=== PATIENT | female | born 1940 | race Caucasian/White ===

== ENCOUNTER → 2017-02-20 | Outpatient (CLI) | payer MEDICARE, SELFPAY | PROVIDERS: Visit Provider Urology | DX: N28.1 Cyst of kidney, acquired (principal) | CPT/HCPCS: 74176 ==

== ENCOUNTER 2017-02-24 12:56 | Outpatient (POV) | payer MEDICARE, SELFPAY | END 2017-02-24 15:38 | disposition home or self-care (01) | PROVIDERS: Family Provider Family Medicine; PCP Family Medicine; Visit Provider Urology | DX: D30.02 Benign neoplasm of left kidney (principal) | CPT/HCPCS: 81002; 99212 ==

== ENCOUNTER 2017-03-03 10:00 | Outpatient (RCR) | payer MEDICARE, SELFPAY | END 2017-03-03 23:59 | LOC: PT 10:00 | PROVIDERS: Visit Provider Family Medicine | DX: M54.5 Low back pain (principal) | CPT/HCPCS: G8978; G8979; G8980; 97010; 97012; 97014; 97035; 97161; G0283 ==

== ENCOUNTER 2017-03-11 09:30 | Outpatient (RCR) | payer MEDICARE, SELFPAY | END 2017-03-11 23:59 | LOC: PT 09:30 | PROVIDERS: Family Provider Nurse Practitioner; PCP Family Medicine; Visit Provider Family Medicine | DX: M54.5 Low back pain (principal) | CPT/HCPCS: 97010; 97012; 97014; 97035; G0283 ==

== ENCOUNTER → 2017-03-23 11:33 | Outpatient (CLI) | payer MEDICARE, SELFPAY | PROVIDERS: PCP Family Medicine; Visit Provider Orthopaedic Surgery | DX: Z01.812 Encounter for preprocedural laboratory examination (principal); Z01.810 Encounter for preprocedural cardiovascular examination; M17.12 Unilateral primary osteoarthritis, left knee | CPT/HCPCS: 93005 ==

== ENCOUNTER → 2017-03-28 11:26 | Outpatient (CLI) | payer MEDICARE, SELFPAY ==
[2017-03-28 13:01] LABS: Basophils # 0.1 K/mm3 (0-0.2); Basophils % 0.9 % (0.1-2.0); Eosinophils # 0.4 K/mm3 (0.0-0.4); Eosinophils % 4.6 % (0.1-12.0); Hematocrit 37.8 % (37.0-47.0); Hemoglobin 11.7 g/dL (12.2-16.2); Lymphocytes # 2.1 K/mm3 (0.7-4.5); Lymphocytes % 26.9 K/mm3 (10-50); Mean Corpuscular HGB Conc 31.1 g/dL (31.8-35.4); Mean Corpuscular Hemoglobin 31.2 pg (27.0-31.2); Mean Corpuscular Volume 100.3 fl (81-99); Mean Platelet Volume 10.9 fl (7.4-10.4); Monocytes # 0.4 K/mm3 (0.1-1.0); Monocytes % 4.9 % (1.7-9.3); Neutrophils # 4.9 K/mm3 (1.8-7.8); Neutrophils % 62.6 % (37.0-80.0); Platelet Count 185 K/mm3 (142-424); Red Blood Count 3.77 M/mm3 (4.20-5.40); Red Cell Distribution Width 13.7 % (11.5-17.5); White Blood Count 7.8 K/mm3 (4.8-10.8)
[2017-03-28 16:39] LABS: Anion Gap 13.4 mEq/L (5-15); Blood Urea Nitrogen 38 mg/dL (7-18); Carbon Dioxide 27 mmol/L (21.0-32.0); Chloride 103 mmol/L (98-107); Creatinine,Serum 1.91 mg/dL (0.55-1.02); Estimated Glomerular Filt Rate 26 ml/min (>60); GFR (African American) 31 ML/MIN (>60); Glucose 88 mg/dL (74-106); Potassium 5.4 mmoL/L (3.5-5.1); Sodium 138 mmol/L (136-145)
== END ==
PROVIDERS: PCP Orthopaedic Surgery; Visit Provider Orthopaedic Surgery
DX: Z01.818 Encounter for other preprocedural examination (principal); M17.12 Unilateral primary osteoarthritis, left knee
CPT/HCPCS: 36415; 80048; 85025; 86850

== ENCOUNTER 2017-03-30 06:07 | Inpatient (IN) | payer MEDICARE, SELFPAY ==
[2017-03-27 13:57] VITALS: BMI 26.9
[2017-03-30] VITALS (23 sets, daily range): BP systolic 100–174; BP diastolic 48–85; PULSE 61–84; RESP 16–20; TEMP 36.3–43; O2SAT 94–99; BMI 28.4
--- NOTE | 2017-03-30 10:38 | HMH.ANESCL ---
[facility] Anesthesia Checklist - Patient Identification Patient Identification: Arm Band - Structural Data Admitted From: Home Planned Operative Procedure/s: left tka Consent for Planned Operative Procedure(s) Verified: Yes Verified Documents: Surgical Consent, History and Physical - NPO Status Verified Time NPO: 00:00 - Additional verifications Anesthesia Reactions: No - Airway Assessment C-Spine Mobility Assessed: Yes TMJ Mobility Assessed: Yes Dentition: Dentures-good fit - Neurological Assessment Level of Consciousness: Awake, Alert - Anesthesia Plan Anesthesia Risk discussed: Yes Anesthesia Plan: Verified ASA Class: III Anesthesia Type: General - Preoperative Comments Pre-Operative Comments: fem/sciatic nerve block [facility] Anesthesia HX I have reviewed the patient's past medical history: Yes Medical History: Reports:: Gastroesophageal Reflux Disease(GERD), Hyperlipidemia, Hypertension Denies:: Cancer, Diabetes Mellitus Type 1, Diabetes Mellitus Type 2, Internal Pacemaker, MRSA, Seizures Other Medical History: Reports: Hypothyroidism, Sinus Problems, Thyroid Disease. Denies: Blood Transfusion Reaction Comment: chronic renal insufficiency- cr. 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 No: Pacemaker Amputation: No Fractures: No *Family Hx:: Cancer, Coronary Artery Disease
--- NOTE | 2017-03-30 10:40 | P.PN_ITS ---
[facility] Anesthesia Record Part I Intake, IV Amount: 1,400 Estimated blood loss (mL): 0 Urine output (mL): 350 Blood Pressure: 129/65 SaO2: 95 Pulse Rate: 68 Respiratory Rate: 16 Temperature: 97.4 F Patient is:: Drowsy, Stable Stable to PACU at:: 10:35
--- NOTE | 2017-03-30 10:41 | P.PN_ITS ---
[facility] Anesthesia Record Part II Discharge Time: 11:05 Destination: 2nd floor PACU nurse assessment reviewed?: Yes Patient Condition:: Good Anesthesia Complications:: None
--- NOTE | 2017-03-30 10:56 | XR_ITS ---
XR knee LT 2V Ordering Physician: Diogenes Henry MD Patient Age: 76 years: Female HISTORY: ITS.REASON: postop xrays 2 views AP and lat left knee Left CESAR a postop images TECHNIQUE: AP and crosstable lateral view left knee COMPARISON :Previous left knee 01/08/2017. FINDINGS Patient is undergone left CTA. The femoral and tibial components appear to be in good position . Patellar component is well. No evidence of fracture nor loosening. . The marginal osteophytes about the knee including patellofemoral joint have been trimmed, and or resected with this procedure Extensive postsurgical changes are seen anteriorly at the knee with this air-fluid level is noted just inferior to patella with air and fluid at at suprapatellar bursa as well. Stippled air from recent surgery is seen extending to the anterior aspect of lower 5 but more evident inferior to the patella extending down to the tibial tubercle. IMPRESSION: Left CESAR a now place. Satisfactory position of components. Postsurgical changes.
[2017-03-30 14:36] LABS: Microscopic,Cath URINE MICROSCOPIC (MICROSCOPIC)
[2017-03-30 14:38] LABS: Appearance,Urine/Cath CLEAR (Clear); Bilirubin,Cath Negative (Negative); Blood, Urine/Cath Negative (Negative); Color,Urine/Cath YELLOW (Yellow); Glucose,Urine/Cath (UA) Negative (Negative); Ketones,Urine/Cath Negative (Negative); Leukocyte Esterase,Cath Negative (Negative); Nitrate,Cath Negative (Negative); PH,Urine/Cath 5.5 (5.0-8.5); Protein,Urine/Cath Negative (Negative); Urobilinogen,Cath 0.2 EU/dl (0.2)
[2017-03-30 15:04] LABS: Bacteria,Urine/Cath TRACE /lpf; RBC,Urine/Cath Occasional # /hpf (0-3)
[2017-03-30 19:09] LABS: Microscopic, Urine URINE MICROSCOPIC (MICROSCOPIC)
[2017-03-30 20:24] LABS: Appearance,Urine CLEAR (Clear); Bilirubin,Urine Negative (Negative); Blood, Urine Negative (Negative); Color,Urine YELLOW (Yellow); Glucose,Urine (UA) Negative (Negative); Ketones,Urine Negative (Negative); Leukocyte Esterase,Urine Negative (Negative); Nitrate,Urine Negative (Negative); Protein,Urine TRACE (Negative); Specific Gravity, Urine 1.015 (1.005-1.030); Urobilinogen,Urine 0.2 EU/dl (0.2)
[2017-03-30 21:21] LABS: Bacteria,Urine Trace /lpf; Hyaline Casts,Urine Occasional #/lpf (0); Mucus,Urine Trace /lpf
--- NOTE | 2017-03-30 22:14 | PC.NURSE ---
[place] to chart vitals where they need to be . BP 139/51 PULSE 77 TEMP 98.3 RESP 18 O2 98
--- NOTE | 2017-03-31 05:14 | PC.NURSE ---
LAYING IN BED RESTING AT THIS TIME. HAS NOT COMPLAINED OF ANY PAIN ALL SHIFT.HAS HAD 8MG OF MORPHINE ON INSPECTOR SHEET METAL PARTS. PAIN IS CONTROLLED. NO EDEMA NOTED, PULSES STRONG. ICE APPLIED, ELEVATED. HAS USED INSENTIVE SPIROMETER. LUNGS ARE CLEAR. RESP EVEN AND NONLABORED. IV IS PATENT. HAS NO NEEDS AT THIS TIME. WILL CONTINUE TO MONITOR. BED LOCKED IN LOW POSITION, SIDE RALES UP X 2, CALL LIGHT WITHIN REACH.
--- NOTE | 2017-03-31 06:55 | PC.NURSE ---
8 MG OF MORPHINE ADMINISTERED VIA FAVOR MAKER THIS SHIFT. CURRENT PAIN LEVEL 0
[2017-03-31 07:25] LABS: Basophils % 0.1 % (0.1-2.0); Eosinophils % 0.1 % (0.1-12.0); Hematocrit 28.5 % (37.0-47.0); Hemoglobin 8.9 g/dL (12.2-16.2); Lymphocytes # 2.1 K/mm3 (0.7-4.5); Lymphocytes % 17.5 K/mm3 (10-50); Mean Corpuscular HGB Conc 31.4 g/dL (31.8-35.4); Mean Corpuscular Hemoglobin 31.8 pg (27.0-31.2); Mean Corpuscular Volume 101.4 fl (81-99); Mean Platelet Volume 10.6 fl (7.4-10.4); Monocytes # 0.8 K/mm3 (0.1-1.0); Monocytes % 6.2 % (1.7-9.3); Neutrophils # 9.3 K/mm3 (1.8-7.8); Neutrophils % 76.1 % (37.0-80.0); Platelet Count 150 K/mm3 (142-424); Red Blood Count 2.81 M/mm3 (4.20-5.40); Red Cell Distribution Width 14.1 % (11.5-17.5); White Blood Count 12.3 K/mm3 (4.8-10.8)
[2017-03-31 07:28] LABS: Anion Gap 10.7 mEq/L (5-15); Blood Urea Nitrogen 36 mg/dL (7-18); Carbon Dioxide 26 mmol/L (21.0-32.0); Chloride 111 mmol/L (98-107); Creatinine Clearance Estimated 34 mL/min (0-300); Creatinine,Serum 1.73 mg/dL (0.55-1.02); Estimated Glomerular Filt Rate 29 ml/min (>60); GFR (African American) 35 ML/MIN (>60); Glucose 110 mg/dL (74-106); Potassium 5.7 mmoL/L (3.5-5.1); Sodium 142 mmol/L (136-145)
--- NOTE | 2017-03-31 08:52 | PC.NURSE ---
154/67 75 pulse 98.1 temp 20 resp 99 room air
--- NOTE | 2017-03-31 09:15 | HMH.ORTHPN ---
Subjective Date: 03/31/17 Time: 09:15 PN: Obj Ex Vital signs: Temp Pulse Resp BP Pulse Ox 98.6 F 80 20 126/77 97 03/30/17 18:10 03/30/17 18:10 03/30/17 18:10 03/30/17 18:10 03/30/17 21:12 Narrative: POD #1 s/p L TKA. this note is regenerated on 14 Jul 2017 and may not include all details. Wound dressing clean and dry. NV status grossly intact. VSS. Labs within appropriate limits. Post op x-rays appropriate. - Constitutional no acute distress - Urinary Catheter Management Silver Cath placed during this visit: yes Urethral indwelling: Yes Reason for continuing: Other continuation reason Insertion date: 03/30/17 Insertion time: 07:34 Progress Note: A&P Assessment and Plan for All Diagnoses:: WBAT PT To see
--- NOTE | 2017-03-31 10:05 | SUR.OPER ---
The patient was taken to the operating room and placed in the supine position. A general anesthetic had been administered as well as a femoral sciatic block. The left knee was prepped and draped in the usual sterile fashion. The patient had used Hibiclens for 5 days prior as well as Bactroban intranasally. The entire operative team wore isolation suits and the knee was flexed and extended during the prep to ensure the chlorhexidine penetrated into various skin folds. The operative site was marked and sealed with Ioban. The limb was exsanguinated and a midline incision made. Hemostasis was achieved. Tranexamic acid was administered. A medial parapatellar approach was utilized. The patella was everted and a rongeur used to remove prominent osteophytes. The ACL was removed as well as the anterior aspects of both menisci. The entry point approximately 1 cm above the notch and at the medial aspect was selected and an entry drill used along the axis of the femur. The intramedullary femoral alignment guide was placed followed by placement of the distal cutting block. A 5? valgus cut with no additional femur resection was made. Then sized this at a size 4 and pinned and placed the 4-in-1 cutting block. We then protected soft tissue structures and using a [employer] precision saw, made the anterior, posterior, and both chamfer cuts. We removed the block and check for trueness. We then placed the extra medullary tibial guide aligned it appropriately and again, protecting tissues, resected the tibia proximally. We sized this checked for trueness of fit as well. We then milled for the patella, sizing it 8829 mm patella button, central peg. Excess bone was removed and we used pulsatile lavage and then placed the trial femur and trial tibia with a 9 mm insert. This allowed the need to be brought into full extension easily but yet showed a very stable varus and valgus stress test at full extension, 30?, and 90? of flexion. We decided on this is final implants for sizing. The patella tracked nicely. We irrigated again, injected the bone with 2 g of Ancef including the intramedullary canal, plug the intramedullary canal of the femur with a bone plug prior to cementing, and cemented the Eastman nephWitgetnaire system components. The tibia was cemented using methylmethacrylate without antibiotic. The femur was then cemented. A 9 mm trial component tibial polyethylene was placed and the knee brought into extension while this cement hardened. We cemented the patella as well and clamped it. Excess cement was removed and we checked for stability and patella tracking. I should mention that the femur was a size 4 narrow and slightly lateralized to improve patella tracking and the patella was slightly medialized again, to improve patella tracking. After the components were seated and the cement excess removed. We placed dilute Betadine into the wound and allowed it to sit for 3 minutes. We then irrigated with pulsatile lavage to remove the Betadine and began closure. #1 Vicryl [id number]-vm-pebkw sutures were used for the extensor mechanism with a running segment proximally and distally in the [id number]-rm-mycvp shoes in the central area of high stress. 2-0 Vicryl was utilized for the subcutaneous sutures and 4-0 Monocryl subcuticular sutures used for the skin. DermaBond and Steri-Strips completed the closure and dressings were applied. The patient was awakened and transported to the recovery room in satisfactory condition
--- NOTE | 2017-03-31 10:20 | HMH.PTEV ---
Physical Therapy Evaluation Rehab PT IP Evaluation Start: 03/30/17 11:10 Freq: ONCE Status: Active Protocol: Document 03/31/17 09:25 PHORNE (Rec: 03/31/17 10:20 PHORNE [id number]) Subjective/History History History 76 yof adm to [facility] wit left knee OA, now S/P left TKA. PMH : Right TKA Subjective Subjective Pt c/o pain and numbness in the left knee this am. Rehab PT IP Eval Objective Appearance Patient Behavior Appropriate Patient Orientation Person Place Time Difficulty following instructions none Speech Pattern Clear Appropriate Ambulation Patient Able to Ambulate No Balance Ability to Arise Able, uses arms to help Sitting Balance Steady, safe Standing Balance Steady, wide stance Dynamic Sitting Balance Ability Good Dynamic Standing Balance Ability Fair Transfers Bed Transfer Ability Minimal x 1 (25% assist) Chair Transfer Ability Moderate x 1 (50% assist) Sit to Stand Bed Transfer Ability Moderate x 1 (50% assist) Sit to Stand Chair Transfer Ability Moderate x 1 (50% assist) Pain Left Knee Pain Intensity 5 ROM LLE PT ROM Status ABN Abnormal ROM Comment 5-75 left knee ext/flex MMT LLE PT MMT ABN Abnormal MMT Grade grossly 3/5 knee flex/ext 1/5 Rehab PT IP prob,goals,plan Problems Date of Evaluation: 03/31/17 PT IP Problems Bed Mobility Transfers Gait Rehab Potential Rehab Potential Good Equipment Needs Assistive Devices Rolling / Wheeled Walker Plan PT Intervention Plan Bed Mobility Transfers Gait Therapeutic Exercise PT Plan Frequency BID Duration LOS Discharge Goals Bed Transfer Ability Contact Guard/Hand Hold Sit to Stand Chair Transfer Ability Minimal x 1 (25% assist) Ambulation Assistive Device Rolling Walker Ambulation Distance (feet) 20 Discharge Plan PT Discharge Plan Pt is most appropriate for rehab placement once medically stable. G -code Required Yes Eval Complexity Eval Charge Codes 30796 - Moderate Complexity G Codes PT Current Status Mobility PT Current Status Modifier CK-At least 40% but less than
--- NOTE | 2017-03-31 11:42 | SW/DCPLANNER ---
RECEIVED REFERRAL FOR INFORMATION TO BE SENT TO MOE TROY IS HERE AT THE HOSPITAL AND SHE STATED MS NICOLE HAS A BED THERE WHEN READY FOR A DISPOSITION... IT APPEARS SHE WILL BE READY ON ...
--- NOTE | 2017-03-31 12:04 | PC.NURSE ---
133/70 69 pulse 98.0 18 resp 99 room air 1200 vitals
--- NOTE | 2017-03-31 12:07 | HMH.ORTHPN ---
Subjective Date: 03/31/17 Time: 10:00 Principal diagnosis: Postop day 1 status post left total knee arthroplasty Interval history: POD #1..... Patient is awake, alert, states she is in no pain. She is seated in a chair. Noticing that her femoral/sciatic block is wearing off. She is able to move from an ankle but has decreased sensation which is improving. Dressing is clean and dry with no seepage. Patient has left lower extremity near full extension. Vital signs are stable. Hematocrit 28%. Potassium 5.7. Creatinine 1.73. Postoperative x-rays show components to be in good position with no evident intraoperative complications Patient is stable postoperatively. She is received her postop 3 doses of Ancef. No evident surgical complications are present. Plan--continue physical therapy. Edema control therapy. Elevate foot to assist in straightening the left knee. Dressing soria tomorrow PN: Obj Ex Vital signs: Temp Pulse Resp BP Pulse Ox 98.6 F 80 20 126/77 97 03/30/17 18:10 03/30/17 18:10 03/30/17 18:10 03/30/17 18:10 03/30/17 21:12 - Urinary Catheter Management Silver Cath placed during this visit: yes, but has since been removed by the nurse Insertion date: 03/30/17 Insertion time: 07:34 Removal date: 03/31/17
--- NOTE | 2017-03-31 12:38 | HMH.OPNOTE ---
Date of procedure: 03/30/17 Pre-op Diagnosis:: Knee tricompartmental osteoarthritis, end stage Post-op diagnosis:: same Procedure performed:: Left total knee arthroplasty with Eastman nephew legionnaire components.. Cemented femur and tibial baseplate, cruciate retaining system. Size 4 narrow CR femur, tibial baseplate and 9 mm thick polyethylene insert, 29 mm patella button Surgeon:: Diogenes Henry MD BRAND LEADER:: Other Anesthesia: GETA, regional, other Estimated blood loss (mL): 2 Operative findings:: The patient was taken to the operating room, placed in the supine position. A general anesthetic was administered. A femoral sciatic block had been administered previously. Pre operative Ancef was given and tranexamic acid given as well. The left knee was prepped and draped in the usual sterile fashion. The patient had used Hibiclens and Bactroban for 5 days prior to the surgery. The entire operative team wore isolation suits the knee was flexed and extended during the prep to ensure the chlorhexidine penetrated into skin folds. The operative site was marked and sealed with Ioban. The limb was exsanguinated and a midline incision made (see the nurses note for the tourniquet time. Pressure was 325 mmHg). A medial parapatellar approach was utilized. The patella was everted and a rongeur used to remove prominent osteophytes. The ACL was removed as well as the anterior aspects of both menisci. An entry point approximately 1 cm anterior to the notch and at the anterior aspect of the notch was selected and an entry drill used along the axis of the femur. The intramedullary femoral alignment guide was placed followed by placement of the distal cutting block. A 5? valgus cut with no additional femur resection was made. Following the cut, we noticed the vdkdai-pw-lpszc pattern at the distal end of the femur. We sized this at a size [address] the 4-in-1 cutting block. While protecting the soft tissues and using a [employer] precision saw, we made the anterior, posterior, and chamfer cuts. We removed the block for appropriateness of the cut. We then placed the extra medullary tibial guide aligned it appropriately and checked it again, and once again protecting tissues, resected the proximal tibia. We again checked for flatness of fit and appropriateness. We then milled the patella sizing it at a 29 mm patella button, central peg. Excess bone was removed and we used pulsatile lavage and checked for any remaining bits and pieces of loose tissue. We resected the remainder of the menisci and checked the posterior cruciate ligament to ensure it was in good condition. We then used the trial components to ensure that these fit appropriately and that the knee was stable. He was found to be stable to varus and valgus stress. It could easily be brought to full extension and flexion to around 125?. No rocking or tilting of the baseplate was noted and we confirmed that the posterior cruciate ligament tension was correct. The patella tracked appropriately. We irrigated again and injected the bone with 2 g of Ancef including the intramedullary canal the femur. We then plug the canal of the femur with a bone plug prior to cementing and mixed methylmethacrylate without antibiotic. We cemented the AgentBridgenaire system components as appropriate removed excess cement. A 9 mm trial polyethylene was placed and the knee brought into full extension while the patella button was placed and clamped. Once the cement dried, we checked again for stability. I should mention that the femur was a size 4 narrow and slightly lateralized to improve patella tracking. The patella was slightly medialized again to improve patella tracking and the tibial baseplate slightly externally rotated. We placed dilute Betadine into the wound and allowed it to sit for 3 minutes. We then irrigated with pulsatile lavage to remove the Betadine and began closure. #1 Vicryl figure-of-
--- NOTE | 2017-03-31 12:50 | P.OP_ITS ---
Date of procedure: 03/30/17 Pre-op Diagnosis:: Knee tricompartmental osteoarthritis, end stage Post-op diagnosis:: same Procedure performed:: Left total knee arthroplasty with Eastman nephew legionnaire components.. Cemented femur and tibial baseplate, cruciate retaining system. Size 4 narrow CR femur, tibial baseplate and 9 mm thick polyethylene insert, 29 mm patella button Surgeon:: Diogenes Henry MD RECRUITMENT ADVERTISING MANAGER:: Other Anesthesia: GETA, regional, other Estimated blood loss (mL): 2 Operative findings:: The patient was taken to the operating room, placed in the supine position. A general anesthetic was administered. A femoral sciatic block had been administered previously. Pre operative Ancef was given and tranexamic acid given as well. The left knee was prepped and draped in the usual sterile fashion. The patient had used Hibiclens and Bactroban for 5 days prior to the surgery. The entire operative team wore isolation suits the knee was flexed and extended during the prep to ensure the chlorhexidine penetrated into skin folds. The operative site was marked and sealed with Ioban. The limb was exsanguinated and a midline incision made (see the nurses note for the tourniquet time. Pressure was 325 mmHg). A medial parapatellar approach was utilized. The patella was everted and a rongeur used to remove prominent osteophytes. The ACL was removed as well as the anterior aspects of both menisci. An entry point approximately 1 cm anterior to the notch and at the anterior aspect of the notch was selected and an entry drill used along the axis of the femur. The intramedullary femoral alignment guide was placed followed by placement of the distal cutting block. A 5? valgus cut with no additional femur resection was made. Following the cut, we noticed the figure- of-eight pattern at the distal end of the femur. We sized this at a size [address] the 4-in-1 cutting block. While protecting the soft tissues and using a [employer] precision saw, we made the anterior, posterior, and chamfer cuts. We removed the block for appropriateness of the cut. We then placed the extra medullary tibial guide aligned it appropriately and checked it again, and once again protecting tissues, resected the proximal tibia. We again checked for flatness of fit and appropriateness. We then milled the patella sizing it at a 29 mm patella button, central peg. Excess bone was removed and we used pulsatile lavage and checked for any remaining bits and pieces of loose tissue. We resected the remainder of the menisci and checked the posterior cruciate ligament to ensure it was in good condition. We then used the trial components to ensure that these fit appropriately and that the knee was stable. He was found to be stable to varus and valgus stress. It could easily be brought to full extension and flexion to around 125?. No rocking or tilting of the baseplate was noted and we confirmed that the posterior cruciate ligament tension was correct. The patella tracked appropriately. We irrigated again and injected the bone with 2 g of Ancef including the intramedullary canal the femur. We then plug the canal of the femur with a bone plug prior to cementing and mixed methylmethacrylate without antibiotic. We cemented the Health 123naire system components as appropriate removed excess cement. A 9 mm trial polyethylene was placed and the knee brought into full extension while the patella button was placed and clamped. Once the cement dried, we checked again for stability. I should mention that the femur was a size 4 narrow and slightly lateralized to improve patella tracking. The patella was slightly medialized again to improve patella tracking and the tibial ba
--- NOTE | 2017-03-31 13:36 | PC.NURSE ---
report called into anatoliy in OB
--- NOTE | 2017-03-31 13:45 | PC.NURSE ---
Pt to floor at this time, room 279 A&O X3 with no s/s distress.
--- NOTE | 2017-03-31 14:12 | PC.NURSE ---
Report given to Lucy Garces RN
--- NOTE | 2017-03-31 14:13 | PC.NURSE ---
Addendum entered by Vicky Vargas RN 03/31/17 14:15: This was a late entry. Report received at 1336. Original Note: Report received from Lucy Kraus RN at this time. Pt A&O X3 and will be coming to the floor at this time.
[2017-03-31 14:30] VITALS: BP 157/74; PULSE 65; RESP 16; TEMP 36.8; O2SAT 99
--- NOTE | 2017-03-31 16:12 | PC.NURSE ---
PATIENT IS OVERFLOW FROM SECOND FLOOR. POST OP DAY 1 FROM A LEFT TOTAL KNEE REPLACEMENT. DSG NOTED TO LEFT KNEE C/D/I. ICE PACK APPLIED AT THIS TIME. LUNGS CTA AND ACTIVE BOWEL SOUNDS. PT. REPORTS PASSING FLATUS BUT NO BM YET. PT. HAS RESTED MOSTLY SINCE SHE HAS BEEN HERE. TENT FINISHER PUMP IN USE AND PT. EDUCATED ON USE. ENCOURAGED PT. TO PUSH BUTTON SO PAIN WOULD NOT GET TOO BAD. PT. HAS BEEN UP WITH THERAPY THIS AFTERNOON. NOTED PTS BP TO BE SLIGHTLY ELEVATED- WILL CONTINUE TO MONITOR THIS. FC WAS D/C THIS AFTERNOON WELL. PT. RESTING AT THIS TIME. SAFETY MEASURES IN PLACE. WILL CONTINUE TO MONITOR.
[2017-03-31 18:30] VITALS: BP 159/80; PULSE 71; RESP 16; TEMP 36.3; O2SAT 99
--- NOTE | 2017-03-31 18:52 | PC.NURSE ---
16MG OF MORPHINE CLEARED THIS SHIFT BY THIS NURSE FROM METAL MODEL BUILDER PUMP
--- NOTE | 2017-03-31 19:05 | PC.NURSE ---
report received from Jania Garces RN
--- NOTE | 2017-03-31 19:24 | PC.NURSE ---
REPORT GIVEN TO ARIE MAGALLON RN AT THIS TIME
--- NOTE | 2017-03-31 19:38 | PC.NURSE ---
1.5MG CLEARED FROM PHOTOGRAPHIC SPOTTER AT THIS TIME. NEW MORPHINE VIAL PLACED AT THIS TIME. VERIFIED WITH ANDI CLARK
[2017-03-31 20:30] VITALS: BP 182/85; PULSE 88; RESP 18; TEMP 36.7; O2SAT 98
[2017-03-31 22:30] VITALS: BP 168/71; PULSE 81; RESP 15; O2SAT 96
[2017-04-01] VITALS (11 sets, daily range): BP systolic 149–197; BP diastolic 70–92; PULSE 66–84; RESP 14–18; TEMP 36.7–37; O2SAT 93–98
--- NOTE | 2017-04-01 00:56 | PC.NURSE ---
Dr Lowe notified at this time d/t increased b/p. new orders received to repeat b/p in one hour if remains above SBP 180 give clonidine 0.1mg po x 1 dose. order repeated and verified
--- NOTE | 2017-04-01 02:00 | PC.NURSE ---
Bp repeated at this time bp 166/92 no clonidine given at this time will continue to monitor
--- NOTE | 2017-04-01 04:15 | PC.NURSE ---
Pt resting comfortably at this time. pt alert and oriented x 3 and able to make needs known. no new complaints of pain or discomfort at this time. pt states pain has remained at a 5/10. pt encouraged to use PRODUCT MANAGER [employer] pump when needed pt verbalizes understanding. pts lungs clear to auscultate. no sob noted. heart rate regular. bs x4 quads. nonpitting edema noted to left foot +2 pedal pulses noted. dressing clean dry and intact to right knee. no complaints voiced at this time no distress noted will continue to monitor at this time
--- NOTE | 2017-04-01 06:34 | PC.NURSE ---
11 mg of morphine GEOTECHNICIAL PROPERTIES TECHNICIAN administered this shift.
--- NOTE | 2017-04-01 07:06 | PC.NURSE ---
REPORT RECEIVED FROM Lisa MAGALLON RN
--- NOTE | 2017-04-01 07:06 | PC.NURSE ---
Report given to Jania Rogers RN and Christine Vargas RN
--- NOTE | 2017-04-01 11:00 | PC.NURSE ---
PT GIVEN BED BATH. PT MOVED FROM BED TO CHAIR WITH 2 ASSISTS AND SUPPORT OF WALKER - DID NOT BEAR ANY WEIGHT ON L LEG. DRESSING REMAINS INTACT - NO DRAINAGE NOTED ON DRESSING. SWELLING NOTED TO L FOOT AND ANKLE 1+ NON-PITTING. PT STATES PO PAIN MEDS HELPING SIGNIFICANTLY BUT NEEDED MORPHINE MARKETING SUPPORT COORDINATOR X1 AFTER MOVING AND GETTING OUT OF BED. L LEG ELEVATED ON PILLOWS. AT BEDSIDE. LINENS ON BED ALL CHANGED.
--- NOTE | 2017-04-01 11:59 | PC.NURSE ---
PHYSICAL THERAPY AT BEDSIDE WORKING WITH PT AT THIS TIME.
--- NOTE | 2017-04-01 13:08 | PC.NURSE ---
PT RESTING COMFORTABLY. DENIES ANY COMPLAINTS. STATES PAIN VERY TOLERABLE NOW - STATING SHE WANTS TO TAKE A NAP.
--- NOTE | 2017-04-01 13:10 | HMH.ORTHPN ---
Subjective Date: 04/01/17 Time: 11:00 Principal diagnosis: Postop day 2 status post left total knee arthroplasty Interval history: She reports minimal pain. She has been up very little with physical therapy though. She has been moved to a different room per the nursing staff. I was aware of this this morning when checking nursing notes. Dressing is changed today. The wound is absolutely clean and dry with 0 drainage whatsoever on the dressing. She is intact neurologically to light touch both lower extremities and moves ankles and toes bilaterally without any problems. She is able to achieve near full extension of the left knee. She is tolerating her medications well. She is taking ASA 325 mg once daily as DVT prophylaxis and using SCDs on the contralateral leg IMPRESSION stable postop day #2 PLAN--increase ambulation with physical therapy. Dressing is been changed today already. Continue daily ASA. Blood pressure medication management per Dr. Molina as well as any other medical issues that he feels is appropriate. From an orthopaedic standpoint, the patient could likely be discharged to [facility] tomorrow. PN: Obj Ex Vital signs: Temp Pulse Resp BP Pulse Ox 98.2 F 70 14 162/73 97 04/01/17 12:35 04/01/17 12:35 04/01/17 12:35 04/01/17 12:35 04/01/17 12:35 - Urinary Catheter Management Silver Cath placed during this visit: yes, but has since been removed by the nurse Insertion date: 03/30/17 Insertion time: 07:34 Removal date: 03/31/17
--- NOTE | 2017-04-01 13:16 | P.PN_ITS ---
Subjective Date: 04/01/17 Time: 11:00 Principal diagnosis: Postop day 2 status post left total knee arthroplasty Interval history: She reports minimal pain. She has been up very little with physical therapy though. She has been moved to a different room per the nursing staff. I was aware of this this morning when checking nursing notes. Dressing is changed today. The wound is absolutely clean and dry with 0 drainage whatsoever on the dressing. She is intact neurologically to light touch both lower extremities and moves ankles and toes bilaterally without any problems. She is able to achieve near full extension of the left knee. She is tolerating her medications well. She is taking ASA 325 mg once daily as DVT prophylaxis and using SCDs on the contralateral leg IMPRESSION stable postop day #2 PLAN--increase ambulation with physical therapy. Dressing is been changed today already. Continue daily ASA. Blood pressure medication management per Dr. Molina as well as any other medical issues that he feels is appropriate. From an orthopaedic standpoint, the patient could likely be discharged to [facility] tomorrow. PN: Obj Ex Vital signs: Temp Pulse Resp BP Pulse Ox 98.2 F 70 14 162/73 97 04/01/17 12:35 04/01/17 12:35 04/01/17 12:35 04/01/17 12:35 04/01/17 12:35 - Urinary Catheter Management Silver Cath placed during this visit: yes, but has since been removed by the nurse Insertion date: 03/30/17 Insertion time: 07:34 Removal date: 03/31/17
--- NOTE | 2017-04-01 16:20 | PC.NURSE ---
PT SITTING UP IN BED - ALERT AND ORIENTED, NOT SLEEPY APPEARING. PT NO LONGER FALLING ASLEEP DURING ASSESSMENTS AND CHECKS. PT STATES THE PO PAIN MEDICATION IS HELPING SIGNIFICANTLY AND HAS NOT USED MORPHINE BELT CHANGER DURING THE DAY EXCEPT ONCE AFTER GETTING OUT OF BED. EDEMA IN L FOOT NEARLY GONE. GOOD PULSES ALL EXTREMETIES. COLOR PINK WITH SKIN WARM AND DRY.
--- NOTE | 2017-04-01 19:05 | PC.NURSE ---
Report received from Jania Rogers RN
--- NOTE | 2017-04-01 19:20 | PC.NURSE ---
OFFICE SERVICES COORDINATOR CLEARED - PT USED TOTAL 2 MG MORPHINE SINCE 7AM.
--- NOTE | 2017-04-01 19:21 | PC.NURSE ---
REPORT GIVEN TO Ainsley MAGALLON RN
--- NOTE | 2017-04-01 20:00 | PC.NURSE ---
PT sitting up in chair in room with knee elevated. pt alert and oriented x 3, pt requested to go back to bed. pt ambulated well in room with walker with standby assist only. pt rated pain 6/10 on pain scale after ambulation no distress noted at this time. pt refused scds and ice to left knee at this time. will continue to monitor at this time
[2017-04-02 00:38] VITALS: BP 165/83; PULSE 70; RESP 18; O2SAT 96
[2017-04-02 04:30] VITALS: BP 167/81; PULSE 76; RESP 17; TEMP 36.7; O2SAT 96
--- NOTE | 2017-04-02 04:30 | PC.NURSE ---
PT lying in bed at this time with eyes open. pt alert and oriented x 3. pt c/o pain 5/10 on pain scale sharp in nature to left knee. prn pain medication given. lungs clear to auscultate, heart rate regular, bs x 4 quads pt states she is passing gas. +1 edema noted to LLE drsg to left knee clean dry and intact. pt has not used FRONT MAKER LOCKSTITCH pump throughout shift pain has been managed with just po pain medication. ice water provided no other needs voiced at this time will continue to monitor.
--- NOTE | 2017-04-02 07:02 | PC.NURSE ---
Report given to Jania Rogers RN and Memo Horan RN
--- NOTE | 2017-04-02 07:05 | PC.NURSE ---
REPORT RECEIVED FROM Ainsley MAGALLON RN
--- NOTE | 2017-04-02 07:20 | PC.NURSE ---
PT SLEEPING - WAKENS EASILY - DR VINCENT IN AT BEDSIDE.
[2017-04-02 07:54] VITALS: O2SAT 95
[2017-04-02 07:55] VITALS: BP 170/82; PULSE 72; RESP 16; TEMP 36.7; O2SAT 95
--- NOTE | 2017-04-02 09:01 | HMH.DCTXFX ---
Discharge/Transfer - Discharge Disposition: Xfer SNF Condition: Good - Plan of Care Resident has been informed of condition and prognosis?: Yes Mobility Status: ambulatory with assistance Goal of treatment:: Rehab s/p L TKA Rehab Potential: Good I concur with the most recent H & P: Yes Date of most recent H & P: 03/26/17 (approximately) Certification: I have reviewed and agree with this resident's plan of care. I certify that post-hospital assisted facility services are required to be given on an inpatient basis because of the need for assisted care on a continuing basis for the condition(s) for which he/she is receiving inpatient hospital services prior to admission to swing bed. I also certify that the resident meets existing SNF level of care definition.
--- NOTE | 2017-04-02 09:05 | P.SWB_ITS ---
Discharge/Transfer - Discharge Disposition: Xfer SNF Condition: Good - Plan of Care Resident has been informed of condition and prognosis?: Yes Mobility Status: ambulatory with assistance Goal of treatment:: Rehab s/p L TKA Rehab Potential: Good I concur with the most recent H & P: Yes Date of most recent H & P: 03/26/17 (approximately) Certification: I have reviewed and agree with this resident's plan of care. I certify that post -hospital detention facility services are required to be given on an inpatient basis because of the need for detention care on a continuing basis for the condition(s) for which he/she is receiving inpatient hospital services prior to admission to swing bed. I also certify that the resident meets existing SNF level of care definition.
--- NOTE | 2017-04-02 09:07 | HMH.DCSUM ---
General - General Admission date: 03/30/17 Discharge date: 04/02/17 HPI HPI: This 76-year-old female was admitted on 30 March and underwent an uncomplicated left total knee arthroplasty. Her postop course was uneventful. She progressed to a clean and dry wound by the second postoperative day. At time of discharge, she was partaking of a regular diet and was well-controlled on oral analgesics consisting of Lortab 5/325 every 4-6 hours as needed for pain. She was tolerating ASA 325 mg once daily for DVT prophylaxis. She was ambulating with physical therapy. Her neurovascular status in both lower extremities was intact. Pedal pulses were 2+ and she was fully sensate. At time of discharge her wound was again found to be clean and dry. No evidence of cellulitis infection drainage or other postoperative complications were present. The patient had a negative Homans sign and no clinical evidence of deep vein thrombosis was present. Objective Vital signs: Temp Pulse Resp BP Pulse Ox 98.1 F 76 17 167/81 95 04/02/17 04:30 04/02/17 04:30 04/02/17 04:30 04/02/17 04:30 04/02/17 07:54 Narrative: As noted in the HPI, wound was clean and dry the patient was neurologically intact. Lung arriaga were clear to auscultation. No evidence of postoperative pneumonia or other complications were noted. DS: Diagnosis - Discharge Diagnosis (1) History of total knee arthroplasty Status: Acute Meds Home Medications Medication Instructions Recorded Confirmed Type allopurinol 100 mg tablet 100 mg PO DAILY 03/12/17 03/30/17 History aspirin 81 mg tablet,delayed 81 mg PO DAILY 03/12/17 03/30/17 History release coenzyme Q10 200 mg capsule 200 mg PO DAILY 03/12/17 03/30/17 History esomeprazole magnesium 40 mg 40 mg PO QDAY cap 03/12/17 03/30/17 History capsule,delayed release fluoxetine 10 mg capsule 10 mg PO DAILY 03/12/17 03/30/17 History levocetirizine 5 mg tablet 5 mg PO QHS 03/12/17 03/30/17 History levothyroxine 100 mcg tablet 100 mcg PO DAILY tab 03/12/17 03/30/17 History metoprolol succinate ER 50 mg 50 mg PO BID tab 03/12/17 03/30/17 History tablet,extended release 24 hr omega-3 fatty acids 1,000 mg 1,000 mg PO DAILY 03/12/17 03/30/17 History capsule tramadol ER 300 mg tablet,extended 300 mg PO DAILY 03/12/17 03/30/17 History release 24 hr Lisinopril/Hydrochlorothiazide 12.5 - 20 mg PO BID 03/27/17 03/30/17 History [Lisinopril-Hctz 20-12.5 mg Tab] Hydrocodone/Acetaminophen 7.5 - 325 mg PO Q6HP PRN 03/30/17 03/30/17 History [Hydrocodon-Acetaminoph 7.5-325] Allergies Allergy/AdvReac Type Severity Reaction Status Date / Time adhesive tape Allergy Unknown I-RASH Verified 03/30/17 06:40 codeine Allergy Unknown HYPERACTIVE Verified 03/30/17 06:40 PT. DOES NOT LIKE TO TAKE Pdkgakt-Imi-Voe Reductase AdvReac Body Verified 03/12/17 09:14 Inhibitor Stiffness Discharge Plan - Patient Discharge Instructions ACTIVITY: Continue current activity, Ambulate as tolerated, No heavy lifting, Up with assistance DIET: advance to your usual diet, regular diet Additional Instructions: Emphasize left leg extension by having patient place a pillow underneath the ankle of the left leg several times a day. This will elevate the knee and allow her knee to straighten. Also, please limit flexion of the left knee to 90? for the first 10 days postoperatively. After 10 days postoperatively, she may advance flexion of the left knee as able. The patient has a Polar Care unit and from an orthopedic standpoint, it is appropriate for her to use this or similar unit as needed for comfort as needed. She may take a shower beginning on to April 2017. It is appropriate for the shower water to run over the operative wound site. She should not soak in a bathtub for at least 2 weeks. He is call me at [phone] or have the hospital lens grinding machine operator to page me for any questions. - Follow up P
--- NOTE | 2017-04-02 09:23 | P.DS_ITS ---
General - General Admission date: 03/30/17 Discharge date: 04/02/17 HPI HPI: This 76-year-old female was admitted on 30 March and underwent an uncomplicated left total knee arthroplasty. Her postop course was uneventful. She progressed to a clean and dry wound by the second postoperative day. At time of discharge, she was partaking of a regular diet and was well-controlled on oral analgesics consisting of Lortab 5/325 every 4-6 hours as needed for pain. She was tolerating ASA 325 mg once daily for DVT prophylaxis. She was ambulating with physical therapy. Her neurovascular status in both lower extremities was intact. Pedal pulses were 2+ and she was fully sensate. At time of discharge her wound was again found to be clean and dry. No evidence of cellulitis infection drainage or other postoperative complications were present. The patient had a negative Homans sign and no clinical evidence of deep vein thrombosis was present. Objective Vital signs: Temp Pulse Resp BP Pulse Ox 98.1 F 76 17 167/81 95 04/02/17 04:30 04/02/17 04:30 04/02/17 04:30 04/02/17 04:30 04/02/17 07:54 Narrative: As noted in the HPI, wound was clean and dry the patient was neurologically intact. Lung arriaga were clear to auscultation. No evidence of postoperative pneumonia or other complications were noted. DS: Diagnosis - Discharge Diagnosis (1) History of total knee arthroplasty Status: Acute Meds Home Medications Medication Instructions Recorded Confirmed Type allopurinol 100 mg tablet 100 mg PO DAILY 03/12/17 03/30/17 History aspirin 81 mg tablet,delayed 81 mg PO DAILY 03/12/17 03/30/17 History release coenzyme Q10 200 mg capsule 200 mg PO DAILY 03/12/17 03/30/17 History esomeprazole magnesium 40 mg 40 mg PO QDAY cap 03/12/17 03/30/17 History capsule,delayed release fluoxetine 10 mg capsule 10 mg PO DAILY 03/12/17 03/30/17 History levocetirizine 5 mg tablet 5 mg PO QHS 03/12/17 03/30/17 History levothyroxine 100 mcg tablet 100 mcg PO DAILY tab 03/12/17 03/30/17 History metoprolol succinate ER 50 mg 50 mg PO BID tab 03/12/17 03/30/17 History tablet,extended release 24 hr omega-3 fatty acids 1,000 mg 1,000 mg PO DAILY 03/12/17 03/30/17 History capsule tramadol ER 300 mg tablet,extended 300 mg PO DAILY 03/12/17 03/30/17 History release 24 hr Lisinopril/Hydrochlorothiazide 12.5 - 20 mg PO BID 03/27/17 03/30/17 History [Lisinopril-Hctz 20-12.5 mg Tab] Hydrocodone/Acetaminophen 7.5 - 325 mg PO Q6HP PRN 03/30/17 03/30/17 History [Hydrocodon-Acetaminoph 7.5-325] Allergies Allergy/AdvReac Type Severity Reaction Status Date / Time adhesive tape Allergy Unknown I-RASH Verified 03/30/17 06:40 codeine Allergy Unknown HYPERACTIVE Verified 03/30/17 06:40 PT. DOES NOT LIKE TO TAKE Lxzspeo-Qfs-Gif Reductase AdvReac Body Verified 03/12/17 09:14 Inhibitor Stiffness Discharge Plan - Patient Discharge Instructions ACTIVITY: Continue current activity, Ambulate as tolerated, No heavy lifting, Up with assistance DIET: advance to your usual diet, regular diet Additional Instructions: Emphasize left leg extension by having patient place a pillow underneath the ankle of the left leg several times a day. This will elevate the knee and allow her knee to straighten. Also, please limit flex
--- NOTE | 2017-04-02 10:16 | SW/DCPLANNER ---
PATIENT IS DISCHARGING TO [facility] TODAY, I HAVE SENT THE DISCHARGE SUMMARY AND PATIENT REQUESTED TO RIDE THE BUS... I HAVE INFORMED STAFF TO LET ME KNOW WHEN SHE IS READY...
--- NOTE | 2017-04-02 10:27 | PC.NURSE ---
REPORT CALLED TO EDUARDO GALEANO AT [facility]. IV IN R HAND DISCONTINUED WITH CATHETER TIP INTACT. PT DRESSED AND READY TO BE TRANSPORTED. WAITING FOR DR. CANTU TO COME SEE HER PRIOR TO TRANSPORT.
== END 2017-04-02 11:40 | DRG 470 ==
LOC: 2ND 03-31 09:28 → OB 03-31 13:48
PROVIDERS: Admitting Provider Orthopaedic Surgery; Family Provider Nurse Practitioner; PCP Family Medicine; Visit Provider Orthopaedic Surgery
PROC: (CPT 27447; principal; 2017-03-30 07:30)
DX: M17.12 Unilateral primary osteoarthritis, left knee (principal)
CPT/HCPCS: 27447; 36415; 73560; 80048; 81001; 85025; 86850; 94761; 96374; 97116; 97140; 97162; 97530; C1765; C1776; J0131; J2405; J2710

== ENCOUNTER → 2017-04-17 08:59 | Outpatient (CLI) | payer MEDICARE, SELFPAY ==
--- NOTE | 2017-04-17 09:01 | XR_ITS ---
XR knee LT 2V HISTORY: Follow-up knee replacement ITS.REASON: Post Op LT Total Knee ORDERING PHYSICIAN: Diogenes Henry MD PATIENT AGE: 76 years COMPARISON: 03/30/2017 FINDINGS: Status post total knee arthroplasty with good alignment of the prosthesis and no evidence of orthopedic complication. IMPRESSION: No change status post total knee arthroplasty
--- NOTE | 2017-04-17 10:02 | XR_ITS ---
XR elbow RT min 3V HISTORY: ITS.REASON: RT elbow pain ORDERING PHYSICIAN: Diogenes Henry MD PATIENT AGE: 76 years COMPARISON: None FINDINGS: Hypertrophic changes are present with bony spurring of the coronoid process. Calcification is present laterally at the radial head with faint chondrocalcinosis at the lateral aspect of the elbow joint. There is a 9 mm well circumscribed calcific density in the antecubital fossa consistent with a synovial osteochondroma. No fracture or dislocation. IMPRESSION: 1. Synovial osteochondroma of the antecubital fossa. 2. Osteoarthritic changes of elbow joint
== END ==
PROVIDERS: PCP Family Medicine; Visit Provider Orthopaedic Surgery
DX: Z09 Encounter for follow-up examination after completed treatment for conditions other than malignant neoplasm (principal); M25.521 Pain in right elbow
CPT/HCPCS: 73080; 73560

== ENCOUNTER → 2017-08-24 09:49 | Outpatient (CLI) | payer MEDICARE, SELFPAY ==
--- NOTE | 2017-08-24 09:59 | US_ITS ---
US kidney retroperitoneal comp BILATERAL RENAL ULTRASOUND Ordering Physician: Jamel Perera MD Patient Age: 77 years: Female HISTORY: ITS.REASON: REANAL MASS follow-up renal mass TECHNIQUE: Ultrasound both kidneys,. COMPARISON :Previous ultrasound kidneys January [address] abdomen dated January 2017, July 2016. March 2016; October 2015 FINDINGS . Reviewing prior CT reports and images CTs I see that this patient had a a left renal hemorrhage March 2016 which was felt to involve left renal cyst with associated subcapsular hematoma. . RIGHT KIDNEY diffuse cortical thinning 8.5 Cm in length is 5.1 cm x 6.1 cm cm LEFT KIDNEY. Difficult to image left kidney 8.6 cm x 5.7 x 5.1 cm. Cyst at the left kidney measures up to 4.6 cm x 4.1 has 1.5 cm., It demonstrates some debris & echogenic material at its posterior aspect. This cyst is less well-visualized than it was on January 2017. The internal echogenicity and debris is similar but slightly less apparent today. The overall size of the cyst is remain stable or perhaps has decreased very very slightly in size.. No significant progression by ultrasound. On the final images we again see the slightly bilobed dumbbell shaped appearance which may reflects some additional hematoma posteriorly versus the margin of the kidney. The margin between the cyst and the kidney is somewhat poorly delineated as is been previously noted thus encourage ongoing follow-up ..Ongoing follow-up CT suggested as well,, preferably with with IV contrast if feasible renal function Diffuse cortical thinning also seen at the left kidney but relatively less color Doppler flow to the left kidney but this could in part reflect the poor acoustic window IMPRESSION...... LEFT KIDNEY: 1. stable if not incrementally smaller cystic mass at the left kidney again noted . We continue see internal echoes & debris, ( although the cyst is less well visualized and delineated today. Left kidney more difficult to visualize overall). Slightly ill-defined junction with the kidney again noted Warrants ongoing follow-up ultrasound and CT 2. Diffuse cortical thinning left kidney RIGHT KIDNEY Diffuse cortical thinning
== END ==
PROVIDERS: Family Provider Nurse Practitioner; PCP Family Medicine; Visit Provider Urology
DX: D41.01 Neoplasm of uncertain behavior of right kidney (principal); D41.02 Neoplasm of uncertain behavior of left kidney; N28.89 Other specified disorders of kidney and ureter
CPT/HCPCS: 76770

== ENCOUNTER → 2018-01-26 10:51 | Outpatient (CLI) | payer MEDICARE, SELFPAY ==
[2018-01-26 11:03] LABS: Microscopic, Urine URINE MICROSCOPIC (MICROSCOPIC)
[2018-01-26 11:21] LABS: Appearance,Urine CLEAR (Clear); Bilirubin,Urine Negative (Negative); Blood, Urine Negative (Negative); Color,Urine YELLOW (Yellow); Glucose,Urine (UA) Negative (Negative); Ketones,Urine Negative (Negative); Leukocyte Esterase,Urine Negative (Negative); Nitrate,Urine Negative (Negative); PH,Urine 5.5 (5.0-8.5); Protein,Urine 2+ (Negative); Specific Gravity, Urine 1.025 (1.005-1.030); Urobilinogen,Urine 0.2 EU/dl (0.2)
[2018-01-26 11:23] LABS: Creatinine,Urine Random 189 mg/dL (20-320); Total Protein,Urine Random 146.8 mg/dL (0.0-11.9)
[2018-01-26 11:53] LABS: Basophils # 0.1 K/mm3 (0-0.2); Basophils % 0.6 % (0.1-2.0); Eosinophils # 0.4 K/mm3 (0.0-0.4); Eosinophils % 4.3 % (0.1-12.0); Hematocrit 34.9 % (37.0-47.0); Hemoglobin 10.8 g/dL (12.2-16.2); Lymphocytes % 22.1 % (10-50); Mean Corpuscular HGB Conc 30.9 g/dL (31.8-35.4); Mean Corpuscular Hemoglobin 30.8 pg (27.0-31.2); Mean Corpuscular Volume 99.8 fl (81-99); Mean Platelet Volume 10.1 fl (7.4-10.4); Monocytes # 0.5 K/mm3 (0.1-1.0); Monocytes % 5.2 % (1.7-9.3); Neutrophils # 6.1 K/mm3 (1.8-7.8); Neutrophils % 67.9 % (37.0-80.0); Platelet Count 198 K/mm3 (142-424); Red Cell Distribution Width 14.4 % (11.5-17.5)
[2018-01-26 12:04] LABS: Bacteria,Urine Trace /lpf; Hyaline Casts,Urine Occasional #/lpf (0); Squamous Epithelial Cell,Urine Occasional #/hpf (0-5)
[2018-01-26 13:51] LABS: Albumin Level 3.6 gm/dL (3.4-5.0); Blood Urea Nitrogen 21 mg/dL (7-18); Calcium 8.8 mg/dL (8.5-10.1); Carbon Dioxide 27 mmol/L (21.0-32.0); Chloride 103 mmol/L (98-107); Creatinine,Serum 1.59 mg/dL (0.55-1.02); Estimated Glomerular Filt Rate 32 ml/min (>60); Ferritin 32 ng/mL (8-388); GFR (African American) 38 ML/MIN (>60); Glucose 101 mg/dL (74-106); Phosphorous 3.4 mg/dL (2.4-4.9); Sodium 140 mmol/L (136-145)
[2018-01-27 07:16] LABS: Iron 81 ug/dL (27-139); UIBC 334 ug/dL (118-369)
[2018-01-27 07:41] LABS: Iron Saturation 20 % (15-55)
[2018-01-27 16:05] LABS: Parathyroid Hormone Intact 56 pg/mL (15-65); Vitamin D 25 Hydroxy 37.3 ng/mL (30.0-100.0)
== END ==
PROVIDERS: Visit Provider Internal Medicine Nephrology
DX: N18.9 Chronic kidney disease, unspecified (principal)
CPT/HCPCS: 36415; 80069; 81001; 82570; 82652; 82728; 83540; 83550; 83970; 84155; 85025

== ENCOUNTER → 2018-02-15 13:39 | Outpatient (CLI) | payer MEDICARE, SELFPAY ==
--- NOTE | 2018-02-15 13:43 | XR_ITS ---
XR knee LT 2V Ordering Physician: Diogenes Henry MD Patient Age: 77 years: Female HISTORY: ITS.REASON: S/P LEFT TOTAL KNEE REPLACEMENTpostop TKA TECHNIQUE: AP lateral view compared to 04/17/2017 and 03/30/2017. . FINDINGS Left TKA in place with stable, satisfactory position. No evidence of fracture nor significant loosening. Today's on tangential view of the tibial plateau shows some very subtle lucency beneath the medial and lateral tibial plateau component which most likely reflects its normal seating but no good evidence of loosening. The tibial peg intact. The lateral view shows the femoral condyle and patellar component satisfactory as well.. IMPRESSION: Satisfactory Left TKA. No good evidence of loosening or fracture
== END ==
PROVIDERS: PCP Family Medicine; Visit Provider Orthopaedic Surgery
DX: Z96.652 Presence of left artificial knee joint (principal)
CPT/HCPCS: 73560

== ENCOUNTER → 2018-03-04 08:52 | Outpatient (CLI) | payer MEDICARE, SELFPAY ==
--- NOTE | 2018-03-04 08:55 | CT_ITS ---
CT abdomen pelvis wo con CLINICAL INDICATION: ITS.REASON: RENAL MASS/CYST ORDERING PHYSICIAN: Jamel Perera MD PATIENT AGE: 77 years COMPARISON: 02/18/2017, 08/25/1979 TECHNIQUE: Axial images obtained with sagittal and coronal reformats. All CT scans at the facility use one or more dose reduction, viz: automated exposure control, ma/kV adjustment per patient size (including targeted exams where dose is matched to indication, i.e. head), or iterative reconstruction technique. PROCEDURE: Oral Contrast: None IV Contrast: None . FINDINGS: There has been prior cholecystectomy. The liver, spleen, and adrenal glands have an unremarkable appearance. There is pancreatic atrophy. There is a 4.4 x 5 x 4.2 cm exophytic isodensity projecting off the lower pole of the left kidney posteriorly as previously described consistent with a renal cyst which is unchanged. No hydronephrosis. No renal or ureteral calculi. No intestinal obstruction or free air. No focal inflammatory change. No pelvic mass or abnormal fluid collection. There has been a prior hysterectomy. There is 5 mm anterolisthesis of L2-3 on L4 and 8 mm anterolisthesis of L4 on L5 unchanged. IMPRESSION: 1. Overall no significant change from 02/20/2017 with no acute finding. 2. Stable 5 cm left renal cyst
== END ==
PROVIDERS: PCP Family Medicine; Visit Provider Urology
DX: N28.9 Disorder of kidney and ureter, unspecified (principal)
CPT/HCPCS: 74176

== ENCOUNTER → 2018-10-13 07:41 | Outpatient (CLI) | payer MEDICARE, SELFPAY ==
--- NOTE | 2018-10-13 07:49 | CA_ITS ---
APPROVED REPORT Bilateral Lower Extremity Venous Study for Fur Sewer: KAYLA Indications Lower Extremity Pain: Lower Extremity Edema: BILATERAL LOWER LEG PAIN AND EDEMA Vein Imaging CFV (R): Compressible, Phasic, Augmentation FEM (R): Compressible, Spontaneous, Augmentation POP (R): Compressible, Spontaneous, Augmentation PTV (R): Compressible GSV (R): Compressible Peroneals (R):Compressible CFV (L): Compressible, Spontaneous, Augmentation FEM (L): Compressible, Phasic, Augmentation POP (L): Compressible, Spontaneous, Augmentation PTV (L): Compressible GSV (L): Compressible Peroneals (L):Compressible Findings No evidence of DVT or superficial thrombophlebitis in the veins scanned of the right lower extremity. No evidence of DVT or superficial thrombophlebitis in the veins scanned of the left lower extremity. Conclusion No evidence of DVT or superficial thrombophlebitis in the veins scanned of the right lower extremity. No evidence of DVT or superficial thrombophlebitis in the veins scanned of the left lower extremity. Electronically signed by : Osvaldo Conti MD 10/14/2018 08:02:48
== END ==
PROVIDERS: PCP Family Medicine; Visit Provider Nurse Practitioner
DX: M79.605 Pain in left leg (principal); M79.604 Pain in right leg
CPT/HCPCS: 93970

== ENCOUNTER → 2019-01-03 10:46 | Outpatient (CLI) | payer MEDICARE, SELFPAY ==
--- NOTE | 2019-01-03 10:55 | XR_ITS ---
PROCEDURE: XR COCCYX 2V CLINICAL INDICATION: CHRONIC PAIN COMPARISON: ABDPELWO CT abdomen pelvis wo con from 03/04/2018 FINDINGS: There is minimal the anterior subluxation of the tip of the coccyx by 2 mm which was likely present on a older CT scan of 03/04/2018. No acute fracture or dislocation is evident. Surgical clips are present in the left mid pelvic region IMPRESSION: No acute finding. Minimal anterior subluxation of the tip of the coccyx which may represent an old injury Dictated by: Osvaldo Conti MD 01/03/2019 11:58 Electronically signed by Osvaldo Conti MD in [place] 01/03/2019 11:58
--- NOTE | 2019-01-03 10:55 | XR_ITS ---
PROCEDURE: XR HIP RT 2-3V W/PELVIS CLINICAL INDICATION: CHRONIC PAIN Right neck tear a COMPARISON: [id number] HIP LT 2-3V W/PELVIS IF PERFOR from 02/02/2017 FINDINGS: No fracture or dislocation is evident. No significant degenerative change. No lytic or blastic change. Unremarkable soft tissues. IMPRESSION: No change mild osteoarthritis Dictated by: Osvaldo Conti MD 01/03/2019 11:53 Electronically signed by Osvaldo Conti MD in [place] 01/03/2019 11:53
--- NOTE | 2019-01-03 10:56 | XR_ITS ---
PROCEDURE: XR HIP LT 2-3V W/PELVIS CLINICAL INDICATION: CHRONIC PAIN COMPARISON: [id number] HIP LT 2-3V W/PELVIS IF PERFOR from 02/02/2017 FINDINGS: There are mild osteoarthritic changes of the left hip. Mild heterotopic ossification noted along the greater trochanter. No fracture or dislocation. No lytic or blastic change. IMPRESSION: Minimal osteoarthritic change, no change with no acute finding Dictated by: Osvaldo Conti MD 01/03/2019 11:54 Electronically signed by Osvaldo Conti MD in [place] 01/03/2019 11:54
== END ==
PROVIDERS: PCP Family Medicine; Visit Provider Nurse Practitioner
DX: G89.29 Other chronic pain (principal); M25.552 Pain in left hip; M25.551 Pain in right hip
CPT/HCPCS: 72220; 73502

== ENCOUNTER → 2019-02-28 11:44 | Outpatient (CLI) | payer MEDICARE, SELFPAY ==
[2019-02-28 12:02] LABS: Microscopic, Urine URINE MICROSCOPIC (MICROSCOPIC)
[2019-02-28 12:34] LABS: Appearance,Urine CLEAR (Clear); Bilirubin,Urine Negative (Negative); Blood, Urine Negative (Negative); Color,Urine YELLOW (Yellow); Glucose,Urine (UA) Negative (Negative); Ketones,Urine Negative (Negative); Leukocyte Esterase,Urine Negative (Negative); Nitrate,Urine Negative (Negative); PH,Urine 5.5 (5.0-8.5); Protein,Urine 1+ (Negative); Specific Gravity, Urine 1.025 (1.005-1.030); Urobilinogen,Urine 0.2 EU/dl (0.2)
[2019-02-28 12:40] LABS: Hyaline Casts,Urine Occasional #/lpf (0); RBC,Urine Occasional #/hpf (0-3)
[2019-02-28 12:45] LABS: Basophils # 0.1 K/mm3 (0-0.2); Basophils % 0.7 % (0.1-2.0); Eosinophils # 0.3 K/mm3 (0.0-0.4); Eosinophils % 4.1 % (0.1-12.0); Hematocrit 35.1 % (37.0-47.0); Hemoglobin 10.2 g/dL (12.2-16.2); Lymphocytes # 2.2 K/mm3 (0.7-4.5); Lymphocytes % 29.3 % (10-50); Mean Corpuscular HGB Conc 29.1 g/dL (31.8-35.4); Mean Corpuscular Hemoglobin 29.5 pg (27.0-31.2); Mean Corpuscular Volume 101.3 fl (81-99); Mean Platelet Volume 10.8 fl (7.4-10.4); Monocytes # 0.4 K/mm3 (0.1-1.0); Monocytes % 4.8 % (1.7-9.3); Neutrophils # 4.5 K/mm3 (1.8-7.8); Neutrophils % 61.1 % (37.0-80.0); Platelet Count 205 K/mm3 (142-424); Red Blood Count 3.46 M/mm3 (4.20-5.40); Red Cell Distribution Width 15.8 % (11.5-17.5); White Blood Count 7.4 K/mm3 (4.8-10.8)
[2019-02-28 12:53] LABS: Creatinine,Urine Random 190 mg/dL (20-320); Total Protein,Urine Random 70.2 mg/dL (0.0-11.9)
[2019-02-28 13:29] LABS: Albumin Level 3.5 gm/dL (3.4-5.0); Blood Urea Nitrogen 22 mg/dL (7-18); Calcium 8.7 mg/dL (8.5-10.1); Chloride 108 mmol/L (98-107); Creatinine,Serum 1.46 mg/dL (0.55-1.02); Estimated Glomerular Filt Rate 35 ml/min (>60); GFR (African American) 42 ML/MIN (>60); Glucose 103 mg/dL (74-106); Phosphorous 3.9 mg/dL (2.4-4.9); Sodium 143 mmol/L (136-145)
[2019-02-28 13:40] LABS: Carbon Dioxide 23 mmol/L (21.0-32.0)
[2019-03-01 14:34] LABS: Albumin 3.4 g/dL (2.9-4.4); Alpha-1-Globulin 0.3 g/dL (0.0-0.4); Alpha-2-Globulin 0.9 g/dL (0.4-1.0); Protein, Total 6.8 g/dL (6.0-8.5)
[2019-03-02 01:31] LABS: Vitamin D 25 Hydroxy 23.5 ng/mL (30.0-100.0)
[2019-03-03 13:08] LABS: Albumin, U 65.7 % (.); Alpha-1-Globulin, U 2.5 % (.); Alpha-2-Globulin, U 6.6 % (.); Beta Globulin, U 16.6 % (.); Gamma Globulin, U 8.7 % (.); M-Spike, % Not Observed % (Not Observed); Protein,Total,Urine 62.4 mg/dL (Not Estab.)
== END ==
PROVIDERS: Visit Provider Internal Medicine Nephrology
DX: D64.9 Anemia, unspecified (principal); R80.9 Proteinuria, unspecified; E55.9 Vitamin D deficiency, unspecified
CPT/HCPCS: 36415; 80069; 81001; 82570; 82652; 84155; 84156; 84165; 84166; 85025

== ENCOUNTER → 2019-03-07 13:10 | Outpatient (CLI) | payer MEDICARE, SELFPAY ==
--- NOTE | 2019-03-07 13:18 | US_ITS ---
PROCEDURE: US KIDNEY CLINICAL INDICATION: Follow-up renal cyst COMPARISON: KID US [id number] from 10/11/2015 ABDPELW/O CT ABD PELVIS W/O CONTRAST from 10/23/2015 ABDPELW/O CT ABD PELVIS W/O CONTRAST from 02/20/2017 RETROPCM US kidney retroperitoneal comp from 08/24/[address] abdomen pelvis wo con from 03/04/2018 FINDINGS: Right kidney is 9 by by 6 cm with cortical thinning. No hydronephrosis. Left kidney is 6 x 6 x 6 cm. There is an exophytic complex mass projecting off of the lateral aspect of the left kidney at 4 x 4 cm. This does contain internal echoes and as previously been described as a complex cyst. This does not appear significantly changed. This lesion has been present dating back to 10/23/2015 and may very well represent a complex cyst. One cannot exclude the possibility of malignant transformation within the cyst. Continued follow-up is recommended. MRI evaluation without and with gadolinium enhancement may provide further evaluation if clinically desired. No hydronephrosis is evident. IMPRESSION: Overall no change in the complex left renal lesion which could represent a complex cyst. Neoplastic transformation within the cyst is an additional consideration. Consider MRI without and with gadolinium enhancement for further evaluation. Dictated by: Osvaldo Conti MD 03/07/2019 14:48 Electronically signed by Osvaldo Conti MD in [place] 03/07/2019 14:48
== END ==
PROVIDERS: PCP Family Medicine; Visit Provider Urology
DX: N28.89 Other specified disorders of kidney and ureter (principal)
CPT/HCPCS: 76770

== ENCOUNTER → 2019-11-11 12:19 | Outpatient (CLI) | payer MEDICARE, SELFPAY ==
--- NOTE | 2019-11-11 13:05 | XR_ITS ---
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 Loose intra-articular bodies are present anteriorly with the largest loose body measuring 8 mm. This loose body does appear smaller compared to the previous exam and less well corticated on today's exam. The loose body measures 8 x 8 mm previously measuring 12 x 9 mm. There is periarticular calcification along the radial head laterally and at the lateral epicondylar region. There is an anterior fat pad noted. There may also be loose intra-articular bodies posteriorly at the olecranon fossa region. 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 The largest loose body anteriorly appears slightly smaller. There are so shaded degenerative changes with periarticular calcification lateral to the radial head. Dictated by: Osvaldo Conti MD 11/11/2019 13:34 Osvaldo Conti MD in [place] 11/11/2019 13:34
== END ==
PROVIDERS: PCP Family Medicine; Visit Provider Family Medicine
DX: M25.421 Effusion, right elbow (principal)
CPT/HCPCS: 73080

== ENCOUNTER 2020-02-06 10:00 | Outpatient (RCR) | payer MEDICARE, SELFPAY ==
--- NOTE | 2019-12-26 11:54 | HMH.OTEV ---
PHYSICIAN CERTIFICATION: I certify the specified therapy services for Pauline Chapman Lanthorn are required, authorized, and reviewed every 30 days.
== END 2020-02-06 10:05 | disposition home or self-care (01) ==
LOC: OT 10:00
PROVIDERS: PCP Family Medicine; Visit Provider Nurse Practitioner
DX: M25.521 Pain in right elbow (principal)
CPT/HCPCS: 97014; 97035; 97110; 97140; 97164; 97165; 97530; G0283

== ENCOUNTER → 2020-03-16 12:57 | Outpatient (CLI) | payer MEDICARE, SELFPAY ==
--- NOTE | 2020-03-16 12:57 | US_ITS ---
PROCEDURE: US KIDNEY CLINICAL INDICATION: N28.1 - Cyst of kidney, acquired Follow-up renal cyst COMPARISON: CT ABDPELW/O CT ABD PELVIS W/O CONTRAST from 02/20/[address] abdomen pelvis wo con from 03/04/2018 US US KIDNEY from 03/07/2019 FINDINGS: The right kidney is 9 x 5 x 5 cm. Left kidney is 8 x 4 x 5 cm. There is bilateral renal cortical thinning. A solid-appearing mass is noted along the lower pole of the left kidney measuring 4.6 by 4.3 by 3.8 cm not significantly changed. No hydronephrosis. IMPRESSION: No change 4.6 cm left renal mass. Dictated by: Osvaldo Conti MD 03/16/2020 14:40 Osvaldo Conti MD in [place] 03/16/2020 14:40
== END ==
PROVIDERS: PCP Family Medicine; Visit Provider Urology
DX: N28.1 Cyst of kidney, acquired (principal)
CPT/HCPCS: 76770

== ENCOUNTER → 2020-03-27 13:51 | Outpatient (CLI) | payer MEDICARE, SELFPAY ==
--- NOTE | 2020-03-27 13:51 | CT_ITS ---
PROCEDURE: CT ABDOMEN PELVIS WO CON CLINICAL INDICATION: renal cyst Mass on renal seen recent ultrasound Possible renal cyst seen on U/S. COMPARISON: CT ABDPELW/O CT ABD PELVIS W/O CONTRAST from 03/30/2016 CT ABDPELW/O CT ABD PELVIS W/O CONTRAST from 02/20/[address] abdomen pelvis wo con from 03/04/2018 US US KIDNEY from 03/16/2020 TECHNIQUE: Axial images obtained with sagittal and coronal reformats. All CT scans at the facility use one or more dose reduction, viz: automated exposure control, ma/kV adjustment per patient size (including targeted exams where dose is matched to indication, i.e. head), or iterative reconstruction technique. FINDINGS: LOWER THORAX: No acute finding ABDOMEN & PELVIS: There has been a prior cholecystectomy. The liver, spleen, and adrenal glands have an unremarkable appearance. Is pancreatic atrophy. Unremarkable appearing right kidney. Solid appearing left renal mass is once again noted measuring 5 by 4.6 cm not significantly changed from 03/04/2018. This mass has a suspicious appearance but is not significantly changed in size from 02/20/2017. There is minimal coarse calcification along the posterior medial aspect of the mass. No renal or ureteral calculi. No hydronephrosis. No intestinal obstruction or free air. There has been a prior hysterectomy. No evidence of appendicitis or diverticulitis. There are few colonic diverticula noted. There is 7 mm anterolisthesis of L3 on L4 and 9 mm anterolisthesis of L4 on L5 with degenerative disc disease at these levels.. IMPRESSION: 1. Stable CT appearance of the abdomen and pelvis. 2. No change 5 cm left renal mass. Dictated by: Osvaldo Conti MD 03/28/2020 15:19 Osvaldo Conti MD in [place] 03/28/2020 15:19
== END ==
PROVIDERS: PCP Family Medicine; Visit Provider Urology
DX: N28.1 Cyst of kidney, acquired (principal)
CPT/HCPCS: 74176

== ENCOUNTER → 2020-05-01 09:11 | Outpatient (POV) | payer MEDICARE, SELFPAY | PROVIDERS: Visit Provider Dermatology | DX: Z00.00 Encounter for general adult medical examination without abnormal findings (principal) ==

== ENCOUNTER → 2020-05-08 10:58 | Outpatient (CLI) | payer MEDICARE, SELFPAY ==
[2020-05-08 11:07] LABS: Microscopic, Urine URINE MICROSCOPIC (MICROSCOPIC)
[2020-05-08 11:26] LABS: Basophils # 0.1 K/mm3 (0-0.2); Basophils % 0.9 % (0.1-2.0); Eosinophils # 0.4 K/mm3 (0.0-0.4); Eosinophils % 3.8 % (0.1-12.0); Hematocrit 37.6 % (37.0-47.0); Hemoglobin 11.5 g/dL (12.2-16.2); Lymphocytes # 2.7 K/mm3 (0.7-4.5); Lymphocytes % 28.7 % (10-50); Mean Corpuscular HGB Conc 30.6 g/dL (31.8-35.4); Mean Corpuscular Hemoglobin 31.3 pg (27.0-31.2); Mean Corpuscular Volume 102.4 fl (81-99); Mean Platelet Volume 10.4 fl (7.4-10.4); Monocytes # 0.5 K/mm3 (0.1-1.0); Neutrophils # 5.7 K/mm3 (1.8-7.8); Neutrophils % 61.5 % (37.0-80.0); Platelet Count 218 K/mm3 (142-424); Red Blood Count 3.67 M/mm3 (4.20-5.40); Red Cell Distribution Width 14.2 % (11.5-17.5); White Blood Count 9.3 K/mm3 (4.8-10.8)
[2020-05-08 12:00] LABS: Appearance,Urine SL CLOUDY (Clear); Bilirubin,Urine Negative (Negative); Blood, Urine Negative (Negative); Color,Urine YELLOW (Yellow); Glucose,Urine (UA) Negative (Negative); Ketones,Urine Negative (Negative); Leukocyte Esterase,Urine 2+ (Negative); Nitrate,Urine Negative (Negative); PH,Urine 5.5 (5.0-8.5); Protein,Urine 1+ (Negative); Specific Gravity, Urine >= 1.030 (1.005-1.030); Urobilinogen,Urine 0.2 EU/dl (0.2)
[2020-05-08 12:02] LABS: Albumin Level 4.3 g/dl (3.5-5.0); Anion Gap 13.1 mEq/L (5-15); Blood Urea Nitrogen 31 mg/dl (7-17); Calcium 9.3 mg/dl (8.4-10.2); Carbon Dioxide 25 mmol/L (22.0-30.0); Estimated Glomerular Filt Rate 27 ml/min (>60); GFR (African American) 33 ML/MIN (>60); Glucose 106 mg/dl (74-100); Iron 74 ug/dL (37-170); Phosphorous 3.9 mg/dl (2.5-4.5)
[2020-05-08 12:47] LABS: Chloride 110 mmol/L (98-107); Creatinine,Urine Random 251 mg/dL (Not Estab.); Potassium 5.2 mmoL/L (3.5-5.1); Sodium 143 mmol/L (136-145)
[2020-05-08 12:59] LABS: Total Iron Binding Capacity 380 ug/dL (265-497)
== END ==
PROVIDERS: Visit Provider Student in an Organized Health Care Education/Training Program
DX: N18.30 Chronic kidney disease, stage 3 unspecified (principal); D64.9 Anemia, unspecified; R82.90 Unspecified abnormal findings in urine
CPT/HCPCS: 36415; 80069; 81001; 82570; 82728; 83540; 83550; 84155; 85025; 87086; 87088; 87186

== ENCOUNTER 2020-06-25 10:00 | Outpatient (RCR) | payer MEDICARE, SELFPAY | END 2020-06-25 10:05 | disposition home or self-care (01) | LOC: OT 10:00 | PROVIDERS: PCP Family Medicine; Visit Provider Orthopaedic Surgery Adult Reconstructive Orthopaedic Surgery | DX: M25.521 Pain in right elbow (principal) | CPT/HCPCS: 97014; 97035; 97110; 97140; 97164; 97166; G0283 ==

== ENCOUNTER → 2020-08-07 11:20 | Outpatient (CLI) | payer MEDICARE, SELFPAY ==
[2020-08-07 11:23] LABS: Microscopic, Urine URINE MICROSCOPIC (MICROSCOPIC)
[2020-08-07 11:52] LABS: Basophils # 0.1 K/mm3 (0-0.2); Basophils % 0.5 % (0.1-2.0); Eosinophils # 0.2 K/mm3 (0.0-0.4); Eosinophils % 1.8 % (0.1-12.0); Hematocrit 37.9 % (37.0-47.0); Hemoglobin 12.1 g/dL (12.2-16.2); Lymphocytes % 18.1 % (10-50); Mean Corpuscular Hemoglobin 31.6 pg (27.0-31.2); Mean Corpuscular Volume 98.9 fl (81-99); Mean Platelet Volume 10.8 fl (7.4-10.4); Monocytes # 0.5 K/mm3 (0.1-1.0); Monocytes % 4.7 % (1.7-9.3); Neutrophils # 8.2 K/mm3 (1.8-7.8); Platelet Count 213 K/mm3 (142-424); Red Blood Count 3.83 M/mm3 (4.20-5.40); Red Cell Distribution Width 14.6 % (11.5-17.5)
[2020-08-07 12:19] LABS: Appearance,Urine CLEAR (Clear); Bilirubin,Urine Negative (Negative); Blood, Urine Negative (Negative); Color,Urine YELLOW (Yellow); Glucose,Urine (UA) Negative (Negative); Ketones,Urine Negative (Negative); Leukocyte Esterase,Urine Negative (Negative); Nitrate,Urine Negative (Negative); PH,Urine 5.5 (5.0-8.5); Protein,Urine 2+ (Negative); Specific Gravity, Urine 1.025 (1.005-1.030); Urobilinogen,Urine 0.2 EU/dl (0.2)
[2020-08-07 12:27] LABS: Creatinine,Urine Random 215 mg/dL (Not Estab.)
[2020-08-07 12:28] LABS: Bacteria,Urine 2+ /lpf
[2020-08-07 13:27] LABS: Albumin Level 4.5 g/dl (3.5-5.0); Anion Gap 15.2 mEq/L (5-15); Blood Urea Nitrogen 32 mg/dl (7-17); Carbon Dioxide 23 mmol/L (22.0-30.0); Chloride 108 mmol/L (98-107); Estimated Glomerular Filt Rate 31 ml/min (>60); GFR (African American) 38 ML/MIN (>60); Glucose 106 mg/dl (74-100); Phosphorous 3.6 mg/dl (2.5-4.5); Potassium 5.2 mmoL/L (3.5-5.1); Sodium 141 mmol/L (136-145)
[2020-08-07 13:39] LABS: Intact Parathyroid Hormone 138.5 pg/mL (7.5-53.5)
[2020-08-07 13:44] LABS: 25-OH Vitamin D, Total 23.9 ng/mL (30-100)
[2020-08-07 14:41] LABS: Ferritin 31.7 ng/ml (11.1-264)
== END ==
PROVIDERS: Visit Provider Student in an Organized Health Care Education/Training Program
DX: N18.4 Chronic kidney disease, stage 4 (severe) (principal); R82.90 Unspecified abnormal findings in urine
CPT/HCPCS: 36415; 80069; 81001; 82306; 82570; 82728; 83970; 84155; 85025; 87086

== ENCOUNTER → 2020-11-06 07:59 | Outpatient (CLI) | payer MEDICARE, SELFPAY ==
[2020-11-06 08:03] LABS: Microscopic, Urine URINE MICROSCOPIC (MICROSCOPIC)
[2020-11-06 08:28] LABS: Basophils # 0.2 K/mm3 (0-0.2); Basophils % 2.2 % (0.1-2.0); Eosinophils # 0.4 K/mm3 (0.0-0.4); Hematocrit 39.7 % (37.0-47.0); Hemoglobin 12.1 g/dL (12.2-16.2); Lymphocytes # 3.7 K/mm3 (0.7-4.5); Mean Corpuscular HGB Conc 30.4 g/dL (31.8-35.4); Mean Corpuscular Hemoglobin 31.8 pg (27.0-31.2); Mean Corpuscular Volume 104.6 fl (81-99); Mean Platelet Volume 11.3 fl (7.4-10.4); Monocytes # 0.4 K/mm3 (0.1-1.0); Monocytes % 4.7 % (1.7-9.3); Neutrophils # 4.1 K/mm3 (1.8-7.8); Neutrophils % 47.1 % (37.0-80.0); Platelet Count 186 K/mm3 (142-424); Red Blood Count 3.79 M/mm3 (4.20-5.40); Red Cell Distribution Width 14.3 % (11.5-17.5); White Blood Count 8.8 K/mm3 (4.8-10.8)
[2020-11-06 08:31] LABS: Appearance,Urine CLEAR (Clear); Bilirubin,Urine Negative (Negative); Blood, Urine Negative (Negative); Color,Urine YELLOW (Yellow); Glucose,Urine (UA) Negative (Negative); Ketones,Urine Negative (Negative); Leukocyte Esterase,Urine Negative (Negative); Nitrate,Urine Negative (Negative); Protein,Urine 2+ (Negative); Specific Gravity, Urine 1.025 (1.005-1.030); Urobilinogen,Urine 0.2 EU/dl (0.2)
[2020-11-06 08:40] LABS: Creatinine,Urine Random 143 mg/dL (Not Estab.)
[2020-11-06 09:02] LABS: Albumin Level 3.9 g/dl (3.5-5.0); Anion Gap 13.2 mEq/L (5-15); Blood Urea Nitrogen 26 mg/dl (7-17); Carbon Dioxide 27 mmol/L (22.0-30.0); Chloride 105 mmol/L (98-107); Estimated Glomerular Filt Rate 34 ml/min (>60); GFR (African American) 41 ML/MIN (>60); Glucose 109 mg/dl (74-100); Phosphorous 3.7 mg/dl (2.5-4.5); Potassium 5.2 mmoL/L (3.5-5.1); Sodium 140 mmol/L (136-145)
== END ==
PROVIDERS: Visit Provider Student in an Organized Health Care Education/Training Program
DX: N18.4 Chronic kidney disease, stage 4 (severe) (principal)
CPT/HCPCS: 36415; 80069; 81001; 82570; 84155; 85025

== ENCOUNTER 2021-03-13 10:22 | Emergency (ER) | payer MEDICARE, SELFPAY ==
[2021-03-13 11:18] VITALS: BP 146/78; PULSE 74; RESP 19; TEMP 36.9; O2SAT 99; BMI 26.1
--- NOTE | 2021-03-13 11:48 | HMH.EDUTC ---
[facility] [place] Disposition Clinical Impression: Bronchitis Sinusitis Qualifiers: Sinusitis location: unspecified location Chronicity: unspecified Qualified Code(s): J32.9 - Chronic sinusitis, unspecified Disposition: Home, Self-Care Condition on Discharge: Good Instructions: Sinusitis, DI for Sinusitis, Azithromycin Additional Instructions: *Monitor Temp, Over the counter Motrin or Tylenol as directed/as needed Tylenol every 4 hours and Motrin every 6 hours (as long as your family doctor has told you that you can take it) for fever or pain. and straight to ER if unable to lower temp less than 101.0 after medication given *Warm salt water gargles may help to soothe the throat *Throat Lozenges *Warm fluids like tea with honey may help to soothe the throat *Sleep elevated *Humidifier/Vaporizer *Take medication as prescribed Return if needed Follow up IMMEDIATELY for new or worsening symptoms or no Noticeable improvement over the next 48-72 hours. 911 for difficulty breathing or swallowing You were tested for today for COVID19 your test result should be back in the next 24-48 hours, you may check your results on the [facility] My Health Portal if you have trouble logging on you may call support to help you You was given a handout with instructions for Self Quarantine and Self isolation for while you wait on test results and what to do if they are positive If you are positive the Health Dept will be contacting you also Make sure to take your Vitamins Vit. C Vit D and Zinc if you can take them Prescriptions: predniSONE [Deltasone 10mg tablet] 10 mg PO BID 5 Days #10 tab Transmission Status: Pending to [facility] # Azithromycin [Z-Ayaz 250mg Tab] 250 mg PO DIRECTED #6 tab Transmission Status: Pending to [facility] # Referrals: Vinnie Molina MD [Primary Care Provider] - As needed Time of Disposition: 12:04 Medical Decision Making - Danny Inquiry Pt receiving controlled substance: No Danny was queried for this patient: No Vital Signs: 03/13/21 11:18 Temperature 98.4 F Temperature Source Oral Pulse Rate [Left] 74 Respiratory Rate 19 Blood Pressure [Right Arm] 146/78 H Blood Pressure Mean [Right Arm] 100 02 Sat by Pulse Oximetry 99 Orders (Tests/Meds): ORDERS Category Date Time Status Covid-19 Nasal PCR ([facility]) Routine Lab 03/13/21 11:27 Ordered Medical Decision Narrative: Patient states that she has taken azithromycin and prednisone in the past without complications or reactions [facility] [place] HPI - General Stated complaint: congestion Time Seen by Provider: 03/13/21 11:48 Mode of Arrival: Ambulatory Source of Information: Patient Limitations: No Limitations Description of Symptoms (Recalled from Triage Doc. by RN): pt c/o chest congestion. pt was exposed to her covid positive grandson on 03/08 HEENT Symptoms (Recalled from RN notes): No Resp Symptoms (Recalled from RN notes): Yes (chest congestion) Skin Symptoms (Recalled from RN notes): No MS Symptoms (Recalled from RN notes): No Functional Status (Recalled from RN notes): wnl - History of Present Illness Provider Complaint: Patient states that she was around her grandson last week and he tested positive for COVID after she was around him but she is having sinus congestion and feels like it is moving into her chest States that she isnt coughing anything up but feels like she may be tried to get bronchitis - Related Data Home Medications Medication Instructions Recorded Confirmed allopurinol 100 mg tablet 100 mg PO DAILY 03/12/17 03/22/20 coenzyme Q10 200 mg capsule 200 mg PO DAILY 03/12/17 03/22/20 esomeprazole magnesium 40 mg 40 mg PO QDAY cap 03/12/17 03/22/20 capsule,delayed release fluoxetine 10 mg capsule 10 mg PO DAILY 03/12/17 03/22/20 levocetirizine 5 mg tablet 5 mg PO QHS 03/12/17 03/22/20 levothyroxine 100 mcg tablet 100 mcg PO DAILY tab 03/12/17 03/22/20 metoprolol succinate 50 mg 50 mg PO BID tab 03/12
[2021-03-13 12:19] VITALS: BP 146/78; PULSE 74; RESP 19; TEMP 36.9
== END 2021-03-13 12:20 | disposition home or self-care (01) ==
PROVIDERS: Emergency Provider Nurse Practitioner; PCP Family Medicine
DX: U07.1 COVID-19 (principal); J32.9 Chronic sinusitis, unspecified; E03.9 Hypothyroidism, unspecified; E78.5 Hyperlipidemia, unspecified; K21.9 Gastro-esophageal reflux disease without esophagitis
CPT/HCPCS: G0463; 99202; C9803; U0003; U0005

== ENCOUNTER → 2021-05-14 09:07 | Outpatient (CLI) | payer MEDICARE, SELFPAY ==
[2021-05-14 09:22] LABS: Microscopic, Urine URINE MICROSCOPIC (MICROSCOPIC)
[2021-05-14 10:00] LABS: Basophils # 0.1 K/mm3 (0-0.2); Basophils % 0.8 % (0.1-2.0); Eosinophils # 0.5 K/mm3 (0.0-0.4); Hematocrit 37.2 % (37.0-47.0); Hemoglobin 11.5 g/dL (12.2-16.2); Lymphocytes # 3.5 K/mm3 (0.7-4.5); Lymphocytes % 38.4 % (10-50); Mean Corpuscular HGB Conc 30.8 g/dL (31.8-35.4); Mean Corpuscular Hemoglobin 32.2 pg (27.0-31.2); Mean Corpuscular Volume 104.3 fl (81-99); Mean Platelet Volume 12.4 fl (7.4-10.4); Monocytes # 0.3 K/mm3 (0.1-1.0); Monocytes % 3.6 % (1.7-9.3); Neutrophils # 4.7 K/mm3 (1.8-7.8); Neutrophils % 52.2 % (37.0-80.0); Platelet Count 230 K/mm3 (142-424); Red Blood Count 3.56 M/mm3 (4.20-5.40); Red Cell Distribution Width 14.7 % (11.5-17.5)
[2021-05-14 10:09] LABS: Appearance,Urine CLEAR (Clear); Bilirubin,Urine Negative (Negative); Blood, Urine Negative (Negative); Color,Urine YELLOW (Yellow); Glucose,Urine (UA) Negative (Negative); Ketones,Urine Negative (Negative); Leukocyte Esterase,Urine TRACE (Negative); Nitrate,Urine Negative (Negative); PH,Urine 5.5 (5.0-8.5); Protein,Urine 2+ (Negative); Specific Gravity, Urine >= 1.030 (1.005-1.030); Urobilinogen,Urine 0.2 EU/dl (0.2)
[2021-05-14 10:17] LABS: Creatinine,Urine Random 245 mg/dL (Not Estab.)
[2021-05-14 10:59] LABS: Albumin Level 3.7 g/dl (3.5-5.0); Blood Urea Nitrogen 36 mg/dl (7-17); Calcium 8.1 mg/dl (8.4-10.2); Carbon Dioxide 20 mmol/L (22.0-30.0); Chloride 113 mmol/L (98-107); Estimated Glomerular Filt Rate 27 ml/min (>60); GFR (African American) 33 ML/MIN (>60); Glucose 108 mg/dl (74-100); Sodium 138 mmol/L (136-145)
[2021-05-14 11:51] LABS: Bacteria,Urine 1+ /lpf; RBC,Urine Occasional #/hpf (0-3)
== END ==
PROVIDERS: Visit Provider Student in an Organized Health Care Education/Training Program
DX: N18.4 Chronic kidney disease, stage 4 (severe) (principal)
CPT/HCPCS: 36415; 80069; 81001; 82570; 84155; 85025

== ENCOUNTER → 2021-08-19 09:27 | Outpatient (CLI) | payer MEDICARE, SELFPAY ==
[2021-08-19 09:38] LABS: Microscopic, Urine URINE MICROSCOPIC (MICROSCOPIC)
[2021-08-19 09:53] LABS: Basophils # 0.1 K/mm3 (0-0.2); Basophils % 0.8 % (0.1-2.0); Eosinophils # 0.2 K/mm3 (0.0-0.4); Eosinophils % 2.8 % (0.1-12.0); Hematocrit 35.2 % (37.0-47.0); Hemoglobin 11.1 g/dL (12.2-16.2); Lymphocytes # 2.5 K/mm3 (0.7-4.5); Lymphocytes % 30.3 % (10-50); Mean Corpuscular HGB Conc 31.4 g/dL (31.8-35.4); Mean Corpuscular Hemoglobin 32.9 pg (27.0-31.2); Mean Platelet Volume 11.3 fl (7.4-10.4); Monocytes # 0.4 K/mm3 (0.1-1.0); Monocytes % 4.6 % (1.7-9.3); Neutrophils # 5.1 K/mm3 (1.8-7.8); Neutrophils % 61.5 % (37.0-80.0); Platelet Count 207 K/mm3 (142-424); Red Blood Count 3.36 M/mm3 (4.20-5.40); Red Cell Distribution Width 15.5 % (11.5-17.5); White Blood Count 8.4 K/mm3 (4.8-10.8)
[2021-08-19 09:57] LABS: Appearance,Urine CLEAR (Clear); Bilirubin,Urine Negative (Negative); Blood, Urine Negative (Negative); Color,Urine YELLOW (Yellow); Glucose,Urine (UA) Negative (Negative); Ketones,Urine Negative (Negative); Leukocyte Esterase,Urine Negative (Negative); Nitrate,Urine Negative (Negative); PH,Urine 5.5 (5.0-8.5); Protein,Urine 2+ (Negative); Specific Gravity, Urine 1.025 (1.005-1.030); Urobilinogen,Urine 0.2 EU/dl (0.2)
[2021-08-19 10:02] LABS: Creatinine,Urine Random 110 mg/dL (Not Estab.)
[2021-08-19 10:16] LABS: Albumin Level 3.7 g/dl (3.5-5.0); Chloride 110 mmol/L (98-107)
[2021-08-19 10:17] LABS: Potassium 4.8 mmoL/L (3.5-5.1); Sodium 138 mmol/L (136-145)
[2021-08-19 10:19] LABS: Anion Gap 8.8 mEq/L (5-15); Blood Urea Nitrogen 31 mg/dl (7-17); Carbon Dioxide 24 mmol/L (22.0-30.0); Estimated Glomerular Filt Rate 31 ml/min (>60); GFR (African American) 38 ML/MIN (>60); Phosphorous 4.1 mg/dl (2.5-4.5)
[2021-08-19 10:20] LABS: Glucose 110 mg/dl (74-100)
[2021-08-19 10:21] LABS: Calcium 8.9 mg/dl (8.4-10.2)
[2021-08-19 10:40] LABS: Bacteria,Urine Trace /lpf
== END ==
PROVIDERS: PCP Family Medicine; Visit Provider Student in an Organized Health Care Education/Training Program
DX: N18.4 Chronic kidney disease, stage 4 (severe) (principal)
CPT/HCPCS: 36415; 80069; 81001; 82570; 84155; 85025

== ENCOUNTER 2021-09-11 08:44 | Emergency (ER) | payer MEDICARE, SELFPAY ==
[2021-09-11 08:55] VITALS: BP 141/76; PULSE 76; RESP 19; TEMP 36.7; O2SAT 98; BMI 27.4
--- NOTE | 2021-09-11 09:09 | HMH.EDUTC ---
[facility] [place] Clinical Impression: Rash Disposition: Home, Self-Care Condition on Discharge: Good Instructions: Poison Gema, Poison [place], Poison [place], DI for Poison Gema Allergy Additional Instructions: Use topical medication as prescribed an apply directly to rash Return if needed Follow up with your Family Doctor if rash continues to spread Straight to ER if any life threatening symptoms Prescriptions: Triamcinolone Acetonide [Kenalog 0.1% cream 30gm tube] 1 applic TP BID #30 gm Transmission Status: Pending to [facility] #[id number] Referrals: Vinnie Molina MD [Primary Care Provider] - Time of Disposition: : Medical Decision Making - Danny Inquiry Pt receiving controlled substance: No Danny was queried for this patient: No Vital Signs: 09/11/21 08:55 09/11/21 09:15 Temperature 98.0 F 98.0 F Temperature Source Oral Pulse Rate 76 Pulse Rate [Right Brachial] 76 Respiratory Rate 19 19 Blood Pressure 141/76 H Blood Pressure [Right Arm] 141/76 H Blood Pressure Mean [Right Arm] 97 Blood Pressure Source [Right Arm] Automatic Cuff Blood Pressure Position [Right Arm] Sitting 02 Sat by Pulse Oximetry 98 Oxygen Delivery Method Room Air [facility] [place] HPI - General Stated complaint: poison gema Time Seen by Provider: 09/11/21 09:10 Mode of Arrival: Ambulatory Source of Information: Patient Limitations: No Limitations Description of Symptoms (Recalled from Triage Doc. by RN): PATIENT RASH TO LEGS AND FEET SINCE YESTERDAY HEENT Symptoms (Recalled from RN notes): No Resp Symptoms (Recalled from RN notes): No Skin Symptoms (Recalled from RN notes): Yes MS Symptoms (Recalled from RN notes): No Functional Status (Recalled from RN notes): WNL - History of Present Illness Provider Complaint: Patient states that she was clearing weeds around a tree in her yard that has poison gema on it States that she noticed she was having a small rash on top of her foot and behind her knee after she cleared the weeds like poison gema States that she used topical itch cream but it didnt help much so she came in - Related Data Home Medications Medication Instructions Recorded Confirmed allopurinol 100 mg tablet 100 mg PO DAILY 03/12/17 03/22/20 coenzyme Q10 200 mg capsule 200 mg PO DAILY 03/12/17 03/22/20 esomeprazole magnesium 40 mg 40 mg PO QDAY cap 03/12/17 03/22/20 capsule,delayed release fluoxetine 10 mg capsule 10 mg PO DAILY 03/12/17 03/22/20 levocetirizine 5 mg tablet 5 mg PO QHS 03/12/17 03/22/20 levothyroxine 100 mcg tablet 100 mcg PO DAILY tab 03/12/17 03/22/20 metoprolol succinate 50 mg 50 mg PO BID tab 03/12/17 03/22/20 tablet,extended release 24 hr omega-3 fatty acids 1,000 mg 1,000 mg PO DAILY 03/12/17 03/22/20 capsule Lisinopril/Hydrochlorothiazide 12.5 - 20 mg PO BID 03/27/17 03/22/20 [Lisinopril-Hctz 20-12.5 mg Tab*] Hydrocodone/Acetaminophen 7.5 - 325 mg PO Q6HP PRN 03/30/17 03/22/20 [Hydrocodone-Acetamin 7.5-325] Previous Rx's Medication Instructions Recorded Aspirin [Aspirin 325mg Tab] 325 mg PO DAILY 14 Days tab 04/02/17 Hydrocod/Acet 5/325 mg [[place] 1 - 2 tab PO Q4HP PRN #30 tab 04/02/17 5/325mg tablet] Azithromycin [Z-Ayaz 250mg Tab] 250 mg PO DIRECTED #6 tab 03/13/21 predniSONE [Deltasone 10mg tablet] 10 mg PO BID 5 Days #10 tab 03/13/21 Triamcinolone Acetonide [Kenalog 1 applic TP BID #30 gm 09/11/21 0.1% cream 30gm tube] Allergies Allergy/AdvReac Type Severity Reaction Status Date / Time adhesive tape Allergy Unknown I-RASH Verified 03/22/20 13:52 codeine Allergy Unknown HYPERACTIVE Verified 03/22/20 13:52 PT. DOES NOT LIKE TO TAKE Ecuoosc-LQZ-AlN Reductase AdvReac Body Verified 03/22/20 13:52 Inhibitor Stiffness [Ltdpadg-Hvz-Gmd Reductase Inhibitor] - Worker's Comp Is this a Worker's Comp case?: No [facility] History - Hepatitis A Screen Attestation statement:: This patient has been scree
[2021-09-11 09:15] VITALS: BP 141/76; PULSE 76; RESP 19; TEMP 36.7; O2SAT 98
== END 2021-09-11 09:26 | disposition home or self-care (01) ==
PROVIDERS: Emergency Provider Nurse Practitioner; PCP Family Medicine
DX: R21 Rash and other nonspecific skin eruption (principal)
CPT/HCPCS: 99212; G0463

== ENCOUNTER 2021-09-26 12:12 | Emergency (ER) | payer MEDICARE, SELFPAY ==
[2021-09-26 16:31] VITALS: BP 129/78; PULSE 79; RESP 18; TEMP 36.6; O2SAT 99; BMI 26.1
[2021-09-26 16:49] VITALS: BP 129/78; PULSE 79; RESP 18; TEMP 36.6; O2SAT 99
== END 2021-09-26 16:55 | disposition home or self-care (01) ==
PROVIDERS: Emergency Provider Nurse Practitioner; PCP Family Medicine
DX: Z23 Encounter for immunization (principal); Z53.21 Procedure and treatment not carried out due to patient leaving prior to being seen by health care provider
CPT/HCPCS: 90471; 90714

== ENCOUNTER → 2021-10-08 09:14 | Outpatient (CLI) | payer MEDICARE, SELFPAY ==
[2021-10-08 10:03] LABS: Creatinine,Urine Random 174 mg/dL (Not Estab.)
== END ==
PROVIDERS: PCP Family Medicine; Visit Provider Physician Assistant
DX: R80.9 Proteinuria, unspecified (principal)
CPT/HCPCS: 82570; 84155

== ENCOUNTER → 2021-11-05 08:39 | Outpatient (CLI) | payer MEDICARE, SELFPAY ==
[2021-11-05 08:50] LABS: Microscopic, Urine URINE MICROSCOPIC (MICROSCOPIC)
[2021-11-05 09:17] LABS: Basophils # 0.1 K/mm3 (0-0.2); Basophils % 0.9 % (0.1-2.0); Eosinophils # 0.3 K/mm3 (0.0-0.4); Eosinophils % 3.5 % (0.1-12.0); Hematocrit 35.6 % (37.0-47.0); Hemoglobin 10.8 g/dL (12.2-16.2); Lymphocytes # 2.7 K/mm3 (0.7-4.5); Mean Corpuscular HGB Conc 30.3 g/dL (31.8-35.4); Mean Platelet Volume 10.9 fl (7.4-10.4); Monocytes # 0.4 K/mm3 (0.1-1.0); Monocytes % 4.7 % (1.7-9.3); Neutrophils # 4.9 K/mm3 (1.8-7.8); Neutrophils % 58.9 % (37.0-80.0); Platelet Count 223 K/mm3 (142-424); Red Blood Count 3.27 M/mm3 (4.20-5.40); White Blood Count 8.4 K/mm3 (4.8-10.8)
[2021-11-05 09:20] LABS: Appearance,Urine CLEAR (Clear); Bilirubin,Urine Negative (Negative); Blood, Urine Negative (Negative); Color,Urine YELLOW (Yellow); Glucose,Urine (UA) Negative (Negative); Ketones,Urine Negative (Negative); Leukocyte Esterase,Urine Negative (Negative); Nitrate,Urine Negative (Negative); Protein,Urine 2+ (Negative); Specific Gravity, Urine 1.025 (1.005-1.030); Urobilinogen,Urine 0.2 EU/dl (0.2)
[2021-11-05 09:44] LABS: Bacteria,Urine Trace /lpf
[2021-11-05 09:45] LABS: Creatinine,Urine Random 175 mg/dL (Not Estab.)
[2021-11-05 10:25] LABS: Albumin Level 3.8 g/dl (3.5-5.0); Anion Gap 10.5 mEq/L (5-15); Blood Urea Nitrogen 28 mg/dl (7-17); Calcium 9.1 mg/dl (8.4-10.2); Carbon Dioxide 26 mmol/L (22.0-30.0); Chloride 107 mmol/L (98-107); Estimated Glomerular Filt Rate 31 ml/min (>60); GFR (African American) 38 ML/MIN (>60); Glucose 105 mg/dl (74-100); Potassium 4.5 mmoL/L (3.5-5.1); Sodium 139 mmol/L (136-145)
== END ==
PROVIDERS: PCP Family Medicine; Visit Provider Physician Assistant
DX: N18.32 Chronic kidney disease, stage 3b (principal); R80.9 Proteinuria, unspecified
CPT/HCPCS: 36415; 80069; 81001; 82570; 84155; 85025

== ENCOUNTER → 2021-12-16 08:21 | Outpatient (CLI) | payer MEDICARE, SELFPAY ==
[2021-12-16 08:53] LABS: Microscopic, Urine URINE MICROSCOPIC (MICROSCOPIC)
[2021-12-16 09:28] LABS: Basophils # 0.1 K/mm3 (0-0.2); Basophils % 0.7 % (0.1-2.0); Eosinophils # 0.4 K/mm3 (0.0-0.4); Eosinophils % 4.4 % (0.1-12.0); Hematocrit 35.2 % (37.0-47.0); Hemoglobin 10.7 g/dL (12.2-16.2); Lymphocytes # 2.3 K/mm3 (0.7-4.5); Lymphocytes % 29.5 % (10-50); Mean Corpuscular HGB Conc 30.4 g/dL (31.8-35.4); Mean Corpuscular Hemoglobin 31.9 pg (27.0-31.2); Mean Platelet Volume 11.3 fl (7.4-10.4); Monocytes # 0.4 K/mm3 (0.1-1.0); Neutrophils # 4.7 K/mm3 (1.8-7.8); Neutrophils % 60.3 % (37.0-80.0); Platelet Count 218 K/mm3 (142-424); Red Blood Count 3.36 M/mm3 (4.20-5.40); Red Cell Distribution Width 14.6 % (11.5-17.5); White Blood Count 7.8 K/mm3 (4.8-10.8)
[2021-12-16 09:30] LABS: Appearance,Urine CLEAR (Clear); Bilirubin,Urine Negative (Negative); Blood, Urine Negative (Negative); Color,Urine YELLOW (Yellow); Glucose,Urine (UA) Negative (Negative); Ketones,Urine Negative (Negative); Leukocyte Esterase,Urine Negative (Negative); Nitrate,Urine Negative (Negative); Protein,Urine 2+ (Negative); Specific Gravity, Urine 1.025 (1.005-1.030); Urobilinogen,Urine 0.2 EU/dl (0.2)
[2021-12-16 09:37] LABS: Chloride 107 mmol/L (98-107)
[2021-12-16 09:38] LABS: Albumin Level 3.7 g/dl (3.5-5.0); Potassium 5.3 mmoL/L (3.5-5.1); Sodium 141 mmol/L (136-145)
[2021-12-16 09:40] LABS: Blood Urea Nitrogen 41 mg/dl (7-17); Estimated Glomerular Filt Rate 27 ml/min (>60); GFR (African American) 33 ML/MIN (>60)
[2021-12-16 09:41] LABS: Anion Gap 14.3 mEq/L (5-15); Calcium 8.7 mg/dl (8.4-10.2); Carbon Dioxide 25 mmol/L (22.0-30.0); Glucose 109 mg/dl (74-100); Phosphorous 4.1 mg/dl (2.5-4.5)
[2021-12-16 09:45] LABS: Creatinine,Urine Random 110 mg/dL (Not Estab.)
[2021-12-16 09:46] LABS: Bacteria,Urine Trace /lpf; Squamous Epithelial Cell,Urine Occasional #/hpf (0-5); WBC,Urine Occasional #/hpf (0-3)
[2021-12-17 13:34] LABS: Anti-Centromere B Antibodies <0.2 AI (0.0-0.9); Anti-DNA (DS) Ab Qn <1 IU/mL (0-9); Anti-Jo-1 <0.2 AI (0.0-0.9); Anti-Smith Antibody <0.2 AI (0.0-0.9); Antichromatin Antibodies <0.2 AI (0.0-0.9); Antiscleroderma-70 Antibodies <0.2 AI (0.0-0.9); RNP Antibodies <0.2 AI (0.0-0.9); Sjogren's Anti-SS-B <0.2 AI (0.0-0.9)
[2021-12-17 16:07] LABS: Albumin 3.6 g/dL (2.9-4.4); Alpha-1-Globulin 0.2 g/dL (0.0-0.4); Alpha-2-Globulin 0.8 g/dL (0.4-1.0); Cytoplasmic (C-ANCA) <1:20 titer (Neg:<1:20); Gamma Globulin 0.9 g/dL (0.4-1.8); Perinuclear (P-ANCA) <1:20 titer (Neg:<1:20); Protein, Total 6.6 g/dL (6.0-8.5)
[2021-12-26 14:36] LABS: Antiproteinase 3 (PR-3) Abs QNS; Free Kappa Lt Chains,Ur QNS; Free Lambda Lt Chains,Ur QNS; Myeloperoxidase Antibody QNS
== END ==
PROVIDERS: PCP Family Medicine; Visit Provider Student in an Organized Health Care Education/Training Program
DX: N18.32 Chronic kidney disease, stage 3b (principal); R76.0 Raised antibody titer
CPT/HCPCS: 36415; 80069; 81001; 82570; 83520; 83883; 84155; 84165; 85025; 86225; 86235; 86256

== ENCOUNTER 2022-01-21 09:06 | Emergency (ER) | payer MEDICARE, SELFPAY ==
[2022-01-21 09:40] VITALS: BP 117/64; PULSE 67; RESP 19; TEMP 36.6; O2SAT 98; BMI 25.6
[2022-01-21 09:53] LABS: Apearance,Urine Cloudy (Clear); Bilirubin,Urine 1+ (Negative); Blood, Urine 3+ (Negative); Color,Urine Yellow (Yellow); Glucose,Urine (UA) Negative (Negative); Ketones,Urine TRACE (Negative); PH,Urine 5.5 (5.0-8.5); Protein,Urine 2+ (Negative); UTC Leukocyte Esterase,Urine 1+ (Negative); UTC Nitrate,Urine Negative (Negative); Urobilinogen,Urine 0.2 EU/dl (0.2)
--- NOTE | 2022-01-21 09:56 | EXP.UTC ---
Discharge Plan Disposition Patient Disposition: Home, Self-Care Condition: Good Prescriptions Prescriptions: New cefdinir 300 mg capsule 300 mg PO BID 7 Days Qty: 14 0RF phenazopyridine [Pyridium] 200 mg tablet 200 mg PO Q8H 2 Days Qty: 6 0RF No Action esomeprazole magnesium [Nexium] 40 mg capsule,delayed release(DR/EC) 40 mg PO QDAY levothyroxine [Synthroid] 100 mcg tablet 100 mcg PO DAILY fluoxetine 10 mg capsule 10 mg PO DAILY metoprolol succinate [Toprol XL] 50 mg tablet extended release 24 hr 50 mg PO BID allopurinol 100 mg tablet 100 mg PO DAILY levocetirizine 5 mg tablet 5 mg PO QHS omega-3 fatty acids [Fish Oil Concentrate] 1,000 mg capsule 1,000 mg PO DAILY coenzyme Q10 [Co Q-10] 200 mg capsule 200 mg PO DAILY lisinopril-hydrochlorothiazide 1 EACH tablet 12.5 - 20 mg PO BID hydrocodone-acetaminophen 1 EACH tablet 7.5 - 325 mg PO Q6HP PRN (Reason: PAIN) Label Comments: TAKE 1 TABLET BY MOUTH EVERY 6 HOURS hydrocodone-acetaminophen 1 TAB tablet 1 - 2 tab PO Q4HP PRN (Reason: Moderate To Severe Pain) Qty: 30 0RF aspirin 325 MG tablet 325 mg PO DAILY 14 Days 0RF prednisone 10 MG tablet 10 mg PO BID 5 Days Qty: 10 0RF azithromycin 250 MG tablet 250 mg PO DIRECTED Qty: 6 0RF Rx Instructions: Take two (2) tablets on day #1, then one (1) tablet day #2 thru #5 triamcinolone acetonide 30 GM cream 1 applic TP BID Qty: 30 0RF Rx Instructions: apply to rash as directed Referrals Follow up/Referrals: Vninie Molina MD [Primary Care Provider] - See instructions Activity Restrictions/Add. Instructions Additional Instructions/Restrictions: *Increase fluids. Water not Soda or Tea *Start antibiotic tomorrow and be sure to take as ordered for the FULL length of time although you should start to see improvement over the next 48 hours *Pyridium as needed Remember this medication will turn your urine . This is normal but it will stain what ever it gets on *You should not use Pyridium for more than 48 hours. If so , follow up with your primary physician to review urine culture and ensure that antibiotic is adequate for infection *Be SURE to follow up anytime for new or worsening symptoms with your family doctor. AND in 48 hours for urine culture results with your family doctor, if you do not have a doctor then you may call back to the [facility] for urine culture results and further treatment. We do recommend that you choose and establish care with a Primary Care Physician. ?AND follow up with them ?in 10-14 days to repeat UA to ensure infection is resolved and blood no longer present *Be sure to let your PCP know that we sent urine cultures from the [facility] so they can follow up to ensure that you area the on the correct antibiotic Call your doctor office and make appointment for 48 hours (2 days from today) ?to follow up and get the results of your urine culture and further treatment Make sure to follow up with your Family Doctor immediately for new or worsening symptoms Clinical Impressions Clinical Impression: Urinary tract infection Qualifiers: Urinary tract infection type: site unspecified Hematuria presence: with hematuria Qualified Code(s): N39.0 - Urinary tract infection, site not specified Instructions Patient Instructions: Urinary Tract Infection, DI for Urinary Tract Infection (UTI) Discharge ED Provider: Aurelia Shepard [facility] [place] HPI General Stated complaint: possible bladder infection Time Seen by Provider: 01/21/22 09:56 History of Present Illness Provider Complaint: Patient states that for the last couple of days She has been having the feeling or urgency and frequency with bladder pressure like she has had before with UTI Denies fever, chills or abdominal pain States that she feels like she is having to go more frequently than normal States that she took an azo but was still having symptoms so she
[2022-01-21 10:17] VITALS: BP 117/64; PULSE 67; RESP 19; TEMP 36.6; O2SAT 98
== END 2022-01-21 10:20 | disposition home or self-care (01) ==
PROVIDERS: Emergency Provider Nurse Practitioner; PCP Family Medicine
DX: N39.0 Urinary tract infection, site not specified (principal); K21.9 Gastro-esophageal reflux disease without esophagitis; E78.5 Hyperlipidemia, unspecified; I10 Essential (primary) hypertension; Z79.52 Long term (current) use of systemic steroids; Z79.82 Long term (current) use of aspirin; Z79.899 Other long term (current) drug therapy; Z88.5 Allergy status to narcotic agent; Z88.8 Allergy status to other drugs, medicaments and biological substances; Z91.048 Other nonmedicinal substance allergy status; Z87.440 Personal history of urinary (tract) infections
CPT/HCPCS: 81003; 87086; 87088; 87186; 96372; 99213; G0463; J0696

== ENCOUNTER → 2022-03-05 08:40 | Outpatient (CLI) | payer MEDICARE, SELFPAY ==
[2022-03-05 08:49] LABS: Microscopic, Urine URINE MICROSCOPIC (MICROSCOPIC)
[2022-03-05 09:11] LABS: Basophils # 0.1 K/mm3 (0-0.2); Basophils % 1.2 % (0.1-2.0); Eosinophils # 0.4 K/mm3 (0.0-0.4); Eosinophils % 4.3 % (0.1-12.0); Hematocrit 36.4 % (37.0-47.0); Hemoglobin 11.5 g/dL (12.2-16.2); Lymphocytes # 2.6 K/mm3 (0.7-4.5); Lymphocytes % 30.2 % (10-50); Mean Corpuscular HGB Conc 31.6 g/dL (31.8-35.4); Mean Corpuscular Hemoglobin 31.6 pg (27.0-31.2); Mean Platelet Volume 11.6 fl (7.4-10.4); Monocytes # 0.5 K/mm3 (0.1-1.0); Monocytes % 5.5 % (1.7-9.3); Neutrophils % 58.7 % (37.0-80.0); Platelet Count 226 K/mm3 (142-424); Red Blood Count 3.64 M/mm3 (4.20-5.40); Red Cell Distribution Width 15.3 % (11.5-17.5); White Blood Count 8.5 K/mm3 (4.8-10.8)
[2022-03-05 09:49] LABS: Chloride 110 mmol/L (98-107); Potassium 4.6 mmoL/L (3.5-5.1); Sodium 141 mmol/L (136-145)
[2022-03-05 09:52] LABS: Anion Gap 13.6 mEq/L (5-15); Blood Urea Nitrogen 33 mg/dl (7-17); Carbon Dioxide 22 mmol/L (22.0-30.0); Estimated Glomerular Filt Rate 22 ml/min (>60); GFR (African American) 26 ML/MIN (>60); Phosphorous 4.2 mg/dl (2.5-4.5)
[2022-03-05 09:53] LABS: Calcium 8.7 mg/dl (8.4-10.2); Glucose 110 mg/dl (74-100)
[2022-03-05 10:09] LABS: Appearance,Urine CLEAR (Clear); Bilirubin,Urine Negative (Negative); Blood, Urine Negative (Negative); Color,Urine YELLOW (Yellow); Glucose,Urine (UA) Negative (Negative); Ketones,Urine Negative (Negative); Leukocyte Esterase,Urine Negative (Negative); Nitrate,Urine Negative (Negative); PH,Urine 5.5 (5.0-8.5); Protein,Urine 1+ (Negative); Squamous Epithelial Cell,Urine Occasional #/hpf (0-5); Urobilinogen,Urine 0.2 EU/dl (0.2)
[2022-03-05 10:10] LABS: Bacteria,Urine Trace /lpf
[2022-03-05 10:52] LABS: Creatinine,Urine Random 166 mg/dL (Not Estab.)
== END ==
PROVIDERS: PCP Family Medicine; Visit Provider Student in an Organized Health Care Education/Training Program
DX: N18.4 Chronic kidney disease, stage 4 (severe) (principal)
CPT/HCPCS: 36415; 80069; 81001; 82570; 84155; 85025

== ENCOUNTER → 2022-05-05 12:50 | Outpatient (CLI) | payer MEDICARE, SELFPAY ==
[2022-05-05 13:07] LABS: Microscopic, Urine URINE MICROSCOPIC (MICROSCOPIC)
[2022-05-05 13:37] LABS: Appearance,Urine CLEAR (Clear); Basophils # 0.1 K/mm3 (0-0.2); Basophils % 0.7 % (0.1-2.0); Bilirubin,Urine Negative (Negative); Blood, Urine Negative (Negative); Color,Urine YELLOW (Yellow); Eosinophils # 0.3 K/mm3 (0.0-0.4); Eosinophils % 2.6 % (0.1-12.0); Glucose,Urine (UA) Negative (Negative); Hematocrit 35.9 % (37.0-47.0); Hemoglobin 11.1 g/dL (12.2-16.2); Ketones,Urine Negative (Negative); Leukocyte Esterase,Urine Negative (Negative); Lymphocytes # 2.7 K/mm3 (0.7-4.5); Lymphocytes % 27.2 % (10-50); Mean Corpuscular Hemoglobin 31.5 pg (27.0-31.2); Mean Corpuscular Volume 101.8 fl (81-99); Mean Platelet Volume 11.5 fl (7.4-10.4); Monocytes # 0.5 K/mm3 (0.1-1.0); Monocytes % 4.7 % (1.7-9.3); Neutrophils # 6.5 K/mm3 (1.8-7.8); Neutrophils % 64.8 % (37.0-80.0); Nitrate,Urine Negative (Negative); PH,Urine 5.5 (5.0-8.5); Platelet Count 238 K/mm3 (142-424); Protein,Urine TRACE (Negative); Red Blood Count 3.52 M/mm3 (4.20-5.40); Red Cell Distribution Width 15.4 % (11.5-17.5); Urobilinogen,Urine 0.2 EU/dl (0.2)
[2022-05-05 13:42] LABS: Creatinine,Urine Random 93 mg/dL (Not Estab.)
[2022-05-05 13:46] LABS: Chloride 110 mmol/L (98-107); Sodium 139 mmol/L (136-145)
[2022-05-05 13:47] LABS: Albumin Level 4.1 g/dl (3.5-5.0)
[2022-05-05 13:49] LABS: Blood Urea Nitrogen 44 mg/dl (7-17); Estimated Glomerular Filt Rate 26 ml/min (>60); GFR (African American) 31 ML/MIN (>60)
[2022-05-05 13:50] LABS: Calcium 8.8 mg/dl (8.4-10.2); Carbon Dioxide 20 mmol/L (22.0-30.0); Glucose 104 mg/dl (74-100); Phosphorous 4.3 mg/dl (2.5-4.5)
[2022-05-05 14:05] LABS: Bacteria,Urine Trace /lpf; Squamous Epithelial Cell,Urine Occasional #/hpf (0-5); WBC,Urine Occasional #/hpf (0-3)
== END ==
PROVIDERS: PCP Family Medicine; Visit Provider Student in an Organized Health Care Education/Training Program
DX: N18.4 Chronic kidney disease, stage 4 (severe) (principal)
CPT/HCPCS: 36415; 80069; 81001; 82570; 84155; 85025

== ENCOUNTER → 2022-08-11 13:01 | Outpatient (CLI) | payer MEDICARE, SELFPAY ==
[2022-08-11 13:10] LABS: Microscopic, Urine URINE MICROSCOPIC (MICROSCOPIC)
[2022-08-11 14:30] LABS: Basophils % 0.4 % (0.1-2.0); Eosinophils # 0.2 K/mm3 (0.0-0.4); Eosinophils % 2.2 % (0.1-12.0); Hematocrit 35.7 % (37.0-47.0); Hemoglobin 10.8 g/dL (12.2-16.2); Lymphocytes % 31.3 % (10-50); Mean Corpuscular HGB Conc 30.2 g/dL (31.8-35.4); Mean Corpuscular Hemoglobin 30.3 pg (27.0-31.2); Mean Corpuscular Volume 100.3 fl (81-99); Mean Platelet Volume 11.6 fl (7.4-10.4); Monocytes # 0.5 K/mm3 (0.1-1.0); Monocytes % 5.6 % (1.7-9.3); Neutrophils # 5.8 K/mm3 (1.8-7.8); Neutrophils % 60.5 % (37.0-80.0); Platelet Count 257 K/mm3 (142-424); Red Blood Count 3.56 M/mm3 (4.20-5.40); Red Cell Distribution Width 14.8 % (11.5-17.5); White Blood Count 9.5 K/mm3 (4.8-10.8)
[2022-08-11 15:14] LABS: Appearance,Urine CLEAR (Clear); Bilirubin,Urine Negative (Negative); Blood, Urine Negative (Negative); Color,Urine YELLOW (Yellow); Glucose,Urine (UA) Negative (Negative); Ketones,Urine Negative (Negative); Leukocyte Esterase,Urine Negative (Negative); Nitrate,Urine Negative (Negative); PH,Urine 5.5 (5.0-8.5); Protein,Urine 1+ (Negative); Urobilinogen,Urine 0.2 EU/dl (0.2)
[2022-08-11 15:30] LABS: Bacteria,Urine Trace /lpf
[2022-08-11 15:36] LABS: Albumin Level 4.2 g/dl (3.5-5.0); Anion Gap 18.9 mEq/L (5-15); Blood Urea Nitrogen 33 mg/dl (7-17); Carbon Dioxide 24 mmol/L (22.0-30.0); Chloride 103 mmol/L (98-107); Estimated Glomerular Filt Rate 24 ml/min (>60); GFR (African American) 29 ML/MIN (>60); Glucose 103 mg/dl (74-100); Phosphorous 4.3 mg/dl (2.5-4.5); Potassium 4.9 mmoL/L (3.5-5.1); Sodium 141 mmol/L (136-145)
[2022-08-12 10:11] LABS: Creatinine,Urine Random 111 mg/dL (Not Estab.)
== END ==
PROVIDERS: PCP Family Medicine; Visit Provider Student in an Organized Health Care Education/Training Program
DX: N18.4 Chronic kidney disease, stage 4 (severe) (principal)
CPT/HCPCS: 36415; 80069; 81001; 82570; 84155; 85025

== ENCOUNTER → 2022-11-10 13:10 | Outpatient (CLI) | payer MEDICARE, SELFPAY ==
[2022-11-10 13:22] LABS: Microscopic, Urine URINE MICROSCOPIC (MICROSCOPIC)
[2022-11-10 13:46] LABS: Basophils % 0.4 % (0.1-2.0); Eosinophils # 0.2 K/mm3 (0.0-0.4); Eosinophils % 2.1 % (0.1-12.0); Hematocrit 35.1 % (37.0-47.0); Hemoglobin 10.5 g/dL (12.2-16.2); Lymphocytes # 2.7 K/mm3 (0.7-4.5); Lymphocytes % 29.8 % (10-50); Mean Corpuscular Hemoglobin 29.4 pg (27.0-31.2); Mean Platelet Volume 10.8 fl (7.4-10.4); Monocytes # 0.5 K/mm3 (0.1-1.0); Monocytes % 5.1 % (1.7-9.3); Neutrophils # 5.6 K/mm3 (1.8-7.8); Neutrophils % 62.6 % (37.0-80.0); Platelet Count 252 K/mm3 (142-424); Red Blood Count 3.58 M/mm3 (4.20-5.40); Red Cell Distribution Width 15.9 % (11.5-17.5)
[2022-11-10 14:03] LABS: Appearance,Urine CLEAR (Clear); Bilirubin,Urine Negative (Negative); Blood, Urine Negative (Negative); Color,Urine YELLOW (Yellow); Glucose,Urine (UA) Negative (Negative); Ketones,Urine Negative (Negative); Leukocyte Esterase,Urine Negative (Negative); Nitrate,Urine Negative (Negative); PH,Urine 5.5 (5.0-8.5); Protein,Urine TRACE (Negative); Urobilinogen,Urine 0.2 EU/dl (0.2)
[2022-11-10 14:05] LABS: Creatinine,Urine Random 87 mg/dL (Not Estab.)
[2022-11-10 14:12] LABS: Bacteria,Urine Trace /lpf; Squamous Epithelial Cell,Urine Occasional #/hpf (0-5)
[2022-11-10 15:51] LABS: Anion Gap 14.5 mEq/L (5-15); Blood Urea Nitrogen 41 mg/dl (7-17); Calcium 8.9 mg/dl (8.4-10.2); Carbon Dioxide 23 mmol/L (22.0-30.0); Chloride 108 mmol/L (98-107); Estimated Glomerular Filt Rate 23 ml/min (>60); GFR (African American) 27 ML/MIN (>60); Glucose 103 mg/dl (74-100); Phosphorous 3.7 mg/dl (2.5-4.5); Potassium 5.5 mmoL/L (3.5-5.1); Sodium 140 mmol/L (136-145)
== END ==
PROVIDERS: PCP Family Medicine; Visit Provider Student in an Organized Health Care Education/Training Program
DX: N18.32 Chronic kidney disease, stage 3b (principal)
CPT/HCPCS: 36415; 80069; 81001; 82570; 84155; 85025

== ENCOUNTER → 2023-02-10 12:41 | Outpatient (CLI) | payer MEDICARE, SELFPAY ==
[2023-02-10 12:50] LABS: Microscopic, Urine URINE MICROSCOPIC (MICROSCOPIC)
[2023-02-10 13:39] LABS: Basophils % 0.3 % (0.1-2.0); Eosinophils # 0.2 K/mm3 (0.0-0.4); Eosinophils % 1.8 % (0.1-12.0); Hemoglobin 10.5 g/dL (12.2-16.2); Lymphocytes # 2.5 K/mm3 (0.7-4.5); Lymphocytes % 26.2 % (10-50); Mean Corpuscular HGB Conc 31.8 g/dL (31.8-35.4); Mean Corpuscular Hemoglobin 31.2 pg (27.0-31.2); Mean Platelet Volume 10.5 fl (7.4-10.4); Monocytes # 0.5 K/mm3 (0.1-1.0); Monocytes % 4.6 % (1.7-9.3); Neutrophils # 6.5 K/mm3 (1.8-7.8); Neutrophils % 67.1 % (37.0-80.0); Platelet Count 256 K/mm3 (142-424); Red Blood Count 3.36 M/mm3 (4.20-5.40); Red Cell Distribution Width 15.4 % (11.5-17.5); White Blood Count 9.7 K/mm3 (4.8-10.8)
[2023-02-10 14:30] LABS: Chloride 109 mmol/L (98-107)
[2023-02-10 14:31] LABS: Albumin Level 4.5 g/dl (3.5-5.0); Potassium 5.4 mmoL/L (3.5-5.1); Sodium 138 mmol/L (136-145)
[2023-02-10 14:33] LABS: Blood Urea Nitrogen 42 mg/dl (7-17); Estimated Glomerular Filt Rate 19 ml/min (>60); GFR (African American) 22 ML/MIN (>60)
[2023-02-10 14:34] LABS: Anion Gap 13.4 mEq/L (5-15); Carbon Dioxide 21 mmol/L (22.0-30.0); Glucose 106 mg/dl (74-100); Phosphorous 4.2 mg/dl (2.5-4.5)
[2023-02-10 14:39] LABS: Appearance,Urine CLEAR (Clear); Bilirubin,Urine Negative (Negative); Blood, Urine Negative (Negative); Color,Urine YELLOW (Yellow); Glucose,Urine (UA) Negative (Negative); Ketones,Urine Negative (Negative); Leukocyte Esterase,Urine Negative (Negative); Nitrate,Urine Negative (Negative); PH,Urine 5.5 (5.0-8.5); Protein,Urine TRACE (Negative); Specific Gravity, Urine 1.015 (1.005-1.030); Urobilinogen,Urine 0.2 EU/dl (0.2)
[2023-02-10 15:04] LABS: Creatinine,Urine Random 96 mg/dL (Not Estab.)
== END ==
PROVIDERS: PCP Student in an Organized Health Care Education/Training Program; Visit Provider Family Medicine
DX: N18.32 Chronic kidney disease, stage 3b (principal)
CPT/HCPCS: 36415; 80069; 81001; 82570; 84155; 85025

== ENCOUNTER 2023-05-26 14:09 | Emergency (ER) | payer MEDICARE, SELFPAY ==
[2023-05-26] VITALS (7 sets, daily range): BP systolic 140–159; BP diastolic 69–73; PULSE 66–87; RESP 16; TEMP 36.6; O2SAT 98–100; BMI 24.2
--- NOTE | 2023-05-26 14:16 | ECG_ITS ---
APPROVED REPORT Exam: Resting ECG HR:73 bpm ECG Measurements Heart Rate 73 AXES GA 160 P 59 QRSd 94 QRS 50 QT 369 T -12 QTc 395 Conclusion SINUS RHYTHM WITH SINUS ARRHYTHMIA Electronically signed by : VEDA FERNANDEZ, 05/26/2023 21:44:05
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
[2023-05-26] MEDS: DEXAMETHASONE 4MG/ML 1ML VIAL 10 MG IM (14:33)
[2023-05-26] MEDS: ACETAMINOPHEN 1,000MG/100ML VIAL 1000 MG IV (14:33)
[2023-05-26] MEDS: KETOROLAC 30MG/ML VIAL 15 MG IV (14:34)
[2023-05-26] MEDS: LACTATED RINGERS 1000ML 1,000 ML 999 ML IV (14:35)
[2023-05-26 14:37] LABS: Basophils # 0.1 K/mm3 (0-0.2); Basophils % 0.9 % (0.1-2.0); Eosinophils # 0.2 K/mm3 (0.0-0.4); Eosinophils % 2.2 % (0.1-12.0); Hematocrit 31.8 % (37.0-47.0); Hemoglobin 9.7 g/dL (12.2-16.2); Lymphocytes % 25.2 % (10-50); Mean Corpuscular HGB Conc 30.4 g/dL (31.8-35.4); Mean Corpuscular Hemoglobin 30.4 pg (27.0-31.2); Mean Platelet Volume 10.7 fl (7.4-10.4); Monocytes # 0.5 K/mm3 (0.1-1.0); Monocytes % 6.2 % (1.7-9.3); Neutrophils # 5.1 K/mm3 (1.8-7.8); Neutrophils % 65.6 % (37.0-80.0); Platelet Count 246 K/mm3 (142-424); Prothrombin Time 10.8 seconds (10.1-12.5); Red Blood Count 3.18 M/mm3 (4.20-5.40); Red Cell Distribution Width 16.9 % (11.5-17.5); White Blood Count 7.7 K/mm3 (4.8-10.8)
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
[2023-05-26 14:51] LABS: Chloride 115 mmol/L (98-107)
[2023-05-26 14:52] LABS: Potassium 4.4 mmoL/L (3.5-5.1); Sodium 140 mmol/L (136-145)
[2023-05-26 14:54] LABS: Alanine Aminotransferase 15 U/L (12-78); Alkaline Phosphatase 88 U/L (38-126); Anion Gap 9.4 mEq/L (5-15); Aspartate Amino Transferase 27 U/L (14-36); Bilirubin,Total 0.4 mg/dl (0.2-1.3); Blood Urea Nitrogen 57 mg/dl (7-17); Carbon Dioxide 20 mmol/L (22.0-30.0); Creatinine Clearance Estimated 19 mL/min (50-200); Estimated Glomerular Filt Rate 19 ml/min (>60); GFR (African American) 24 ML/MIN (>60)
[2023-05-26 14:55] LABS: Albumin Level 3.9 g/dl (3.5-5.0); Albumin/Globulin Ratio 1.3 (1.1-1.8); Calcium 9.3 mg/dl (8.4-10.2); Globulin 2.9 g/dL (1.3-3.2); Glucose 119 mg/dl (74-100); Magnesium 1.5 mg/dl (1.6-2.3); Total Protein,Serum 6.8 g/dl (6.3-8.2)
--- NOTE | 2023-05-26 15:01 | CT_ITS ---
FINAL REPORT TECHNIQUE: Axial images were obtained through the chest without contrast. Sagittal and coronal reformatted images were obtained and reviewed. This study was performed with techniques to keep radiation doses as low as reasonably achievable (ALARA). Individualized dose reduction techniques using automated exposure control or adjustment of mA and/or kV according to the patient's size were employed. CLINICAL HISTORY: Blunt force trauma, chest wall pain FINDINGS: There is a nodule in the left thoracic inlet measuring 2.5 x 1.6 cm, may represent an enlarged lymph node. The lungs are clear. The heart size is normal. There is no pericardial or pleural effusion. Limited images of the upper abdomen reveal a 4.8 cm mass in the left kidney with a mean attenuation value of 21 Hounsfield units. There may be a few small calcifications within the mass. No suspicious mass or nodule is identified. The vertebral bodies demonstrate normal height. The ribs are intact. 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 Infused abdomen and pelvic CT is recommended. Nodule at the left thoracic inlet favored to represent an abnormally enlarged lymph node. Reviewed, Interpreted and Dictated by Matthew Rolon MD Transcribed by Kimberly Bonilla Authenticated and [facility]
--- NOTE | 2023-05-26 15:03 | PC.NURSE ---
lactic acid sent
[2023-05-26 15:04] LABS: NT Pro Brain Natriuretic Pep. 1950 pg/mL (0-450)
--- NOTE | 2023-05-26 15:05 | PC.NURSE ---
DOPPLER AT BEDSIDE
[2023-05-26 15:11] LABS: Coronavirus 19, PCR Not Detected (NotDetected); Influenza A, PCR Not Detected (NotDetected); Influenza B, PCR Not Detected (NotDetected)
[2023-05-26] MEDS: APAP/HYDROCODONE 325MG/7.5MG TAB 1 TAB PO (15:11)
[2023-05-26 15:15] LABS: Troponin I < 0.01 ng/ml (0.00-0.034)
[2023-05-26 15:32] LABS: Microscopic, Urine URINE MICROSCOPIC (MICROSCOPIC)
[2023-05-26 15:56] LABS: Appearance,Urine CLEAR (Clear); Bilirubin,Urine Negative (Negative); Blood, Urine Negative (Negative); Color,Urine YELLOW (Yellow); Glucose,Urine (UA) Negative (Negative); Ketones,Urine Negative (Negative); Leukocyte Esterase,Urine Negative (Negative); Nitrate,Urine Negative (Negative); Protein,Urine Negative (Negative); Urobilinogen,Urine 0.2 EU/dl (0.2)
[2023-05-26 16:16] LABS: Squamous Epithelial Cell,Urine Occasional #/hpf (0-5); WBC,Urine Occasional #/hpf (0-3)
[2023-05-26] MEDS: MAGNESIUM SULFATE IN WATER 2 GM/50 ML PIGGYBACK IV (16:24)
--- NOTE | 2023-05-26 16:38 | PC.NURSE ---
RADIOLOGY NOTIFIED TO SEND ANY POSSIBLE UPDATES ON CT SCANS, WILL SEND PRELIMINARY READS
[2023-05-26 18:00] LABS: Lactic Acid 0.6 mmol/L (0.7-2.1)
== END 2023-05-26 17:15 | disposition home or self-care (01) ==
PROVIDERS: Physician Assistant; Emergency Provider Emergency Medicine; PCP Family Medicine
DX: S20.212A Contusion of left front wall of thorax, initial encounter (principal); R07.89 Other chest pain; S40.022A Contusion of left upper arm, initial encounter; S80.12XA Contusion of left lower leg, initial encounter; R60.0 Localized edema; N17.9 Acute kidney failure, unspecified; D64.9 Anemia, unspecified; K21.9 Gastro-esophageal reflux disease without esophagitis; I10 Essential (primary) hypertension; E78.5 Hyperlipidemia, unspecified; Y04.2XXA Assault by strike against or bumped into by another person, initial encounter
CPT/HCPCS: 70450; 71045; 71250; 72125; 80053; 81001; 83605; 83735; 83880; 84484; 85025; 85610; 87636; 93005; 93970; 96361; 96365; 96372; 96375; 99285; J0131; J3475

== ENCOUNTER 2023-07-07 11:50 | Outpatient (CLI) | payer MEDICARE, SELFPAY ==
[2023-07-07 12:02] LABS: Microscopic, Urine URINE MICROSCOPIC (MICROSCOPIC)
[2023-07-07 12:35] LABS: Basophils # 0.1 K/mm3 (0-0.2); Basophils % 1.1 % (0.1-2.0); Eosinophils # 0.2 K/mm3 (0.0-0.4); Eosinophils % 2.9 % (0.1-12.0); Hematocrit 30.6 % (37.0-47.0); Hemoglobin 9.4 g/dL (12.2-16.2); Lymphocytes # 1.9 K/mm3 (0.7-4.5); Lymphocytes % 23.9 % (10-50); Mean Corpuscular HGB Conc 30.6 g/dL (31.8-35.4); Mean Corpuscular Hemoglobin 29.9 pg (27.0-31.2); Mean Corpuscular Volume 97.5 fl (81-99); Mean Platelet Volume 10.6 fl (7.4-10.4); Monocytes # 0.4 K/mm3 (0.1-1.0); Monocytes % 5.4 % (1.7-9.3); Neutrophils # 5.3 K/mm3 (1.8-7.8); Neutrophils % 66.8 % (37.0-80.0); Platelet Count 227 K/mm3 (142-424); Red Blood Count 3.14 M/mm3 (4.20-5.40); Red Cell Distribution Width 16.5 % (11.5-17.5)
[2023-07-07 12:52] LABS: Appearance,Urine CLEAR (Clear); Bilirubin,Urine Negative (Negative); Blood, Urine Negative (Negative); Color,Urine YELLOW (Yellow); Glucose,Urine (UA) Negative (Negative); Ketones,Urine Negative (Negative); Leukocyte Esterase,Urine Negative (Negative); Nitrate,Urine Negative (Negative); PH,Urine 5.5 (5.0-8.5); Protein,Urine 1+ (Negative); Specific Gravity, Urine 1.025 (1.005-1.030); Urobilinogen,Urine 0.2 EU/dl (0.2)
[2023-07-07 13:02] LABS: Creatinine,Urine Random 230 mg/dL (Not Estab.)
[2023-07-07 13:05] LABS: Bacteria,Urine Trace /lpf; Squamous Epithelial Cell,Urine Occasional #/hpf (0-5)
[2023-07-07 13:31] LABS: Chloride 109 mmol/L (98-107); Potassium 5.4 mmoL/L (3.5-5.1); Sodium 138 mmol/L (136-145)
[2023-07-07 13:32] LABS: Albumin Level 3.9 g/dl (3.5-5.0)
[2023-07-07 13:34] LABS: Anion Gap 14.4 mEq/L (5-15); Blood Urea Nitrogen 38 mg/dl (7-17); Carbon Dioxide 20 mmol/L (22.0-30.0); Estimated Glomerular Filt Rate 21 ml/min (>60); GFR (African American) 26 ML/MIN (>60); Phosphorous 4.7 mg/dl (2.5-4.5)
[2023-07-07 13:35] LABS: Glucose 100 mg/dl (74-100)
== END 2023-07-07 23:59 | disposition home or self-care (01) ==
LOC: LAB 11:52
PROVIDERS: PCP Family Medicine; Visit Provider Student in an Organized Health Care Education/Training Program
DX: N18.32 Chronic kidney disease, stage 3b (principal)
CPT/HCPCS: 36415; 80069; 81001; 82570; 84156; 85025

== ENCOUNTER 2023-08-13 09:47 | Outpatient (CLI) | payer MEDICARE, SELFPAY ==
--- NOTE | 2023-08-13 09:52 | CT_ITS ---
FINAL REPORT TECHNIQUE: Axial images were obtained from the lung apex to the mid abdomen by computed tomography. Coronal reformatted images were obtained. This study was performed with techniques to keep radiation doses as low as reasonably achievable, (ALARA). Individualized dose reduction techniques using automated exposure control or adjustment of mA and/or kV according to the patient''s size were employed. CLINICAL HISTORY: SOFT TISSUE MASS CHEST, ENLARGED LYMPH NODE COMPARISON: 05/26/2023 CT chest and 03/04/2018 CT abdomen and pelvis FINDINGS: There is a persistent soft tissue mass of the left thoracic inlet measuring up to 2.4 cm. This may represent adenoma versus mass and is stable compared to the prior study. There are other small mediastinal nodes. No axillary mass or adenopathy is seen.There is no pericardial or pleural effusion. No pulmonary mass or suspicious nodule is identified. Limited images of the upper abdomen demonstrate the patient is postcholecystectomy. There is a 4.8 cm left renal mass. This does not appear to be a simple cyst and likely represents a complex cyst versus neoplasm. It is similar in appearance to the prior exam from 2019. IMPRESSION: Stable soft tissue mass left thoracic inlet may represent adenoma versus mass. Stable left renal mass, likely complex cyst versus neoplasm. This could be further evaluated with renal mass CT or MRI. Reviewed, Interpreted and Dictated by Seng Horton III, MD Transcribed by Dorina Flores Authenticated and [facility]
== END 2023-08-13 23:59 | disposition home or self-care (01) ==
LOC: RAD 09:48
PROVIDERS: PCP Family Medicine; Visit Provider Family Medicine
DX: R59.9 Enlarged lymph nodes, unspecified (principal)
CPT/HCPCS: 71250

== ENCOUNTER 2023-10-30 12:12 | Outpatient (CLI) | payer MEDICARE, SELFPAY ==
[2023-10-30 12:30] LABS: Basophils # 0.1 K/mm3 (0-0.2); Eosinophils # 0.3 K/mm3 (0.0-0.4); Eosinophils % 3.7 % (0.1-12.0); Hematocrit 28.9 % (37.0-47.0); Hemoglobin 8.5 g/dL (12.2-16.2); Lymphocytes # 2.4 K/mm3 (0.7-4.5); Lymphocytes % 26.8 % (10-50); Mean Corpuscular HGB Conc 29.3 g/dL (31.8-35.4); Mean Corpuscular Hemoglobin 27.6 pg (27.0-31.2); Mean Corpuscular Volume 94.3 fl (81-99); Mean Platelet Volume 10.6 fl (7.4-10.4); Monocytes # 0.5 K/mm3 (0.1-1.0); Monocytes % 5.1 % (1.7-9.3); Neutrophils # 5.6 K/mm3 (1.8-7.8); Neutrophils % 63.5 % (37.0-80.0); Platelet Count 290 K/mm3 (142-424); Red Blood Count 3.07 M/mm3 (4.20-5.40); Red Cell Distribution Width 16.9 % (11.5-17.5); White Blood Count 8.9 K/mm3 (4.8-10.8)
[2023-11-07 11:17] LABS: D001-IgE D pteronyssinus <0.10 kU/L (Class 0); D002-IgE D farinae <0.10 kU/L (Class 0); E005-IgE Dog Dander <0.10 kU/L (Class 0); E072-IgE Mouse Urine <0.10 kU/L (Class 0); G002-IgE Bermuda Grass 4.08 kU/L (Class IV); G006-IgE Timothy Grass 3.65 kU/L (Class III); I006-IgE Cockroach, German <0.10 kU/L (Class 0); Immunoglobulin E, Total 144 IU/mL (6-495); M001-IgE Penicillium chrysogen <0.10 kU/L (Class 0); M002-IgE Cladosporium herbarum <0.10 kU/L (Class 0); M003-IgE Aspergillus fumigatus <0.10 kU/L (Class 0); M006-IgE Alternaria alternata <0.10 kU/L (Class 0); T001-IgE Maple/Box Elder 3.21 kU/L (Class III); T003-IgE Common Silver Birch 1.95 kU/L (Class III); T006-IgE Cedar, Mountain 0.55 kU/L (Class I); T007-IgE Oak, White 2.85 kU/L (Class III); T008-IgE Elm, American 1.75 kU/L (Class III); T010-IgE Walnut 3.77 kU/L (Class III); T011-IgE Maple Leaf Sycamore 1.57 kU/L (Class III); T014-IgE Cottonwood 1.47 kU/L (Class III); T015-IgE Ash, White 4.02 kU/L (Class IV); T022-IgE Pecan, Hickory 1.65 kU/L (Class III); T070-IgE White Mulberry <0.10 kU/L (Class 0); W001-IgE Ragweed, Short 5.07 kU/L (Class IV); W011-IgE Thistle, Russian 0.72 kU/L (Class II); W014-IgE Pigweed, Common 2.88 kU/L (Class III); W018-IgE Sheep Sorrel 2.43 kU/L (Class III)
== END 2023-10-30 23:59 | disposition home or self-care (01) ==
LOC: LAB 12:14
PROVIDERS: PCP Family Medicine; Visit Provider Internal Medicine Pulmonary Disease
DX: J30.9 Allergic rhinitis, unspecified (principal); J45.909 Unspecified asthma, uncomplicated; R06.09 Other forms of dyspnea
CPT/HCPCS: 36415; 82785; 85025; 86003

== ENCOUNTER 2023-11-22 13:33 | Emergency (ER) | payer MEDICARE, SELFPAY ==
[2023-11-22 13:33] VITALS: BP 188/83; PULSE 75; RESP 20; TEMP 36.4; O2SAT 98; BMI 26.6
--- NOTE | 2023-11-22 13:36 | XR_ITS ---
PROCEDURE INFORMATION: Exam: XR Right Humerus Exam date and time: 11/22/2023 1:47 PM Age: 83 years old Clinical indication: Injury or trauma; Fall; Blunt trauma (contusions or hematomas); Arm, upper; Right TECHNIQUE: Imaging protocol: Radiologic exam of the right humerus. Views: 2 or more views. COMPARISON: CR XR HUMERUS RT 11/22/2023 1:47 PM FINDINGS: Bones/joints: No humeral shaft fracture.. Displaced fracture of the distal aspect of the clavicle. Degenerative changes in the glenohumeral joint and elbow Soft tissues: Soft tissue swelling of the shoulder IMPRESSION: 1. No humeral shaft fracture.. 2. Displaced fracture of the distal aspect of the clavicle.
--- NOTE | 2023-11-22 13:36 | XR_ITS ---
PROCEDURE INFORMATION: Exam: XR Right Shoulder Exam date and time: 11/22/2023 1:47 PM Age: 83 years old Clinical indication: Injury or trauma; Fall; Blunt trauma (contusions or hematomas); Shoulder; Right TECHNIQUE: Imaging protocol: Radiologic exam of the right shoulder. Views: 2 or more views. COMPARISON: CR XR SHOULDER RT MIN 2V 11/22/2023 1:47 PM FINDINGS: Bones/joints: Displaced fracture of the distal clavicle is stable in appearance.. Narrowing of the subacromial space may indicate impingement syndrome. Degenerative changes in the glenohumeral joint. Soft tissues: Soft tissue swelling of the shoulder IMPRESSION: 1. Displaced fracture of the distal clavicle is stable in appearance.. 2. Narrowing of the subacromial space may indicate impingement syndrome. 3. Degenerative changes in the glenohumeral joint.
--- NOTE | 2023-11-22 13:36 | CT_ITS ---
PROCEDURE INFORMATION: Exam: CT Pelvis Without Contrast, Skeleton Exam date and time: 11/22/2023 3:23 PM Age: 83 years old Clinical indication: Injury or trauma; Fall; Additional info: Fall, on aspirinfall, on aspirin TECHNIQUE: Imaging protocol: Computed tomography of the pelvis without contrast. Exam focused on the skeleton. Radiation optimization: All CT scans at this facility use at least one of these dose optimization techniques: automated exposure control; mA and/or kV adjustment per patient size (includes targeted exams where dose is matched to clinical indication); or iterative reconstruction. COMPARISON: CT ABDOMEN PELVIS WO CON 11/22/2023 3:20 PM FINDINGS: Bones/joints: There is no evidence of acute fracture.There is no evidence of malalignment or dislocation. Anterolisthesis of L3 with respect to L4 and L4 with respect to L5 Broad-based disc bulge, facet hypertrophy, and ligament hypertrophy at L3/L4 and L4/L5 consistent with spinal stenosis. Soft tissues: Unremarkable. IMPRESSION: There is no evidence of acute fracture.There is no evidence of malalignment or dislocation. Broad-based disc bulge, facet hypertrophy, and ligament hypertrophy at L3/L4 and L4/L5 consistent with spinal stenosis.
--- NOTE | 2023-11-22 13:36 | XR_ITS ---
PROCEDURE INFORMATION: Exam: XR Right Scapula Exam date and time: 11/22/2023 1:47 PM Age: 83 years old Clinical indication: Injury or trauma; Fall; Blunt trauma (contusions or hematomas); Shoulder; Right; Additional info: Fall, on aspirin TECHNIQUE: Imaging protocol: Radiologic exam of the right scapula. Complete exam. COMPARISON: CR XR SCAPULA RT 11/22/2023 1:47 PM FINDINGS: Bones/joints: Again noted is the displaced fracture of the distal aspect of the clavicle.. Again noted is superior placement of the humeral head with narrowing of the subacromial space. This may represent impingement syndrome. Soft tissues: Normal. IMPRESSION: 1. Again noted is the displaced fracture of the distal aspect of the clavicle.. 2. Again noted is superior placement of the humeral head with narrowing of the subacromial space. This may represent impingement syndrome.
--- NOTE | 2023-11-22 13:36 | CT_ITS ---
PROCEDURE INFORMATION: Exam: CT Head Without Contrast Exam date and time: 11/22/2023 3:07 PM Age: 83 years old Clinical indication: Injury or trauma; Fall TECHNIQUE: Imaging protocol: Computed tomography of the head without contrast. Radiation optimization: All CT scans at this facility use at least one of these dose optimization techniques: automated exposure control; mA and/or kV adjustment per patient size (includes targeted exams where dose is matched to clinical indication); or iterative reconstruction. COMPARISON: CT HEAD/BRAIN WO CON 05/26/2023 3:27 PM FINDINGS: Brain: No intracranial hemorrhage. Right parietal encephalomalacia. Moderate brain volume loss. Cerebral ventricles: No ventriculomegaly. Paranasal sinuses: Resection of the bilateral maxillary sinus medial ortiz. Mild right ethmoid sinus mucosal thickening. Mastoid air cells: Visualized mastoid air cells are well aerated. Orbital cavities: Bilateral lens replacements. Bones: Osteopenia. Soft tissues: Unremarkable. Vasculature: Atherosclerosis. IMPRESSION: 1. No intracranial hemorrhage or acute fracture. 2. Additional chronic/nonemergent findings as detailed above.
--- NOTE | 2023-11-22 13:36 | XR_ITS ---
PROCEDURE INFORMATION: Exam: XR Right Elbow Exam date and time: 11/22/2023 1:47 PM Age: 83 years old Clinical indication: Injury or trauma; Fall; Blunt trauma (contusions or hematomas); Elbow; Right; Additional info: Fall, on aspirin TECHNIQUE: Imaging protocol: Radiologic exam of the right elbow. Views: 3 or more views. COMPARISON: CR XR ELBOW RT MIN 3V 11/22/2023 1:47 PM FINDINGS: Bones/joints: Well corticated fracture of the radial head may represent remote avulsion fracture.. Severe degenerative changes in the humeral ulnar joint. No definite acute fracture is identified. Soft tissues: Normal. IMPRESSION: 1. Well corticated fracture of the radial head may represent remote avulsion fracture.. 2. Severe degenerative changes in the humeral ulnar joint. 3. No definite acute fracture is identified.
--- NOTE | 2023-11-22 13:36 | XR_ITS ---
PROCEDURE INFORMATION: Exam: XR Right Forearm Exam date and time: 11/22/2023 1:47 PM Age: 83 years old Clinical indication: Injury or trauma; Fall; Blunt trauma (contusions or hematomas); Arm, lower; Right; Additional info: Fall, on aspirin TECHNIQUE: Imaging protocol: Radiologic exam of the right forearm. Views: 2 views. COMPARISON: CR XR FOREARM RT 2V 11/22/2023 1:47 PM FINDINGS: Bones/joints: Degenerative changes in the wrist and elbow. No fracture of the radial shaft or ulnar shaft. Soft tissues: Normal. IMPRESSION: No fracture of the radial shaft or ulnar shaft.
--- NOTE | 2023-11-22 13:36 | CT_ITS ---
PROCEDURE INFORMATION: Exam: CT Cervical Spine Without Contrast Exam date and time: 11/22/2023 3:12 PM Age: 83 years old Clinical indication: Injury or trauma; Fall TECHNIQUE: Imaging protocol: Computed tomography of the cervical spine without contrast. Radiation optimization: All CT scans at this facility use at least one of these dose optimization techniques: automated exposure control; mA and/or kV adjustment per patient size (includes targeted exams where dose is matched to clinical indication); or iterative reconstruction. COMPARISON: No relevant prior studies available. FINDINGS: Bones: No acute cervical spine fracture. Grade 1 anterolisthesis of C4 on C5. Grade 1 anterolisthesis of C5 on C6. Multilevel degenerative change of the spine. Osteopenia. Paranasal sinuses: Resection of both maxillary sinus medial ortiz. Mild ethmoid sinus mucosal thickening. Lungs: Lung apices are normal. Vasculature: Atherosclerosis. Soft tissues: Unremarkable. IMPRESSION: 1. No acute cervical spine fracture. 2. Grade 1 anterolisthesis of C4 on C5 and grade 1 anterolisthesis C5 on C6 may be degenerative. 3. Multilevel degenerative change of the spine.
--- NOTE | 2023-11-22 13:36 | CT_ITS ---
PROCEDURE INFORMATION: Exam: CT Maxillofacial Without Contrast Exam date and time: 11/22/2023 3:09 PM Age: 83 years old Clinical indication: Injury or trauma; Fall; Additional info: Fall, on aspirin TECHNIQUE: Imaging protocol: Computed tomography of the face without contrast. Radiation optimization: All CT scans at this facility use at least one of these dose optimization techniques: automated exposure control; mA and/or kV adjustment per patient size (includes targeted exams where dose is matched to clinical indication); or iterative reconstruction. COMPARISON: No relevant prior studies available. FINDINGS: Orbital cavities: Bilateral lens replacements. Paranasal sinuses: Resection of the bilateral maxillary sinus medial ortiz. Right ethmoid sinus mild mucosal thickening. Vasculature: Atherosclerosis. Bones: No acute fracture or dislocation. Degenerative change of the cervical spine. Soft tissues: Unremarkable. IMPRESSION: No acute fracture or dislocation.
--- NOTE | 2023-11-22 13:36 | XR_ITS ---
PROCEDURE INFORMATION: Exam: XR Right Clavicle, Complete Exam date and time: 11/22/2023 1:47 PM Age: 83 years old Clinical indication: Injury or trauma; Fall; Blunt trauma (contusions or hematomas); Shoulder; Right TECHNIQUE: Imaging protocol: Radiologic exam of the right clavicle. Complete exam. Views: Any number of views. COMPARISON: CR XR SCAPULA RT 11/22/2023 1:47 PM FINDINGS: Bones/joints: Displaced fracture of the distal clavicle.. Narrowing of the subacromial space consistent with impingement syndrome. Superior subluxation of the humeral head with respect to the glenoid Soft tissues: Soft tissue swelling of the shoulder IMPRESSION: 1. Displaced fracture of the distal clavicle.. 2. Narrowing of the subacromial space consistent with impingement syndrome.
--- NOTE | 2023-11-22 13:40 | ED_ITS ---
<Statement entered by Vee Betts DO - 11/22/23 20:36> I was consulted by the RAUL, and we discussed the complexity of the problems being addressed. I approved the treatment and management plan for this patient's care in the emergency department, thus performing a substantive portion of the medical decision making. Vee Betts DO <Statement entered by Binu Brambila MD - 11/22/23 15:33> I was consulted by the RAUL, and we discussed the complexity of the problems being addressed. I approved the treatment and management plan for this patient's care in the emergency department, thus performing a substantive portion of the medical decision making. Initial evaluation be conducted with noncontrasted CT trauma scans given significant CKD and mechanism is not concerning for active extra of in the thorax. Workup and repeat evaluation as well as possible subsequent imaging pending at time of transfer of care to the oncoming physician, Dr. Betts. Binu Brambila MD Discharge Plan Disposition Patient Disposition: Home, Self-Care Condition: Good Prescriptions Prescriptions: New hydrocodone-acetaminophen 5-325 mg tablet 1 tab PO Q8H PRN (Reason: pain) Qty: 12 0RF No Action fluoxetine 10 mg capsule 10 mg PO DAILY metoprolol succinate [Toprol XL] 50 mg tablet extended release 24 hr 50 mg PO BID allopurinol 100 mg tablet 100 mg PO DAILY levothyroxine [Synthroid] 100 mcg tablet 88 mcg PO DAILY budesonide-formoterol [Symbicort] 160-4.5 mcg/actuation HFA aerosol inhaler 1 puff inhalation QID PRN (Reason: shortness of breath or wheezing) 90 Days Qty: 10.2 3RF fluticasone propion-salmeterol [Advair HFA] 115-21 mcg/actuation HFA aerosol inhaler 2 puff inhalation BID 90 Days Qty: 12 3RF lisinopril-hydrochlorothiazide 1 EACH tablet 12.5 - 20 mg PO BID hydrocodone-acetaminophen 1 EACH tablet 7.5 - 325 mg PO Q6HP PRN (Reason: PAIN) Patient Comments: TAKE 1 TABLET BY MOUTH EVERY 6 HOURS aspirin 325 MG tablet 325 mg PO DAILY 14 Days 0RF Referrals Follow up/Referrals: Jose Pederson DO [Staff Physician] - See instructions (Right distal clavicle fracture) Vinnie Molina MD [Primary Care Provider] - See instructions Activity Restrictions/Add. Instructions Additional Instructions/Restrictions: As we discussed please wear your sling and swath as tolerated. Please call in the morning to make your appointment with Dr. Pederson. Return to ER for any worsening signs or symptoms as needed. Clinical Impressions Clinical Impression: Fx clavicle, acrom end-closed Qualifiers: Encounter type: initial encounter Fracture alignment: displaced Laterality: r ight Qualified Code(s): S42.031A - Displaced fracture of lateral end of right clavicle, initial encounter for closed fracture Instructions Patient Instructions: DI for Clavicle Fracture-Adult Print Language Print Language: Uzbek Discharge ED Provider: Vee Betts General Adult HPI <MACEY Mahmood - Last Filed: 11/22/23 20:04> General Chief complaint: Fall Stated complaint: Fall Time Seen by Provider: 11/22/23 13:34 History of Present Illness HPI narrative: Patient presents for evaluation of a fall. Patient was outside and tripped over one of her cats landing on her patio. She struck face first initially and then her right side of her body. She hit hard enough to break her glasses but however did not lose consciousness. She complains primarily of right shoulder pain. She did not strike her head she has no headache nausea vomiting diarrhea hemoptysis hematochezia melena. The accident happened approximately 930 this morning and it took her several hours to crawl into her house and get to a phone at which point she called EMS. Related Data Home Medications ?Medication ?Instructions ?Recorded ?Confirmed allopurinol 100 mg tablet 100 mg PO DAILY GOUT 03/12/17 03/22/20 fluoxetine 10 mg capsule 10 mg PO DAILY Depression 03/12/17 03/22/20 metoprolol succinate 50 mg 50 mg PO BID blood pressure 03/12/17 03/22/20 tablet,extended release 24 hr (Toprol XL) lisinopril 20 12.5 - 20 mg PO BID blood pressure 03/27/17 03/22/20 mg-hydrochlorothiazide 12.5 mg tablet hydrocodone 7.5 mg-acetaminophen 7.5 - 325 mg PO Q6HP PRN PAIN 03/30/17 03/22/20 325 mg tablet levothyroxine 100 mcg tablet 88 mcg PO DAILY thyroid 10/30/23 10/30/23 (Synthroid) Previous Rx's ?Medication ?Instructions ?Recorded aspirin 325 mg tablet 325 mg PO DAILY Blood thinner 14 04/02/17 days budesonide-formoterol HFA 160 1 puff inhalation QID PRN 10/30/23 mcg-4.5 mcg/actuation aerosol shortness of breath or wheezing 90 inhaler (Symbicort) days #10.2 grams fluticasone propionate 115 2 puff inhalation BID 90 days #12 11/06/23 mcg-salmeterol 21 mcg/actuation grams HFA inhaler (Advair HFA) hydrocodone 5 mg-acetaminophen 325 1 tab PO Q8H PRN pain #12 tabs 11/22/23 mg tablet Allergies Allergy/AdvReac Type Severity Reaction Status Date / Time adhesive tape Allergy Unknown I-RASH Verified 10/30/23 11:31 codeine Allergy Unknown HYPERACTIVE Verified 10/30/23 11:31 PT. DOES NOT LIKE TO TAKE Jnctxjh-LNN-IbG Reductase AdvReac Body Verified 10/30/23 11:31 Inhibitor Stiffness [Ayniqoa-Dup-Dzd Reductase Inhibitor] PFSH <MACEY Mahmood - Last Filed: 11/22/23 20:04> [facility] Disclaimer: The information contained in this section may have been updated after the patient was seen, as this information can be updated by other users. Medical History (Updated 11/22/23 @ 16:25 by MACYE Mahmood) Dyspnea on exertion Asthma Allergies Urinary tract infection History of gastroesophageal reflux (GERD) Hyperlipidemia Hypertension Surgical History History of hysterectomy History of cholecystectomy Social History Smoking Status: Never smoker second hand exposure: No alcohol intake: never substance use type: denies use current occupational status: other Travel in the last 8 weeks: None household members: spouse housing: house current occupational exposures/hazards: No caffeine: Yes <MACEY Mahmood - Last Filed: 11/22/23 20:04> ROS Obtained: Yes Systems reviewed as appropriate & no additional complaints except as documented Physical Exam <MACEY Mahmood - Last Filed: 11/22/23 20:04> General General appearance: alert Neck Neck exam: Present lymphadenopathy Chest Chest inspection: Present normal inspection and symmetric chest wall rise Respiratory Respiratory exam: Present normal lung sounds bilaterally Cardiovascular Cardiovascular exam: Present regular rate Neurological Exam Neurological exam: Present alert, oriented X3 and CN II-XII intact Medical Decision Making <MACEY Mahmood - Last Filed: 11/22/23 20:04> Medical Records Medical records reviewed: Yes I reviewed the patient's medical records. Screening: Per USPSTF and CDC recommendations, given the prevalence of disease in our region, it is our hospital?s policy to screen for HIV and viral Hepatitis for all patients aged 18 and over and those with ongoing risk factors. Vital Signs: 11/22/23 13:33 11/22/23 14:30 11/22/23 15:30 Temperature 97.6 F Temperature Source Oral Pulse Rate 80 81 Pulse Rate [Right Radial] 75 Respiratory Rate 20 Blood Pressure 185/86 H 167/89 H Blood Pressure [Right Arm] 188/83 H Blood Pressure Mean 115 115 Blood Pressure Mean [Right Arm] 118 02 Sat by Pulse Oximetry 98 99 100 Oxygen Delivery Method Room Air Room Air Room Air 11/22/23 16:01 11/22/23 16:30 11/22/23 17:36 Temperature 98.2 F Temperature Source Pulse Rate 80 77 75 Pulse Rate [Right Radial] Respiratory Rate 20 Blood Pressure 159/76 H 156/74 H 165/84 H Blood Pressure [Right Arm] Blood Pressure Mean 103 101 Blood Pressure Mean [Right Arm] 02 Sat by Pulse Oximetry 99 98 Oxygen Delivery Method Room Air Room Air Room Air Lab Data Lab results reviewed: Yes I reviewed the patient's lab results. Lab Results 11/22/23 13:55: WBC 10.8, RBC 3.02 L, Hgb 8.3 L, Hct 28.4 L, MCV 94.0, MCH 27.4, MCHC 29.1 L, RDW 16.8, Plt Count 234, MPV 11.0 H, Neut % (Auto) 81.7 H, Lymph % (Auto) 12.5, [place] % (Auto) 4.3, Eos % (Auto) 1.1, Baso % (Auto) 0.3, Neut # (Auto) 8.8 H, Lymph # (Auto) 1.4, [place] # (Auto) 0.5, Eos # (Auto) 0.1, Baso # (Auto) 0.0, PT 10.7, INR 0.95, Sodium 140, Potassium 4.4, Chloride 112 H, Carbon Dioxide 21 L, Anion Gap 11.4, BUN 31 H, Creatinine 1.90 H, Estimated Creat Clear 26, Estimated GFR 25 L, Est GFR ( Amer) 31 L, Glucose 117 H, Calcium 9.7, Total Bilirubin 0.5, AST 27, ALT 14, Alkaline Phosphatase 99, Total Creatine Kinase 126, Total Protein 7.6, Albumin 4.4, Globulin 3.2, Albumin/Globulin Ratio 1.4 11/22/23 13:55 11/22/23 13:55 Orders (Tests/Meds): ED MEDICATIONS Discontinued Medications Generic Name Dose Route Start Last Admin Trade Name Freq PRN Reason Stop Dose Admin Acetaminophen 1,000 mg 11/22/23 13:36 11/22/23 13:54 Acetaminophen 1,000mg/100ml Vial IV 11/22/23 13:37 1,000 mg ONCE ONE Administration Bacitracin 1 gm 11/22/23 17:33 11/22/23 17:41 Bacitracin Zinc Oint 30gm Tube TP 11/22/23 17:34 1 gm ONCE ONE Administration Lactated Ringer's 1,000 mls @ 999 mls/hr 11/22/23 13:36 11/22/23 13:54 Lactated Ringer's 1000 Ml Bag IV 11/22/23 14:36 999 mls/hr .Q1H1M ONE Administration Oxycodone HCl 5 mg 11/22/23 17:21 11/22/23 17:34 Oxycodone 5mg Immediate Release Tablet PO 11/22/23 17:22 5 mg ONCE ONE Administration ORDERS Category Date Time Status CT abdomen pelvis wo con Stat Cat Scan 11/22/23 14:[address] bony pelvis Stat Cat Scan 11/22/23 13:[address] cervical spine wo con Stat Cat Scan 11/22/23 13:[address] chest wo con Stat Cat Scan 11/22/23 14:[address] facial bones wo con Stat Cat Scan 11/22/23 13:[address] head/brain wo con Stat Cat Scan 11/22/23 13:[address] thoracic spine wo con Stat Cat Scan 11/22/23 14:54 Completed Clavicle XR right [XR clavicle RT] Stat Exams 11/22/23 13:36 Completed Forearm XR right 2 views [XR forearm RT 2V] Stat Exams 11/22/23 13:36 Completed Humerus XR right [XR humerus RT] Stat Exams 11/22/23 13:36 Completed Scapula XR right [XR scapula RT] Stat Exams 11/22/23 13:36 Completed Shoulder XR right miminum 2 views [XR shoulder RT min Exams 11/22/23 13:36 Completed 2V] Stat XR elbow RT min 3V Stat Exams 11/22/23 13:36 Completed CBC w/Auto Diff [Complete Blood Count Auto Diff] Stat Lab 11/22/23 13:55 Completed CK [Creatine Kinase] Stat Lab 11/22/23 13:55 Completed CMP [Comprehensive Metabolic Panel] Stat Lab 11/22/23 13:55 Completed INR [Prothrombin Time INR] Stat Lab 11/22/23 13:55 Completed Medical Decision Narrative: In summary patient is a 89-year-old female who presents to the emergency department for evaluation of fall. Patient is initially hypertensive with a blood pressure of 188/83 but with heart rate of 75 respiratory rate is 20 O2 sats 98% on room air upon arrival, and afebrile. Physical exam is remarkable for contusion of the right side of her head in the temporal area no evidence of bony deformity noted. Extraocular movements are intact bilaterally. Without pain. She has no C-spine tenderness no active bleeding. She is also tender to palpation at the right shoulder and scapula but no midline spinal tenderness to palpation. Patient has full range of motion of the C-spine without pain patient has a skin tear of the right upper extremity just proximal to the elbow joint without evidence of bony deformity. She is neurovascularly intact distally in the right lower extremity however range of motion testing is limited by the pain in her shoulder. Patient does take an aspirin a day but no blood thinner. Differential diagnosis includes closed head injury versus bony injury versus bony fracture versus soft tissue contusion versus bleeding etc. Initial workup will be conducted with hematologic labs CT scan and twelve-lead EKG. Initial interventions include crystalloid bolus acetaminophen. Initial workup reviewed by me shows her hematologic labs are nonactionable and she does have chronic kidney disease but it is stable upon review of her records, my informal interpretation of her CT imaging shows no acute intracranial injury but does show a distal clavicle fracture on the right and her plain film imaging reflects the same. Upon repeat evaluation patient did report reduced pain after initial intervention as long she does not move her arm.. Given this patient is appropriate for discharge with a sling and swath and referred to orthopedics. <Binu Brambila MD - Last Filed: 11/22/23 15:33> Danny Cardenas Pt receiving controlled substance: No Vital Signs: 11/22/23 13:33 11/22/23 14:30 11/22/23 15:30 Temperature 97.6 F Temperature Source Oral Pulse Rate 80 81 Pulse Rate [Right Radial] 75 Respiratory Rate 20 Blood Pressure 185/86 H 167/89 H Blood Pressure [Right Arm] 188/83 H Blood Pressure Mean 115 115 Blood Pressure Mean [Right Arm] 118 02 Sat by Pulse Oximetry 98 99 100 Oxygen Delivery Method Room Air Room Air Room Air 11/22/23 16:01 11/22/23 16:30 11/22/23 17:36 Temperature 98.2 F Temperature Source Pulse Rate 80 77 75 Pulse Rate [Right Radial] Respiratory Rate 20 Blood Pressure 159/76 H 156/74 H 165/84 H Blood Pressure [Right Arm] Blood Pressure Mean 103 101 Blood Pressure Mean [Right Arm] 02 Sat by Pulse Oximetry 99 98 Oxygen Delivery Method Room Air Room Air Room Air Lab Data Lab Results 11/22/23 13:55: WBC 10.8, RBC 3.02 L, Hgb 8.3 L, Hct 28.4 L, MCV 94.0, MCH 27.4, MCHC 29.1 L, RDW 16.8, Plt Count 234, MPV 11.0 H, Neut % (Auto) 81.7 H, Lymph % (Auto) 12.5, [place] % (Auto) 4.3, Eos % (Auto) 1.1, Baso % (Auto) 0.3, Neut # (Auto) 8.8 H, Lymph # (Auto) 1.4, [place] # (Auto) 0.5, Eos # (Auto) 0.1, Baso # (Auto) 0.0, PT 10.7, INR 0.95, Sodium 140, Potassium 4.4, Chloride 112 H, Carbon Dioxide 21 L, Anion Gap 11.4, BUN 31 H, Creatinine 1.90 H, Estimated Creat Clear 26, Estimated GFR 25 L, Est GFR ( Amer) 31 L, Glucose 117 H, Calcium 9.7, Total Bilirubin 0.5, AST 27, ALT 14, Alkaline Phosphatase 99, Total Creatine Kinase 126, Total Protein 7.6, Albumin 4.4, Globulin 3.2, Albumin/Globulin Ratio 1.4 Orders (Tests/Meds): ED MEDICATIONS Discontinued Medications Generic Name Dose Route Start Last Admin Trade Name Freq PRN Reason Stop Dose Admin Acetaminophen 1,000 mg 11/22/23 13:36 11/22/23 13:54 Acetaminophen 1,000mg/100ml Vial IV 11/22/23 13:37 1,000 mg ONCE ONE Administration Bacitracin 1 gm 11/22/23 17:33 11/22/23 17:41 Bacitracin Zinc Oint 30gm Tube TP 11/22/23 17:34 1 gm ONCE ONE Administration Lactated Ringer's 1,000 mls @ 999 mls/hr 11/22/23 13:36 11/22/23 13:54 Lactated Ringer's 1000 Ml Bag IV 11/22/23 14:36 999 mls/hr .Q1H1M ONE Administration Oxycodone HCl 5 mg 11/22/23 17:21 11/22/23 17:34 Oxycodone 5mg Immediate Release Tablet PO 11/22/23 17:22 5 mg ONCE ONE Administration ORDERS Category Date Time Status CT abdomen pelvis wo con Stat Cat Scan 11/22/23 14:[address] bony pelvis Stat Cat Scan 11/22/23 13:[address] cervical spine wo con Stat Cat Scan 11/22/23 13:[address] chest wo con Stat Cat Scan 11/22/23 14:[address] facial bones wo con Stat Cat Scan 11/22/23 13:[address] head/brain wo con Stat Cat Scan 11/22/23 13:[address] thoracic spine wo con Stat Cat Scan 11/22/23 14:54 Completed Clavicle XR right [XR clavicle RT] Stat Exams 11/22/23 13:36 Completed Forearm XR right 2 views [XR forearm RT 2V] Stat Exams 11/22/23 13:36 Completed Humerus XR right [XR humerus RT] Stat Exams 11/22/23 13:36 Completed Scapula XR right [XR scapula RT] Stat Exams 11/22/23 13:36 Completed Shoulder XR right miminum 2 views [XR shoulder RT min Exams 11/22/23 13:36 Completed 2V] Stat XR elbow RT min 3V Stat Exams 11/22/23 13:36 Completed CBC w/Auto Diff [Complete Blood Count Auto Diff] Stat Lab 11/22/23 13:55 Completed CK [Creatine Kinase] Stat Lab 11/22/23 13:55 Completed CMP [Comprehensive Metabolic Panel] Stat Lab 11/22/23 13:55 Completed INR [Prothrombin Time INR] Stat Lab 11/22/23 13:55 Completed <Vee N Alpesh, DO - Last Filed: 11/22/23 20:36> Vital Signs: 11/22/23 13:33 11/22/23 14:30 11/22/23 15:30 Temperature 97.6 F Temperature Source Oral Pulse Rate 80 81 Pulse Rate [Right Radial] 75 Respiratory Rate 20 Blood Pressure 185/86 H 167/89 H Blood Pressure [Right Arm] 188/83 H Blood Pressure Mean 115 115 Blood Pressure Mean [Right Arm] 118 02 Sat by Pulse Oximetry 98 99 100 Oxygen Delivery Method Room Air Room Air Room Air 11/22/23 16:01 11/22/23 16:30 11/22/23 17:36 Temperature 98.2 F Temperature Source Pulse Rate 80 77 75 Pulse Rate [Right Radial] Respiratory Rate 20 Blood Pressure 159/76 H 156/74 H 165/84 H Blood Pressure [Right Arm] Blood Pressure Mean 103 101 Blood Pressure Mean [Right Arm] 02 Sat by Pulse Oximetry 99 98 Oxygen Delivery Method Room Air Room Air Room Air Lab Data Lab Results 11/22/23 13:55: WBC 10.8, RBC 3.02 L, Hgb 8.3 L, Hct 28.4 L, MCV 94.0, MCH 27.4, MCHC 29.1 L, RDW 16.8, Plt Count 234, MPV 11.0 H, Neut % (Auto) 81.7 H, Lymph % (Auto) 12.5, [place] % (Auto) 4.3, Eos % (Auto) 1.1, Baso % (Auto) 0.3, Neut # (Auto) 8.8 H, Lymph # (Auto) 1.4, [place] # (Auto) 0.5, Eos # (Auto) 0.1, Baso # (Auto) 0.0, PT 10.7, INR 0.95, Sodium 140, Potassium 4.4, Chloride 112 H, Carbon Dioxide 21 L, Anion Gap 11.4, BUN 31 H, Creatinine 1.90 H, Estimated Creat Clear 26, Estimated GFR 25 L, Est GFR ( Amer) 31 L, Glucose 117 H, Calcium 9.7, Total Bilirubin 0.5, AST 27, ALT 14, Alkaline Phosphatase 99, Total Creatine Kinase 126, Total Protein 7.6, Albumin 4.4, Globulin 3.2, Albumin/Globulin Ratio 1.4 Orders (Tests/Meds): ED MEDICATIONS Discontinued Medications Generic Name Dose Route Start Last Admin Trade Name Freq PRN Reason Stop Dose Admin Acetaminophen 1,000 mg 11/22/23 13:36 11/22/23 13:54 Acetaminophen 1,000mg/100ml Vial IV 11/22/23 13:37 1,000 mg ONCE ONE Administration Bacitracin 1 gm 11/22/23 17:33 11/22/23 17:41 Bacitracin Zinc Oint 30gm Tube TP 11/22/23 17:34 1 gm ONCE ONE Administration Lactated Ringer's 1,000 mls @ 999 mls/hr 11/22/23 13:36 11/22/23 13:54 Lactated Ringer's 1000 Ml Bag IV 11/22/23 14:36 999 mls/hr .Q1H1M ONE Administration Oxycodone HCl 5 mg 11/22/23 17:21 11/22/23 17:34 Oxycodone 5mg Immediate Release Tablet PO 11/22/23 17:22 5 mg ONCE ONE Administration ORDERS Category Date Time Status CT abdomen pelvis wo con Stat Cat Scan 11/22/23 14:[address] bony pelvis Stat Cat Scan 11/22/23 13:[address] cervical spine wo con Stat Cat Scan 11/22/23 13:[address] chest wo con Stat Cat Scan 11/22/23 14:[address] facial bones wo con Stat Cat Scan 11/22/23 13:[address] head/brain wo con Stat Cat Scan 11/22/23 13:[address] thoracic spine wo con Stat Cat Scan 11/22/23 14:54 Completed Clavicle XR right [XR clavicle RT] Stat Exams 11/22/23 13:36 Completed Forearm XR right 2 views [XR forearm RT 2V] Stat Exams 11/22/23 13:36 Completed Humerus XR right [XR humerus RT] Stat Exams 09/22/24 13:36 Completed Scapula XR right [XR scapula RT] Stat Exams 11/22/23 13:36 Completed Shoulder XR right miminum 2 views [XR shoulder RT min Exams 11/22/23 13:36 Completed 2V] Stat XR elbow RT min 3V Stat Exams 11/22/23 13:36 Completed CBC w/Auto Diff [Complete Blood Count Auto Diff] Stat Lab 11/22/23 13:55 Completed CK [Creatine Kinase] Stat Lab 11/22/23 13:55 Completed CMP [Comprehensive Metabolic Panel] Stat Lab 11/22/23 13:55 Completed INR [Prothrombin Time INR] Stat Lab 11/22/23 13:55 Completed Medical Decision Narrative: In summary patient is an 83-year-old female who presents to the emergency department for evaluation of fall. Patient is initially hypertensive with a blood pressure of 188/83 but with heart rate of 75 respiratory rate is 20 O2 sats 98% on room air upon arrival, and afebrile. Physical exam is remarkable for contusion of the right side of her head in the temporal area no evidence of bony deformity noted. Extraocular movements are intact bilaterally. Without pain. She has no C-spine tenderness no active bleeding. She is also tender to palpation at the right shoulder and scapula but no midline spinal tenderness to palpation. Patient has full range of motion of the C-spine without pain patient has a skin tear of the right upper extremity just proximal to the elbow joint without evidence of bony deformity. She is neurovascularly intact distally in the right lower extremity however range of motion testing is limited by the pain in her shoulder. Patient does take an aspirin a day but no blood thinner. Differential diagnosis includes closed head injury versus bony injury versus bony fracture versus soft tissue contusion versus bleeding etc. Initial workup will be conducted with hematologic labs CT scan and twelve-lead EKG. Initial interventions include crystalloid bolus acetaminophen. Initial workup reviewed by me shows her hematologic labs are nonactionable and she does have chronic kidney disease but it is stable upon review of her records, my informal interpretation of her CT imaging shows no acute intracranial injury but does show a distal clavicle fracture on the right and her plain film imaging reflects the same. Upon repeat evaluation patient did report reduced pain after initial intervention as long she does not move her arm.. Given this patient is appropriate for discharge with a sling and swath and referred to orthopedics. Critical Care <Binu Brambila MD - Last Filed: 11/22/23 15:33> Critical Care Time Critical Care Time: No
[2023-11-22] MEDS: LACTATED RINGERS 1000ML 1,000 ML 999 ML IV (13:54)
[2023-11-22] MEDS: ACETAMINOPHEN 1,000MG/100ML VIAL 1000 MG IV (13:54)
[2023-11-22 14:14] LABS: Basophils % 0.3 % (0.1-2.0); Eosinophils # 0.1 K/mm3 (0.0-0.4); Eosinophils % 1.1 % (0.1-12.0); Hematocrit 28.4 % (37.0-47.0); Hemoglobin 8.3 g/dL (12.2-16.2); Lymphocytes # 1.4 K/mm3 (0.7-4.5); Lymphocytes % 12.5 % (10-50); Mean Corpuscular HGB Conc 29.1 g/dL (31.8-35.4); Mean Corpuscular Hemoglobin 27.4 pg (27.0-31.2); Monocytes # 0.5 K/mm3 (0.1-1.0); Monocytes % 4.3 % (1.7-9.3); Neutrophils # 8.8 K/mm3 (1.8-7.8); Neutrophils % 81.7 % (37.0-80.0); Platelet Count 234 K/mm3 (142-424); Red Blood Count 3.02 M/mm3 (4.20-5.40); Red Cell Distribution Width 16.8 % (11.5-17.5); White Blood Count 10.8 K/mm3 (4.8-10.8)
[2023-11-22 14:19] LABS: Albumin Level 4.4 g/dl (3.5-5.0); Chloride 112 mmol/L (98-107); Potassium 4.4 mmoL/L (3.5-5.1); Sodium 140 mmol/L (136-145)
[2023-11-22 14:21] LABS: Blood Urea Nitrogen 31 mg/dl (7-17); Creatinine Clearance Estimated 26 mL/min (50-200); Estimated Glomerular Filt Rate 25 ml/min (>60); GFR (African American) 31 ML/MIN (>60)
[2023-11-22 14:22] LABS: Alanine Aminotransferase 14 U/L (12-78); Albumin/Globulin Ratio 1.4 (1.1-1.8); Alkaline Phosphatase 99 U/L (38-126); Anion Gap 11.4 mEq/L (5-15); Aspartate Amino Transferase 27 U/L (14-36); Bilirubin,Total 0.5 mg/dl (0.2-1.3); Calcium 9.7 mg/dl (8.4-10.2); Carbon Dioxide 21 mmol/L (22.0-30.0); Globulin 3.2 g/dL (1.3-3.2); Glucose 117 mg/dl (74-100); Total Protein,Serum 7.6 g/dl (6.3-8.2)
[2023-11-22 14:30] VITALS: BP 185/86; PULSE 80; O2SAT 99
[2023-11-22 14:37] LABS: INR 0.95 (0.9-1.1); Prothrombin Time 10.7 seconds (10.1-12.5)
--- NOTE | 2023-11-22 14:54 | CT_ITS ---
PROCEDURE INFORMATION: Exam: CT Abdomen And Pelvis Without Contrast Exam date and time: 11/22/2023 3:20 PM Age: 83 years old Clinical indication: Injury or trauma; Fall; Additional info: Fall, on aspirin TECHNIQUE: Imaging protocol: Computed tomography of the abdomen and pelvis without contrast. Radiation optimization: All CT scans at this facility use at least one of these dose optimization techniques: automated exposure control; mA and/or kV adjustment per patient size (includes targeted exams where dose is matched to clinical indication); or iterative reconstruction. COMPARISON: CT ABDOMEN PELVIS WO CON 11/22/2023 3:20 PM FINDINGS: Liver: Normal. No mass. Gallbladder and biliary ducts: Cholecystectomy Pancreas: Pancreatic atrophy Spleen: Normal. No splenomegaly. Adrenal glands: Normal. No mass. Kidneys and ureters: 5 cm simple cyst posterior left kidney. . No follow-up imaging recommended .Left renal atrophy Stomach and bowel: No mucosal thickening.. No obstruction Appendix: No evidence of appendicitis. Intraperitoneal space: Unremarkable. No free air. No significant fluid collection. Vasculature: Unremarkable. No abdominal aortic aneurysm. Lymph nodes: Unremarkable. No enlarged lymph nodes. Urinary bladder: Unremarkable as visualized. Reproductive: Surgical resection of the uterus Bones/joints: Unremarkable. No acute fracture. Soft tissues: Bilateral inguinal hernias contain fat. No bowel IMPRESSION: No acute process COMMENTS: Consistent with the [employer]'s Incidental Findings Committee white paper (J Am Víctor Radiol 2018): Any incidental renal lesion less than 1 cm or classified as too small to characterize, or any incidental cystic renal lesion characterized as simple-appearing, is likely benign. No follow-up imaging is recommended for these lesions per consensus recommendations based on imaging criteria.
--- NOTE | 2023-11-22 14:54 | CT_ITS ---
PROCEDURE INFORMATION: Exam: CT Thoracic Spine Without Contrast Exam date and time: 11/22/2023 3:15 PM Age: 83 years old Clinical indication: Injury or trauma; Fall; Additional info: Fall, on aspirin TECHNIQUE: Imaging protocol: Computed tomography of the thoracic spine without contrast. Radiation optimization: All CT scans at this facility use at least one of these dose optimization techniques: automated exposure control; mA and/or kV adjustment per patient size (includes targeted exams where dose is matched to clinical indication); or iterative reconstruction. COMPARISON: CT THORACIC SPINE WO CON 11/22/2023 3:15 PM FINDINGS: Bones/joints: Mild compression fractures in the midthoracic spine appear chronic. No definite acute fracture identified. Mild anterior osteophyte formation along the thoracic spine Soft tissues: Unremarkable. Heart: There is calcification of the aortic valve annulus. There is calcification of the mitral valve annulus. Coronary arteries: Coronary artery calcifications may indicate coronary artery disease. IMPRESSION: Mild compression fractures in the midthoracic spine appear chronic. No definite acute fracture identified.
--- NOTE | 2023-11-22 14:54 | CT_ITS ---
PROCEDURE INFORMATION: Exam: CT Chest Without Contrast; Diagnostic Exam date and time: 11/22/2023 3:17 PM Age: 83 years old Clinical indication: Injury or trauma; Fall; Additional info: Fall, on aspirin TECHNIQUE: Imaging protocol: Diagnostic computed tomography of the chest without contrast. Radiation optimization: All CT scans at this facility use at least one of these dose optimization techniques: automated exposure control; mA and/or kV adjustment per patient size (includes targeted exams where dose is matched to clinical indication); or iterative reconstruction. COMPARISON: CT CHEST WO CON 11/22/2023 3:17 PM FINDINGS: Lungs: Mild panlobular emphysematous changes Pleural spaces: Unremarkable. No pneumothorax. No pleural effusion. Heart: There is calcification of the aortic valve annulus. There is calcification of the mitral valve annulus. Coronary arteries: Coronary artery calcifications may indicate coronary artery disease. Lymph nodes: Unremarkable. No enlarged lymph nodes. Vasculature: Unremarkable. No aortic aneurysm. Bones/joints: Displaced fracture of the distal aspect of the right clavicle. Series 3, image 9.. Degenerative changes in the lower thoracic spine. A few mild compression fractures of unknown age in the lower thoracic spine Soft tissues: Unremarkable. IMPRESSION: Displaced fracture of the distal aspect of the right clavicle. Series 3, image 9..
[2023-11-22 15:30] VITALS: BP 167/89; PULSE 81; O2SAT 100
[2023-11-22 16:01] VITALS: BP 159/76; PULSE 80; O2SAT 99
[2023-11-22 16:30] VITALS: BP 156/74; PULSE 77; O2SAT 98
[2023-11-22] MEDS: OXYCODONE 5MG IMMEDIATE RELEASE TABLET 5 MG PO (17:34)
[2023-11-22 17:36] VITALS: BP 165/84; PULSE 75; RESP 20; TEMP 36.8; O2SAT 100
[2023-11-22 17:39] LABS: Creatine Kinase 126 U/L (30-135)
[2023-11-22] MEDS: BACITRACIN ZINC OINT 30GM TUBE TP (17:41)
== END 2023-11-22 17:42 | disposition home or self-care (01) ==
PROVIDERS: Physician Assistant; Emergency Provider Emergency Medicine; PCP Family Medicine
DX: S42.031A Displaced fracture of lateral end of right clavicle, initial encounter for closed fracture (principal); I12.9 Hypertensive chronic kidney disease with stage 1 through stage 4 chronic kidney disease, or unspecified chronic kidney disease; E78.5 Hyperlipidemia, unspecified; J45.909 Unspecified asthma, uncomplicated; W01.0XXA Fall on same level from slipping, tripping and stumbling without subsequent striking against object, initial encounter; Y92.007 Garden or yard of unspecified non-institutional (private) residence as the place of occurrence of the external cause; S00.93XA Contusion of unspecified part of head, initial encounter; N18.9 Chronic kidney disease, unspecified
CPT/HCPCS: 70450; 70486; 71250; 72125; 72128; 72192; 73000; 73010; 73030; 73060; 73080; 73090; 74176; 80053; 82550; 85025; 85610; 96361; 96374; 99285; J0131; J7120

== ENCOUNTER 2023-12-02 10:25 | Outpatient (CLI) | payer MEDICARE, SELFPAY ==
[2023-12-02 10:36] LABS: Microscopic, Urine URINE MICROSCOPIC (MICROSCOPIC)
[2023-12-02 10:58] LABS: Appearance,Urine CLEAR (Clear); Blood, Urine Negative (Negative); Color,Urine YELLOW (Yellow); Glucose,Urine (UA) Negative (Negative); Ketones,Urine Negative (Negative); Leukocyte Esterase,Urine Negative (Negative); Nitrate,Urine Negative (Negative); Protein,Urine 2+ (Negative); Specific Gravity, Urine >= 1.030 (1.005-1.030); Urobilinogen,Urine 0.2 EU/dl (0.2)
[2023-12-02 11:07] LABS: Bilirubin,Urine 1+ (Negative); WBC,Urine Occasional #/hpf (0-3)
[2023-12-02 11:08] LABS: Bacteria,Urine Trace /lpf; Creatinine,Urine Random 254 mg/dL (Not Estab.); Hyaline Casts,Urine OCC #/lpf (0); Squamous Epithelial Cell,Urine Occasional #/hpf (0-5)
[2023-12-02 11:20] LABS: Albumin Level 4.2 g/dl (3.5-5.0); Anion Gap 12.1 mEq/L (5-15); Blood Urea Nitrogen 28 mg/dl (7-17); Calcium 9.3 mg/dl (8.4-10.2); Carbon Dioxide 21 mmol/L (22.0-30.0); Chloride 109 mmol/L (98-107); Estimated Glomerular Filt Rate 23 ml/min (>60); GFR (African American) 27 ML/MIN (>60); Glucose 103 mg/dl (74-100); Phosphorous 4.5 mg/dl (2.5-4.5); Potassium 4.1 mmoL/L (3.5-5.1); Sodium 138 mmol/L (136-145)
[2023-12-02 11:45] LABS: Basophils # 0.1 K/mm3 (0-0.2); Basophils % 0.7 % (0.1-2.0); Eosinophils # 0.4 K/mm3 (0.0-0.4); Eosinophils % 5.6 % (0.1-12.0); Hemoglobin 8.9 g/dL (12.2-16.2); Lymphocytes # 1.7 K/mm3 (0.7-4.5); Lymphocytes % 22.8 % (10-50); Mean Corpuscular HGB Conc 29.6 g/dL (31.8-35.4); Mean Corpuscular Hemoglobin 28.9 pg (27.0-31.2); Mean Corpuscular Volume 97.5 fl (81-99); Mean Platelet Volume 10.3 fl (7.4-10.4); Monocytes # 0.4 K/mm3 (0.1-1.0); Monocytes % 5.2 % (1.7-9.3); Neutrophils % 65.7 % (37.0-80.0); Platelet Count 243 K/mm3 (142-424); Red Blood Count 3.07 M/mm3 (4.20-5.40); Red Cell Distribution Width 19.5 % (11.5-17.5); White Blood Count 7.6 K/mm3 (4.8-10.8)
== END 2023-12-02 23:59 | disposition home or self-care (01) ==
PROVIDERS: PCP Family Medicine; Visit Provider Student in an Organized Health Care Education/Training Program
DX: N18.4 Chronic kidney disease, stage 4 (severe) (principal)
CPT/HCPCS: 36415; 80069; 81001; 82570; 84156; 85025

== ENCOUNTER 2023-12-09 09:19 | Outpatient (CLI) | payer MEDICARE, SELFPAY ==
--- NOTE | 2023-12-09 09:23 | XR_ITS ---
FINAL REPORT CLINICAL HISTORY: right clavicle fx COMPARISON: 11/22/2023 FINDINGS: 2 views of the right clavicle were obtained. Again noted is a fracture of the distal one third of the clavicle. Bony alignment is stable. There is no significant callus formation. Mild degenerative change is noted. There is no soft tissue abnormality. IMPRESSION: Stable clavicle fracture as above without significant callus formation. Reviewed, Interpreted and Dictated by Seng Horton III, MD Transcribed by Dorina Flores Authenticated and . [facility]
== END 2023-12-09 23:59 | disposition home or self-care (01) ==
LOC: RAD 09:20
PROVIDERS: PCP Family Medicine; Visit Provider Physician Assistant
DX: M25.511 Pain in right shoulder (principal); S42.031A Displaced fracture of lateral end of right clavicle, initial encounter for closed fracture
CPT/HCPCS: 73000

== ENCOUNTER 2023-12-30 08:22 | Outpatient (CLI) | payer MEDICARE, SELFPAY ==
--- NOTE | 2023-12-30 08:26 | XR_ITS ---
PROCEDURE INFORMATION: Exam: XR Right Clavicle, Complete Exam date and time: 12/30/2023 8:28 AM Age: 83 years old Clinical indication: Condition or disease; Other: Fracture 5 weeks ago TECHNIQUE: Imaging protocol: Radiologic exam of the right clavicle. Complete exam. Views: Any number of views. COMPARISON: CR XR CLAVICLE RT 12/09/2023 9:24 AM FINDINGS: Bones/joints: Modest healing of distal clavicular fracture with increased callus formation. Stable alignment. Soft tissues: Normal. IMPRESSION: Healing distal clavicular fracture.
== END 2023-12-30 23:59 | disposition home or self-care (01) ==
LOC: RAD 08:23
PROVIDERS: PCP Family Medicine; Visit Provider Physician Assistant
DX: S42.031A Displaced fracture of lateral end of right clavicle, initial encounter for closed fracture (principal)
CPT/HCPCS: 73000

== ENCOUNTER 2024-01-20 08:06 | Outpatient (CLI) | payer MEDICARE, SELFPAY ==
--- OUTSIDE RECORDS SUMMARY | 2024-01-20 08:09 | XMS_ITS | Encounter Summary ---
Author Organization Healthcare Address [address] [id number] Care Team Providers Care Statistical Programmer Analyst Name Role Phone Vinnie Molina MD Primary Care Provider [phone] Encounter Details Date Type Department Care Team ([facility] Contact Info) Description 11/19/2023 Orders Only Pav CC Head, Neck & Respiratory [address] [facility], [address]nd [place] [address] Skylar Mancia, MACEY [address] [facility] [address] [place] [address] Social History Tobacco Use Types Packs/Day Years Used Date Smoking Tobacco: Never Passive Smoke Exposure: Past Smokeless Tobacco: Never Alcohol Use Standard Drinks/Week Comments No 0 (1 standard drink = 0.6 oz pur e alcohol) Comments Unknown Sex and Gender Information Value Date Recorded Sex Assigned at Not on file Legal Sex Female 6:33 PM EDT Gender Identity Not on file Sexual Orientation Not on file documented as of this encounter Plan of Treatment Upcoming Encounters Date Type Department Care Team (Late Contact Info) Description 02/15/2024 10:00 AM EST Consult Medical Office Building Surgical Specialties [address] [facility], [address] [place] [address] [place] [address] [place] [phone] documented as of this encounter Visit Diagnoses Not on filedocumented in this encounter Additional Health Concerns Assessment Noted Time A fall risk assessment has been complete d for the patient 11/12/2023 12:42 PM EDT A Body Mass Index follow-up plan has been documented for the patient 11/18/2023 7:05 AM EDT documented as of this encounter Care Teams Statistical Programmer Analyst Relationship Specialty Start Date End Date Vinnie Molina MD [address] [place] [address] PCP - General 07/13/20 documented as of this encounter
--- OUTSIDE RECORDS SUMMARY | 2024-01-20 08:09 | XMS_ITS | Encounter Summary ---
Author Organization Healthcare Address [address] [id number] Care Team Providers Care Pbx Operator Name Role Phone Vinnie Molina MD Primary Care Provider [phone] Encounter Details Date Type Department Care Team ([facility] Contact Info) Description 12/10/2023 Orders Only Pav CC Head, Neck & Respiratory [address] [facility], 2nd [place] [address] Skylar Mancia, MACEY [address] [facility] [address] [place] [address] Social History Tobacco Use Types Packs/Day Years [...] Medical Office Building Surgical Specialties [address] [facility], [address] [place] [address] [place] [address] [place] [phone] documented as of this encounter Visit Diagnoses Not on filedocumented in this encounter Additional Health Concerns Assessment Noted Time A fall risk assessment has been complete d for the patient 11/12/2023 12:42 PM EDT A Body Mass Index follow-up plan has been documented for the patient 11/18/2023 7:05 AM EDT documented as of this encounter Care Teams Pbx Operator Relationship Specialty Start Date End Date Vinnie Molina MD [address] [place] [address] PCP - General 07/13/20 documented as of this encounter
--- OUTSIDE RECORDS SUMMARY | 2024-01-20 08:09 | XMS_ITS | Encounter Summary ---
Author Organization Healthcare Address [address] [id number] Care Team Providers Care Sales Representative Printing Paper Name Role Phone Vinnie Molina MD Primary Care Provider [phone] Encounter Details Date Type Department Care Team ([facility] Contact Info) Description 12/17/2023 Telephone Pav CC Head, Neck & Respiratory [address] [facility], 2nd [place] [address] Roula Olivera RN [facility] Social History Tobacco Use Types Packs/Day Years [...] on file documented as of this encounter Miscellaneous Notes * Telephone Encounter - Roula Olivera RN - 12/17/2023 12:17 PM EDT EDUARDO LVM informing TH today is no longer needed since spoke to pt on 12/13. Appt has been cancelled in [facility]. RN informed endocrine surgery referral has been placed. RN encouraged a call back to office with any questions or concerns. documented in this encounter Plan of Treatment Upcoming Encounters Date Type Department Care Team ([facility] Contact Info) Description 02/15/2024 10:00 AM EST Consult Medical Office Building Surgical Specialties [address] [facility], [address] [place] [address] Nacho Jackson MD [address] [phone] documented as of this encounter Visit Diagnoses Not on filedocumented in this encounter Additional Health Concerns Assessment Noted Time A fall risk assessment has been complete d for the patient 11/12/2023 12:42 PM EDT A Body Mass Index follow-up plan has been documented for the patient 11/18/2023 7:05 AM EDT documented as of this encounter Care Teams Sales Representative Printing Paper Relationship Specialty Start Date End Date Vinnie Molina MD [address] [place] [address] PCP - General 07/13/20 documented as of this encounter
--- OUTSIDE RECORDS SUMMARY | 2024-01-20 08:09 | XMS_ITS | Encounter Summary ---
Author Organization Healthcare Address [address] [place] [address] Care Team Providers Care Lokie Driver Name Role Phone Vinnie Molina MD Primary Care Provider [phone] Encounter Details Date Type Department Care Team (Latest Contact Info) Description 12/14/2023 Travel Social History Tobacco Use Types Packs/Day Years [...] Encounters Date Type Department Care Team (Late st Contact Info) Description 02/15/2024 10:00 AM EST Consult Medical Office Building Surgical Specialties [address] [facility], [address] [place] [address] Nacho Jackson MD [address] [place] [phone] documented as of this encounter Visit Diagnoses Not on filedocumented in this encounter Additional Health Concerns Assessment Noted Time A fall risk assessment has been complete d for the patient 11/12/2023 12:42 PM EDT A Body Mass Index follow-up plan has been documented for the patient 11/18/2023 7:05 AM EDT documented as of this encounter Care Teams Lokie Driver Relationship Specialty Start Date End Date Vinine Molina MD [address] [place] [address] PCP - General 07/13/20 documented as of this encounter
--- OUTSIDE RECORDS SUMMARY | 2024-01-20 08:09 | XMS_ITS | Encounter Summary ---
Author Organization [facility] Address [address] [id number] Care Team Providers Care Lead Principal Technical Architect Name Role Phone Vinnie Molina MD Primary Care Provider Encounter Details Date Type Department Care Team ([facility] st Contact Info) Description 11/23/2023 Telephone Pav CC Head, Neck & Respiratory [address] [facility], 2nd [place] [address] Mando Avitia, DO [address] [facility] 1[address] [place] [address] Social History Tobacco Use Types Packs/Day Years [...] encounter Miscellaneous Notes * Telephone Encounter - Mana Weaver - 11/23/2023 2:02 PM EDT Called patient to get her MRI r/s and see how long she would be out. Patient called Jenny at radiology and had to miss her scan because she broke her collar bone and shoulder yesterday. I will see how long she will be out and get guidance from Dr. Avitia on how he would like to proceed 11/22. Tyson Tineo is out so I'm leaving this as a paper trail so I don't forget. documented in this encounter Plan of Treatment Upcoming Encounters Date Type Department Care Team (Late st Contact Info) Description 02/15/2024 10:00 AM EST Consult Medical Office Building Surgical Specialties [address] [facility], [address] [place] [address] Nacho Jackson MD [address] [phone] documented as of this encounter Visit Diagnoses Not on filedocumented in this encounter Additional Health Concerns Assessment Noted Time A fall risk assessment has been complete d for the patient 11/12/2023 12:42 PM EDT A Body Mass Index follow-up plan has been documented for the patient 11/18/2023 7:05 AM EDT documented as of this encounter Care Teams Lead Principal Technical Architect Relationship Specialty Start Date End Date Vinnie Molina MD [address] [place] [address] PCP - General 07/13/20 documented as of this encounter
--- OUTSIDE RECORDS SUMMARY | 2024-01-20 08:09 | XMS_ITS | Encounter Summary ---
Author Organization [facility] Address [address] [place] [address] Care Team Providers Care Bookkeeper Receptionist Name Role Phone Vinnie Molina MD Primary Care Provider [phone] Encounter Details Date Type Department Care Team ([facility] Contact Info) Description 12/01/2023 Orders Only Pav CC Head, Neck & Respiratory [address] [facility], [address]nd [place] [address] Roula Olivera RN AM[facility] Mass of thoracic structure (Primary Dx) Social History Tobacco Use Types Packs/Day Years [...] Upcoming Encounters Date Type Department Care Team ([facility] Contact Info) Description 02/15/2024 10:00 AM EST Consult Medical Office Building Surgical Specialties [address] [facility], [address] [place] [address] Nacho Jackson MD [address] [phone] documented as of this encounter Visit Diagnoses Diagnosis Mass of thoracic structure- Primary documented in this encounter Additional Health Concerns Assessment Noted Time A fall risk assessment has been complete d for the patient 11/12/2023 12:42 PM EDT A Body Mass Index follow-up plan has been documented for the patient 11/18/2023 7:05 AM EDT documented as of this encounter Care Teams Bookkeeper Receptionist Relationship Specialty Start Date End Date Vinnie Molina MD [address] [place] [address] PCP - General 07/13/20 documented as of this encounter
--- OUTSIDE RECORDS SUMMARY | 2024-01-20 08:09 | XMS_ITS | Encounter Summary ---
Author Organization Healthcare Address [address] [id number] Care Team Providers Care Junior Accounting Clerk Name Role Phone Vinnie Molina MD Primary Care Provider [phone] Encounter Details Date Type Department Care Team (Late Contact Info) Description 12/10/2023 Telephone Pav CC Head, Neck & Respiratory [address] [facility], [address]nd [place] [address] Mando Avitia, DO [address] [facility] [address] [place] [phone] Social History Tobacco Use Types Packs/Day Years [...] Telephone Encounter - Roula Olivera RN - 12/11/2023 8:31 AM EDT PA sent in new script for valium for pt scan. Pt aware. documented in this encounter Plan of Treatment Upcoming Encounters Date Type Department Care Team ([facility] Contact Info) Description 02/15/2024 10:00 AM EST Consult Medical Office Building Surgical Specialties [address] [facility], [address] [place] [address] Nacho Jackson MD [address] [place] [phone] documented as of this encounter Visit Diagnoses Not on filedocumented in this encounter Additional Health Concerns Assessment Noted Time A fall risk assessment has been complete d for the patient 11/12/2023 12:42 PM EDT A Body Mass Index follow-up plan has been documented for the patient 11/18/2023 7:05 AM EDT documented as of this encounter Care Teams Junior Accounting Clerk Relationship Specialty Start Date End Date Vinnie Molina MD [address] [place] [address] PCP - General 07/13/20 documented as of this encounter
--- OUTSIDE RECORDS SUMMARY | 2024-01-20 08:09 | XMS_ITS | Encounter Summary ---
Author Organization Healthcare Address [address] [place] [address] Care Team Providers Care Health Informatics Advisor Name Role Phone Vinnie Molina MD Primary Care Provider [phone] Encounter Details Date Type Department Care Team (Latest Contact Info) Description 11/18/2023 Travel Social History Tobacco Use Types Packs/Day [...] Medical Office Building Surgical Specialties [address] [facility], [address] [place] [address] Nacho Jackson MD [address] [place] [phone] documented as of this encounter Visit Diagnoses Not on filedocumented in this encounter Additional Health Concerns Assessment Noted Time A fall risk assessment has been complete d for the patient 11/12/2023 12:42 PM EDT A Body Mass Index follow-up plan has been documented for the patient 11/18/2023 7:05 AM EDT documented as of this encounter Care Teams Health Informatics Advisor Relationship Specialty Start Date End Date Vinnie Molina MD [address] [place] [address] PCP - General 07/13/20 documented as of this encounter
--- OUTSIDE RECORDS SUMMARY | 2024-01-20 08:09 | XMS_ITS | Clinical Summary ---
Author Organization [facility] Address [address] [place] [address] Care Team Providers Care Telephone Lineman Name Role Phone Vinnie Molina MD Primary Care Provider [phone] Allergies No known active allergies Medications amLODIPine (Norvasc) 10 MG tablet Take 1 tablet (10 mg) by mouth 1 (one) time each day. 05/15/2023 Active sertraline (Zoloft) 25 MG tablet Take 1 tablet (25 mg) by mouth 1 (one) time each day. 08/04/2023 Active pantoprazole (Protonix) 40 MG EC tablet Take 1 tablet (40 mg) by mouth 1 (one) time each day. 08/04/2023 Active aspirin 81 MG EC tablet Take 1 tablet (81 mg) by mouth 1 (one) time each day. Active HYDROcodone-acet aminophen ([place]) 7.5-325 MG tablet Take 1 tablet (7.5 mg of hydrocodone ) by mouth every 6 (six) hours if needed. 10/22/2023 Active allopurinol (Zyloprim) 100 MG tablet Take 1 tablet (100 mg) by mouth 1 (one) time each day. 08/30/2015 Active lisinopril-hydro CHLOROthiazide 20-12.5 MG tablet Take 1 tablet by mouth 1 (one) time each day. 08/04/2023 Active metoprolol succinate XL (Toprol-XL) 50 MG 24 hr tablet Take 1 tablet (50 mg) by mouth twice a day. 08/08/2014 Active levothyroxine (Synthroid, Levoxyl) 88 MCG tablet Take 1 tablet (88 mcg) by mouth 1 (one) time each day before breakfast. Active Active Problems No known active problems Encounters Date Type Department Care Team Description 12/17/2023 Telephone [facility] [address] [place] [address] Roula Olivera RN 12/14/2023 9:26 AM EDT - 12/14/2023 11:59 PM EDT Hospital Encounter [facility] [address] [place] [address] Mass of thoracic structure Discharge Disposition: Home or Self Care 12/14/2023 Travel 12/10/2023 Orders Only [facility] [address] [place] [phone] Skylar Mancia, PA 12/10/2023 Telephone [facility] [address] [place] [address] Mando Avitia, DO 12/01/2023 Orders Only [facility] [address] [place] [address] Roula Olivera RN Mass of thoracic structure (Primary Dx) 11/23/2023 Telephone [facility] [address] , [address] [place] [address] Mando Avitia, DO 11/23/2023 Telephone [facility] [address] [place] [address] Lynette Moore RN 11/20/2023 8:50 AM EDT - 11/20/2023 11:59 PM EDT Hospital Encounter [facility] [address] [place] [address] Mass of thoracic structure Discharge Disposition: Home or Self Care 11/20/2023 Travel 11/19/2023 Orders Only [facility] [address] [place] [address] Skylar Mancia PA 11/18/2023 Travel 11/18/2023 Telephone [facility] [address] [place] [address] Keyanna Hooker RN 11/17/2023 Telephone [facility] [address] [facility], [address] [place] [address] Mando Avitia, 11/13/2023 Telephone [facility] [address] [address] Roula Olivera RN 11/12/2023 1:00 PM EDT Office Visit [facility] [address] [address] Mando Avitia, DO Mass of thoracic structure (Primary Dx); Lung mass 11/12/2023 Social Work [facility] [address] [address] Roxanna Rosales 11/12/2023 Travel from Last 3 Months Family History Medical History Relation Name Comments Heart attack Father Heart attack Mother Relation Name Status Comments Father Mother Social History Tobacco Use Types Packs/Day Years Used Date Smoking Tobacco: Never Passive Smoke Exposure: Past Smokeless Tobacco: Never Tobacco Cessation:Counseling Given: No Alcohol Use Standard Drinks/Week Comments No 0 (1 standard drink = 0.6 oz pur e alcohol) Comments Unknown Sex and Gender Information Value Date Recorded Sex Assigned at Not on file Legal Sex Female 6:33 PM EDT Gender Identity Not on file Sexual Orientation Not on file Last Filed Vital Signs Vital Sign Reading Time Taken Comments Blood Pressure 180/72 11/20/2023 12:37 PM EDT Pulse 74 11/20/2023 12:42 PM EDT Temperature 35.8 ??C (96.4 ??F) 11/20/2023 10:42 AM E DT Respiratory Rate 17 11/20/2023 11:07 AM EDT Oxygen Saturation 98% 11/20/2023 12:42 PM EDT Inhaled Oxygen Concentration - - Weight 63.5 kg (140 lb) 11/20/2023 9:05 AM EDT Height 162.6 cm (5' 4 ) 11/20/2023 9:05 AM EDT Body Mass Index 24.03 11/20/2023 9:05 AM EDT Plan of Treatment Upcoming Encounters Date Type Department Care Team (Late st Contact Info) Description 02/15/2024 10:00 AM EST Consult Medical Office Building Surgical Specialties [address] [facility], [address] [place] [address] Nacho Jackson MD [address] [place] [address] Health Maintenance Due Date Last Done Comments [facility]-Bone Density Scan 1942 [facility]-Depression Screening 1942 [facility]-Infant/Child/Adol SDOH Screenings 1942 [facility]- SDOH Screenings 1960 [facility]-Adult SDOH Screenings 1960 [facility]-Zoster Vaccines (1 of 2) 1992 [facility]-Pneumococcal Vaccine: 65+ Years (2 of 2 - PCV) 12/04/2016 12/05/2015 [facility]-RSV Vaccine: 60+ Years or (1 - 1-dose 75+ series) 2017 [facility]-DTaP,Tdap,and Td Vaccines (1 - Tdap) 09/27/2021 09/26/2021 [id number] Vaccine ( season) 2023 12/30/2022, 12/16/2021, 12/06/2020, Additional history exists [facility]-Influenza Vaccine (#1) 11/01/202312/30, 12/16/2021, 11/28/2019, Additional history exists [facility]-Medicare Annual Wellness (AWV) 08/03/2024 08/04/2023 [facility]-HIB Vaccines Aged Out No longer e ligible based on patient's age to complete this topic [facility]-HPV Vaccines Aged Out No longer e ligible based on patient's age to complete this topic [facility]-Hepatitis A Vaccines Aged Out No longer eligible based on patient's age to complete this topic [facility]-IPV Vaccines Aged Out No longer e ligible based on patient's age to complete this topic [facility]-Rotavirus Vaccines Aged Out No lo nger eligible based on patient's age to complete this topic Procedures Procedure Name Priority Date/Time Associated Diagnosis Comments MR VENOGRAM CHEST WO IV CONTRAST STAT 12/14/2023 11:36 AM EDT Mass of thoracic structure MR ANGIO NECK W IV CONTRAST Routine 11/20/2023 11:40 AM EDT Mass of thoracic structure BASIC METABOLIC PANEL, PLASMA Routine 11/12/2023 1:49 PM EDT Lung mass from Last 3 Months Results * MR Venogram Chest wo IV Contrast (12/14/2023 11:36 AM EDT) Anatomical Region Laterality Modality Vascular Magnetic Resonan ce Impressions 12/14/2023 1:20 PM EDT Patent central veins in the chest. 24 x 17 mm lesion which appears to arise from the left thyroid lobe. Recommend further evaluation with dedicated thyroid ultrasound. CRITICAL RESULT: ?? No. COMMUNICATION: Per this written report. Drafted by Joaquin Guevara MD on 12/14/2023 1:01 PM Final report signed by Joaquin Guevara MD on 12/14/2023 1:20 PM Narrative 12/14/2023 1:20 PM EDT CLINICAL INDICATION: mass of thoracic structure TECHNIQUE: An EKG gated MRA of thoracic aorta was performed on 1.5T Siemens Aera MRI scanner. HASTE images, limited cardiac cine images and complex flow analysis were performed. Advanced 3D workstation manipulation and review of the data set was performed by the interpreting physician to further define anatomy and possible pathology. Images of areas of interest were created utilizing various techniques. These images were saved and transferred to PACS if significant. COMPARISON: None. VASCULAR FINDINGS: Arteries: Qualitative Description Of The Aorta: Left-sided aortic arch. No dissection or intramural hematoma. Aorta is normal in size. Great Vessels: Three-vessel aortic arch. Veins: Veins in the chest. SVC is patent. Bilateral brachiocephalic arteries are patent. Left subclavian vein and axillary vein is patent. Evaluation of the right subclavian vein is limited. NONVASCULAR FINDINGS: ??Left neck left neck soft tissue lesion which appears to arise from the thyroid ??measuring 24 x 17 mm (series 3, image 16; series 11, image 45). Procedure Note Joaquin Guevara MD - 12/14/2023 CLINICAL INDICATION: mass of thoracic structure TECHNIQUE: An EKG gated MRA of thoracic aorta was performed on 1.5T Siemens Aera MRIscanner. HASTE images, limited cardiac cine images and complex flowanalysis were performed. Advanced 3D workstation manipulation and review of the data set wasperformed by the interpreting physician to further define anatomy andpossible pathology. Images of areas of interest were created utilizingvarious techniques. These images were saved and transferred to PACS ifsignificant. COMPARISON: None. VASCULAR FINDINGS: Arteries: Qualitative Description Of The Aorta: Left-sided aortic arch. Nodissection or intramural hematoma. Aorta is normal in size. Great Vessels: Three-vessel aortic arch. Veins: Veins in the chest. SVC is patent. Bilateral brachiocephalic arteries arepatent. Left subclavian vein and axillary vein is patent. Evaluation ofthe right subclavian vein is limited. NONVASCULAR FINDINGS: Left neck left neck soft tissue lesion whichappears to arise from the thyroid measuring 24 x 17 mm (series 3, image16; series 11, image 45). IMPRESSION: Patent central veins in the chest. 24 x 17 mm lesion which appears to arise from the left thyroid lobe.Recommend further evaluation with dedicated thyroid ultrasound. CRITICAL RESULT: No. COMMUNICATION: Per this written report. Drafted by Joaquin Guevara MD on 12/14/2023 1:01 PM Final report signed by Joaquin Guevara MD on 12/14/2023 1:20 PM Mando Avitia DO IMG MRI PROCEDURES Final Resu lt * MR Angio Neck w IV Contrast (11/20/2023 11:40 AM EDT) Anatomical Region Laterality Modality Neck Magnetic Resonan ce Impressions 11/24/2023 2:57 PM EDT Suboptimal evaluation due to motion degradation. Apparent moderate to marked narrowing at left common carotid artery origin. No definite visualization of the right vertebral artery origin. This could be related to artifact and/or component of stenosis. Otherwise no definite appreciable high- grade stenosis or occlusion of the cervical carotid and vertebral arteries. If further arterial evaluation is necessary CTA study may be considered. 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 Study is mostly nondiagnostic for soft tissue evaluation. Previously noted enlargement of left thyroid lobe in prior CT chest is not definitively appreciable in this study. If further soft tissue assessment is indicated, dedicated neck ultrasound study or CT/MRI may be considered as necessary. CRITICAL RESULT: ?? No. COMMUNICATION: Per this written report. By electronically signing this report, I, the attending physician, attest that I have personally reviewed the images/data for the above examination(s) and agree with the final edited report. Drafted by Maira Bailey MD on 11/24/2023 9:16 AM Final report signed by Jose J Soto MD on 11/24/2023 2:57 PM Narrative 11/24/2023 2:57 PM EDT CLINICAL INDICATION: soft tissue mass TECHNIQUE: 3-D noyk-ho-jeyeqr noncontrast MR angiography and contrast-enhanced MR angiogram obtained through the neck and MIP images were created. 116.35 mL of ferumoxytol was administered intravenously. COMPARISON: CT chest 08/13/2023 from outside facility FINDINGS: Diagnostic Quality: Study is limited by motion and venous contamination. Aorta and Great Vessel Origins: There is conventional aortic arch branching. There is apparent moderate to marked narrowing of the left common carotid artery origin which could be artifactual related to motion degradation although comparative stenosis is also possible. Otherwise no definite high-grade stenosis at the origin of the brachiocephalic and left subclavian arteries.. Right Cervical Carotid System: Grossly patent without significant stenosis. There is tortuosity of the distal cervical right common carotid artery. There is a 0 % stenosis of the carotid bulb by the NASCET criteria. Left Cervical Carotid System: Apparent moderate to marked narrowing of the left common carotid artery origin which could be artifactual related to motion degradation although comparative stenosis is also possible. Remaining portions of the common carotid artery and the internal carotid artery appear grossly patent without significant stenosis. There is tortuosity of the distal cervical left common carotid artery. There is a 0 % stenosis of the carotid bulb by the NASCET criteria. Vertebral Arteries: The right vertebral body origin is not definitely visualized which may be related to artifact and/or component of stenosis. Possible mild narrowing at the left vertebral artery origin. Tortuosity of the left V1 segment. There is limited evaluation of the bilateral vertebral arteries in the V3 portions due to surrounding venous enhancement resulting in limited visualization of the vessels. Otherwise no definite appreciable high-grade stenosis of the cervical vertebral arteries. Other Findings: No definite appreciable high-grade stenosis stenosis of the intradural vertebral arteries and internal carotid arteries and of the basilar artery. There is asymmetric fusiform enlargement of the inferior aspect of right internal jugular vein at the lower neck suggestive of phlebectasia. The study is mostly nondiagnostic for soft tissue evaluation. Previously noted enlargement of left thyroid lobe in prior CT chest is not definitively appreciable in this study. Procedure Note Jose J Soto MD - 11/24/2023 CLINICAL INDICATION: soft tissue mass TECHNIQUE: 3-D fexw-eg-trmeqk noncontrast MR angiography and contrast-enhanced MRangiogram obtained through the neck and MIP images were created. 116.35 mLof ferumoxytol was administered intravenously. COMPARISON: CT chest 08/13/2023 from outside facility FINDINGS: Diagnostic Quality: Study is limited by motion and venous contamination. Aorta and Great Vessel Origins: There is conventional aortic archbranching. There is apparent moderate to marked narrowing of the leftcommon carotid artery origin which could be artifactual related to motiondegradation although comparative stenosis is also possible. Otherwise nodefinite high-grade stenosis at the origin of the brachiocephalic and leftsubclavian arteries.. Right Cervical Carotid System: Grossly patent without significantstenosis. There is tortuosity of the distal cervical right common carotidartery. There is a 0 % stenosis of the carotid bulb by the NASCETcriteria. Left Cervical Carotid System: Apparent moderate to marked narrowing of theleft common carotid artery origin which could be artifactual related tomotion degradation although comparative stenosis is also possible.Remaining portions of the common carotid artery and the internal carotidartery appear grossly patent without significant stenosis. There istortuosity of the distal cervical left common carotid artery. There is a 0% stenosis of the carotid bulb by the NASCET criteria. Vertebral Arteries: The right vertebral body origin is not definitelyvisualized which may be related to artifact and/or component of stenosis.Possible mild narrowing at the left vertebral artery origin. Tortuosity ofthe left V1 segment. There is limited evaluation of the bilateralvertebral arteries in the V3 portions due to surrounding venousenhancement resulting in limited visualization of the vessels. Otherwiseno definite appreciable high-grade stenosis of the cervical vertebralarteries. Other Findings: No definite appreciable high-grade stenosis stenosis ofthe intradural vertebral arteries and internal carotid arteries and of thebasilar artery. There is asymmetric fusiform enlargement of the inferior aspect of rightinternal jugular vein at the lower neck suggestive of phlebectasia. The study is mostly nondiagnostic for soft tissue evaluation. Previouslynoted enlargement of left thyroid lobe in prior CT chest is notdefinitively appreciable in this study. IMPRESSION: Suboptimal evaluation due to motion degradation. Apparent moderate to marked narrowing at left common carotid arteryorigin. No definite visualization of the right vertebral artery origin.This could be related to artifact and/or component of stenosis. Otherwiseno definite appreciable high- grade stenosis or occlusion of the cervicalcarotid and vertebral arteries. If further arterial evaluation isnecessary CTA study may be considered. Asymmetric fusiform enlargement of right internal jugular vein at lowerneck suggestive of phlebectasia. Study is mostly nondiagnostic for soft tissue evaluation. Previously notedenlargement of left thyroid lobe in prior CT chest is not definitivelyappreciable in this study. If further soft tissue assessment is indicated,dedicated neck ultrasound study or CT/MRI may be considered asnecessary. CRITICAL RESULT: No. COMMUNICATION: Per this written report. By electronically signing this report, I, the attending physician, attesteban I have personally reviewed the images/data for the aboveexamination(s) and agree with the final edited report. Drafted by Maira Bailey MD on 11/24/2023 9:16 AM Final report signed by Jose J Soto MD on 11/24/2023 2:57 PM Mando Avitia DO IMG MRI PROCEDURES Final Resu lt * (ABNORMAL) Basic Metabolic Panel, Plasma (11/12/2023 1:49 PM EDT) Glucose, Plasma 100(H) 74 - 99 mg/dL 11/12/2023 2:49 PM EDT [facility] BUN, Plasma 53(H) 8 - 23 mg/dL 11/12/2023 2:49 PM EDT [facility] Creatinine, Plasma 2.60(H) 0.60 - 1.10 mg/dL 11/12/2023 2:49 PM EDT [facility] BUN/Creatinine Ratio 20 11/12/2023 2:49 PM EDT [facility] Sodium, Plasma 139 136 - 145 mmol/L 11/12/2023 2:49 PM EDT [facility] Potassium, Plasma 5.7(H) 3.6 - 4.9 mmol/L 11/12/2023 2:49 PM EDT [facility] Chloride, Plasma 106 97 - 107 mmol/L 11/12/2023 2:49 PM EDT [facility] CO2, Plasma 19(L) 22 - 29 mmol/L 11/12/2023 2:49 PM EDT [facility] Anion Gap 14 6 - 16 mmol/L 11/12/2023 2:49 PM EDT [facility] Total Calcium, Plasma 9.4 8.9 - 10.2 mg/dL 11/12/2023 2:49 PM EDT [facility] eGFRcr 18.0 mL/min/1.7 3m*2 11/12/2023 2:49 PM EDT [facility] Comment:Reported eGFRcr in m L/min/1.73m2 is based the CKD-EPI 2020 equation that does not use a race coefficient. Blood Venous blood specimen / Unknown Venipuncture / Unknown 11/12/2023 1:49 PM EDT 11/12/2023 2:05 PM EDT Mando Avitia DO LAB BLOOD ORDERABLES Final Re sult [facility] [address] [place] [address] from Last 3 Months Insurance [facility] MED[facility] Care Teams Telephone Lineman Relationship Specialty Start Date End Date Vinnie Molina MD [address] [place] [address] PCP - General 07/13/20
--- OUTSIDE RECORDS SUMMARY | 2024-01-20 08:09 | XMS_ITS | Encounter Summary ---
Author Organization Healthcare Address [address] [place] [address] Care Team Providers Care Director Nursing Service Name Role Phone Vinnie Molina MD Primary Care Provider [phone] Reason for Visit * Imaging (Urgent) - Closed Specialty Diagnoses / Procedures Referred By Girish t Referred To Contact Radiology Diagnoses Mass of thoracic structure Procedures MR Venogram Chest wo IV Contrast MR Venogram Chest w IV Contrast Mando Avitia, DO [address] [address] Phone: tel: fax: Referral ID Status Reason Start Date Expiration Date Visits Re quested Visits Authorized [id number] Closed 12/03/2023 06/03/2025 1 1 Encounter Details Date Type Department Care Team (Latest Contact Info) Description 12/14/2023 9:26 AM EDT - 12/14/2023 11:59 PM EDT Hospital Encounter [facility] [address] [place] [address] Mass of thoracic structure Discharge Disposition: Home or Self Care Social History Tobacco Use Types Packs/Day Years [...] on file documented as of this encounter Medications at Time of Discharge allopurinol (Zyloprim) 100 MG tablet Take 1 tablet (100 mg) by mouth 1 (one) time each day. 08/30/2015 amLODIPine (Norvasc) 10 MG tablet Take 1 tablet (10 mg) by mouth 1 (one) time each day. 05/15/2023 aspirin 81 MG EC tablet Take 1 tablet (81 mg) by mouth 1 (one) time each day. HYDROcodone-aceta minophen ([place]) 7.5-325 MG tablet Take 1 tablet (7.5 mg of hydrocodone) by mouth every 6 (six) hours if needed. 10/22/2023 levothyroxine (Synthroid, Levoxyl) 88 MCG tablet Take 1 tablet (88 mcg) by mouth 1 (one) time each day before breakfast. lisinopril-hydroC HLOROthiazide 20-12.5 MG tablet Take 1 tablet by mouth 1 (one) time each day. 08/04/2023 metoprolol succinate XL (Toprol-XL) 50 MG 24 hr tablet Take 1 tablet (50 mg) by mouth twice a day. 08/08/2014 pantoprazole (Protonix) 40 MG EC tablet Take 1 tablet (40 mg) by mouth 1 (one) time each day. 08/04/2023 sertraline (Zoloft) 25 MG tablet Take 1 tablet (25 mg) by mouth 1 (one) time each day. 08/04/2023 documented as of this encounter Plan of Treatment Upcoming Encounters Date Type Department Care Team (Late st Contact Info) Description 02/15/2024 10:00 AM EST Consult Medical Office Building Surgical Specialties [address] [facility], [address] [place] [address] Nacho Jackson MD [address] [address] documented as of this encounter Procedures Procedure Name Priority Date/Time Associated Diagnosis Comments MR VENOGRAM CHEST WO IV CONTRAST STAT 12/14/2023 11:36 AM EDT Mass of thoracic structure documented in this encounter Results * MR Venogram Chest wo IV [...] DO IMG MRI PROCEDURES Final Resu lt documented in this encounter Visit Diagnoses Diagnosis Mass of thoracic structure documented in this encounter Additional Health Concerns Assessment Noted Time A fall risk assessment has been complete d for the patient 11/12/2023 12:42 PM EDT A Body Mass Index follow-up plan has been documented for the patient 11/18/2023 7:05 AM EDT documented as of this encounter Care Teams Director Nursing Service Relationship Specialty Start Date End Date Vinnie Molina MD [address] [place] [address] PCP - General 07/13/20 documented as of this encounter
--- OUTSIDE RECORDS SUMMARY | 2024-01-20 08:09 | XMS_ITS | Encounter Summary ---
Author Organization Healthcare Address [address] [place] [address] Care Team Providers Care Emanations Analysis Technician Name Role Phone Vinnie Molina MD Primary Care Provider [phone] Encounter Details Date Type Department Care Team ([facility] Contact Info) Description 11/23/2023 Telephone [facility] [address] [place] [address] Lynette Moore RN [facility] Social History Tobacco Use Types Packs/Day Years [...] Upcoming Encounters Date Type Department Care Team ([facility] Contact Info) Description 02/15/2024 10:00 AM EST Consult Medical Office Building Surgical Specialties [address] [facility], [address] [place] [address] Nacho Jackson MD [address] [address] documented as of this encounter Visit Diagnoses Not on filedocumented in this encounter Additional Health Concerns Assessment Noted Time A fall risk assessment has been complete d for the patient 11/12/2023 12:42 PM EDT A Body Mass Index follow-up plan has been documented for the patient 11/18/2023 7:05 AM EDT documented as of this encounter Care Teams Emanations Analysis Technician Relationship Specialty Start Date End Date Vinnie Molina MD [address] [place] [address] PCP - General 07/13/20 documented as of this encounter
--- OUTSIDE RECORDS SUMMARY | 2024-01-20 08:09 | XMS_ITS | Encounter Summary ---
Author Organization [facility] Address [facility] [place] [address] Care Team Providers Care Door Fitter Name Role Phone Vinnie Molina MD Primary Care Provider Reason for Referral * Clinic-Administered Medication (Routine) - Pending Review Specialty Diagnoses / Procedures Referred By Contac t Referred To Contact Yudith Naidu MD [address] [place] [address] Phone: tel: fax: Referral ID Status Reason Start Date Expiration Date V isits Requested Visits Authorized [id number] Pending Review 11/20/2023 05/21/2025 1 1 * Imaging (Routine) - Closed Specialty Diagnoses / Procedures Referred By Contac t Referred To Contact Radiology Diagnoses Mass of thoracic structure Procedures MR Angio Neck w IV Contrast Mando Avitia DO [address] [address] Phone: tel: fax: Referral ID Status Reason Start Date Expiration Date Visits Re quested Visits Authorized [id number] Closed 11/12/2023 05/13/2025 1 1 * Imaging (Routine) - Closed Specialty Diagnoses / Procedures Referred By Contac t Referred To Contact Radiology Diagnoses Mass of thoracic structure Procedures MR Angio Chest w IV Contrast Mando Avitia DO [address] [address] Phone: tel: fax: Referral ID Status Reason Start Date Expiration Date Visits Re quested Visits Authorized [id number] Closed 11/12/2023 05/13/2025 1 1 Reason for Visit * Imaging (Routine) - Closed Specialty Diagnoses / Procedures Referred By Contac t Referred To Contact Radiology Diagnoses Mass of thoracic structure Procedures MR Angio Chest w IV Contrast Mando Avitia DO [address] [address] Phone: tel: fax: Referral ID Status Reason Start Date Expiration Date Visits Re quested Visits Authorized [id number] Closed 11/12/2023 05/13/2025 1 1 Encounter Details Date Type Department Care Team (Latest Contact Info) Description 11/20/2023 8:50 AM EDT - 11/20/2023 11:59 PM EDT Hospital Encounter [facility] Radiology [address] [place] [address] Mass of thoracic structure Discharge Disposition: Home [...] on file documented as of this encounter Last Filed Vital Signs Vital Sign Reading [...] Mass Index 24.03 11/20/2023 9:05 AM EDT documented in this encounter Medications at Time of Discharge allopurinol (Zyloprim) 100 MG tablet Take 1 tablet (100 mg) by mouth 1 (one) time each day. 08/30/2015 amLODIPine (Norvasc) 10 MG tablet Take 1 tablet (10 mg) by mouth 1 (one) time each day. 05/15/2023 aspirin 81 MG EC tablet Take 1 tablet (81 mg) by mouth 1 (one) time each day. HYDROcodone-aceta minophen ([place]) 7.5-325 MG tablet Take 1 tablet (7.5 [...] day. 08/04/2023 documented as of this encounter Miscellaneous Notes * Merari Lin RN - 11/20/2023 9:14 AM EDT Images from the original note were not included. [id number] Caring for Yourself after an MRI with Ferumoxytol ?? You can go back to your normal diet and activities as tolerated ?? Drink plenty of fluids, unless told otherwise ?? Leave a bandage on the site for 30 minutes (where the IV was inserted) What you need to know about your MRI with Ferumoxytol Ferumoxytol (ukz-anv-N-tall) is an iron-based medicine. It is often used to treat anemia, but it has properties that make it an excellent for use in MRI. When Ferumoxytol is given before an MRI, it highlights blood vessels, organs, and other parts of your body on the scan. Ferumoxytol can show on an MRI for up to 3 months. So if you have another MRI within 3 months, be certain your provider and the operating room surgical technologist is aware of when you had your last MRI with Ferumoxytol. They may need to reschedule or change how the MRI is done. Go to the nearest Emergency Department right away if you have any of these symptoms after you leavethe clinic or hospital ?? Itching in your mouth, throat, eyes, ears, or skin ?? Rash or hives ?? Throwing up or stomach sickness ?? High heart rate or ?racing? of your heart ?? Feeling dizzy or woozy ?? Feeling short of breath or like you can?t take a deep breath ?? Chest pain It is very important that these reactions are treated. Tell the doctor or nurse that you may be having a reaction to Ferumoxytol. Call 911 if you are alone and your reaction is more than mild sneezing or itching. If you have a mild reaction, call to speak with a Radiology doctor. Explain that youhad an MRI with Ferumoxytol and the symptoms you are having. * Eda Enamorado - Merari Rudolph RN - 11/20/2023 9:13 AM EDT Images from the original note were not included. [id number] Caring for Yourself after an MRI with Ferumoxytol ?? You can go back to your normal diet and activities as tolerated ?? Drink plenty of fluids, unless told otherwise ?? Leave a bandage on the site for 30 minutes (where the IV was inserted) What you need to know about your MRI with Ferumoxytol Ferumoxytol (rdm-pnz-O-tall) is an iron-based medicine. It is often used to treat anemia, but it has properties that make it an excellent for use in MRI. When Ferumoxytol is given before an MRI, it highlights blood vessels, organs, and other parts of your body on the scan. Ferumoxytol can show on an MRI for up to 3 months. So if you have another MRI within 3 months, be certain your provider and the operating room surgical technologist is aware of when you had your last MRI with Ferumoxytol. They may need to reschedule or change how the MRI is done. Go to the nearest Emergency Department right away if you have any of these symptoms after you leavethe clinic or hospital ?? Itching in your mouth, throat, eyes, ears, or skin ?? Rash or hives ?? Throwing up or stomach sickness ?? High heart rate or ?racing? of your heart ?? Feeling dizzy or woozy ?? Feeling short of breath or like you can?t take a deep breath ?? Chest pain It is very important that these reactions are treated. Tell the doctor or nurse that you may be having a reaction to Ferumoxytol. Call 911 if you are alone and your reaction is more than mild sneezing or itching. If you have a mild reaction, call to speak with a Radiology doctor. Explain that youhad an MRI with Ferumoxytol and the symptoms you are having. * Eda Enamorado - Merari Rudolph RN - 11/20/2023 9:13 AM EDT Images from the original note were not included. [id number] Caring for Yourself after an MRI with Ferumoxytol ?? You can go back to your normal diet and activities as tolerated ?? Drink plenty of fluids, unless told otherwise ?? Leave a bandage on the site for 30 minutes (where the IV was inserted) What you need to know about your MRI with Ferumoxytol Ferumoxytol (rua-pzn-P-tall) is an iron-based medicine. It is often used to treat anemia, but it has properties that make it an excellent for use in MRI. When Ferumoxytol is given before an MRI, it highlights blood vessels, organs, and other parts of your body on the scan. Ferumoxytol can show on an MRI for up to 3 months. So if you have another MRI within 3 months, be certain your provider and the operating room surgical technologist is aware of when you had your last MRI with Ferumoxytol. They may need to reschedule or change how the MRI is done. Go to the nearest Emergency Department right away if you have any of these symptoms after you leavethe clinic or hospital ?? Itching in your mouth, throat, eyes, ears, or skin ?? Rash or hives ?? Throwing up or stomach sickness ?? High heart rate or ?racing? of your heart ?? Feeling dizzy or woozy ?? Feeling short of breath or like you can?t take a deep breath ?? Chest pain It is very important that these reactions are treated. Tell the doctor or nurse that you may be having a reaction to Ferumoxytol. Call 911 if you are alone and your reaction is more than mild sneezing or itching. If you have a mild reaction, call to speak with a Radiology doctor. Explain that youhad an MRI with Ferumoxytol and the symptoms you are having. documented in this encounter Plan of Treatment Upcoming Encounters Date Type Department Care Team ([facility] Contact Info) Description 02/15/2024 10:00 AM EST Consult Medical Office Building Surgical Specialties [address] [facility], [address] [place] [address] Nacho Jackson MD [address] [phone] Scheduled Orders Name Type Priority Associated Diagnoses Orde r Schedule MR Angio Chest w IV Contrast Imaging Routine Mass of thoracic structure Once for 1 Occurrences starting 11/20/2023 until 11/20/2023 documented as of this encounter Procedures Procedure Name Priority Date/Time Associated Diagnosis Comments MR ANGIO NECK W IV CONTRAST Routine 11/20/2023 11:40 AM EDT Mass of thoracic structure documented in this encounter Results * MR Angio Neck w IV Contrast [...] CLINICAL INDICATION: soft tissue mass TECHNIQUE: 3-D [id number] noncontrast MR angiography and contrast-enhanced MR angiogram [...] CLINICAL INDICATION: soft tissue mass TECHNIQUE: 3-D [id number] noncontrast MR angiography and contrast-enhanced MRangiogram obtained [...] signing this report, I, the attending physician, attbakariat I have personally reviewed the images/data for the aboveexamination(s) and agree with the final edited report. Drafted by Maira Bailey MD on 11/24/2023 9:16 AM Final report signed by Jose J Soto MD on 11/24/2023 2:57 PM Mando Avitia DO IMG MRI PROCEDURES Final Resu lt documented in this encounter Visit Diagnoses Diagnosis Mass of thoracic structure documented in this encounter Administered Medications Inactive Administered Medications - up to 3 most recent administrations Medication Order MAR Action Action Date Dose Rate Site ferumoxytol (Feraheme) 190.5 mg in sodium chloride 0.9 % 100 mL IVPB 190.5 mg (3 mg/kg ? 63.5 kg), Intravenous, Once, 1 dose, On Thu11/20/23 at 0945, Administer over 15 Minutes, Routine New Bag 11/20/2023 9:57 AM EDT 190.5 mg 465.4 mL/hr labetalol (Normodyne,Trandate) injection 10 mg 10 mg, Intravenous, Once, 1 dose, On Thu11/20/23 at 1215, STAT Given 11/20/2023 11:53 AM EDT 10 mg documented in this encounter Additional Health Concerns Assessment Noted Time A fall risk assessment has been complete d for the patient 11/12/2023 12:42 PM EDT A Body Mass Index follow-up plan has been documented for the patient 11/18/2023 7:05 AM EDT documented as of this encounter Care Teams Door Fitter Relationship Specialty Start Date End Date Vinnie Molina MD [address] [place] [address] PCP - General 07/13/20 documented as of this encounter
--- OUTSIDE RECORDS SUMMARY | 2024-01-20 08:09 | XMS_ITS | Encounter Summary ---
Author Organization Healthcare Address [address] [place] [address] Care Team Providers Care Truck Leasing Manager Name Role Phone Vninie Molina MD Primary Care Provider [phone] Encounter Details Date Type Department Care Team (Latest Contact Info) Description 11/20/2023 Travel Social History Tobacco Use Types Packs/Day [...] [facility], [address] [place] [phone] Nacho Jackson MD [address] [place] [phone] documented as of this encounter Visit Diagnoses Not on filedocumented in this encounter Additional Health Concerns Assessment Noted Time A fall risk assessment has been complete d for the patient 11/12/2023 12:42 PM EDT A Body Mass Index follow-up plan has been documented for the patient 11/18/2023 7:05 AM EDT documented as of this encounter Care Teams Truck Leasing Manager Relationship Specialty Start Date End Date Vinnie Molina MD [address] [place] [address] PCP - General 07/13/20 documented as of this encounter
--- OUTSIDE RECORDS SUMMARY | 2024-01-20 08:10 | XMS_ITS | Encounter Summary ---
Author Organization Healthcare Address [facility] [place] [address] Care Team Providers Care Sheetrock Applicator Name Role Phone Vinnie Molina MD Primary Care Provider [phone] Encounter Details Date Type Department Care Team (Late Contact Info) Description 03/27/2020 Orders Only External Location [address] [place] [address] Provider, External Social History Tobacco Use Types Packs/Day Years Used Date Smoking Tobacco: Never Alcohol Use Standard Drinks/Week Comments [...] Office Building Surgical Specialties [address] [facility], [address] [place] [phone] [place] [address] [place] [phone] documented as of this encounter Procedures Procedure Name Priority Date/Time Associated Diagnosis Comments CT OUTSIDE IMAGES 03/27/2020 2:51 PM EST documented in this encounter Results * CT OUTSIDE IMAGES (03/27/2020 2:51 PM EST) Anatomical Region Laterality Modality Computed Tomogra phy 03/27/2020 2:51 PM EST us External Provider IMG CT PROCEDURES Final Result documented in this encounter Visit Diagnoses Not on filedocumented in this encounter Care Teams Sheetrock Applicator Relationship Specialty Start Date End Date Vinnie Molina MD [address] [place] [address] PCP - General 07/13/20 documented as of this encounter
--- OUTSIDE RECORDS SUMMARY | 2024-01-20 08:10 | XMS_ITS | Encounter Summary ---
Author Organization Healthcare Address [address] [place] [address] Care Team Providers Care Fiberglass Ski Maker Name Role Phone Vinnie Molina MD Primary Care Provider [phone] Encounter Details Date Type Department Care Team (Late Contact Info) Description 03/16/2020 Orders Only External Location [address] [place] [address] Provider, External Social History Tobacco Use Types [...] Medical Office Building Surgical Specialties [address] [facility], [address] [place] [phone] [place] [address] [place] [phone] documented as of this encounter Procedures Procedure Name Priority Date/Time Associated Diagnosis Comments US OUTSIDE IMAGES 03/16/2020 1:23 PM EST documented in this encounter Results * US OUTSIDE IMAGES (03/16/2020 1:23 PM EST) Anatomical Region Laterality Modality Ultrasound 03/16/2020 1:23 PM EST us External Provider IMG US PROCEDURES Final Result documented in this encounter Visit Diagnoses Not on filedocumented in this encounter Care Teams Fiberglass Ski Maker Relationship Specialty Start Date End Date Vinnie Molina MD [address] [place] [address] PCP - General 07/13/20 documented as of this encounter
--- OUTSIDE RECORDS SUMMARY | 2024-01-20 08:10 | XMS_ITS | Encounter Summary ---
Author Organization Healthcare Address [address] [place] [address] Care Team Providers Care Supply Chain Tech Name Role Phone Vinnie Molina MD Primary Care Provider [phone] Encounter Details Date Type Department Care Team (Latest Contact Info) Description 11/12/2023 Travel Social History Tobacco Use Types Packs/Day [...] [facility], [address] [place] [phone] Nacho Jackson MD [address] [place] [phone] documented as of this encounter Visit Diagnoses Not on filedocumented in this encounter Additional Health Concerns Assessment Noted Time A fall risk assessment has been complete d for the patient 11/12/2023 12:42 PM EDT A Body Mass Index follow-up plan has been documented for the patient 11/18/2023 7:05 AM EDT documented as of this encounter Care Teams Supply Chain Tech Relationship Specialty Start Date End Date Vinnie Molina MD [address] [place] [address] PCP - General 07/13/20 documented as of this encounter
--- OUTSIDE RECORDS SUMMARY | 2024-01-20 08:10 | XMS_ITS | Encounter Summary ---
Author Organization Healthcare Address [address] [place] [address] Care Team Providers Care Metal Wire Technician Name Role Phone Vinnie Molina MD Primary Care Provider [phone] Encounter Details Date Type Department Care Team ([facility] Contact Info) Description 11/13/2023 Telephone Pav CC Head, Neck & Respiratory [address] [facility], 2nd [place] [phone] Roula Olivera RN AMB-HEAD NECK AND RESPIRATORY [...] Telephone Encounter - Roula Olivera RN - 11/13/2023 2:15 PM EDT RN attempting to get a hold of pt to go over MRA questions. Need to verify metal in body (hx statesknee replacement) and if pt is claustrophobic. VM not set up with either number. documented in this encounter Plan of Treatment Upcoming Encounters Date Type Department Care Team ([facility] Contact Info) Description 02/15/2024 10:00 AM EST Consult Medical Office Building Surgical Specialties [address] [facility], [address] [place] [address] Nacho Jackson MD [address] [phone] documented as of this encounter Visit Diagnoses Not on filedocumented in this encounter Additional Health Concerns Assessment Noted Time A fall risk assessment has been complete d for the patient 11/12/2023 12:42 PM EDT A Body Mass Index follow-up plan has been documented for the patient 11/18/2023 7:05 AM EDT documented as of this encounter Care Teams Metal Wire Technician Relationship Specialty Start Date End Date Vinnie Molina MD [address] [place] [address] PCP - General 07/13/20 documented as of this encounter
--- OUTSIDE RECORDS SUMMARY | 2024-01-20 08:10 | XMS_ITS | Encounter Summary ---
Author Organization Healthcare Address [address] [place] [address] Care Team Providers Care Professor Of Literature Name Role Phone Vinnie Molina MD Primary Care Provider [phone] Encounter Details Date Type Department Care Team (Late st Contact Info) Description 03/30/2016 Orders Only External Location [address] [place] [address] Provider, External Social History Tobacco Use Types Packs/Day Years Used Date Smoking Tobacco: Never Assessed Comments Unknown Sex and Gender Information Value Date Recorded Sex Assigned at Not on file Legal Sex Female 6:33 PM EDT Gender Identity Not on file Sexual Orientation Not on file documented as of this encounter Plan of Treatment Upcoming Encounters Date Type Department Care Team (Late st Contact Info) Description 02/15/2024 10:00 AM EST Consult Medical Office Building Surgical Specialties [address] [facility], [address] [place] [address] Nacho Jackson MD [address] [place] [phone] documented as of this encounter Procedures Procedure Name Priority Date/Time Associated Diagnosis Comments CT OUTSIDE IMAGES 03/30/2016 9:23 AM EST documented in this encounter Results * CT OUTSIDE IMAGES (03/30/2016 9:23 AM EST) Anatomical Region Laterality Modality Computed Tomogra phy 03/30/2016 9:23 AM EST us External Provider IMG CT PROCEDURES Final Result documented in this encounter Visit Diagnoses Not on filedocumented in this encounter Care Teams Professor Of Literature Relationship Specialty Start Date End Date Vinnie Molina MD [address] [place] [address] PCP - General 07/13/20 documented as of this encounter
--- OUTSIDE RECORDS SUMMARY | 2024-01-20 08:10 | XMS_ITS | Encounter Summary ---
Author Organization Healthcare Address [address] [place] [address] Care Team Providers Care Rn Documentation Specialist Name Role Phone Vinnie Molina MD Primary Care Provider [phone] Encounter Details Date Type Department Care Team (Late Contact Info) Description 08/13/2023 Orders Only External Location [address] [place] [address] Provider, External Social History Tobacco Use Types [...] Medical Office Building Surgical Specialties [address] [facility], [address] [place] [phone] [place] [address] [place] [phone] documented as of this encounter Procedures Procedure Name Priority Date/Time Associated Diagnosis Comments CT OUTSIDE IMAGES 08/13/2023 10:15 AM EDT documented in this encounter Results * CT OUTSIDE IMAGES (08/13/2023 10:15 AM EDT) Anatomical Region Laterality Modality Computed Tomogra phy 08/13/2023 10:1 5 AM EDT us External Provider IMG CT PROCEDURES Final Result documented in this encounter Visit Diagnoses Not on filedocumented in this encounter Care Teams Rn Documentation Specialist Relationship Specialty Start Date End Date Vinnie Molina MD [address] [place] [address] PCP - General 07/13/20 documented as of this encounter
--- OUTSIDE RECORDS SUMMARY | 2024-01-20 08:10 | XMS_ITS | Encounter Summary ---
Author Organization Healthcare Address [facility] [place] [address] Care Team Providers Care Safety Trainer Name Role Phone Unavailable Primary Care Provider Unavailabl e Encounter Details Date Type Department Care Team (Late Contact Info) Description 08/10/2014 [facility] Vitals Encounter [facility] [address] [place] [address] ProviderSolitario MD [address] [place] [address] Social History Tobacco Use Types Packs/Day Years Used Date Smoking Tobacco: Never Assessed Comments Unknown Sex and Gender Information Value Date Recorded Sex Assigned at Not on file Legal Sex Female 6:33 PM EDT Gender Identity Not on file Sexual Orientation Not on file documented as of this encounter Last Filed Vital Signs Vital Sign Reading Time Taken Comments Blood Pressure - - Pulse - - Temperature - - Respiratory Rate - - Oxygen Saturation - - Inhaled Oxygen Concentration - - Weight 77.1 kg (170 lb) 08/10/2014 11:46 AM EDT Height - - Body Mass Index 28.29 01/30/2014 3:28 PM EST documented in this encounter Plan of Treatment Upcoming Encounters Date Type Department Care Team (Late Contact Info) Description 02/15/2024 10:00 AM EST Consult Medical Office Building Surgical Specialties [address] [facility], [address] [place] [address] Nacho Jackson MD [address] [place] [phone] documented as of this encounter Visit Diagnoses Not on filedocumented in this encounter
--- OUTSIDE RECORDS SUMMARY | 2024-01-20 08:10 | XMS_ITS | Referral Summary ---
Author Organization [facility] Address [address] [place] [address] Care Team Providers Care Soaker Helper Name Role Phone Unavailable Primary Care Provider Unavailabl e Social History Tobacco Use Types Packs/Day Years Used Date Smoking Tobacco: Never Assessed Interpersonal Safety Answer Date Record ed Family or friends hurt you Not on file 03/20 Family or friends insult you Not on file Family or friends threaten you Not on file 0 03/20/2023 Family or friends scream or curse at you Not on file 03/20/2023 Housing Stability Answer Date Recorded Living situation today Not on file Living situation problems Not on file 2023 Food Insecurity Answer Date Recorded Food run out past 12 months Not on file 03/02 Food did not last past 12 months Not on file 03/20/2023 Employment Answer Date Recorded Help finding and keeping a job Not on file 0 03/20/2023 Family and Community Support Answer Connor e Recorded Help with Day to Day Activities Not on file 03/20/2023 Feeling Lonely or Isolated Not on file 03/20 Educational Attainment Answer Date Norman rded Speak language other than Macanese at home Not on file 03/20/2023 Want help with school or training Not on file 03/20/2023 Depression Answer Date Recorded PHQ-2 Risk Not on file 03/20/2023 Disabilities Answer Date Recorded Difficulty concentrating Not on file 024 Difficulty doing errands alone Not on file 0 03/20/2023 Substance Use Answer Date Recorded Used prescription meds for non-medical reasons N ot on file 03/20/2023 Used illegal drugs past 12 months Not on file 03/20/2023 Comments Unknown Sex and Gender Information Value Date Recorded Sex Assigned at Not on file Legal Sex Female 1:42 PM CDT Gender Identity Not on file Sexual Orientation Not on file Plan of Treatment Not on file Insurance MEDICARE PART A B
--- OUTSIDE RECORDS SUMMARY | 2024-01-20 08:10 | XMS_ITS | Encounter Summary ---
Author Organization [facility] Address [address] [place] [address] Care Team Providers Care Medical Chief Technician Name Role Phone Vinnie Molina MD Primary Care Provider + Reason for Visit * Reason Onset Date Comments Med Refill 10/21/2023 Encounter Details Date Type Department Care Team (Late st Contact Info) Description 10/21/2023 Refill [facility] [address] [place] [address] Vinnie Molina MD [address] [place] [address] Rheumatoid arthritis involving multiple sites with positive rheumatoid factor Social History Tobacco Use Types Packs/Day Years Used Date Smoking Tobacco: Never Passive Smoke Exposure: Past Smokeless Tobacco: Never Alcohol Use Standard Drinks/Week Comments Not Currently 0 (1 standard drink = 0.6 oz pur e alcohol) PHQ-2 Answer Date Recorded Retired PHQ-9: Brief Depression Severity Measure Score 1 01/26/2023 Abuse Screen Answer Date Recorded Unsafe at Home or Work/School Not on file Feels Threatened by Someone? Not on file 10/2022 Does Anyone Keep You from Co ntacting Others or Doint Things Outside the Home? Not on file 12/08/2022 Physical Sign of Abuse Present Not on file 1 Housing Stability Answer Date Recorded Current Living Arrangements Not on file 10/2022 Potentially Unsafe Housing Conditions Not on maria r e 12/08/2022 Family and Community Support Answer Connor e Recorded Help with Day-to-Day Activities Not on file 12/08/2022 Lonely or Isolated Not on file 12/08/2022 Employment Answer Date Recorded Do you want help finding or keeping work or a misty b? Not on file 12/08/2022 Disabilities Answer Date Recorded Concentrating, Remembering, or Making Decisions Difficulty Not on file 12/08/2022 Doing Errands Independently Difficulty Not on fi le 12/08/2022 Education Answer Date Recorded Help with school or training? Not on file Preferred Language Not on file 12/08/2022 PHQ-2 Answer Date Recorded Retired PHQ-9: Brief Depression Severity Measure Score 4 08/04/2023 Comments Unknown Sex and Gender Information Value Date Recorded Sex Assigned at Not on file Legal Sex Female 12:16 PM EDT Gender Identity Not on file Sexual Orientation Not on file documented as of this encounter Miscellaneous Notes * Telephone Encounter - Elvie Richardson RegSched Rep - 10/21/2023 2:47 PM EDT Caller: Pauline Kay Relationship: Self Best call back number: [phone] Requested Prescriptions: Requested Prescriptions Pending Prescriptions Disp Refills HYDROcodone-acetaminophen (NORCO) 7.5-325 MG per tablet 120 tablet 0 Sig: Take 1 tablet by mouth Every 6 (Six) Hours As Needed for Moderate Pain. Pharmacy where request should be sent: [id number] - [facility] [address] [place] [address] [phone] [facility] [phone] FX Last office visit with prescribing clinician: 08/04/2023 Last telemedicine visit with prescribing clinician: Visit date not found Next office visit with prescribing clinician: Visit date not found Additional details provided by patient: PATIENT HAS A FEW DAYS LEFT Does the patient have less than a 3 day supply: [x] Yes [] No Would you like a call back once the refill request has been completed: [x] Yes [] No If the office needs to give you a call back, can they leave a voicemail: [x] Yes [] No German Frazier 10/21/23 14:48 EDT documented in this encounter Plan of Treatment Not on file documented as of this encounter Visit Diagnoses Diagnosis Rheumatoid arthritis involving multiple sites with positive rheumatoid factor documented in this encounter Additional Health Concerns Assessment Noted Time PHQ-2 Depression Total Score: 4 08/04/19 24 10:13 AM EDT documented as of this encounter Care Teams Medical Chief Technician Relationship Specialty Start Date End Date Vinnie Molina MD [address] [place] [address] PCP - General Family Medicine 07/08/21 documented as of this encounter
--- OUTSIDE RECORDS SUMMARY | 2024-01-20 08:10 | XMS_ITS | Encounter Summary ---
Author Organization [employer] Address [address] [place] [address] Care Team Providers Care Wildlife Enforcement Major Name Role Phone Unavailable Primary Care Provider Unavailabl e Encounter Details Date Type Department Care Team (Late st Contact Info) Description 11/05/2021 Historic Encounter [facility] Radiology [address] [place] [address] Sarah Olivas MD [address] [place] [address] Social History Tobacco Use Types Packs/Day Years Used Date Smoking Tobacco: Never Assessed Comments Unknown Sex and Gender Information Value Date Recorded Sex Assigned at Not on file Legal Sex Female 1:42 PM CDT Gender Identity Not on file Sexual Orientation Not on file documented as of this encounter Plan of Treatment Not on file documented as of this encounter Procedures Procedure Name Priority Date/Time Associated Diagnosis Comments MM DIGITAL MAMMO SCREEN WITH RIYA BILATERAL Routine 11/05/2021 12:11 PM EDT documented in this encounter Results * MM digital mammo screen with riya bilateral (11/05/2021 12:11 PM EDT) Anatomical Region Laterality Modality Breast Bilateral Mammography 11/05/2021 12:1 1 PM EDT Narrative 11/05/2021 5:55 PM EDT PROCEDURE: Digital screening mammogram with tomosynthesis. REASON FOR EXAM: Routine screening. FAMILY HISTORY: ??Weak family history of breast cancer COMPARISON STUDY: [facility] [id number] ; no significant change. FINDINGS: Craniocaudal and mediolateral oblique images of both breasts were obtained in 2D, C-view and 3D modes. The breast tissue has scattered fibroglandular densities. Architectural distortion with few dystrophic calcifications is stable in the right 12:00 region at site of prior benign excisional biopsy. Vague parenchymal asymmetry in the posterior right 10:00 region is stable. Few scattered coarse and punctate calcifications bilaterally are unchanged. There are no new masses or suspicious calcifications. This examination was reviewed with the benefit of computer aided detection (CAD). FINAL IMPRESSION: ACR BI-RADS 2: Benign findings. RECOMMENDATIONS: Annual screening mammography. At our facility, a [place] marker is positioned over a visible skin lesion and a linear marker is used to indicate a scar. A triangular marker is placed on a self reported palpable finding. A letter including results and recommendations was sent to the patient. Density notification was included for patients with Pattern 3 or 4 breast tissue. Patient information was entered into a reminder system with a target due date for the next mammogram. Procedure Note Sarah Olivas MD - 06/17/2022 PROCEDURE: Digital screening mammogram with tomosynthesis. REASON FOR EXAM: Routine screening. FAMILY HISTORY: Weak family history of breast cancer COMPARISON STUDY: [facility] [phone] ; no significant change. FINDINGS: Craniocaudal and mediolateral oblique images of both breasts were obtained in 2D, C-view and 3D modes. The breast tissue has scattered fibroglandular densities. Architectural distortion with few dystrophic calcifications is stable in the right 12:00 region at site of prior benign excisional biopsy. Vague parenchymal asymmetry in the posterior right 10:00 region is stable. Few scattered coarse and punctate calcifications bilaterally are unchanged. There are no new masses or suspicious calcifications. This examination was reviewed with the benefit of computer aided detection (CAD). FINAL IMPRESSION: ACR BI-RADS 2: Benign findings. RECOMMENDATIONS: Annual screening mammography. At our facility, a [place] marker is positioned over a visible skin lesion and a linear marker is used to indicate a scar. A triangular marker is placed on a self reported palpable finding. A letter including results and recommendations was sent to the patient. Density notification was included for patients with Pattern 3 or 4 breast tissue. Patient information was entered into a reminder system with a target due date for the next mammogram. us Sarah Olivas MD IMG MAMMOGRAPHY ORDERABLES F inal Result documented in this encounter Visit Diagnoses Not on filedocumented in this encounter
--- OUTSIDE RECORDS SUMMARY | 2024-01-20 08:10 | XMS_ITS | Encounter Summary ---
Author Organization [facility] [facility] [employer] Address [address] [place] [address] Care Team Providers Care Staff Engineer Name Role Phone Unavailable Primary Care Provider Unavailabl e Encounter Details Date Type Department Care Team (Late st Contact Info) Description 11/01/2019 Historic Encounter [facility] Radiology [address] [place] [address] ProviderForest Historical Social History Tobacco Use Types Packs/Day Years [...] DIGITAL MAMMO SCREEN WITH RIYA BILATERAL Routine 11/01/2019 11:47 AM EDT documented in this encounter Results * MM digital mammo screen with riya bilateral (11/01/2019 11:47 AM EDT) Anatomical Region Laterality Modality Breast Bilateral Mammography 11/01/2019 11:4 7 AM EDT Narrative 11/01/2019 5:06 PM EDT PROCEDURE: Digital screening mammogram with tomosynthesis. REASON FOR EXAM: Routine screening. FAMILY HISTORY: ??No family history of breast cancer. COMPARISON STUDY: [facility] [id number]. FINDINGS: Craniocaudal and mediolateral oblique images of both breasts were obtained in 2D, C-view, and 3D modes. There are scattered areas of fibroglandular density. Stable changes from prior benign excisional biopsy in the right breast at 11:00. Punctate and coarse calcifications in both breasts are again noted and not significantly changed. There is no evidence of dominant mass, architectural distortion, or suspicious calcifications in either breast. The mammogram was interpreted with the benefit of computer aided detection (CAD). FINAL IMPRESSION: ACR BI-RADS 2: Benign findings. RECOMMENDATIONS: ??Annual screening mammography. A letter including results and recommendations was sent to the patient. Density notification was included for patients with pattern 3 or 4 breast tissue. Patient information was entered into a reminder system with a target due date for the next mammogram. At our facility, a [place] marker is positioned over a visible skin lesion and a linear marker is used to indicate a scar. A triangular marker is placed on a self reported palpable finding. ?? Procedure Note Provider, MD Solitario - 06/17/2022 PROCEDURE: Digital screening mammogram with tomosynthesis. REASON FOR EXAM: Routine screening. FAMILY HISTORY: No family history of breast cancer. COMPARISON STUDY: [facility] [phone]. FINDINGS: Craniocaudal and mediolateral oblique images of both breasts were obtained in 2D, C-view, and 3D modes. There are scattered areas of fibroglandular density. Stable changes from prior benign excisional biopsy in the right breast at 11:00. Punctate and coarse calcifications in both breasts are again noted and not significantly changed. There is no evidence of dominant mass, architectural distortion, or suspicious calcifications in either breast. The mammogram was interpreted with the benefit of computer aided detection (CAD). FINAL IMPRESSION: ACR BI-RADS 2: Benign findings. RECOMMENDATIONS: Annual screening mammography. A letter including results and recommendations was sent to the patient. Density notification was included for patients with pattern 3 or 4 breast tissue. Patient information was entered into a reminder system with a target due date for the next mammogram. At our facility, a [place] marker is positioned over a visible skin lesion and a linear marker is used to indicate a scar. A triangular marker is placed on a self reported palpable finding. [facility] Historical Provider IMG MAMMOGRAPHY ORDERAB LES Final Result documented in this encounter Visit Diagnoses Not on filedocumented in this encounter
--- OUTSIDE RECORDS SUMMARY | 2024-01-20 08:10 | XMS_ITS | Encounter Summary ---
Author Organization [facility] Address [address] [place] [address] Care Team Providers Care Ladle Mechanic Name Role Phone Vinnie Molina MD Primary Care Provider + Reason for Visit * Reason Onset Date Comments Med Refill 12/11/2023 Encounter Details Date Type Department Care Team (Late st Contact Info) Description 12/11/[address] [facility]INE [address] [place] [address] Vinnie Molina MD [address] [place] [address] Rheumatoid arthritis involving multiple sites [...] Encounter - Elvie Richardson RegSched Rep - 12/11/2023 3:18 PM EDT Caller: Pauline Kay Relationship: Self Best call back number: [phone] Requested Prescriptions: Requested Prescriptions Pending Prescriptions Disp Refills HYDROcodone-acetaminophen (NORCO) 7.5-325 MG per tablet 120 tablet 0 Sig: Take 1 tablet by mouth Every 6 (Six) Hours As Needed for Moderate Pain. Pharmacy where request should be sent: [id number] - [facility] [address] [place] [address] [phone] [facility] [phone] FX Last office visit with prescribing clinician: 08/04/2023 Last telemedicine visit with prescribing clinician: Visit date not found Next office visit with prescribing clinician: Visit date not found Additional details provided by patient: HAS ENOUGH TO LAST UNTIL 12/14 Does the patient have less than a 3 day supply: [] Yes [x] No Would you like a call back once the refill request has been completed: [x] Yes [] No If the office needs to give you a call back, can they leave a voicemail: [x] Yes [] No German Frazier Rep 12/11/23 15:19 EDT documented in this encounter Plan of Treatment Not on file documented as of this encounter Visit Diagnoses Diagnosis Rheumatoid arthritis involving multiple sites with positive rheumatoid factor documented in this encounter Additional Health Concerns Assessment Noted Time PHQ-2 Depression Total Score: 4 08/04/19 24 10:13 AM EDT documented as of this encounter Care Teams Ladle Mechanic Relationship Specialty Start Date End Date Vinnie Molina MD [address] [place] [address] PCP - General Family Medicine 07/08/21 documented as of this encounter
--- OUTSIDE RECORDS SUMMARY | 2024-01-20 08:10 | XMS_ITS | Encounter Summary ---
Author Organization [employer] Address [address] [place] [address] Care Team Providers Care Manufacturing Director Name Role Phone Unavailable Primary Care Provider Unavailabl e Encounter Details Date Type Department Care Team (Late st Contact Info) Description 11/01/2020 Historic Encounter [facility] Radiology [address] [place] [address] Margo Horton MD [address] [place] [address] Social History Tobacco Use Types Packs/Day Years [...] DIGITAL MAMMO SCREEN WITH RIYA BILATERAL Routine 11/01/2020 11:55 AM EDT documented in this encounter Results * MM digital mammo screen with riya bilateral (11/01/2020 11:55 AM EDT) Anatomical Region Laterality Modality Breast Bilateral Mammography 11/01/2020 11:5 5 AM EDT Narrative 11/01/2020 5:44 PM EDT PROCEDURE: Digital screening mammogram with tomosynthesis. REASON FOR EXAM: Routine screening. FAMILY HISTORY: ??There is no family history of breast cancer. COMPARISON STUDY: [facility] [phone]. FINDINGS: Craniocaudal and mediolateral oblique images of both breasts were obtained in 2D, C-view, and 3D modes. The breast tissue has pattern b (scattered fibroglandular densities). There has been no change. Minimal postsurgical architectural distortion is present in the right upper outer quadrant at the site of benign excisional biopsy. Bilateral punctate and coarse calcifications are present. There is no evidence of a mass or suspicious calcifications in either breast. The [...] the next mammogram. At our facility, a [place] marker is positioned over a visible skin lesion and a linear marker is used to indicate a scar. A triangular marker is placed on a self reported palpable finding. Procedure Note Margo Horton MD - 06/17/2022 PROCEDURE: Digital screening mammogram with tomosynthesis. REASON FOR EXAM: Routine screening. FAMILY HISTORY: There is no family history of breast cancer. COMPARISON STUDY: [facility] [phone]. FINDINGS: Craniocaudal and mediolateral oblique images of both breasts were obtained in 2D, C-view, and 3D modes. The breast tissue has pattern b (scattered fibroglandular densities). There has been no change. Minimal postsurgical architectural distortion is present in the right upper outer quadrant at the site of benign excisional biopsy. Bilateral punctate and coarse calcifications are present. There is no evidence of a mass or suspicious calcifications in either breast. The [...] the next mammogram. At our facility, a [place] marker is positioned over a visible skin lesion and a linear marker is used to indicate a scar. A triangular marker is placed on a self reported palpable finding. us Margo Horton MD IMG MAMMOGRAPHY ORDERABLES Fin al Result documented in this encounter Visit Diagnoses Not on filedocumented in this encounter
--- OUTSIDE RECORDS SUMMARY | 2024-01-20 08:10 | XMS_ITS | Encounter Summary ---
Author Organization [facility] Address [address] [place] [address] Care Team Providers Care Hand Molder Name Role Phone Vninie Molina MD Primary Care Provider + Reason for Visit * Reason Comments Medicare Wellness-subsequent Encounter Details Date Type Department Care Team (Late st Contact Info) Description 08/04/2023 10:15 AM EDT Office Visit [facility] [address] [place] [address] Vinnie Molina MD [address] [place] [address] Medicare annual wellness visit, subsequent (Primary Dx); Stage 3b chronic kidney disease (CKD); Rheumatoid arthritis involving multiple sites with positive rheumatoid factor; Acquired hypothyroidism; Primary hypertension; Primary hypertension; Gastroesophageal reflux disease without esophagitis; Anxiety; Patient has healthcare proxy and living will Social History Tobacco Use Types Packs/Day Years Used Date Smoking Tobacco: Never Passive Smoke Exposure: Past Smokeless Tobacco: Never Tobacco Cessation:Counseling Given: Not Answered Alcohol Use Standard Drinks/Week Comments Not Currently [...] Sign Reading Time Taken Comments Blood Pressure 138/84 08/04/2023 10:09 AM EDT Pulse 58 08/04/2023 10:09 AM EDT Temperature 36.6 ??C (97.8 ??F) 08/04/2023 1 0:09 AM EDT Respiratory Rate - - Oxygen Saturation 99% 08/04/2023 10: 09 AM EDT Inhaled Oxygen Concentration - - Weight 63.4 kg (139 lb 12.8 oz) 024 10:09 AM EDT Height 162 cm (5' 3.78 ) 08/04/2023 10: 09 AM EDT Body Mass Index 24.16 08/04/2023 10:09 AM EDT documented in this encounter Progress Notes * Vinnie Molina MD - 08/04/2023 10:15 AM EDT Images from the original note were not included. The ABCs of the Annual Wellness Visit Subsequent Medicare Wellness Visit Jose Kay is a 83 y.o. female who presents for a Subsequent Medicare Wellness Visit. The following portions of the patient's history were reviewed and updated as appropriate: allergies, current medications, past family history, past medical history, past social history, past surgical history, and problem list. Compared to one year ago, the patient feels her physical health is the same. Compared to one year ago, the patient feels her mental health is worse. Currently grieving the recent loss of her Recent Hospitalizations: She was not admitted to the hospital during the last year. Current Medical Providers: Patient Care Team: Vinnie Molina MD as PCP - General (Family Medicine) Nimesh Sidhu MD as Consulting Physician (Nephrology) Outpatient Medications Prior to Visit Medication Sig Dispense Refill aspirin 81 MG EC tablet Take 1 tablet by mouth Daily. allopurinol (ZYLOPRIM) 100 MG tablet Take 1 tablet by mouth Daily. 90 tablet 1 amLODIPine (NORVASC) 10 MG tablet Take 1 tablet by mouth Daily. HYDROcodone-acetaminophen (NORCO) 7.5-325 MG per tablet Take 1 tablet by mouth Every 6 (Six) Hours As Needed for Moderate Pain. 120 tablet 0 levothyroxine (SYNTHROID, LEVOTHROID) 75 MCG tablet Take 1 tablet by mouth Daily. 90 tablet 1 lisinopril-hydrochlorothiazide (PRINZIDE,ZESTORETIC) 20-12.5 MG per tablet Take 1 tablet by mouth Daily. 90 tablet 1 metoprolol succinate XL (TOPROL-XL) 50 MG 24 hr tablet Take 1 tablet by mouth 2 (Two) Times a Day. 180 tablet 3 pantoprazole (PROTONIX) 40 MG EC tablet Take 1 tablet by mouth Daily. 90 tablet 1 sertraline (ZOLOFT) 25 MG tablet TAKE 1 TABLET BY MOUTH DAILY 90 tablet 1 Facility-Administered Medications Prior to Visit Medication Dose Route Frequency Provider Last Rate Last Admin cyanocobalamin injection 1,000 mcg 1,000 mcg Intramuscular Q28 Days Vinnie Molina MD 1,000mcg at 08/19/21 1231 Opioid medication/s are on active medication list. and I have evaluated her active treatment plan and pain score trends (see table). Vitals: 08/04/23 1009 PainSc: 0-No pain I have reviewed the chart for potential of high risk medication and harmful drug interactions in the elderly. Aspirin is on active medication list. Aspirin use is not indicated based on review of current medical condition/s. Risk of harm outweighs potential benefits. Patient instructed to discontinue this medication. . Patient Active Problem List Diagnosis Rheumatoid arthritis involving multiple sites with positive rheumatoid factor Acquired hypothyroidism GERD without esophagitis Primary hypertension CKD stage 4 secondary to hypertension Enlarged lymph node Advance Care Planning Advance Care Planning Advance Directive is not on file. ACP discussion was held with the patient during this visit. Patient has an advance directive (not in EMR), copy requested. Objective Vitals: 08/04/23 1009 BP: 138/84 Pulse: 58 Temp: 97.8 ??F (36.6 ??C) TempSrc: Infrared SpO2: 99% Weight: 63.4 kg (139 lb 12.8 oz) Height: 162 cm (63.78 ) PainSc: 0-No pain Estimated body mass index is 24.16 kg/m?? as calculated from the following: Height as of this encounter: 162 cm (63.78 ). Weight as of this encounter: 63.4 kg (139 lb 12.8 oz). BMI is within normal parameters. No other follow-up for BMI required. Does the patient have evidence of cognitive impairment? No. Normal 3 word recall today. During the decline in her 's health patient did not demonstrate some difficulties with comprehension and decision- making although this may have been due to stress. HEALTH RISK ASSESSMENT Smoking Status: Social History Tobacco Use Smoking Status Never Passive exposure: Past Smokeless Tobacco Never Alcohol Consumption: Social History Substance and Sexual Activity Alcohol Use Not Currently Fall Risk Screen: YASMANYADI Fall Risk Assessment was completed, and patient is at LOW risk for falls.Assessment completed on:08/04/2023 Depression Screenin08/04/2023 10:13 AM PHQ-2/PHQ-9 Depression Screening Little Interest or Pleasure in Doing Things 2-->more than half the days Feeling Down, Depressed or Hopeless 2-->more than half the days Trouble Falling or Staying Asleep, or Sleeping Too Much 0-->not at all Feeling Tired or Having Little Energy 0-->not at all Poor Appetite or Overeating 0-->not at all Feeling Bad about Yourself - or that You are a Failure or Have Let Yourself or Your Family Down 0-->not at all Trouble Concentrating on Things, Such as Reading the Newspaper or Watching Television 0-->not atall Moving or Speaking So Slowly that Other People Could Have Noticed? Or the Opposite - Being So Fidgety 0-->not at all Thoughts that You Would be Better Off or of Hurting Yourself in Some Way 0-->not at all PHQ-9: Brief Depression Severity Measure Score 4 If You Checked Off Any Problems, How Difficult Have These Problems Made It For You to Do Your Work,Take Care of Things at Home, or Get Along with Other People? somewhat difficult Health Habits and Functional and Cognitive Screenin08/04/2023 10:11 AM Functional & Cognitive Status Do you have difficulty preparing food and eating? No Do you have difficulty bathing yourself, getting dressed or grooming yourself? No Do you have difficulty using the toilet? No Do you have difficulty moving around from place to place? No Do you have trouble with steps or getting out of a bed or a chair? No Current Diet Well Balanced Diet Dental Exam Up to date Eye Exam Not up to date Eye Exam Comment last exam 2 years ago Exercise (times per week) Other Current Exercises Include No Regular Exercise Do you need help using the phone? No Are you deaf or do you have serious difficulty hearing? Yes Do you need help to go to places out of walking distance? Yes Do you need help shopping? No Do you need help preparing meals? No Do you need help with housework? No Do you need help with laundry? No Do you need help taking your medications? No Do you need help managing money? No Do you ever drive or ride in a car without wearing a seat belt? No Have you felt unusual stress, anger or loneliness in the last month? Yes Who do you live with? Alone If you need help, do you have trouble finding someone available to you? No Have you been bothered in the last four weeks by sexual problems? No Do you have difficulty concentrating, remembering or making decisions? No Age-appropriate Screening Schedule: Refer to the list below for future screening recommendations based on patient's age, sex and/or medical conditions. Orders for these recommended tests are listed in the plan section. The patient has been provided with a written plan. Health Maintenance Topic Date Due DXA SCAN Never done ZOSTER VACCINE (1 of 2) Never done RSV Vaccine - Adults (1 - 1-dose 60+ series) Never done Pneumococcal Vaccine 65+ (2 of 2 - PCV) 12/04/2016 TDAP/TD VACCINES (1 - Tdap) 09/27/2021 COVID-19 Vaccine (2022-24 season) 2023 INFLUENZA VACCINE 10/01/2023 ANNUAL WELLNESS VISIT 08/03/2024 [facility] Preventative Services Quick Reference Risk Factors Identified During Encounter: Chronic Pain: copntinue current medication Immunizations Discussed/Encouraged: COVID19 and RSV (Respiratory Syncytial Virus) Dental Screening Recommended Vision Screening Recommended The above risks/problems have been discussed with the patient. Pertinent information has been shared with the patient in the After Visit Summary. Diagnoses and all orders for this visit: 1. Medicare annual wellness visit, subsequent (Primary) 2. Stage 3b chronic kidney disease (CKD) Comments: CKD prevents use of NSAIDs Orders: - allopurinol (ZYLOPRIM) 100 MG tablet; Take 1 tablet by mouth Daily. Dispense: 90 tablet; Refill: 3 3. Rheumatoid arthritis involving multiple sites with positive rheumatoid factor Comments: Stable. Murdock 7.5 mg every 6 hours as needed for pain was refilled. CKD prohibits NSAIDs Orders: - HYDROcodone-acetaminophen (NORCO) 7.5-325 MG per tablet; Take 1 tablet by mouth Every 6 (Six) Hours As Needed for Moderate Pain. Dispense: 120 tablet; Refill: 0 4. Acquired hypothyroidism Comments: Require surveillance. TSH ordered Orders: - levothyroxine (SYNTHROID, LEVOTHROID) 75 MCG tablet; Take 1 tablet by mouth Daily. Dispense: 90 tablet; Refill: 3 5. Primary hypertension Comments: Hold amlodipine. CHeck BP daily and f/u with Nephrology Orders: - lisinopril-hydrochlorothiazide (PRINZIDE,ZESTORETIC) 20-12.5 MG per tablet; Take 1 tablet by mouth Daily. Dispense: 90 tablet; Refill: 3 - metoprolol succinate XL (TOPROL-XL) 50 MG 24 hr tablet; Take 1 tablet by mouth 2 (Two) Times a Day. Dispense: 180 tablet; Refill: 3 6. Primary hypertension - lisinopril-hydrochlorothiazide (PRINZIDE,ZESTORETIC) 20-12.5 MG per tablet; Take 1 tablet by mouth Daily. Dispense: 90 tablet; Refill: 3 - metoprolol succinate XL (TOPROL-XL) 50 MG 24 hr tablet; Take 1 tablet by mouth 2 (Two) Times a Day. Dispense: 180 tablet; Refill: 3 7. Gastroesophageal reflux disease without esophagitis Comments: Stable. Refilled PPI Orders: - pantoprazole (PROTONIX) 40 MG EC tablet; Take 1 tablet by mouth Daily. Dispense: 90 tablet; Refill: 3 8. Anxiety Comments: Start sertraline 25 mg at bedtime. Orders: - sertraline (ZOLOFT) 25 MG tablet; Take 1 tablet by mouth Daily. Dispense: 90 tablet; Refill: 3 9. Patient has healthcare proxy and living will Comments: Rogelio and cathy are healthcare surrogates Follow Up: Next Medicare Wellness visit to be scheduled in 1 year. An After Visit Summary and PPPS were made available to the patient. documented in this encounter Plan of Treatment Not on file documented as of this encounter Visit Diagnoses Diagnosis Medicare annual wellness visit, subsequent- Primary Stage 3b chronic kidney disease (CKD) Rheumatoid arthritis involving multiple sites with positive rheumatoid factor Acquired hypothyroidism Unspecified hypothyroidism Primary hypertension Unspecified essential hypertension Gastroesophageal reflux disease without esophagitis Esophageal reflux Anxiety Anxiety state, unspecified Patient has healthcare proxy and living will documented in this encounter Additional Health Concerns Assessment Noted Time PHQ-2 Depression Total Score: 4 08/04/19 24 10:13 AM EDT documented as of this encounter Care Teams Hand Molder Relationship Specialty Start Date End Date Vinnie Molina MD [address] [place] [address] PCP - General Family Medicine 07/08/21 documented as of this encounter
--- OUTSIDE RECORDS SUMMARY | 2024-01-20 08:10 | XMS_ITS | Encounter Summary ---
Author Organization Healthcare Address [facility] [place] [address] Care Team Providers Care Culinary Art Teacher Name Role Phone Unavailable Primary Care Provider Unavailabl e Encounter Details Date Type Department Care Team (Late Contact Info) Description 01/11/2015 [facility] Vitals Encounter [facility] [address] [place] [address] ProviderSolitario MD [address] [place] [id number] Social History Tobacco Use Types Packs/Day [...] - Inhaled Oxygen Concentration - - Weight 68.5 kg (150 lb 15.9 oz) 01/11/2015 2:20 PM EST Height - - Body Mass Index 25.13 01/30/2014 3:28 PM EST documented in this encounter Plan of Treatment Upcoming Encounters Date Type Department Care Team (Late Contact Info) Description 02/15/2024 10:00 AM EST Consult Medical Office [facility] [address], [address] [place] [address] Nacho Jackson MD [address] [address] documented as of this encounter Visit Diagnoses Not on filedocumented in this encounter
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
--- OUTSIDE RECORDS SUMMARY | 2024-01-20 08:10 | XMS_ITS | Encounter Summary ---
Author Organization Healthcare Address [address] [place] [address] Care Team Providers Care Food Demonstrator Name Role Phone Vinnie Molina MD Primary Care Provider [phone] Encounter Details Date Type Department Care Team (Late st Contact Info) Description 10/23/2015 Orders Only External Location [address] [place] [address] Provider, External Social History Tobacco Use Types [...] [facility], [address] [place] [address] Nacho Jackson MD [address] [place] [phone] documented as of this encounter Procedures Procedure Name Priority Date/Time Associated Diagnosis Comments CT OUTSIDE IMAGES 10/23/2015 12:58 PM EDT documented in this encounter Results * CT OUTSIDE IMAGES (10/23/2015 12:58 PM EDT) Anatomical Region Laterality Modality Computed Tomogra phy 10/23/2015 12:5 8 PM EDT us External Provider IMG CT PROCEDURES Final Result documented in this encounter Visit Diagnoses Not on filedocumented in this encounter Care Teams Food Demonstrator Relationship Specialty Start Date End Date Vinnie Molina MD [address] [place] [address] PCP - General 07/13/20 documented as of this encounter
--- OUTSIDE RECORDS SUMMARY | 2024-01-20 08:10 | XMS_ITS | Encounter Summary ---
Author Organization Healthcare Address [address] [place] [address] Care Team Providers Care Rubber Tire Curer Name Role Phone Vinnie Molina MD Primary Care Provider [phone] Encounter Details Date Type Department Care Team (Late Contact Info) Description 05/26/2023 Orders Only External Location [address] [place] [address] Provider, External Social History Tobacco Use Types [...] [facility], [address] [place] [phone] [place] [address] [place] [phone] documented as of this encounter Procedures Procedure Name Priority Date/Time Associated Diagnosis Comments XR OUTSIDE IMAGES 05/26/2023 3:08 PM EDT documented in this encounter Results * XR OUTSIDE IMAGES (05/26/2023 3:08 PM EDT) Anatomical Region Laterality Modality Radiographic Mary ging 05/26/2023 3:08 PM EDT us External Provider IMG XR PROCEDURES Final Result documented in this encounter Visit Diagnoses Not on filedocumented in this encounter Care Teams Rubber Tire Curer Relationship Specialty Start Date End Date Vinnie Molina MD [address] [place] [address] PCP - General 07/13/20 documented as of this encounter
--- OUTSIDE RECORDS SUMMARY | 2024-01-20 08:10 | XMS_ITS | Encounter Summary ---
Author Organization Healthcare Address [address] [place] [address] Care Team Providers Care Floatman Name Role Phone Vinnie Molina MD Primary Care Provider [phone] Encounter Details Date Type Department Care Team (Late st Contact Info) Description 03/30/2016 Orders Only External Location [address] [place] [address] Provider, External Social History Tobacco Use Types [...] Office Building Surgical Specialties [address] [facility], [address] [place] [address] Nacho Jackson MD [address] [place] [phone] documented as of this encounter Procedures Procedure Name Priority Date/Time Associated Diagnosis Comments CT OUTSIDE IMAGES 03/30/2016 9:30 AM EST documented in this encounter Results * CT OUTSIDE IMAGES (03/30/2016 9:30 AM EST) Anatomical Region Laterality Modality Computed Tomogra phy 03/30/2016 9:30 AM EST us External Provider IMG CT PROCEDURES Final Result documented in this encounter Visit Diagnoses Not on filedocumented in this encounter Care Teams Floatman Relationship Specialty Start Date End Date Vinnie Molina MD [address] [place] [address] PCP - General 07/13/20 documented as of this encounter
--- OUTSIDE RECORDS SUMMARY | 2024-01-20 08:10 | XMS_ITS | Encounter Summary ---
Author Organization Healthcare Address [address] [place] [address] Care Team Providers Care Benzol Operator Name Role Phone Vinnie Molina MD Primary Care Provider [phone] Encounter Details Date Type Department Care Team (Late st Contact Info) Description 03/30/2016 Orders Only External Location [address] [place] [address] Provider, External Social History Tobacco Use Types [...] Medical Office Building Surgical Specialties [address] [facility], [address] [place] [address] Nacho Jackson MD [address] [place] [phone] documented as of this encounter Procedures Procedure Name Priority Date/Time Associated Diagnosis Comments CT OUTSIDE IMAGES 03/30/2016 9:41 AM EST documented in this encounter Results * CT OUTSIDE IMAGES (03/30/2016 9:41 AM EST) Anatomical Region Laterality Modality Computed Tomogra phy 03/30/2016 9:41 AM EST us External Provider IMG CT PROCEDURES Final Result documented in this encounter Visit Diagnoses Not on filedocumented in this encounter Care Teams Benzol Operator Relationship Specialty Start Date End Date Vinnie Molina MD [address] [place] [address] PCP - General 07/13/20 documented as of this encounter
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
--- OUTSIDE RECORDS SUMMARY | 2024-01-20 08:10 | XMS_ITS | Encounter Summary ---
Author Organization Healthcare Address [address] [place] [address] Care Team Providers Care Radio Talk Show Host Name Role Phone Vinnie Molina MD Primary Care Provider [phone] Encounter Details Date Type Department Care Team ([facility] Contact Info) Description 11/18/2023 Telephone PAV A Radiology [address] [place] [address] Keyanna Hooker RN [facility]-DIAGNOSTIC RADIOLOGY Social History Tobacco Use [...] Upcoming Encounters Date Type Department Care Team ([facility] Contact Info) Description 02/15/2024 10:00 AM EST Consult Medical Office Building Surgical Specialties [address] [facility], [address] [place] [address] Nacho Jackson MD [address] [address] documented as of this encounter Visit Diagnoses Not on filedocumented in this encounter Additional Health Concerns Assessment Noted Time A fall risk assessment has been complete d for the patient 11/12/2023 12:42 PM EDT A Body Mass Index follow-up plan has been documented for the patient 11/18/2023 7:05 AM EDT documented as of this encounter Care Teams Radio Talk Show Host Relationship Specialty Start Date End Date Vinnie Molina MD [address] [place] [address] PCP - General 07/13/20 documented as of this encounter
--- OUTSIDE RECORDS SUMMARY | 2024-01-20 08:10 | XMS_ITS | Encounter Summary ---
Author Organization Healthcare Address [facility] [place] [id number] Care Team Providers Care Assembler Tester Name Role Phone Unavailable Primary Care Provider Unavailabl e Encounter Details Date Type Department Care Team (Late Contact Info) Description 04/11/2016 Legacy AEHR Vitals Encounter [facility] OUTPATIENT CONVERSIONS [address] [place] [address] ProviderSolitario MD [address] [place] [address] Social History Tobacco Use Types Packs/Day [...] - Inhaled Oxygen Concentration - - Weight 74.8 kg (164 lb 14.5 oz) 04/11/2016 9:09 AM EST Height 165.1 cm (5' 5 ) 04/11/2016 9:09 AM EST Body Mass Index 27.44 04/11/2016 9:09 AM EST documented in this encounter Plan of Treatment Upcoming Encounters Date Type Department Care Team (Late Contact Info) Description 02/15/2024 10:00 AM EST Consult Medical Office Building Surgical Specialties [address] [facility], [address] [place] [address] Nacho Jackson MD [address] [address] documented as of this encounter Visit Diagnoses Not on filedocumented in this encounter
--- OUTSIDE RECORDS SUMMARY | 2024-01-20 08:10 | XMS_ITS | Encounter Summary ---
Author Organization Healthcare Address [address] [place] [address] Care Team Providers Care Financial Investment Manager Name Role Phone Vinnie Molina MD Primary Care Provider [phone] Encounter Details Date Type Department Care Team (Late Contact Info) Description 05/26/2023 Orders Only External Location [address] [place] [address] Provider, External Social History Tobacco Use Types [...] Medical Office Building Surgical Specialties [address] [facility], [address] [place] [address] [place] [address] [place] [phone] documented as of this encounter Procedures Procedure Name Priority Date/Time Associated Diagnosis Comments US OUTSIDE IMAGES 05/26/2023 2:50 PM EDT documented in this encounter Results * US OUTSIDE IMAGES (05/26/2023 2:50 PM EDT) Anatomical Region Laterality Modality Ultrasound 05/26/2023 2:50 PM EDT us External Provider IMG US PROCEDURES Final Result documented in this encounter Visit Diagnoses Not on filedocumented in this encounter Care Teams Financial Investment Manager Relationship Specialty Start Date End Date Vinnie Molina MD [address] [place] [address] PCP - General 07/13/20 documented as of this encounter
--- OUTSIDE RECORDS SUMMARY | 2024-01-20 08:10 | XMS_ITS | Encounter Summary ---
Author Organization [facility] Address [address] [place] [address] Care Team Providers Care Dat Instructor Name Role Phone Vinnie Molina MD Primary Care Provider + Reason for Visit * Reason Comments Med Refill Encounter Details Date Type Department Care Team (Late st Contact Info) Description 07/22/2023 Refill [facility] FAMILY MEDICINE [address] [place] [address] Vinnie Molina MD [address] [place] [address] Anxiety Social History Tobacco Use Types Packs/Day Years [...] as of this encounter Visit Diagnoses Diagnosis Anxiety Anxiety state, unspecified documented in this encounter Additional Health Concerns Assessment Noted Time PHQ-2 Depression Total Score: 1 01/27/20 23 9:59 AM EST documented as of this encounter Care Teams Dat Instructor Relationship Specialty Start Date End Date Vinnie Molina MD [address] [place] [address] PCP - General Family Medicine 07/08/21 documented as of this encounter
--- OUTSIDE RECORDS SUMMARY | 2024-01-20 08:10 | XMS_ITS | Encounter Summary ---
Author Organization Healthcare Address [address] [place] [address] Care Team Providers Care Print Production Coordinator Name Role Phone Vinnie Molina MD Primary Care Provider [phone] Encounter Details Date Type Department Care Team (Late st Contact Info) Description 03/30/2016 Orders Only External Location [address] [place] [address] Provider, External Social History Tobacco Use Types [...] Medical Office Building Surgical Specialties [address] [facility], [address] [place] [address] Nacho Jackson MD [address] [place] [phone] documented as of this encounter Procedures Procedure Name Priority Date/Time Associated Diagnosis Comments CT OUTSIDE IMAGES 03/30/2016 9:46 AM EST documented in this encounter Results * CT OUTSIDE IMAGES (03/30/2016 9:46 AM EST) Anatomical Region Laterality Modality Computed Tomogra phy 03/30/2016 9:46 AM EST us External Provider IMG CT PROCEDURES Final Result documented in this encounter Visit Diagnoses Not on filedocumented in this encounter Care Teams Print Production Coordinator Relationship Specialty Start Date End Date Vinnie Molina MD [address] [place] [address] PCP - General 07/13/20 documented as of this encounter
--- OUTSIDE RECORDS SUMMARY | 2024-01-20 08:10 | XMS_ITS | Encounter Summary ---
Author Organization Healthcare Address [address] [place] [address] Care Team Providers Care Senior Litigation Paralegal Name Role Phone Vinnie Molina MD Primary Care Provider Encounter Details Date Type Department Care Team (Late st Contact Info) Description 03/30/2016 Orders Only External Location [address] [place] [address] Provider, External Social History Tobacco Use Types [...] Building Surgical Specialties [address] [facility], [address] [place] [address] Nacho Jackson MD [address] [place] [phone] documented as of this encounter Procedures Procedure Name Priority Date/Time Associated Diagnosis Comments XR OUTSIDE IMAGES 03/30/2016 10:10 AM EST documented in this encounter Results * XR OUTSIDE IMAGES (03/30/2016 10:10 AM EST) Anatomical Region Laterality Modality Radiographic Mary ging 03/30/2016 10:1 0 AM EST us External Provider IMG XR PROCEDURES Final Result documented in this encounter Visit Diagnoses Not on filedocumented in this encounter Care Teams Senior Litigation Paralegal Relationship Specialty Start Date End Date Vinnie Molina MD [address] [place] [address] PCP - General 07/13/20 documented as of this encounter
--- OUTSIDE RECORDS SUMMARY | 2024-01-20 08:10 | XMS_ITS | Encounter Summary ---
Author Organization Healthcare Address [address] [place] [address] Care Team Providers Care Pc Maintenance Technician Name Role Phone Vinnie Molina MD Primary Care Provider [phone] Encounter Details Date Type Department Care Team (Late Contact Info) Description 05/26/2023 Orders Only External Location [address] [place] [address] Vee Betts, DO [address] [place] [address] Social History Tobacco Use Types Packs/Day Years [...] Upcoming Encounters Date Type Department Care Team ([facility] Contact Info) Description 02/15/2024 10:00 AM EST Consult Medical Office Building Surgical Specialties [address] [facility], [address] [place] [phone] Nacho Jackson MD [address] [phone] documented as of this encounter Procedures Procedure Name Priority Date/Time Associated Diagnosis Comments CT OUTSIDE IMAGES 05/26/2023 3:29 PM EDT documented in this encounter Results * CT OUTSIDE IMAGES (05/26/2023 3:29 PM EDT) Anatomical Region Laterality Modality Computed Tomogra phy 05/26/2023 3:29 PM EDT Vee Betts DO IMG CT PROCEDURES Final Result documented in this encounter Visit Diagnoses Not on filedocumented in this encounter Care Teams Pc Maintenance Technician Relationship Specialty Start Date End Date Vinnie Molina MD [address] [place] [address] PCP - General 07/13/20 documented as of this encounter
--- OUTSIDE RECORDS SUMMARY | 2024-01-20 08:10 | XMS_ITS | Clinical Summary ---
Author Organization [facility] Address [address] [place] [address] Care Team Providers Care Edgerman Name Role Phone Unavailable Primary Care Provider [...] Date Norman rded Speak language other than Indonesian at home Not on file 03/20/2023 Want [...] Orientation Not on file Plan of Treatment Health Maintenance Due Date Last Done Comments DXA SCAN 1942 Depression Screening (12+) 1954 Tobacco Cessation Counseling and Screening (12+) 1954 Shingles Vaccine (Zoster) (1 of 2) 1992 Medicare Initial AWV [id number] 06/01/2008 Pneumococcal 65+ years (2 of 2 - PCV) 12/04/2016 12/05/2015 Respiratory Syncytial Virus (RSV) Adult or (1 - 1-dose 75+ series) 2017 Falls Risk Screening 03/02/2023 COVID-19 VACCINE (5 - 2023-2 5 season) 2023 12/16/2021, 12/06/2020, 04/26/2020, Additional history exists Influenza Vaccine (#1) 2023 , 11/28/2019, 12/23/2018, Additional history exists DTAP/TDAP/TD VACCINES (2 - T d or Tdap) 09/27/2031 09/26/2021 Insurance MEDICARE PART A B
--- OUTSIDE RECORDS SUMMARY | 2024-01-20 08:10 | XMS_ITS | Encounter Summary ---
Author Organization Healthcare Address [facility] [place] [id number] Care Team Providers Care Almond Huller Name Role Phone Unavailable Primary Care Provider Unavailabl e Encounter Details Date Type Department Care Team (Late Contact Info) Description 01/30/2014 Legacy AEHR Vitals Encounter [facility] OUTPATIENT CONVERSIONS [address] [place] [address] ProviderSolitario MD [address] [place] [address] Social History Tobacco Use Types Packs/Day [...] - Inhaled Oxygen Concentration - - Weight 75.3 kg (166 lb 0.1 oz) 01/30/2014 3:28 P M EST Height 165.1 cm (5' 5 ) 01/30/2014 3:28 PM EST Body Mass Index 27.62 01/30/2014 3:28 PM EST documented in this encounter Plan of Treatment Upcoming Encounters Date Type Department Care Team (Late Contact Info) Description 02/15/2024 10:00 AM EST Consult Medical Office Building Surgical Specialties [address] [facility], [address] [place] [phone] Nacho Jackson MD [address] [phone] documented as of this encounter Visit Diagnoses Not on filedocumented in this encounter
--- OUTSIDE RECORDS SUMMARY | 2024-01-20 08:10 | XMS_ITS | Clinical Summary ---
Author Organization [facility] Address [address] [place] [address] Care Team Providers Care Rotogravure Press Operator Name Role Phone Vinnie Molina MD Primary Care Provider + Allergies Active Allergy Reactions Criticality Noted Date Comments Adhesive Tape Rash Low 03/22/2020 Codeine Anxiety Low 03/22/2020 Trazodone Delirium Medium 07/08/2021 Medications aspirin 81 MG EC tablet Take 1 tablet by mouth Daily. Active allopurinol (ZYLOPRIM) 100 MG tabletIndications:S tage 3b chronic kidney disease (CKD) Take 1 tablet by mouth Daily. 90 tablet 3 4 Active lisinopril-hydrochl orothiazide (PRINZIDE,ZESTORETI C) 20-12.5 MG per tabletIndications:P rimary hypertension Take 1 tablet by mouth Daily. 90 tablet 3 4 Active metoprolol succinate XL (TOPROL-XL) 50 MG 24 hr tabletIndications:P rimary hypertension Take 1 tablet by mouth 2 (Two) Times a Day. 180 tablet 3 4 Active pantoprazole (PROTONIX) 40 MG EC tabletIndications:G astroesophageal reflux disease without esophagitis Take 1 tablet by mouth Daily. 90 tablet 3 4 Active sertraline (ZOLOFT) 25 MG tabletIndications:A nxiety Take 1 tablet by mouth Daily. 90 tablet 3 4 Active levothyroxine (SYNTHROID, LEVOTHROID) 75 MCG tabletIndications:A cquired hypothyroidism Take 1 tablet by mouth Daily. 90 tablet 3 4 Active HYDROcodone-acetami nophen (NORCO) 7.5-325 MG per tabletIndications:R heumatoid arthritis involving multiple sites with positive rheumatoid factor Take 1 tablet by mouth Every 6 (Six) Hours As Needed for Moderate Pain. 120 tablet Active Hospital, Clinic, or Other Facility Administered Medication Ordered Dose Route Frequency Start Date End Date Status cyanocobalamin injection 1,000 mcgIndications:Vitamin B12 deficiency 1000 mcg IM Every 28 Days 08/19/2021 Active Active Problems Problem Noted Date Diagnosed Date CKD stage 4 secondary to hypertension 05/28/2023 Enlarged lymph node 05/28/2023 Primary hypertension 06/17/2022 Assessment & Plan (06/17/2022 3:34 PM EDT): Hypertension is controlled in office. Patient reports higher numbers at home. I suggested setting nifedipine to the side to see if this resolves her dizziness while monitoring her blood pressure. Dizziness improved she should then restart her nifedipine and monitor for return of side effects symptoms. Rheumatoid arthritis involvi ng multiple sites with positive rheumatoid factor 07/08/2021 Acquired hypothyroidism 07/08/2021 Assessment & Plan (06/17/2022 3:33 PM EDT): Surveillance TSH ordered. Continue levothyroxine at current dosing GERD without esophagitis 07/08/2021 Encounters Date Type Department Care Team Description 12/11/2023 Refill [facility] FAMILY MEDICINE [address] [place] [address] Vinnie Molina MD Rheumatoid arthritis involving multiple sites with positive rheumatoid factor 11/20/2023 Telephone [facility] FAMILY MEDICINE [address] [place] [address] Vinnie Molina MD 10/21/2023 Refill [facility] MEDICINE [address] [place] [address] Vinnie Molina MD Rheumatoid arthritis involving multiple sites with positive rheumatoid factor from Last 3 Months Immunizations Name Administration Dates Next Due Fluad Quad 65+ 12/30/2022 Fluzone High-Dose 65+YRS 12/23/2018,12/05/2015 Fluzone High-Dose 65+yrs 12/16/2021,11/28/2019 Pneumococcal Polysaccharide (PPSV23) 12/05/2015 Td, Not Adsorbed 09/26/2021 Social History Tobacco Use Types Packs/Day Years [...] 08/04/2023 1 0:09 AM EDT Respiratory Rate 20 05/28/2023 11:4 5 AM EDT Oxygen Saturation 99% 08/04/2023 10: 09 AM EDT Inhaled Oxygen Concentration - - Weight 63.4 kg (139 lb 12.8 oz) 024 10:09 AM EDT Height 162 cm (5' 3.78 ) 08/04/2023 10: 09 AM EDT Body Mass Index 24.16 08/04/2023 10:09 AM EDT Plan of Treatment Health Maintenance Due Date Last Done Comments DXA SCAN 1942 ZOSTER VACCINE (1 of 2) 1992 Pneumococcal Vaccine 65+ (2 of 2 - PCV) 12/04/2016 12/05/2015 RSV Vaccine - Adults (1 - 1- dose 75+ series) 2017 TDAP/TD VACCINES (1 - Tdap) 09/27/2021 09/26/2021 INFLUENZA VACCINE 10/01/2023 12/30/2022, , 12/16/2021, Additional history exists COVID-19 Vaccine (2023-2 5 season) 2023 12/30/2022, 12/16/2021, 12/06/2020, Additional history exists ANNUAL WELLNESS VISIT 08/03/2024 08/04/2023 Procedures Procedure Name Priority Date/Time Associated Diagnosis Comments SCANNED - IMAGING 12/30/2023 SCANNED - IMAGING 12/09/2023 SCANNED - LABS 11/22/2023 SCANNED - IMAGING 11/22/2023 SCANNED - IMAGING 11/22/2023 SCANNED - IMAGING 11/22/2023 SCANNED - IMAGING 11/22/2023 SCANNED - IMAGING 11/22/2023 SCANNED - IMAGING 11/22/2023 SCANNED - IMAGING 11/22/2023 SCANNED - IMAGING 11/22/2023 SCANNED - IMAGING 11/22/2023 SCANNED - IMAGING 11/22/2023 SCANNED - IMAGING 11/22/2023 SCANNED - IMAGING 11/22/2023 SCANNED - IMAGING 11/22/2023 SCANNED - IMAGING 11/22/2023 SCANNED - LABS 11/07/2023 SCANNED - LABS 10/30/2023 from Last 3 Months Results * IMAGING SCANNED (12/30/2023) Only the most recent of16 resultswithin the time period is included. Anatomical Region Laterality Modality Radiographic Mary ging Vinnie Molina MD IMG DIAGNOSTIC IMAGING O RDERABLES Final Result * LABS SCANNED (11/22/2023) Only the most recent of3 resultswithin the time period is included. Vinnie Molina MD LAB BLOOD ORDERABLES Fin al Result from Last 3 Months Insurance MEDICARE A & B Member Subscriber Plan / Payer (Ef fective 2007-Present) Name:Pauline a[place] Member ID:[id number] Relation to Subscriber:Self Name:Dmitriychalo Pauline Subscriber ID:[id number] Payer ID:[id number] Group ID:Not on file Type:Not on file Address: [id number] [employer] Care Teams Rotogravure Press Operator Relationship Specialty Start Date End Date Vinnie Molina MD [address] [place] [address] PCP - General Family Medicine 07/08/21
--- OUTSIDE RECORDS SUMMARY | 2024-01-20 08:10 | XMS_ITS | Encounter Summary ---
Author Organization [facility] Address [address] [place] [address] Care Team Providers Care Risk Control Officer Name Role Phone Vinnie Vincent MD Primary Care Provider + Reason for Visit * Reason Comments FU on rheumatoid arthritis pain Encounter Details Date Type Department Care Team (Late st Contact Info) Description 05/14/2023 3:30 PM EDT Office Visit [facility] FAMILY MEDICINE [address] [place] [address] Vinnie Vincent MD [address] [place] [address] Rheumatoid arthritis involving multiple sites [...] Sign Reading Time Taken Comments Blood Pressure 130/68 05/14/2023 3:28 PM EDT Pulse 58 05/14/2023 3:28 PM EDT Temperature 36.7 ??C (98 ??F) 05/14/2023 3:28 PM EDT Respiratory Rate 20 05/14/2023 3:28 PM EDT Oxygen Saturation 99% 05/14/2023 3:28 PM EDT Inhaled Oxygen Concentration - - Weight 64.3 kg (141 lb 12.8 oz) 05/14/2023 3:28 PM EDT Height 162.6 cm (5' 4.02 ) 05/14/2023 3:28 PM ED T Body Mass Index 24.33 05/14/2023 3:28 PM EDT documented in this encounter Progress Notes * Vinnie Vincent MD - 05/14/2023 3:30 PM EDTAddended by: VINNIE VINCENT on: 05/15/2023 08:11 AM Modules accepted: Level of Service * Vinnie Vincent MD - 05/14/2023 3:30 PM EDT Chief Complaint Patient presents with FU on rheumatoid arthritis pain Subjective Pauline Kay is a 82 y.o. who presents for chronic joint pain from RA for which she takes prn Model. She denies changes in condition. She has more non-RA pain Objective Vital Signs: BP 130/68 Pulse 58 Temp 98 ??F (36.7 ??C) Resp 20 Ht 162.6 cm (64.02 ) Wt 64.3 kg (141 lb12.8 oz) SpO2 99% BMI 24.33 kg/m?? Physical Exam Vitals reviewed. Cardiovascular: Rate and Rhythm: Normal rate and regular rhythm. Pulses: Normal pulses. Heart sounds: Normal heart sounds. Pulmonary: Effort: Pulmonary effort is normal. Breath sounds: Normal breath sounds. Neurological: Mental Status: She is alert. Result Review Assessment and Plan Diagnoses and all orders for this visit: 1. Rheumatoid arthritis involving multiple sites with positive rheumatoid factor Comments: Stable. Model 7.5 mg every 6 hours as needed for pain was refilled Orders: - HYDROcodone-acetaminophen (NORCO) 7.5-325 MG per tablet; Take 1 tablet by mouth Every 6 (Six) Hours As Needed for Moderate Pain. Dispense: 120 tablet; Refill: 0 Follow Up No follow-ups on file. Patient [...] documented as of this encounter Care Teams Risk Control Officer Relationship Specialty Start Date End Date Vinnie Vincent MD [address] [place] [address] PCP - General Family Medicine 07/08/21 documented as of this encounter
--- OUTSIDE RECORDS SUMMARY | 2024-01-20 08:10 | XMS_ITS | Encounter Summary ---
Author Organization [facility] Address [address] [place] [id number] Care Team Providers Care Compotype Operator Name Role Phone Vinnie Molina MD Primary Care Provider [phone] Encounter Details Date Type Department Care Team ([facility] st Contact Info) Description 11/17/2023 Telephone [facility] [address] [facility], 2nd [place] [address] Mando Avitia, DO [address] [facility] [address] [place] [address] Social History Tobacco Use Types Packs/Day Years [...] Telephone Encounter - Roula Olivera RN - 11/19/2023 4:42 PM EDT RN spoke to pt, pt stated pharmacy called and prescription is ready. Nothing further needed. * Telephone Encounter - Roula Olivera RN - 11/19/2023 1:16 PM EDT RN attempted to call pt to see if pt has been prescribed anything for an MRI before. Pt did not answer. DO will send in one time dose of valium to local pharmacy. * Telephone Encounter - Gemma Chu - 11/19/2023 9:04 AM EDT Patient needs her medication for anxiety today, her pharmacy closes at 6 and she has to leave at 7 am to get here in time. Please send to [facility] in [place]. She needs it today please! * Telephone Encounter - Prema Henderson RN - 11/17/2023 2:59 PM EDT Primary RN and Dr. Avitia notified of patient request via email. * Telephone Encounter - Prema Henderson RN - 11/17/2023 2:42 PM EDT Returned call and spoke with the patient. RN informed her the MRI scheduled for this Thursday is a closed MRI. She states she absolutely will need something for anxiety. RN explained her request for anxiety medication will be sent to Dr. Avitia's nurse and Dr. Avitia. She voiced understanding and wasappreciative for the call. * Telephone Encounter - Calvin Bah - 11/17/2023 2:27 PM EDT Patient Phone Message Reason for Call: Patient called requesting a call back from Dr. Avitia's nurse. She is wanting to know if her MRI onFriday is open or closed. If it is closed she will need something to be called in for her. Please call back to discuss. Best contact number and optimal time of day to reach caller: Pauline: [phone] Note: Please do not reply to this message. Follow-up communication and further actions as a result of this message need to be communicated with the patient directly, if the patient is not active onMyChart. If the patient is active on MyChart, they will receive notification of the communication/outcome via MyChart. documented in this encounter Plan of Treatment Upcoming Encounters Date Type Department Care Team (Late st Contact Info) Description 02/15/2024 10:00 AM EST Consult Medical Office Building Surgical Specialties [address] [facility], [address] [place] [address] Nacho Jackson MD [address] [phone] documented as of this encounter Visit Diagnoses Not on filedocumented in this encounter Additional Health Concerns Assessment Noted Time A fall risk assessment has been complete d for the patient 11/12/2023 12:42 PM EDT A Body Mass Index follow-up plan has been documented for the patient 11/18/2023 7:05 AM EDT documented as of this encounter Care Teams Compotype Operator Relationship Specialty Start Date End Date Vinnie Molina MD [address] [place] [address] PCP - General 07/13/20 documented as of this encounter
--- OUTSIDE RECORDS SUMMARY | 2024-01-20 08:10 | XMS_ITS | Encounter Summary ---
Author Organization Healthcare Address [address] [place] [address] Care Team Providers Care Media Professional Name Role Phone Vinnie Molina MD Primary Care Provider [phone] Encounter Details Date Type Department Care Team (Late Contact Info) Description 05/26/2023 Orders Only External Location [address] [place] [address] Vee Betts, DO [address] [place] [address] Social History Tobacco Use Types [...] Upcoming Encounters Date Type Department Care Team ([facility] Contact Info) Description 02/15/2024 10:00 AM EST Consult Medical Office Building Surgical Specialties [address] [facility], [address] [place] [address] Nacho Jackson MD [address] [phone] documented as of this encounter Procedures Procedure Name Priority Date/Time Associated Diagnosis Comments CT OUTSIDE IMAGES 05/26/2023 3:27 PM EDT documented in this encounter Results * CT OUTSIDE IMAGES (05/26/2023 3:27 PM EDT) Anatomical Region Laterality Modality Computed Tomogra phy 05/26/2023 3:27 PM EDT Vee Betts DO IMG CT PROCEDURES Final Result documented in this encounter Visit Diagnoses Not on filedocumented in this encounter Care Teams Media Professional Relationship Specialty Start Date End Date Vinnie Molina MD [address] [place] [address] PCP - General 07/13/20 documented as of this encounter
--- OUTSIDE RECORDS SUMMARY | 2024-01-20 08:10 | XMS_ITS | Encounter Summary ---
Author Organization [employer] Address [address] [place] [address] Care Team Providers Care Field Tax Auditor Name Role Phone Unavailable Primary Care Provider Unavailabl e Encounter Details Date Type Department Care Team (Late st Contact Info) Description 10/29/2018 Historic Encounter [facility] Radiology [address] [place] [address] Margo Horton MD [address] [place] [address] Social History Tobacco Use Types Packs/Day Years [...] DIGITAL MAMMO SCREEN WITH RIYA BILATERAL Routine 10/29/2018 12:04 PM EDT documented in this encounter Results * MM digital mammo screen with riya bilateral (10/29/2018 12:04 PM EDT) Anatomical Region Laterality Modality Breast Bilateral Mammography 10/29/2018 12:0 4 PM EDT Narrative 10/31/2018 12:51 AM EDT PROCEDURE: Digital screening mammogram with tomosynthesis. REASON FOR EXAM: Routine screening. FAMILY HISTORY: ??Weak family history of breast cancer. COMPARISON STUDY: [facility] [phone]. FINDINGS: Craniocaudal and mediolateral oblique images of both breasts were obtained in 2D, C-view, and 3D modes. The breast tissue has pattern b (scattered fibroglandular densities). There has been no significant change. An architectural distortion from previous excisional biopsy is present at 11:00 position in the right breast. Bilateral punctate and coarse calcifications are noted. There is no evidence of a mass [...] the next mammogram. At our facility, a [place]uzink[place] marker is positioned over a visible skin lesion and a linear marker is used to indicate a scar. A triangular marker is placed on a self reported palpable finding. ?? Procedure Note Margo Horton MD - 06/17/2022 PROCEDURE: Digital screening mammogram with tomosynthesis. REASON FOR EXAM: Routine screening. FAMILY HISTORY: Weak family history of breast cancer. COMPARISON STUDY: [facility] [phone]. FINDINGS: Craniocaudal and mediolateral oblique images of both breasts were obtained in 2D, C-view, and 3D modes. The breast tissue has pattern b (scattered fibroglandular densities). There has been no significant change. An architectural distortion from previous excisional biopsy is present at 11:00 position in the right breast. Bilateral punctate and coarse calcifications are noted. There is no evidence of a mass [...] the next mammogram. At our facility, a [place] marker is positioned over a visible skin lesion and a linear marker is used to indicate a scar. A triangular marker is placed on a self reported palpable finding. us Margo Horton MD IMG MAMMOGRAPHY ORDERABLES Fin al Result documented in this encounter Visit Diagnoses Not on filedocumented in this encounter
--- OUTSIDE RECORDS SUMMARY | 2024-01-20 08:10 | XMS_ITS | Encounter Summary ---
Author Organization [facility] Address [facility] [place] [address] Care Team Providers Care Refrigeration Technician Name Role Phone Vinnie Molina MD Primary Care Provider [phone] Reason for Visit * Reason Comments Distress Screen Follow-up Encounter Details Date Type Department Care Team ([facility] st Contact Info) Description 11/12/2023 Social Work Pav [facility] Head, Neck & Respiratory [address] [facility], [address]nd [place] [address] Roxanna Rosales [facility] [address] [place] [address] Social History Tobacco Use Types Packs/Day Years [...] as of this encounter Miscellaneous Notes * Clinician Note - Roxanna Rosales, EMPLOYMENT LAW SPECIALIST - 11/12/2023 11:59 PM EDT Encounter Type: Distress Follow Up - In Person Disease Status: Initial Psych Onc Contact Clinic Location: [facility] [place] Disease Type: Lung & Bronchus Services Provided: Financial Toxicity, Resource Navigation [facility] Referrals: Financial Navigator Intervention Level: 3 Units (1 unit = 15 minutes): 1 Narrative: SW met with pt and her daughter in the exam room in regards to today's distress screen score. Pt reported concern over cost of care and inquired about any assistance available. SW providedher with information regarding the Financial Assistance Program and offered to refer her to be sc reened. Pt agreeable to this plan. SW provided her with contact information and encouraged her to reach out should any further needs arise. Referral sent to [facility] Financial Navigator for FAP screening. TOAN Mcarthur, EMPLOYMENT LAW SPECIALIST [facility] Psych-Oncology Services documented in this encounter Plan of Treatment Upcoming Encounters Date Type Department Care Team (Late st Contact Info) Description 02/15/2024 10:00 AM EST Consult Medical Office Building Surgical Specialties [address] [facility], [address] [place] [phone] Nacho Jackson MD [address] [address] documented as of this encounter Visit Diagnoses Not on filedocumented in this encounter Additional Health Concerns Assessment Noted Time A fall risk assessment has been complete d for the patient 11/12/2023 12:42 PM EDT A Body Mass Index follow-up plan has been documented for the patient 11/18/2023 7:05 AM EDT documented as of this encounter Care Teams Refrigeration Technician Relationship Specialty Start Date End Date Vinnie Molina MD [address] [place] [address] PCP - General 07/13/20 documented as of this encounter
--- OUTSIDE RECORDS SUMMARY | 2024-01-20 08:10 | XMS_ITS | Encounter Summary ---
Author Organization [facility] Address [address] [place] [address] Care Team Providers Care Typer Name Role Phone Vinnie Molina MD Primary Care Provider + Reason for Visit * Reason Onset Date Comments Med Refill 07/29/2023 Encounter Details Date Type Department Care Team (Late st Contact Info) Description 07/29/2023 Refill [facility] FAMILY MEDICINE [address] [place] [address] Vinnie Molina MD [address] [place] [address] Rheumatoid arthritis involving multiple sites [...] encounter Miscellaneous Notes * Telephone Encounter - Mitzy Meza RegSched Rep - 07/29/2023 8:42 AM EDT Caller: Pauline Kay Relationship: Self Best call back number: [phone] Requested Prescriptions: Requested Prescriptions Pending Prescriptions Disp Refills HYDROcodone-acetaminophen (NORCO) 7.5-325 MG per tablet 120 tablet 0 Sig: Take 1 tablet by mouth Every 6 (Six) Hours As Needed for Moderate Pain. Pharmacy where request should be sent: [id number] - [address] - [phone] - [phone] FX Last office visit with prescribing clinician: 05/28/2023 Last telemedicine visit with prescribing clinician: Visit date not found Next office visit with prescribing clinician: 08/04/2023 Additional details provided by patient: PLEASE CALL IN Does the patient have less than a 3 day supply: [] Yes [x] No Would you like a call back once the refill request has been completed: [] Yes [x] No If the office needs to give you a call back, can they leave a voicemail: [] Yes [x] No German Hinds 07/29/23 08:42 EDT documented in this encounter Plan of Treatment Not on file documented as of this encounter Visit Diagnoses Diagnosis Rheumatoid arthritis involving multiple sites with positive rheumatoid factor documented in this encounter Additional Health Concerns Assessment Noted Time PHQ-2 Depression Total Score: 1 01/27/20 23 9:59 AM EST documented as of this encounter Care Teams Typer Relationship Specialty Start Date End Date Vinnie Molina MD [address] [facility] [place] [address] PCP - General Family Medicine 07/08/21 documented as of this encounter
--- OUTSIDE RECORDS SUMMARY | 2024-01-20 08:10 | XMS_ITS | Encounter Summary ---
Author Organization [facility] Address [address] [place] [address] Care Team Providers Care Geothermal Electrical Engineer Name Role Phone Vinnie Molina MD Primary Care Provider + Reason for Visit * Reason Onset Date Comments CT SCAN 07/29/2023 Encounter Details Date Type Department Care Team (Late st Contact Info) Description 07/29/2023 Telephone [facility] FAMILY MEDICINE [address] [place] [address] Vinnie Molina MD [address] [place] [address] CT SCAN Social History Tobacco Use Types Packs/Day Years [...] encounter Miscellaneous Notes * Telephone Encounter - Laisha Myers RegSched Rep - 07/29/2023 10:16 AM EDT PATIENT IS SCHEDULED AUGUST 12 @ 10:15AM * Telephone Encounter - Mitzy Meza RegSched Rep - 07/29/2023 8:40 AM EDT Caller: Pauline Kay Relationship: Self Best call back number: [phone] What was the call regarding: NEEDS TO GET THE CT SCAN SCHEDULED FOR [facility]. WAS ORDERED IN APRIL BUT NEVER GOT IT DONE. PLEASE SCHEDULE AND CALL PATIENT TO DISCUSS. documented in this encounter Plan of Treatment Not on file documented as of this encounter Visit Diagnoses Not on filedocumented in this encounter Additional Health Concerns Assessment Noted Time PHQ-2 Depression Total Score: 1 01/27/20 23 9:59 AM EST documented as of this encounter Care Teams Geothermal Electrical Engineer Relationship Specialty Start Date End Date Vinnie Molina MD [facility] [place] [place] [address] PCP - General Family Medicine 07/08/21 documented as of this encounter
--- OUTSIDE RECORDS SUMMARY | 2024-01-20 08:10 | XMS_ITS | Encounter Summary ---
Author Organization [facility] Address [address] [place] [address] Care Team Providers Care Ultrasonic Solderer Name Role Phone Vinnie Molina MD Primary Care Provider + Encounter Details Date Type Department Care Team (Late st Contact Info) Description 11/20/2023 Telephone [facility] FAMILY MEDICINE [address] [place] [address] Vinnie Molina MD [address] [place] [address] Social History Tobacco Use Types Packs/Day Years [...] encounter Miscellaneous Notes * Telephone Encounter - Maria L Hi RegSched Rep - 11/20/2023 11:36 AM EDT RAFAEL FROM RADIOLOGY WANTS TO SPEAK WITH PCP REGARDING PATIENT VITALS, STATES THAT EVER TIME THEY TAKE HER BP IT SEEMS TO BE HIGH AND JUST WANTED TO DISCUS IF THIS IS SOMETHING NORMAL FOR THIS PATIENT OR IF MAYBE THE PROVIDER WANTS TO SEE HER TO DISCUSS THIS FURTHER WITH HER PLEASE ADVISE documented in this encounter Plan of Treatment Not on file documented as of this encounter Visit Diagnoses Not on filedocumented in this encounter Additional Health Concerns Assessment Noted Time PHQ-2 Depression Total Score: 4 08/04/19 24 10:13 AM EDT documented as of this encounter Care Teams Ultrasonic Solderer Relationship Specialty Start Date End Date Vinnie Molina MD [facility] [place] [address] PCP - General Family Medicine 07/08/21 documented as of this encounter
--- OUTSIDE RECORDS SUMMARY | 2024-01-20 08:10 | XMS_ITS | Encounter Summary ---
Author Organization Healthcare Address [address] [place] [address] Care Team Providers Care Education Liaison Name Role Phone Unavailable Primary Care Provider Unavailabl e Encounter Details Date Type Department Care Team (Late Contact Info) Description 08/11/2012 [facility] Vitals Encounter [facility] OUTPATIENT CONVERSIONS [address] [place] [address] ProviderSolitario MD [address] [place] [address] Social History Tobacco Use Types Packs/Day [...] - Inhaled Oxygen Concentration - - Weight 76.7 kg (169 lb 0.1 oz) 08/11/2012 4:41 P M EDT Height - - Body Mass Index - - documented in this encounter Plan of Treatment Upcoming Encounters Date Type Department Care Team (Late Contact Info) Description 02/15/2024 10:00 AM EST Consult Medical Office Building Surgical Specialties [address] [facility], [address] [place] [address] Nacho Jackson MD [address] [phone] documented as of this encounter Visit Diagnoses Not on filedocumented in this encounter
--- OUTSIDE RECORDS SUMMARY | 2024-01-20 08:11 | XMS_ITS | Encounter Summary ---
Author Organization [facility] Address [address] [place] [id number] Care Team Providers Care Buff Wheel Fabricator Name Role Phone Vinnie Molina MD Primary Care Provider + Encounter Details Date Type Department Care Team (Late st Contact Info) Description 07/26/[address] [facility] FAMILY MEDICINE [address] [place] [address] Vinnie Molina MD [address] [place] [address] Social History Tobacco Use Types Packs/Day Years Used Date Smoking Tobacco: Never Smokeless Tobacco: Never PHQ-2 Answer Date Recorded Retired PHQ-9: Brief Depression Severity Measure Score 10 07/08/2021 Comments Unknown Sex and Gender Information Value [...] Assessment Noted Time PHQ-2 Depression Total Score: 2 07/09/19 22 11:52 AM EDT documented as of this encounter Care Teams Buff Wheel Fabricator Relationship Specialty Start Date End Date Vinnie Molina MD [address] [place] [address] PCP - General Family Medicine 07/08/21 documented as of this encounter
--- OUTSIDE RECORDS SUMMARY | 2024-01-20 08:11 | XMS_ITS | Encounter Summary ---
Author Organization [facility] Address [address] [place] [address] Care Team Providers Care Tracer Bullet Section Supervisor Name Role Phone Vinnie Molina MD Primary Care Provider + Reason for Visit * Reason Comments Follow-up Hypertension Seeing Nephro and th ey have been making med changes Encounter Details Date Type Department Care Team (Late st Contact Info) Description 01/06/2022 11:45 AM EST Office Visit [facility] FAMILY MEDICINE [address] [place] [address] Vinnie Molina MD [address] [place] [address] Rheumatoid arthritis involving multiple sites with positive rheumatoid factor (Primary Dx); Chronic pain syndrome; Anxiety; Caregiver with fatigue Social History Tobacco Use Types Packs/Day Years Used Date Smoking Tobacco: Never Smokeless Tobacco: Never PHQ-2 Answer Date Recorded Retired PHQ-9: Brief Depression Severity Measure Score 1 01/06/2022 Comments Unknown Sex and Gender Information Value Date Recorded Sex Assigned at Not on file Legal Sex Female 12:16 PM EDT Gender Identity Not on file Sexual Orientation Not on file documented as of this encounter Last Filed Vital Signs Vital Sign Reading Time Taken Comments Blood Pressure 140/70 01/06/2022 11:37 AM EST Pulse 70 01/06/2022 11:37 AM EST Temperature 36.4 ??C (97.5 ??F) 01/06/2022 11:[address] Respiratory Rate 20 01/06/2022 11:37 AM EST Oxygen Saturation 98% 01/06/2022 11:37 AM EST Inhaled Oxygen Concentration - - Weight 72.2 kg (159 lb 3.2 oz) 01/06/2022 11:37 AM EST Height 162.6 cm (5' 4.02 ) 01/06/2022 11:37 AM E Body Mass Index 27.31 01/06/2022 11:37 AM EST documented in this encounter Progress Notes * Vinnie Molina MD - 01/06/2022 11:45 AM EST Chief Complaint Patient presents with ??? Follow-up ??? Hypertension Seeing Nephro and they have been making med changes Subjective Pauline Kay is a 81 y.o. 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 RA. Stable and hydrocodone controls patient's pain. She denies adverse side effects from the pain medication such as sedation, impaired balance, falls. Anxiety. Earlier in the year patient had tried Prozac which she took for 3 to 4 days and discontinued because of adverse effects of skin crawling. She has also used hydroxyzine but it causes extreme drowsiness. Her 's dementia is advancing. Currently he has his nights and days mixed up and has difficulty performing tasks such as dressing himself. The following portions of the patient's history were reviewed and updated as appropriate: allergies, current medications, past family history, past medical history, past social history, past surgicalhistory and problem list. Review of Systems Objective Vital Signs: BP 140/70 Pulse 70 Temp 97.5 ??F (36.4 ??C) Resp 20 Ht 162.6 cm (64.02 ) Wt 72.2 kg (159 lb 3.2 oz) SpO2 98% BMI 27.31 kg/m?? Physical Exam Result Review Assessment and Plan Diagnoses and all orders for this visit: 1. Rheumatoid arthritis involving multiple sites with positive rheumatoid factor (HCC) (Primary) Comments: Stable. [place] 7.5 mg every 6 hours as needed for pain was refilled Orders: - HYDROcodone-acetaminophen (NORCO) 7.5-325 MG per tablet; Take 1 tablet by mouth Every 6 (Six) Hours As Needed for Moderate Pain. Dispense: 120 tablet; Refill: 0 2. Chronic pain syndrome 3. Anxiety Comments: Start sertraline 25 mg at bedtime. Orders: - sertraline (Zoloft) 25 MG tablet; Take 1 tablet by mouth Daily. Dispense: 30 tablet; Refill: 2 4. Caregiver with fatigue Comments: Discussed plan for patient and her . She recognizes he will require placement in the future Follow Up Return in about 6 months (around 07/06/2022) for Medicare Wellness, Annual. Patient was given instructions and counseling regarding her condition or for health maintenance advice. Please see specific information pulled into the AVS if appropriate. documented in this encounter Plan of Treatment Not on file documented as of this encounter Visit Diagnoses Diagnosis Rheumatoid arthritis involving multiple sites with positive rheumatoid factor- Primary Chronic pain syndrome Anxiety Anxiety state, unspecified Caregiver with fatigue documented in this encounter Additional Health Concerns Assessment Noted Time PHQ-2 Depression Total Score: 1 01/07/20 22 11:40 AM EST documented as of this encounter Care Teams Tracer Bullet Section Supervisor Relationship Specialty Start Date End Date Vinnie Molina MD [address] [place] [address] PCP - General Family Medicine 07/08/21 documented as of this encounter
--- OUTSIDE RECORDS SUMMARY | 2024-01-20 08:11 | XMS_ITS | Encounter Summary ---
Author Organization [facility] Address [address] [place] [address] Care Team Providers Care Optometric Aide Name Role Phone Vinnie Vincent MD Primary Care Provider + Reason for Visit * Reason Onset Date Comments Med Refill 06/20/2022 Encounter Details Date Type Department Care Team (Late st Contact Info) Description 06/20/2022 Refill [facility] FAMILY MEDICINE [address] [place] [address] Vinnie Vincent MD [address] [place] [address] Rheumatoid arthritis involving multiple sites [...] Notes * Telephone Encounter - Maria L ArdonGerman Rep - 06/20/2022 3:27 PM EDT Caller: Pauline Kay Relationship: Self Best call back number: [phone] Requested Prescriptions: Requested Prescriptions Pending Prescriptions Disp Refills ??? HYDROcodone-acetaminophen (NORCO) 7.5-325 MG per tablet 120 tablet 0 Sig: Take 1 tablet by mouth Every 6 (Six) Hours As Needed for Moderate Pain. Pharmacy where request should be sent: [id number] - [place] - [address] AT [facility] [address] [address] - [phone] - [phone] FX Last office visit with prescribing clinician: 06/17/2022 Last telemedicine visit with prescribing clinician: Visit date not found Next office visit with prescribing clinician: Visit date not found Additional details provided by patient: PATIENT WAS SEEN ON 06/17/[address] VINCENT WAS SUPPOSED TO CALL THIS IN. PATIENTS PHARMACY HAS YET TO RECEIVE THE REQUEST. PATIENT HAS 3 DAYS REMAINING. PLEASE ADVISE Does the patient have less than a 3 day supply: [x] Yes [] No Would you like a call back once the refill request has been completed: [x] Yes [] No If the office needs to give you a call back, can they leave a voicemail: [x] Yes [] No German Richardson 06/20/22 15:27 EDT documented in this encounter Plan of Treatment Not on file documented as of this encounter Visit Diagnoses Diagnosis Rheumatoid arthritis involving multiple sites with positive rheumatoid factor documented in this encounter Additional Health Concerns Assessment Noted Time PHQ-2 Depression Total Score: 1 01/07/20 22 11:40 AM EST documented as of this encounter Care Teams Optometric Aide Relationship Specialty Start Date End Date Vinnie Vincent MD [facility] [place] [address] PCP - General Family Medicine 07/08/21 documented as of this encounter
--- OUTSIDE RECORDS SUMMARY | 2024-01-20 08:11 | XMS_ITS | Encounter Summary ---
Author Organization [facility] Address [address] [place] [address] Care Team Providers Care Transitions Rn Care Coordinator Name Role Phone Vinnie Molina MD Primary Care Provider + Reason for Visit * Reason Comments Med Refill Encounter Details Date Type Department Care Team (Late st Contact Info) Description 01/05/2023 Refill [facility] FAMILY MEDICINE [address] [place] [address] Vinnie Molina MD [address] [place] [address] Anxiety Social History Tobacco Use Types Packs/Day Years Used Date Smoking Tobacco: Never Smokeless Tobacco: Never PHQ-2 Answer Date Recorded Retired PHQ-9: Brief Depression Severity Measure Score 1 01/06/2022 Abuse Screen Answer Date Recorded Unsafe at [...] file Preferred Language Not on file 12/08/2022 Comments Unknown Sex and Gender Information Value [...] documented as of this encounter Care Teams Transitions Rn Care Coordinator Relationship Specialty Start Date End Date Vinnie Molina MD [address] [place] [address] PCP - General Family Medicine 07/08/21 documented as of this encounter
--- OUTSIDE RECORDS SUMMARY | 2024-01-20 08:11 | XMS_ITS | Encounter Summary ---
Author Organization [facility] Address [address] [place] [address] Care Team Providers Care Batch Heat Treat Operator Name Role Phone Vinnie Molina MD Primary Care Provider + Reason for Visit * Reason Comments Med Refill Encounter Details Date Type Department Care Team (Late st Contact Info) Description 01/15/2023 Refill [facility] FAMILY MEDICINE [address] [place] [address] Vinnie Molina MD [address] [place] [address] Social History Tobacco Use Types [...] encounter Miscellaneous Notes * Telephone Encounter - Irma Morales RegSched Rep - 01/19/2023 4:19 PM EST SCHEDULED documented in this encounter Plan of Treatment Not on file documented as of this encounter Visit Diagnoses Not on filedocumented in this encounter Additional Health Concerns Assessment Noted Time PHQ-2 Depression Total Score: 1 01/07/20 11:40 AM EST documented as of this encounter Care Teams Batch Heat Treat Operator Relationship Specialty Start Date End Date Vinnie Molina MD [address] [place] [address] PCP - General Family Medicine 07/08/21 documented as of this encounter
--- OUTSIDE RECORDS SUMMARY | 2024-01-20 08:11 | XMS_ITS | Encounter Summary ---
Author Organization [facility] Address [address] [place] [address] Care Team Providers Care Biofuels Production Technician Name Role Phone Vinnie Molina MD Primary Care Provider + Reason for Visit * Reason Onset Date Comments Med Refill 04/03/2022 Encounter Details Date Type Department Care Team (Late st Contact Info) Description 04/03/2022 Refill [facility] [address] [place] [address] Vinnie Molina MD [address] [place] [address] Rheumatoid arthritis involving multiple sites [...] encounter Miscellaneous Notes * Telephone Encounter - Misti Cordoba MA - 04/03/2022 2:49 PM EST Rx Refill Note Requested Prescriptions Pending Prescriptions Disp Refills ??? HYDROcodone-acetaminophen (NORCO) 7.5-325 MG per tablet 120 tablet 0 Sig: Take 1 tablet by mouth Every 6 (Six) Hours As Needed for Moderate Pain. Last office visit with prescribing clinician: 01/06/2022 Last telemedicine visit with prescribing clinician: Visit date not found Next office visit with prescribing clinician: Visit date not found Would you like a call back once the refill request has been completed: [] Yes [] No If the office needs to give you a call back, can they leave a voicemail: [] Yes [] No Misti Cordoba MA 04/03/22, 14:49 EST * Telephone Encounter - Mitzy Meza RegSched Rep - 04/03/2022 2:41 PM EST Caller: Pauline Kay Relationship: Self Best call back number:[phone] Requested Prescriptions: Requested Prescriptions Pending Prescriptions Disp Refills ??? HYDROcodone-acetaminophen (NORCO) 7.5-325 MG per tablet 120 tablet 0 Sig: Take 1 tablet by mouth Every 6 (Six) Hours As Needed for Moderate Pain. Pharmacy where request should be sent: [id number] - [place], [place] - [address] [place] [address] [facility] - [phone] [facility] [phone] Additional details provided by patient: HAS 3 DAYS LEFT Does the patient have less than a 3 day supply: [] Yes [x] No Would you like a call back once the refill request has been completed: [] Yes [x] No If the office needs to give you a call back, can they leave a voicemail: [] Yes [x] No German Hinds 04/03/22 14:42 EST documented in this encounter Plan of Treatment Not on file documented as of this encounter Visit Diagnoses Diagnosis Rheumatoid arthritis involving multiple sites with positive rheumatoid factor documented in this encounter Additional Health Concerns Assessment Noted Time PHQ-2 Depression Total Score: 1 01/07/20 22 11:40 AM EST documented as of this encounter Care Teams Biofuels Production Technician Relationship Specialty Start Date End Date Vinnie Molina MD [address] [place] [id number] PCP - General Family Medicine 07/08/21 documented as of this encounter
--- OUTSIDE RECORDS SUMMARY | 2024-01-20 08:11 | XMS_ITS | Encounter Summary ---
Author Organization [facility] Address [address] [place] [address] Care Team Providers Care Director Of Special Services Name Role Phone Vinnie Molina MD Primary Care Provider + Reason for Visit * Reason Comments Follow-up chronic pain syndrome Hypertension Chronic Kidney Disease Rheumatoid Arthritis Encounter Details Date Type Department Care Team (Late st Contact Info) Description 01/26/2023 10:00 AM EST Office Visit [facility]INE [address] [place] [address] Vinnie Molina MD [address] [place] [address] Rheumatoid arthritis involving multiple sites with positive rheumatoid factor (Primary Dx); Encounter for long-term use of opiate analgesic; Primary hypertension; Stage 3b chronic kidney disease (CKD); Acquired hypothyroidism; Anxiety; Gastroesophageal reflux disease without esophagitis Social History Tobacco Use Types Packs/Day Years [...] Reading Time Taken Comments Blood Pressure 140/70 01/26/2023 9:56 AM EST Pulse 67 01/26/2023 9:56 AM EST Temperature 36.3 ??C (97.3 ??F) 01/26/2023 9:56 AM ES T Respiratory Rate 20 01/26/2023 9:56 AM EST Oxygen Saturation 97% 01/26/2023 9:56 AM EST Inhaled Oxygen Concentration - - Weight 66 kg (145 lb 6.4 oz) 01/26/2023 9:56 AM EST Height 162.6 cm (5' 4.02 ) 01/26/2023 9:56 AM ES T Body Mass Index 24.95 01/26/2023 9:56 AM EST documented in this encounter Progress Notes * Vinnie Molina MD - 01/26/2023 10:00 AM EST Chief Complaint Patient presents with Follow-up chronic pain syndrome Hypertension Chronic Kidney Disease Rheumatoid Arthritis Subjective Pauline Kay is a 82 y.o. who presents for hypertension, rheumatoid arthritis, hypothyroidism. She reports her physical health is stable. She does not check her blood pressure. She is in need of repeat TSH. RA related pain remains stable. She continues to use [place] 7.5 mg twice daily her current biggest stressor is her 's declining health with advancing dementia. The following portions of the patient's history were reviewed and updated as appropriate: allergies, current medications, past family history, past medical history, past social history, past surgicalhistory, and problem list. Review of Systems Objective Vital Signs: BP 140/70 Pulse 67 Temp 97.3 ??F (36.3 ??C) Resp 20 Ht 162.6 cm (64.02 ) Wt 66 kg (145 lb6.4 oz) SpO2 97% BMI 24.95 kg/m?? BMI is within normal parameters. No other follow-up for BMI required. Physical Exam Vitals reviewed. Constitutional: Appearance: Normal appearance. Cardiovascular: Rate and Rhythm: Normal rate and regular rhythm. Pulses: Normal pulses. Heart sounds: Normal heart sounds. Pulmonary: Effort: Pulmonary effort is normal. Breath sounds: Normal breath sounds. Musculoskeletal: Right lower leg: Edema present. Left lower leg: Edema present. Neurological: Mental Status: She is alert. Result Review Assessment and Plan Diagnoses and all orders for this visit: 1. Rheumatoid arthritis involving multiple sites with positive rheumatoid factor (Primary) Comments: Stable. [place] 7.5 mg every 6 hours as needed for pain was refilled Orders: - HYDROcodone-acetaminophen (NORCO) 7.5-325 MG per tablet; Take 1 tablet by mouth Every 6 (Six) Hours As Needed for Moderate Pain. Dispense: 120 tablet; Refill: 0 2. Encounter for long-term use of opiate analgesic - Compliance Drug Analysis, Ur - Urine, Clean Catch 3. Primary hypertension Comments: Improved with treatment. Continue current care. Reassess in 6 months Orders: - lisinopril-hydrochlorothiazide (PRINZIDE,ZESTORETIC) 20-12.5 MG per tablet; Take 1 tablet by mouth Daily. Dispense: 90 tablet; Refill: 1 - metoprolol succinate XL (TOPROL-XL) 50 MG 24 hr tablet; Take 1 tablet by mouth 2 (Two) Times a Day. Dispense: 180 tablet; Refill: 3 4. Stage 3b chronic kidney disease (CKD) Comments: CKD prevents use of NSAIDs Orders: - allopurinol (ZYLOPRIM) 100 MG tablet; Take 1 tablet by mouth Daily. Dispense: 90 tablet; Refill: 1 5. Acquired hypothyroidism Comments: Require surveillance. TSH ordered Orders: - levothyroxine (SYNTHROID, LEVOTHROID) 75 MCG tablet; Take 1 tablet by mouth Daily. Dispense: 90 tablet; Refill: 1 - TSH Rfx On Abnormal To Free T4 6. Anxiety Comments: Start sertraline 25 mg at bedtime. Orders: - sertraline (ZOLOFT) 25 MG tablet; Take 1 tablet by mouth Daily. Dispense: 90 tablet; Refill: 1 7. Gastroesophageal reflux disease without esophagitis Comments: Stable. Refilled PPI Orders: - pantoprazole (PROTONIX) 40 MG EC tablet; Take 1 tablet by mouth Daily. Dispense: 90 tablet; Refill: 1 Follow Up Return in about 6 months (around 07/27/2023) for Medicare Wellness. Patient was given instructions and counseling regarding her condition or for health maintenance advice. Please see specific information pulled into the AVS if appropriate. documented in this encounter Plan of Treatment Not on file documented as of this encounter Procedures Procedure Name Priority Date/Time Associated Diagnosis Comments COMPLIANCE DRUG ANALYSIS, UR Routine 01/26/2023 10:34 AM EST Encounter for long-term use of opiate analgesic TSH RFX ON ABNORMAL TO FREE T4 Routine 01/26/2023 10:33 AM EST Acquired hypothyroidism documented in this encounter Results * Compliance Drug Analysis, Ur - Urine, Clean Catch (01/26/2023 10:34 AM EST) Report Summary FINAL [facility] Comment: [facility] COMP DRUG ANALYSIS,UR Test ? Result ? Flag ? Units Drug Present ??Hydrocodone ?600 ? ng/mg creat ??Hydromorphone ?83 ?ng/mg creat ??Dihydrocodeine ? 111 ? ng/mg creat ??Norhydrocodone ? 2334 ?ng/mg creat ?? Sources of hydrocodone include scheduled prescription ?? medications. Hydromorphone, dihydrocodeine and norhydrocodone are ?? expected metabolites of hydrocodone. Hydromorphone and ?? dihydrocodeine are also available as scheduled prescription ?? medications. ??Sertraline ? PRESENT ??Desmethylsertraline ?PRESENT ?? Desmethylsertraline is an expected metabolite of sertraline. ??Acetaminophen ?PRESENT ??Diphenhydramine ?PRESENT ??Metoprolol ? PRESENT Test ?Result ?Flag ?? Units ?Ref Range ??Creatinine ?98 ? mg/dL ?>=20 Declared Medications: Medication list was not provided. For clinical consultation, please call . Urine Urine specimen obtained by clean catch procedure / Unknown 01/26/2023 10:34 AM EST 01/27/[address] [facility] (AMBULATORY) - 01/29/2023 8:08 PM EST Performed at: ??01 - [employer] [address] [place] [address] ??[id number] Pigment Weigher: Rosie Harris, Phone: ??[phone] Patient Fasting: ??N us Vinnie Molina MD URINE ORDERABLES Final R esult Performing Organization Address [facility]/State/[facility] Co de Phone Number [facility] (AMBULATORY) [address] [place] [address], [facility] [address] [place] [address], * TSH Rfx On Abnormal To Free T4 (01/26/2023 10:33 AM EST) TSH 2.610 0.270 - 4.200 uIU/mL [facility] Blood 01/26/2023 10:3 3 AM EST 01/26/[address] [facility] (AMBULATORY) - 01/26/2023 8:07 PM EST Performed at: ??01 - [address] ??[id number] Pigment Weigher: Maxim Hirsch MD, Phone: ??[phone] Patient Fasting: ??N us Vinnie Molina MD LAB BLOOD ORDERABLES Fin al Result [facility] (AMBULATORY) [address] [place] [address], [facility] [address] [place] [address], documented in this encounter Visit Diagnoses Diagnosis Rheumatoid arthritis involving multiple sites with positive rheumatoid factor- Primary Encounter for long-term use of opiate analgesic Encounter for long-term (current) use of other medications Primary hypertension Unspecified essential hypertension Stage 3b chronic kidney disease (CKD) Acquired hypothyroidism Unspecified hypothyroidism Anxiety Anxiety state, unspecified Gastroesophageal reflux disease without esophagitis Esophageal reflux documented in this encounter Additional Health Concerns Assessment Noted Time PHQ-2 Depression Total Score: 1 01/27/20 23 9:59 AM EST documented as of this encounter Care Teams Director Of Special Services Relationship Specialty Start Date End Date Vinnie Molina MD [address] [place] [address] PCP - General Family Medicine 07/08/21 documented as of this encounter
--- OUTSIDE RECORDS SUMMARY | 2024-01-20 08:11 | XMS_ITS | Encounter Summary ---
Author Organization [facility] Address [address] [place] [address] Care Team Providers Care Spar Machine Operator Name Role Phone Vinnie Molina MD Primary Care Provider + Reason for Visit * Reason Onset Date Comments Med Refill 09/08/2022 Encounter Details Date Type Department Care Team (Late st Contact Info) Description 09/08/2022 Refill [facility] [address] [place] [address] Vinnie Molina MD [address] [place] [address] Rheumatoid arthritis involving multiple [...] encounter Miscellaneous Notes * Telephone Encounter - Rajan Lee RegSched Rep - 09/08/2022 11:23 AM EDT Caller: Pauline Kay Relationship: Self Best call back number: [phone] Requested Prescriptions: Requested Prescriptions Pending Prescriptions Disp Refills HYDROcodone-acetaminophen (NORCO) 7.5-325 MG per tablet 120 tablet 0 Sig: Take 1 tablet by mouth Every 6 (Six) Hours As Needed for Moderate Pain. Pharmacy where request should be sent: [id number] - [place], [place] - [address] AT [facility] [place] [address] [address] - [phone] - [phone] [employer] Last office visit with prescribing clinician: 06/17/2022 Last telemedicine visit with prescribing clinician: Visit date not found Next office visit with prescribing clinician: Visit date not found Additional details provided by patient: PATIENT STATES SHE HAS 4 PILLS LEFT Does the patient have less than a 3 day supply: [x] Yes [] No Would you like a call back once the refill request has been completed: [] Yes [x] No If the office needs to give you a call back, can they leave a voicemail: [] Yes [x] No German Funes 09/08/22 11:24 EDT documented in this encounter Plan of Treatment Not on file documented as of this encounter Visit Diagnoses Diagnosis Rheumatoid arthritis involving multiple sites with positive rheumatoid factor documented in this encounter Additional Health Concerns Assessment Noted Time PHQ-2 Depression Total Score: 1 01/07/20 22 11:40 AM EST documented as of this encounter Care Teams Spar Machine Operator Relationship Specialty Start Date End Date Vinnie Molina MD [address] [place] [address] PCP - General Family Medicine 07/08/21 documented as of this encounter
--- OUTSIDE RECORDS SUMMARY | 2024-01-20 08:11 | XMS_ITS | Encounter Summary ---
Author Organization [facility] Address [address] [place] [address] Care Team Providers Care Upsetter Setter Up Name Role Phone Vinnie Molina MD Primary Care Provider + Reason for Visit * Reason Comments Med Refill Encounter Details Date Type Department Care Team (Late st Contact Info) Description 04/03/2022 Refill [facility] [address] [place] [id number] Vinnie Molina MD [address] [place] [address] Anxiety Social History Tobacco Use [...] documented as of this encounter Care Teams Upsetter Setter Up Relationship Specialty Start Date End Date Vinnie Molina MD [address] [place] [address] PCP - General Family Medicine 07/08/21 documented as of this encounter
--- OUTSIDE RECORDS SUMMARY | 2024-01-20 08:11 | XMS_ITS | Encounter Summary ---
Author Organization [facility] Address [address] [place] [address] Care Team Providers Care Reptile Farmer Name Role Phone Vinnie Molina MD Primary Care Provider + Reason for Visit * Reason Comments Med Refill Encounter Details Date Type Department Care Team (Latest Contact Info) Description 06/17/2022 3:00 PM EDT Office Visit [facility] [address] [place] [address] Vinnie Molina MD [address] [place] [address] Acquired hypothyroidism (Primary Dx); Primary hypertension; Caregiver with fatigue Social History Tobacco Use [...] Sign Reading Time Taken Comments Blood Pressure 128/68 06/17/2022 2:55 PM EDT Pulse 64 06/17/2022 2:55 PM EDT Temperature 36.6 ??C (97.8 ??F) 06/17/2022 2:55 PM ED T Respiratory Rate 16 06/17/2022 2:55 PM EDT Oxygen Saturation 96% 06/17/2022 2:55 PM EDT Inhaled Oxygen Concentration - - Weight 67 kg (147 lb 9.6 oz) 06/17/2022 2:55 PM EDT Height 162.6 cm (5' 4.02 ) 06/17/2022 2:55 PM ED T Body Mass Index 25.32 06/17/2022 2:55 PM EDT documented in this encounter Progress Notes * Vinnie Molina MD - 06/17/2022 3:34 PM EDTAssociated Problem(s): Primary hypertension Hypertension is controlled in office. Patient reports higher numbers at home. I suggested setting nifedipine to the side to see if this resolves her dizziness while monitoring her blood pressure. Dizziness improved she should then restart her nifedipine and monitor for return of side effects symptoms. * Vinnie Molina MD - 06/17/2022 3:33 PM EDTAssociated Problem(s): Acquired hypothyroidism Surveillance TSH ordered. Continue levothyroxine at current dosing * Vinnie Molina MD - 06/17/2022 3:00 PM EDT Chief Complaint Patient presents with ??? Med Refill Subjective Pauline Kay is a 82 y.o. who presents for refills on levothyroxine for hypothyroidism and metoprolol for hypertension. She is now taking nifedipine as well prescribed by her secret service agent. She reports dizziness with the medication but cannot tell me how often she is affected by the dizziness. Patient also is physically and emotionally exhausted from caring for her with Alzheimer's. Objective Vital Signs: BP 128/68 Pulse 64 Temp 97.8 ??F (36.6 ??C) Resp 16 Ht 162.6 cm (64.02 ) Wt 67 kg (147 lb9.6 oz) SpO2 96% BMI 25.32 kg/m?? Physical Exam Vitals reviewed. Constitutional: Comments: Tearful Cardiovascular: Rate and Rhythm: Normal rate and regular rhythm. Pulses: Normal pulses. Heart sounds: Normal heart sounds. Pulmonary: Effort: Pulmonary effort is normal. Breath sounds: Normal breath sounds. Abdominal: General: Abdomen is flat. Palpations: Abdomen is soft. Neurological: Mental Status: She is alert. Result Review Assessment and Plan Diagnoses and all orders for this visit: 1. Acquired hypothyroidism (Primary) Assessment & Plan: Surveillance TSH ordered. Continue levothyroxine at current dosing Orders: - levothyroxine (SYNTHROID, LEVOTHROID) 88 MCG tablet; Take 1 tablet by mouth Daily. Dispense: 90 tablet; Refill: 3 - TSH Rfx On Abnormal To Free T4 2. Primary hypertension Assessment & Plan: Hypertension is controlled in office. Patient reports higher numbers at home. I suggested setting nifedipine to the side to see if this resolves her dizziness while monitoring her blood pressure. Dizziness improved she should then restart her nifedipine and monitor for return of side effects symptoms. Orders: - metoprolol succinate XL (TOPROL-XL) 50 MG 24 hr tablet; Take 1 tablet by mouth 2 (Two) Times a Day. Dispense: 180 tablet; Refill: 3 3. Caregiver with fatigue Follow Up Return if symptoms worsen or fail to improve. Patient was given instructions and counseling regarding her condition or for health maintenance advice. Please see specific information pulled into the AVS if appropriate. documented in this encounter Plan of Treatment Not on file documented as of this encounter Procedures Procedure Name Priority Date/Time Associated Diagnosis Comments TSH RFX ON ABNORMAL TO FREE T4 Routine 06/17/2022 3:30 PM EDT Acquired hypothyroidism CONV T4F Routine 06/17/2022 3:30 PM EDT documented in this encounter Results * T4F (06/17/2022 3:30 PM EDT) Free T4 1.47 0.82 - 1.77 ng/dL [facility] 06/17/2022 3:30 PM EDT 06/17/2022 Narrative [facility] ([facility]) - 06/18/2022 9:11 AM EDT Performed at: ??01 - [facility] [address] ??[id number] Fire Adjuster: Kishore Washington PhD, Phone: ??[phone] Patient Fasting: ??N Vinnie Molina MD LAB BLOOD ORDERABLES Fin al Result Performing Organization Address [facility] Co de Phone Number [facility] (AMBULATORY) [address] [place] [address], [facility] [address] [place] [address], * (ABNORMAL) TSH Rfx On Abnormal To Free T4 (06/17/2022 3:30 PM EDT) TSH 0.352(L) 0.450 - 4.500 uIU/mL [facility] Blood 06/17/2022 3:30 PM EDT 06/17/2022 Narrative [facility] (AMBULATORY) - 06/18/2022 9:11 AM EDT Performed at: ??01 - [facility] [place] [address] [place] [address] ??[id number] Fire Adjuster: Kishore Washington PhD, Phone: ??[phone] Patient Fasting: ??N Vinnie Molina MD LAB BLOOD ORDERABLES Fin al Result Performing Organization Address [facility] Co de Phone Number [facility] [address] [place] [address], [facility] [address] [place] [address], [place] [phone] documented in this encounter Visit Diagnoses Diagnosis Acquired hypothyroidism- Primary Unspecified hypothyroidism Primary hypertension Unspecified essential hypertension Caregiver with fatigue documented in this encounter Additional Health Concerns Assessment Noted Time PHQ-2 Depression Total Score: 1 01/07/20 22 11:40 AM EST documented as of this encounter Care Teams Reptile Farmer Relationship Specialty Start Date End Date Vinnie Molina MD [address] [place] [address] [place] [address] PCP - General Family Medicine 07/08/21 documented as of this encounter
--- OUTSIDE RECORDS SUMMARY | 2024-01-20 08:11 | XMS_ITS | Encounter Summary ---
Author Organization [facility] Address [address] [place] [address] Care Team Providers Care Magistrate Assistant Name Role Phone Vinnie Molina MD Primary Care Provider + Reason for Visit * Reason Comments Establish Care Previous Posey p t Depression RF: Hydrocodone Encounter Details Date Type Department Care Team (Late st Contact Info) Description 07/08/2021 12:00 PM EDT Office Visit [facility] [address] [place] [address] Vinnie Molina MD [address] [place] [address] Rheumatoid arthritis involving multiple sites with positive rheumatoid factor (Primary Dx); Adjustment insomnia; Stasis dermatitis of both legs Social History Tobacco Use Types Packs/Day Years [...] Sign Reading Time Taken Comments Blood Pressure 122/72 07/08/2021 11:47 AM EDT Pulse 62 07/08/2021 11:47 AM EDT Temperature 36.6 ??C (97.8 ??F) 07/08/2021 11:47 AM E DT Respiratory Rate 20 07/08/2021 11:47 AM EDT Oxygen Saturation 97% 07/08/2021 11:47 AM EDT Inhaled Oxygen Concentration - - Weight 71.8 kg (158 lb 3.2 oz) 07/08/2021 11:47 AM EDT Height 162.6 cm (5' 4 ) 07/08/2021 11:47 AM EDT Body Mass Index 27.15 07/08/2021 11:47 AM EDT documented in this encounter Progress Notes * Vinnie Molina MD - 07/08/2021 12:00 PM EDT Chief Complaint Patient presents with ??? Establish Care Previous Posey pt ??? Depression ??? RF: Hydrocodone Subjective Pauline Kay is a 81 y.o. who presents for pain related to a longstanding diagnosis of rheumatoid arthritis that affects multiple joints. Patient has been on hydrocodone for 10+ years. She is in need of a refill today. Overall she describes her joint pains as stable. There has been discussion of joint replacements but patient is hesitant to do so as she takes care of her . Patient also dealing with some insomnia related to the of her son earlier in the year. She tells me today that it has been declared a suicide after investigation. This is rather upsetting to her. She states she does well during the day but at nights cannot sleep as she is constantly thinking about her son. She recalls taking a medicine in the past which she believes was an antidepressant and she took for approximately a year. She believes she would benefit from this medicine currently. I was able to contact her prior physician's office, which is also my old office, and patient was prescribed fluoxetine 10 mg. Objective Vital Signs: BP 122/72 Pulse 62 Temp 97.8 ??F (36.6 ??C) Resp 20 Ht 162.6 cm (64 ) Wt 71.8 kg (158 lb 3.2 oz) SpO2 97% BMI 27.15 kg/m?? Physical Exam Constitutional: General: She is not in acute distress. Appearance: She is normal weight. Comments: Patient did become tearful when speaking about her son Neurological: Mental Status: She is alert. Result Review Assessment and Plan Diagnoses and all orders for this visit: 1. Rheumatoid arthritis involving multiple sites with positive rheumatoid factor (HCC) (Primary) - HYDROcodone-acetaminophen (NORCO) 7.5-325 MG per tablet; Take 1 tablet by mouth Every 6 (Six) Hours As Needed for Moderate Pain . Dispense: 120 tablet; Refill: 0 2. Adjustment insomnia - FLUoxetine (PROzac) 10 MG capsule; Take 1 capsule by mouth Daily. Dispense: 30 capsule; Refill: 5 3. Stasis dermatitis of both legs - triamcinolone (KENALOG) 0.1 % cream; Apply 1 application topically to the appropriate area as directed 2 (Two) Times a Day. Dispense: 454 g; Refill: 0 Follow Up Return in about 6 months (around 01/08/2022) for Medicare Wellness, Next scheduled follow up. Patient was given instructions and counseling regarding her condition or for health maintenance advice. Please see specific information pulled into the AVS if appropriate. documented in this encounter Plan of Treatment Not on file documented as of this encounter Visit Diagnoses Diagnosis Rheumatoid arthritis involving multiple sites with positive rheumatoid factor- Primary Adjustment insomnia Insomnia, unspecified Stasis dermatitis of both legs documented in this encounter Additional Health Concerns Assessment Noted Time PHQ-2 Depression Total Score: 2 07/09/19 11:52 AM EDT documented as of this encounter Care Teams Magistrate Assistant Relationship Specialty Start Date End Date Vinnie Molina MD [address] [place] [address] PCP - General Family Medicine 07/08/21 documented as of this encounter
--- OUTSIDE RECORDS SUMMARY | 2024-01-20 08:11 | XMS_ITS | Encounter Summary ---
Author Organization [facility] Address [address] [id number] Care Team Providers Care Welt Drawer Name Role Phone Vinnie Molina MD Primary Care Provider + Reason for Visit * Reason Comments Med Refill Encounter Details Date Type Department Care Team (Late st Contact Info) Description 09/30/2021 Refill [facility] [address] [place] [address] Vinnie Molina MD [address] [place] [address] Social History Tobacco Use Types [...] documented as of this encounter Care Teams Welt Drawer Relationship Specialty Start Date End Date Vinnie Molina MD [address] [place] [address] PCP - General Family Medicine 07/08/21 documented as of this encounter
--- OUTSIDE RECORDS SUMMARY | 2024-01-20 08:11 | XMS_ITS | Encounter Summary ---
Author Organization [facility] Address [address] [place] [address] Care Team Providers Care Voip Technician Name Role Phone Vinnie Molina MD Primary Care Provider + Reason for Visit * Reason Comments Med Refill Encounter Details Date Type Department Care Team (Late st Contact Info) Description 12/09/2022 Refill [facility] [address] [place] [address] Vinnie Molina MD [address] [place] [address] Acquired hypothyroidism Social History Tobacco Use Types Packs/Day Years [...] as of this encounter Visit Diagnoses Diagnosis Acquired hypothyroidism Unspecified hypothyroidism documented in this encounter Additional Health Concerns Assessment Noted Time PHQ-2 Depression Total Score: 1 01/07/20 22 11:40 AM EST documented as of this encounter Care Teams Voip Technician Relationship Specialty Start Date End Date Vinnie Molina MD [address] [place] [address] PCP - General Family Medicine 07/08/21 documented as of this encounter
--- OUTSIDE RECORDS SUMMARY | 2024-01-20 08:11 | XMS_ITS | Encounter Summary ---
Author Organization [facility] Address [address] [place] [address] Care Team Providers Care Geological Drafter Name Role Phone Vinnie Molina MD Primary Care Provider + Reason for Visit * Reason Comments BLE edema Getting worse over t he past week after trip to [place] pt would like to have a B12 inj today Encounter Details Date Type Department Care Team (Latest Contact Info) Description 08/19/2021 11:45 AM EDT Office Visit [facility] [address] [place] [address] Vinnie Molina MD [address] [place] [address] Venous insufficiency of both lower extremities (Primary Dx); Vitamin B12 deficiency; Acquired hypothyroidism Social History Tobacco Use Types [...] Sign Reading Time Taken Comments Blood Pressure 140/72 08/19/2021 11:48 AM EDT Pulse 72 08/19/2021 11:48 AM EDT Temperature 36.3 ??C (97.3 ??F) 08/19/2021 11:48 AM E DT Respiratory Rate 20 08/19/2021 11:48 AM EDT Oxygen Saturation 98% 08/19/2021 11:48 AM EDT Inhaled Oxygen Concentration - - Weight 73.3 kg (161 lb 9.6 oz) 08/19/2021 11:48 AM EDT Height 162.6 cm (5' 4.02 ) 08/19/2021 11:48 AM E DT Body Mass Index 27.72 08/19/2021 11:48 AM EDT documented in this encounter Progress Notes * Vinnie Molina MD - 08/19/2021 11:45 AM EDT Chief Complaint Patient presents with ??? BLE edema Getting worse over the past week after trip to [place] ??? pt would like to have a B12 inj today Subjective Pauline Kay is a 81 y.o. who presents for lower extremity swelling of both legs after a long car ride last week. She developed small red bumps on the lower legs as well that became pruritic and progressed to larger red lesions. She denies any pain from the lesions. She has not had shortness ofbreath or chest pain Patient is in need of monitoring for her hypothyroidism as her last TSH was a year ago. Patient has vitamin B12 deficiency and is in need of an injection. She does not recall when her last B12 level was. Objective Vital Signs: BP 140/72 Pulse 72 Temp 97.3 ??F (36.3 ??C) Resp 20 Ht 162.6 cm (64.02 ) Wt 73.3 kg (161 lb 9.6 oz) SpO2 98% BMI 27.72 kg/m?? Physical Exam Musculoskeletal: Right lower leg: No tenderness or bony tenderness. 2+ Pitting Edema present. Left lower leg: No tenderness or bony tenderness. 2+ Pitting Edema present. Right ankle: No swelling. Normal pulse. Left ankle: No swelling. Normal pulse. Comments: Infrequent 2 and 3 mm macular lesions with larger ecchymotic areas on the anterior shins.No purpura Result Review Assessment and Plan Diagnoses and all orders for this visit: 1. Venous insufficiency of both lower extremities (Primary) Comments: 1. Short course of diuretic 2. Compression stockings 3. Elevation of the feet 2. Vitamin B12 deficiency Comments: B12 given in office. Check B12 level Orders: - Vitamin B12 - cyanocobalamin injection 1,000 mcg 3. Acquired hypothyroidism Comments: TSH ordered. Orders: - TSH Other orders - furosemide (Lasix) 20 MG tablet; Take 1 tablet by mouth Daily. Dispense: 30 tablet; Refill: 0 Follow Up No follow-ups on file. Patient was given instructions and counseling regarding her condition or for health maintenance advice. Please see specific information pulled into the AVS if appropriate. documented in this encounter Plan of Treatment Not on file documented as of this encounter Procedures Procedure Name Priority Date/Time Associated Diagnosis Comments TSH Routine 08/19/2021 12:12 PM EDT Acquired hypothyroidism VITAMIN B12 Routine 08/19/2021 12:12 PM EDT Vitamin B12 deficiency documented in this encounter Results * TSH (08/19/2021 12:12 PM EDT) TSH 2.550 0.450 - 4.500 uIU/mL [facility] Blood 08/19/2021 12:1 2 PM EDT 08/19/2021 Narrative [facility] ([facility]) - 08/20/2021 9:10 AM EDT Performed at: ??01 - [facility] [address] ??[id number] Ad Taker: Kishore Washington PhD, Phone: ??[phone] Patient Fasting: ??Y us Vinnie Molina MD LAB BLOOD ORDERABLES Fin al Result [facility] [employer] [facility] (AMBULATORY) [address] [place] [address], [facility] [address] [place] [address], * (ABNORMAL) Vitamin B12 (08/19/2021 12:12 PM EDT) Vitamin B-12 >2000(H) 232 - 1245 pg/mL [facility] Blood 08/19/2021 12:1 2 PM EDT 08/19/2021 Narrative [facility] (AMBULATORY) - 08/20/2021 9:10 AM EDT Performed at: ??01 - [facility] [address] [facility], [place], [place] ??[id number] Ad Taker: Kishore Washington PhD, Phone: ??[phone] Patient Fasting: ??Y Vinnie Molina MD LAB BLOOD ORDERABLES Fin al Result [facility] (AMBULATORY) [address] [place] [address], [facility] [address] [place] [address], documented in this encounter Visit Diagnoses Diagnosis Venous insufficiency of both lower extremities- Primary Vitamin B12 deficiency Other B-complex deficiencies Acquired hypothyroidism Unspecified hypothyroidism documented in this encounter Administered Medications Active Administered Medications - up to 3 most recent administrations Medication Order MAR Action Action Date Dose Rate Site cyanocobalamin injection 1,000 mcg 1,000 mcg, Intramuscular, Every 28 Days, First dose on Thu08/19/21 at 1210Indications:Vitami n B12 deficiency Given 08/19/2021 12:31 PM EDT 1,000 mcg Right Dorsogluteal documented in this encounter Additional Health Concerns Assessment Noted Time PHQ-2 Depression Total Score: 2 07/09/19 11:52 AM EDT documented as of this encounter Care Teams Geological Drafter Relationship Specialty Start Date End Date Vinnie Molina MD [address] [place] [id number] PCP - General Family Medicine 07/08/21 documented as of this encounter
--- OUTSIDE RECORDS SUMMARY | 2024-01-20 08:11 | XMS_ITS | Encounter Summary ---
Author Organization [facility] Address [address] [place] [address] Care Team Providers Care Cooking Chef Name Role Phone Vinnie Molina MD Primary Care Provider + Reason for Visit * Reason Onset Date Comments Med Refill 11/19/2022 Encounter Details Date Type Department Care Team (Late st Contact Info) Description 11/19/2022 Refill [facility] [address] [place] [address] Vinnie Molina MD [address] [place] [address] Rheumatoid arthritis involving multiple sites [...] encounter Miscellaneous Notes * Telephone Encounter - Meka Reddybeth WashingtonCristobal Rep - 11/19/2022 2:57 PM EDT Caller: Pauline Kay Relationship: Self Best call back number: [phone] Requested Prescriptions: Requested Prescriptions Pending Prescriptions Disp Refills HYDROcodone-acetaminophen (NORCO) 7.5-325 MG per tablet 120 tablet 0 Sig: Take 1 tablet by mouth Every 6 (Six) Hours As Needed for Moderate Pain. Pharmacy where request should be sent: [id number] - [place] - [address] [place] [address] [facility] - [phone] - [phone] FX Last office visit with prescribing clinician: 06/17/2022 Last telemedicine visit with prescribing clinician: Visit date not found Next office visit with prescribing clinician: Visit date not found Additional details provided by patient: PATIENT HAS 4 REMAINING. Does the patient have less than a 3 day supply: [] Yes [x] No Would you like a call back once the refill request has been completed: [] Yes [x] No If the office needs to give you a call back, can they leave a voicemail: [] Yes [x] No German Orozco 11/19/22 14:57 EDT documented in this encounter Plan of Treatment Not on file documented as of this encounter Visit Diagnoses Diagnosis Rheumatoid arthritis involving multiple sites with positive rheumatoid factor documented in this encounter Additional Health Concerns Assessment Noted Time PHQ-2 Depression Total Score: 1 01/07/20 22 11:40 AM EST documented as of this encounter Care Teams Cooking Chef Relationship Specialty Start Date End Date Vinnie Molina MD [address] [place] [address] PCP - General Family Medicine 07/08/21 documented as of this encounter
--- OUTSIDE RECORDS SUMMARY | 2024-01-20 08:11 | XMS_ITS | Encounter Summary ---
Author Organization [facility] Address [address] [place] [address] Care Team Providers Care Plate Mounter Name Role Phone Vinnie Molina MD Primary Care Provider + Reason for Visit * Reason Comments Med Refill Encounter Details Date Type Department Care Team (Late st Contact Info) Description 06/30/[address] [facility] [address] [place] [phone] Vinnie Molina MD [address] [place] [address] Anxiety Social History Tobacco Use [...] documented as of this encounter Care Teams Plate Mounter Relationship Specialty Start Date End Date Vinnie Molina MD [address] [place] [address] PCP - General Family Medicine 07/08/21 documented as of this encounter
--- OUTSIDE RECORDS SUMMARY | 2024-01-20 08:11 | XMS_ITS | Encounter Summary ---
Author Organization [facility] Address [address] [place] [address] Care Team Providers Care Coating Mixer Supervisor Name Role Phone Vinnie Molina MD Primary Care Provider + Reason for Visit * Reason Comments Med Refill Encounter Details Date Type Department Care Team (Late st Contact Info) Description 10/03/2022 Refill [facility] [address] [place] [phone] Vinnie Molina MD [address] [address] Anxiety Social History Tobacco Use [...] documented as of this encounter Care Teams Coating Mixer Supervisor Relationship Specialty Start Date End Date Vinnie Molina MD [address] [place] [address] PCP - General Family Medicine 07/08/21 documented as of this encounter
--- OUTSIDE RECORDS SUMMARY | 2024-01-20 08:11 | XMS_ITS | Encounter Summary ---
Author Organization [facility] Address [address] [place] [address] Care Team Providers Care Crystal Evaluator Name Role Phone Vinnie Molina MD Primary Care Provider + Reason for Visit * Reason Onset Date Comments Med Refill 11/19/2022 Encounter Details Date Type Department Care Team (Late st Contact Info) Description 11/19/2022 Refill [facility] [address] [place] [address] Vinnie Molina MD [address] [place] [address] Social History Tobacco Use Types [...] encounter Miscellaneous Notes * Telephone Encounter - Cassie Reddy RegSched Rep - 11/19/2022 2:59 PM EDT Caller: Pauline Kay Relationship: Self Best call back number: [phone] Requested Prescriptions: Requested Prescriptions Pending Prescriptions Disp Refills allopurinol (ZYLOPRIM) 100 MG tablet 90 tablet 3 Sig: Take 1 tablet by mouth Daily. pantoprazole (PROTONIX) 40 MG EC tablet 90 tablet 3 Sig: Take 1 tablet by mouth Daily. Pharmacy where request should be sent: [id number] - [place], [place] - [address] [place] [address] [facility] - [phone] - [phone] FX Last office visit with prescribing clinician: 06/17/2022 Last telemedicine visit with prescribing clinician: Visit date not found Next office visit with prescribing clinician: Visit date not found Additional details provided by patient: [facility] Does the patient have less than a 3 day supply: [x] Yes [] No Would you like a call back once the refill request has been completed: [] Yes [x] No If the office needs to give you a call back, can they leave a voicemail: [] Yes [x] No German Orozco 11/19/22 15:04 EDT documented in this encounter Plan of Treatment Not on file documented as of this encounter Visit Diagnoses Not on filedocumented in this encounter Additional Health Concerns Assessment Noted Time PHQ-2 Depression Total Score: 1 01/07/20 22 11:40 AM EST documented as of this encounter Care Teams Crystal Evaluator Relationship Specialty Start Date End Date Vinnie Molina MD [address] [facility] [place] [address] PCP - General Family Medicine 07/08/21 documented as of this encounter
--- NOTE | 2024-01-20 08:12 | XR_ITS ---
FINAL REPORT CLINICAL HISTORY: right clavicle fx FINDINGS: Right clavicle Two views were obtained. There is healed or healing fracture deformity of the distal clavicle. There are mild to moderate hypertrophic changes of the glenohumeral joint. IMPRESSION: Healed or healing fracture deformity of the distal clavicle. Reviewed, Interpreted and Dictated by Matthew Rolon MD Transcribed by Kimberly Bonilla Authenticated and [facility]
== END 2024-01-20 23:59 | disposition home or self-care (01) ==
LOC: RAD 08:08
PROVIDERS: PCP Family Medicine; Visit Provider Physician Assistant
DX: S42.031A Displaced fracture of lateral end of right clavicle, initial encounter for closed fracture (principal)
CPT/HCPCS: 73000

== ENCOUNTER 2024-02-10 14:14 | Outpatient (CLI) | payer MEDICARE, SELFPAY | END 2024-02-10 23:59 | disposition home or self-care (01) | LOC: LAB.DROPOF 02-11 08:52 | PROVIDERS: PCP Nurse Practitioner Family; Visit Provider Nurse Practitioner Family | DX: J02.9 Acute pharyngitis, unspecified (principal) | CPT/HCPCS: 87070 ==

== ENCOUNTER 2024-04-04 12:58 | Outpatient (CLI) | payer MEDICARE, SELFPAY ==
[2024-04-04 13:10] LABS: Microscopic, Urine URINE MICROSCOPIC (MICROSCOPIC)
[2024-04-04 13:29] LABS: Basophils # 0.1 K/mm3 (0-0.2); Eosinophils # 0.2 K/mm3 (0.0-0.4); Eosinophils % 3.2 % (0.1-12.0); Hematocrit 28.8 % (37.0-47.0); Hemoglobin 8.9 g/dL (12.2-16.2); Lymphocytes # 1.7 K/mm3 (0.7-4.5); Lymphocytes % 25.3 % (10-50); Mean Corpuscular HGB Conc 30.9 g/dL (31.8-35.4); Mean Corpuscular Hemoglobin 28.7 pg (27.0-31.2); Mean Corpuscular Volume 92.9 fl (81-99); Mean Platelet Volume 13.5 fl (7.4-10.4); Monocytes # 0.5 K/mm3 (0.1-1.0); Monocytes % 6.9 % (1.7-9.3); Neutrophils # 4.3 K/mm3 (1.8-7.8); Neutrophils % 63.3 % (37.0-80.0); Platelet Count 225 K/mm3 (142-424); Red Cell Distribution Width 15.8 % (11.5-17.5); White Blood Count 6.8 K/mm3 (4.8-10.8)
[2024-04-04 13:54] LABS: Albumin Level 4.6 g/dl (3.5-5.0); Anion Gap 17.4 mEq/L (5-15); Blood Urea Nitrogen 39 mg/dl (7-17); Calcium 9.7 mg/dl (8.4-10.2); Carbon Dioxide 22 mmol/L (22.0-30.0); Chloride 106 mmol/L (98-107); Estimated Glomerular Filt Rate 23 ml/min (>60); GFR (African American) 27 ML/MIN (>60); Glucose 110 mg/dl (74-100); Phosphorous 4.2 mg/dl (2.5-4.5); Potassium 5.4 mmoL/L (3.5-5.1); Sodium 140 mmol/L (136-145)
[2024-04-04 14:03] LABS: Total Iron Binding Capacity 417 ug/dL (265-497)
[2024-04-04 14:24] LABS: Thyroid Stimulating Hormone 3.48 uIU/mL (0.465-4.68)
[2024-04-04 15:01] LABS: Iron 48 ug/dL (37-170)
[2024-04-04 15:21] LABS: Appearance,Urine CLEAR (Clear); Bilirubin,Urine Negative (Negative); Blood, Urine Negative (Negative); Color,Urine YELLOW (Yellow); Glucose,Urine (UA) Negative (Negative); Ketones,Urine Negative (Negative); Leukocyte Esterase,Urine Negative (Negative); Nitrate,Urine Negative (Negative); Protein,Urine 2+ (Negative); Specific Gravity, Urine 1.025 (1.005-1.030); Urobilinogen,Urine 0.2 EU/dl (0.2)
[2024-04-04 15:43] LABS: Ferritin 14.3 ng/ml (11.1-264)
[2024-04-04 15:49] LABS: Bacteria,Urine 1+ /lpf; RBC,Urine Occasional #/hpf (0-3)
[2024-04-04 16:59] LABS: Creatinine,Urine Random 129 mg/dL (Not Estab.)
== END 2024-04-04 23:59 | disposition home or self-care (01) ==
LOC: LAB 13:01
PROVIDERS: PCP Family Medicine; Visit Provider Student in an Organized Health Care Education/Training Program
DX: N18.4 Chronic kidney disease, stage 4 (severe) (principal); D63.8 Anemia in other chronic diseases classified elsewhere; E03.9 Hypothyroidism, unspecified
CPT/HCPCS: 36415; 80069; 81001; 82570; 82728; 83540; 83550; 84156; 84443; 85025

== ENCOUNTER 2024-08-29 13:04 | Outpatient (CLI) | payer MEDICARE, SELFPAY ==
--- OUTSIDE RECORDS SUMMARY | 2024-08-29 13:07 | XMS_ITS | Encounter Summary ---
Author Organization [facility] Address [address] [place] [address] Care Team Providers Care Parts Counter Representative Name Role Phone Vinnie Molina MD Primary Care Provider [phone] Encounter Details Date Type Department Care Team (Late Contact Info) Description 05/26/2023 Orders Only External Location [address] [place] [address] Provider, External Social History Tobacco Use Types [...] Department Care Team (Late Contact Info) Description 02/06/2025 9:20 AM EST Office Visit Medical Office Building Surgical Specialties [address] [facility], [address] [place] [address] Nacho Jackson MD [address] [address] documented as of this encounter Procedures Procedure [...] on filedocumented in this encounter Care Teams Parts Counter Representative Relationship Specialty Start Date End Date Vinnie Molina MD [address] [address] PCP - General 07/13/20 documented as of this encounter
--- OUTSIDE RECORDS SUMMARY | 2024-08-29 13:07 | XMS_ITS | Encounter Summary ---
Author Organization [facility] Address [address] [place] [address] Care Team Providers Care Collector Of Port Name Role Phone Vinnie Molina MD Primary Care Provider [phone] Encounter Details Date Type Department Care Team (Late Contact Info) Description 05/26/2023 Orders Only External Location [address] [place] [address] Vee Betts, DO [address] [place] [address] Social History Tobacco Use Types [...] Upcoming Encounters Date Type Department Care Team ([facility] Contact Info) Description 02/06/2025 9:20 AM EST Office Visit Medical Office Building Surgical Specialties [address] [facility], [address] [place] [address] Nacho Jackson MD [address] [phone] documented as of this encounter Procedures Procedure [...] on filedocumented in this encounter Care Teams Collector Of Port Relationship Specialty Start Date End Date Vinnie Molina MD [address] [facility] [place] [address] PCP - General 07/13/20 documented as of this encounter
--- OUTSIDE RECORDS SUMMARY | 2024-08-29 13:07 | XMS_ITS | Encounter Summary ---
Author Organization [facility] Address [address] [place] [address] Care Team Providers Care Medical Assistant Per Diem Name Role Phone Vinnie Molina MD Primary Care Provider [phone] Encounter Details Date Type Department Care Team ([facility] Contact Info) Description 03/30/2016 Orders Only External Location [address] [place] [address] Provider, External Social History Tobacco Use Types [...] Medical Office Building Surgical Specialties [address] [facility], [address] [place] [address] Nacho Jackson MD [address] [place] [phone] documented as of this encounter Procedures Procedure [...] on filedocumented in this encounter Care Teams Medical Assistant Per Diem Relationship Specialty Start Date End Date Vinnie Molina MD [address] [facility] [place] [address] PCP - General 07/13/20 documented as of this encounter
--- OUTSIDE RECORDS SUMMARY | 2024-08-29 13:07 | XMS_ITS | Encounter Summary ---
Author Organization [facility] Address [address] [place] [address] Care Team Providers Care Mixing Machine Feeder Name Role Phone Vinnie Molina MD Primary Care Provider [phone] Encounter Details Date Type Department Care Team (Late Contact Info) Description 05/26/2023 Orders Only External Location [address] [place] [address] Provider, External Social History Tobacco Use Types [...] Medical Office Building Surgical Specialties [address] [facility], [address] [place] [address] Nacho Jackson MD [address] [address] documented as of this encounter Procedures Procedure [...] on filedocumented in this encounter Care Teams Mixing Machine Feeder Relationship Specialty Start Date End Date Vinnie Molina MD [address] [place] [address] PCP - General 07/13/20 documented as of this encounter
--- OUTSIDE RECORDS SUMMARY | 2024-08-29 13:07 | XMS_ITS | Encounter Summary ---
Author Organization [facility] Address [address] [place] [address] Care Team Providers Care Property Insurance Agent Name Role Phone Vinnie Molina MD Primary Care Provider [phone] Encounter Details Date Type Department Care Team (Late Contact Info) Description 03/16/2020 Orders Only External Location [address] [place] [address] Provider, External Social History Tobacco Use Types [...] Medical Office Building Surgical Specialties [address] [facility], [address] [place] [address] Nacho Jackson MD [address] [phone] documented as of this encounter Procedures Procedure [...] on filedocumented in this encounter Care Teams Property Insurance Agent Relationship Specialty Start Date End Date Vinnie Molina MD [address] [place] [address] PCP - General 07/13/20 documented as of this encounter
--- OUTSIDE RECORDS SUMMARY | 2024-08-29 13:07 | XMS_ITS | Encounter Summary ---
Author Organization [facility] Address [address] [place] [address] Care Team Providers Care Wine Sales Representative Name Role Phone Vinnie Molina MD Primary Care Provider Encounter Details Date Type Department Care Team (Late Contact Info) Description 08/13/2023 Orders Only External Location [address] [place] [address] Provider, External Social History Tobacco Use Types [...] [address] [facility], [address] [place] [address] Nacho Jackson MD [address] [address] documented as of this encounter Procedures Procedure [...] on filedocumented in this encounter Care Teams Wine Sales Representative Relationship Specialty Start Date End Date Vinnie Molina MD [address] [place] [address] PCP - General 07/13/20 documented as of this encounter
--- OUTSIDE RECORDS SUMMARY | 2024-08-29 13:07 | XMS_ITS | Clinical Summary ---
Author Organization [employer] ([place], [place], [place], [place]) Address [address] [place] [address] Care Team Providers Care Applique Sewer Name Role Phone Unavailable Primary Care Provider Unavailabl e Social History Tobacco Use Types Packs/Day Years Used Date Smoking Tobacco: Never Assessed Food Insecurity Answer Date Recorded Food run [...] Date Norman rded Speak language other than Yakut at home Not on file 03/20/2023 Want help with school or training Not on file 03/20/2023 Substance Use Answer Date Recorded Used [...] 1992 Medicare Initial AWV [id number] 06/01/2008 Pneumococcal 50+ years (2 of 2 - PCV) 12/04/2016 12/05/2015 Respiratory Syncytial Virus (RSV) Adult or (1 - 1-dose 75+ series) 2017 COVID-19 VACCINE (5 - 2023-2 5 season) 2023 12/16/2021, 12/06/2020, 04/26/2020, Additional history exists Falls Risk Screening 03/02/2024 Influenza Vaccine (Season Ended) 2024 12/16/2021, 11/28/2019, 12/23/2018, Additional history exists DTAP/TDAP/TD VACCINES (2 - T d or Tdap) 09/27/2031 09/26/[address] [place] [phone] MEDICARE PART A B
--- OUTSIDE RECORDS SUMMARY | 2024-08-29 13:07 | XMS_ITS | Encounter Summary ---
Author Organization [facility] Address [address] [place] [address] Care Team Providers Care Supervisor Dog License Officer Name Role Phone Vinnie Molina MD Primary Care Provider [phone] Encounter Details Date Type Department Care Team ([facility] Contact Info) Description 03/30/2016 Orders Only External Location [address] [place] [address] Provider, External Social History Tobacco Use Types [...] Medical Office Building Surgical Specialties [address] [facility], [address] [place] [address] Nacho Jackson MD [address] [place] [phone] documented as of this encounter Procedures Procedure [...] on filedocumented in this encounter Care Teams Supervisor Dog License Officer Relationship Specialty Start Date End Date Vinnie Molina MD [address] [facility] [place] [address] PCP - General 07/13/20 documented as of this encounter
--- OUTSIDE RECORDS SUMMARY | 2024-08-29 13:07 | XMS_ITS | Clinical Summary ---
Author Organization [facility] Address [address] [place] [address] Care Team Providers Care Field Research Associate Name Role Phone Vinnie Molina MD Primary Care Provider [phone] Allergies No known active allergies Medications amLODIPine [...] (one) time each day. Active HYDROcodone-acet aminophen ([place]yme) 7.5-325 MG tablet Take 1 tablet (7.5 [...] (one) time each day before breakfast. Active levothyroxine (Synthroid, Levoxyl) 75 MCG tablet Take 1 tablet (75 mcg) by mouth 1 (one) time each day. 11/27/2023 Active Active Problems Problem Noted Date Diagnosed Date Bronchitis 02/11/2024 History of total knee arthroplasty 02/11/2024 Osteoarthritis of left knee 02/11/2024 Rash 02/11/2024 Sinusitis 02/11/2024 Urinary tract infection 02/11/2024 CKD stage 4 secondary to hypertension 05/28/2023 Enlarged lymph node 05/28/2023 Primary hypertension 06/17/2022 Overview (02/11/2024): Last Assessment & Plan: Hypertension is controlled in office. Patient reports higher numbers at home. I suggested setting nifedipine to the side to see if this resolves her dizziness while monitoring her blood pressure. Dizziness improved she should then restart her nifedipine and monitor for return of side effects symptoms. Acquired hypothyroidism 07/08/2021 Overview (02/11/2024): Last Assessment & Plan: Surveillance TSH ordered. Continue levothyroxine at current dosing GERD without esophagitis 07/08/2021 Rheumatoid arthritis involvi ng multiple sites with positive rheumatoid factor 07/08/2021 Spleen laceration 04/11/2016 Anemia of renal disease 08/11/2012 Renal osteodystrophy 08/11/2012 Chronic kidney disease, stage III (moderate) 01/2013 Immunizations Immunization Administration Dates Next Due Influenza Vaccine, Quadrivalent, Adjuvanted 12/02 Influenza, High-dose, Split Virus, Trivalent, Injectable, preservative free 12/23/2018,12/05/2015 Influenza, high-dose, quadrivalent 12/16/2021, Pneumococcal Polysaccharide PPV23 12/05/2015 Td (adult) 09/26/2021 Family History Medical History Relation Name Comments Heart attack Father Heart attack Mother Relation Name Status Comments Father Mother Social History Tobacco Use Types Packs/Day Years Used Date Smoking Tobacco: Never Passive Smoke Exposure: Past Smokeless Tobacco: Never Tobacco Cessation:Counseling Given: No Alcohol Use Standard Drinks/Week Comments No 0 (1 standard drink = 0.6 oz pur e alcohol) PHQ-2 Answer Date Recorded Patient Health Questionnaire-2 Score 2 02/15/2024 Comments Unknown Sex and Gender Information Value Date Recorded Sex Assigned at Not on file Legal Sex Female 6:33 PM EDT Gender Identity Not on file Sexual Orientation Not on file Last Filed Vital Signs Vital Sign Reading Time Taken Comments Blood Pressure 132/72 02/15/2024 9:36 AM EST Pulse 56 02/15/2024 9:36 AM EST Temperature 36.7 C (98.1 F) 02/15/2024 9:36 AM EST Respiratory Rate 17 11/20/2023 11:07 AM EDT Oxygen Saturation 99% 02/15/2024 9:36 AM EST Inhaled Oxygen Concentration - - Weight 62.3 kg (137 lb 5.6 oz) 02/15/2024 9:36 A M EST Height 162.6 cm (5' 4 ) 02/15/2024 9:36 AM EST Body Mass Index 23.58 02/15/2024 9:36 AM EST Plan of Treatment Upcoming Encounters Date Type Department Care Team (Late st Contact Info) Description 02/06/2025 9:20 AM EST Office Visit Medical Office Building Surgical Specialties [address] [facility], [address] [place] [address] Nacho Jackson MD [address] [address] Health Maintenance Due Date Last Done Comments [facility]-Bone Density Scan 1942 [facility]-/Child/Adol SDOH Screenings 1942 [facility]- SDOH Screenings 1960 [facility]-Adult SDOH Screenings 1960 [facility]-Zoster Vaccines (1 of 2) 1992 [facility]-Pneumococcal Vaccine: 50+ Years (2 of 2 - PCV) 12/04/2016 12/05/2015 [facility]-RSV Vaccine: 60+ Years or (1 - 1-dose 75+ series) 2017 [facility]-DTaP,Tdap,and Td Vaccines (1 - Tdap) 09/27/2021 09/26/2021 [id number]-[id number]-51 Vaccine ( - season) 2023 12/30/2022, 12/16/2021, 12/06/2020, Additional history exists [facility]-Medicare Annual Wellness (AWV) 08/03/2024 08/04/2023 [facility]-Influenza Vaccine (Season Ended) 2024 12/30/2022, 12/16/2021, 11/28/2019, Additional history exists [facility]-Depression Screening 02/14/2025 02/15/2024 HPV Vaccines Aged Out No longer eligi ble based on patient's age to complete this topic [facility]-HIB Vaccines Aged Out No longer e [...] on patient's age to complete this topic Insurance [facility] [place] [address] Care Teams Field Research Associate Relationship Specialty Start Date End Date Vinnie Molina MD [address] [place] [address] PCP - General 07/13/20
--- OUTSIDE RECORDS SUMMARY | 2024-08-29 13:07 | XMS_ITS | Encounter Summary ---
Author Organization [facility] Address [address] [place] [address] Care Team Providers Care Digitizer Operator Name Role Phone Vinnie Molina MD Primary Care Provider [phone] Encounter Details Date Type Department Care Team (Late Contact Info) Description 03/27/2020 Orders Only External Location [address] [place] [address] Provider, External Social History Tobacco Use Types [...] Medical Office Building Surgical Specialties [address] [facility], [address] [place] [address] Nacho Jackson MD [address] [place] [address] [address] documented as of this encounter Procedures Procedure [...] on filedocumented in this encounter Care Teams Digitizer Operator Relationship Specialty Start Date End Date Vinnie Molina MD [address] [place] [address] PCP - General 07/13/20 documented as of this encounter
--- OUTSIDE RECORDS SUMMARY | 2024-08-29 13:07 | XMS_ITS | Referral Summary ---
Author Organization [employer] ([place], [place], [place], [place]) Address [address] [place] [address] Care Team Providers Care Life Sciences Director Name Role Phone Unavailable Primary Care [...] Date Norman rded Speak language other than Uzbek at home Not on file 03/20/2023 Want [...] Plan of Treatment Not on file [place] [address] [place] [id number] MEDICARE PART A B
--- OUTSIDE RECORDS SUMMARY | 2024-08-29 13:07 | XMS_ITS | Encounter Summary ---
Author Organization [facility] Address [address] [place] [address] Care Team Providers Care Product Marketing Specialist Name Role Phone Vinnie Molina MD Primary Care Provider [phone] Encounter Details Date Type Department Care Team (Late Contact Info) Description 05/26/2023 Orders Only External Location [address] [place] [address] Provider, External Social History Tobacco Use Types [...] Medical Office Building Surgical Specialties [address] [facility], [address] [place] [address] Nacho Jackson MD [address] [address] documented as of this encounter Procedures Procedure Name Priority Date/Time Associated Diagnosis Comments CT OUTSIDE IMAGES 05/26/2023 3:32 PM EDT documented in this encounter Results * CT OUTSIDE IMAGES (05/26/2023 3:32 PM EDT) Anatomical Region Laterality Modality Computed Tomogra phy 05/26/2023 3:32 PM EDT us External Provider IMG CT PROCEDURES Final Result documented in this encounter Visit Diagnoses Not on filedocumented in this encounter Care Teams Product Marketing Specialist Relationship Specialty Start Date End Date Vinnie Molina MD [address] [place] [address] PCP - General 07/13/20 documented as of this encounter
--- OUTSIDE RECORDS SUMMARY | 2024-08-29 13:07 | XMS_ITS | Encounter Summary ---
Author Organization Healthcare Address [address] [place] [address] Care Team Providers Care Spin Instructor Name Role Phone Vinnie Molina MD Primary Care Provider [phone] Encounter Details Date Type Department Care Team ([facility] Contact Info) Description 03/30/2016 Orders Only External Location [address] [place] [address] Provider, External Social History Tobacco Use Types [...] Building Surgical Specialties [address] [facility], [address] [place] [address] Nacho Jackson MD [address] [place] [phone] documented as of this encounter Procedures Procedure [...] on filedocumented in this encounter Care Teams Spin Instructor Relationship Specialty Start Date End Date Vinnie Molina MD [address] [facility] [place] [address] PCP - General 07/13/20 documented as of this encounter
--- OUTSIDE RECORDS SUMMARY | 2024-08-29 13:07 | XMS_ITS | Encounter Summary ---
Author Organization Healthcare Address [address] [place] [address] Care Team Providers Care Picked Edge Sewing Machine Operator Name Role Phone Vinnie Molina MD Primary Care Provider [phone] Encounter Details Date Type Department Care Team ([facility] Contact Info) Description 05/26/2023 Orders Only External Location [address] [place] [address] Vee Betts, DO [address] [place] [address] Social History Tobacco Use Types [...] Upcoming Encounters Date Type Department Care Team ([facility] Contact Info) Description 02/06/2025 9:20 AM EST Office Visit Medical Office Building Surgical Specialties [address] [facility], [address] [place] [address] Nacho Jackson MD [address] [phone] documented as of this encounter Procedures Procedure [...] on filedocumented in this encounter Care Teams Picked Edge Sewing Machine Operator Relationship Specialty Start Date End Date Vinnie Molina MD [address] [facility] [place] [address] PCP - General 07/13/20 documented as of this encounter
--- OUTSIDE RECORDS SUMMARY | 2024-08-29 13:08 | XMS_ITS | Encounter Summary ---
Author Organization Healthcare Address [address] [place] [address] Care Team Providers Care Electrician Refinery Name Role Phone Vinnie Molina MD Primary Care Provider [phone] Encounter Details Date Type Department Care Team (Late Contact Info) Description 10/23/2015 Orders Only External Location [address] [place] [address] Provider, External Social History Tobacco Use Types [...] Medical Office Building Surgical Specialties [address] [facility], [address] [place] [address] Nacho Jackson MD [address] [place] [phone] documented as of this encounter Procedures Procedure [...] on filedocumented in this encounter Care Teams Electrician Refinery Relationship Specialty Start Date End Date Vinnie Molina MD 210 [facility] [place] [address] PCP - General 07/13/20 documented as of this encounter
--- OUTSIDE RECORDS SUMMARY | 2024-08-29 13:08 | XMS_ITS | Encounter Summary ---
Author Organization Healthcare Address [address] [place] [address] Care Team Providers Care Teacher Learning Disabled Name Role Phone Vinnie Molina MD Primary Care Provider [phone] Encounter Details Date Type Department Care Team ([facility] Contact Info) Description 03/30/2016 Orders Only External Location [address] [place] [address] Provider, External Social History Tobacco Use Types [...] Office Building Surgical Specialties [address] [facility], [address] [place] [address] Nacho Jackson MD [address] [place] [phone] documented as of this encounter Procedures Procedure [...] on filedocumented in this encounter Care Teams Teacher Learning Disabled Relationship Specialty Start Date End Date Vinnie Molina MD [address] [facility] [place] [address] PCP - General 07/13/20 documented as of this encounter
--- OUTSIDE RECORDS SUMMARY | 2024-08-29 13:08 | XMS_ITS | Encounter Summary ---
Author Organization Healthcare Address [address] [place] [address] Care Team Providers Care Inventory Clerk Name Role Phone Vinnie Molina MD Primary Care Provider [phone] Encounter Details Date Type Department Care Team ([facility] Contact Info) Description 03/30/2016 Orders Only External Location [address] [place] [address] Provider, External Social History Tobacco Use Types [...] Office Building Surgical Specialties [address] [facility], [address] [place] [address] Nacho Jackson MD [address] [place] [phone] documented as of this encounter Procedures Procedure [...] on filedocumented in this encounter Care Teams Inventory Clerk Relationship Specialty Start Date End Date Vinnie Molina MD [address] [facility] [place] [address] PCP - General 07/13/20 documented as of this encounter
[2024-08-29 13:13] LABS: Microscopic, Urine URINE MICROSCOPIC (MICROSCOPIC)
[2024-08-29 13:39] LABS: Basophils # 0.1 K/mm3 (0-0.2); Basophils % 0.9 % (0.1-2.0); Eosinophils # 0.4 Kmm3 (0.0-0.4); Eosinophils % 5.2 % (0.1-12.0); Hematocrit 25.5 % (37.0-47.0); Hemoglobin 7.6 g/dL (12.2-16.2); Immature Granulocytes # 0.04 10^3uL; Immature Granulocytes % 0.5 %; Lymphocytes # 2.1 K/mm3 (0.7-4.5); Lymphocytes % 27.9 % (10-50); Mean Corpuscular HGB Conc 29.8 g/dL (31.8-35.4); Mean Corpuscular Hemoglobin 26.1 pg (27.0-31.2); Mean Corpuscular Volume 87.6 fl (81-99); Mean Platelet Volume 12.5 fl (7.4-10.4); Monocytes # 0.5 K/mm3 (0.1-1.0); Monocytes % 6.8 % (1.7-9.3); Neutrophils # 4.5 K/mm3 (1.8-7.8); Neutrophils % 58.7 % (37.0-80.0); Nucleated Red Blood Cells # 0 10^3/uL; Nucleated Red Blood Cells % 0 %; Platelet Count 272 K/mm3 (142-424); Red Blood Count 2.91 M/mm3 (4.20-5.40); Red Cell Distribution Width 15.7 % (11.5-17.5); Red Cell Distribution Width-SD 49.8 fL; White Blood Count 7.7 K/mm3 (4.8-10.8)
[2024-08-29 13:44] LABS: Appearance,Urine CLEAR (Clear); Bilirubin,Urine Negative (Negative); Blood, Urine Negative (Negative); Color,Urine YELLOW (Yellow); Glucose,Urine (UA) Negative (Negative); Ketones,Urine Negative (Negative); Leukocyte Esterase,Urine TRACE (Negative); Nitrate,Urine Negative (Negative); PH,Urine 5.5 (5.0-8.5); Protein,Urine TRACE (Negative); Urobilinogen,Urine 0.2 EU/dl (0.2)
[2024-08-29 13:53] LABS: Creatinine,Urine Random 37 mg/dL (Not Estab.)
[2024-08-29 13:59] LABS: Bacteria,Urine Trace /lpf; Squamous Epithelial Cell,Urine Occasional #/hpf (0-5); WBC,Urine Occasional #/hpf (0-3)
[2024-08-29 14:31] LABS: Chloride 106 mmol/L (98-107); Potassium 5.8 mmoL/L (3.5-5.1); Sodium 138 mmol/L (136-145)
[2024-08-29 14:34] LABS: Anion Gap 16.8 mEq/L (5-15); Blood Urea Nitrogen 48 mg/dl (7-17); Carbon Dioxide 21 mmol/L (22.0-30.0); Estimated Glomerular Filt Rate 18 ml/min (>60); GFR (African American) 21 ML/MIN (>60); Phosphorous 5.7 mg/dl (2.5-4.5)
[2024-08-29 14:35] LABS: Calcium 8.7 mg/dl (8.4-10.2); Glucose 114 mg/dl (74-100)
[2024-08-29 15:05] LABS: Thyroid Stimulating Hormone 7.43 uIU/mL (0.465-4.68)
[2024-08-30 14:11] LABS: Albumin 3.4 g/dL (2.9-4.4); Alpha-1-Globulin 0.3 g/dL (0.0-0.4); Alpha-2-Globulin 0.9 g/dL (0.4-1.0); Gamma Globulin 1.1 g/dL (0.4-1.8); Protein, Total 6.9 g/dL (6.0-8.5)
[2024-08-30 15:12] LABS: Free Kappa Lt Chains 88.1 mg/L (3.3-19.4); Free Lambda Lt Chains 73.9 mg/L (5.7-26.3)
[2024-08-31 16:19] LABS: Immunoglobulin A, Qn 227 mg/dL (64-422); Immunoglobulin G, Qn 1092 mg/dL (586-1602); Immunoglobulin M, Qn 85 mg/dL (26-217)
[2024-09-04 15:41] LABS: PDF SCANNED REPORT
== END 2024-08-29 23:59 | disposition home or self-care (01) ==
LOC: LAB 13:06
PROVIDERS: Student in an Organized Health Care Education/Training Program; PCP Family Medicine; Visit Provider Family Medicine
DX: I12.9 Hypertensive chronic kidney disease with stage 1 through stage 4 chronic kidney disease, or unspecified chronic kidney disease (principal); N18.4 Chronic kidney disease, stage 4 (severe)
CPT/HCPCS: 36415; 80069; 81001; 82570; 82784; 83521; 84155; 84156; 84165; 84443; 85025; 86334

== ENCOUNTER 2024-10-04 10:57 | Outpatient (CLI) | payer MEDICARE, SELFPAY ==
--- OUTSIDE RECORDS SUMMARY | 2024-08-05 08:45 | XMS_ITS | Encounter Summary ---
Author Organization [facility] Address [address] [place] [address] Care Team Providers Care Machine Maintenance Servicer Name Role Phone Vinnie Molina MD Primary Care Provider + Reason for Visit * Reason Comments Follow-up Hypertension Pt is confused about what meds she should be on from us and Nephrology (pt see's Nephro on 09-06-24) Encounter Details Date Type Department Care Team (Late st Contact Info) Description 08/05/2024 8:45 AM EDT Office Visit [facility] [address] [place] [address] Vinnie Molina MD [address] [place] [address] 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); Primary hypertension; Acquired hypothyroidism; Gastroesophageal reflux disease without esophagitis; Rheumatoid arthritis involving multiple sites with positive rheumatoid factor Social History Tobacco Use Types Packs/Day Years Used Date Smoking Tobacco: Never Passive Smoke Exposure: Past Smokeless Tobacco: Never Alcohol Use Standard Drinks/Week Comments Not Currently 0 (1 standard drink = 0.6 oz pur e alcohol) PHQ-2 Answer Date Recorded Retired PHQ-9: Brief Depression Severity Measure Score 1 01/26/2023 PHQ-2 Answer Date Recorded Patient Health Questionnaire-2 Score 1 03/29/2024 Comments Unknown Sex and Gender Information Value Date Recorded Sex Assigned at Not on file Legal Sex Female 12:16 PM EDT Gender Identity Not on file Sexual Orientation Not on file documented as of this encounter Last Filed Vital Signs Vital Sign Reading Time Taken Comments Blood Pressure 190/80 08/05/2024 8:43 AM EDT Pulse 56 08/05/2024 8:43 AM EDT Temperature 36.4 C (97.5 F) 08/05/2024 8:43 AM EDT Respiratory Rate 20 08/05/2024 8:43 AM EDT Oxygen Saturation 97% 08/05/2024 8:43 AM EDT Inhaled Oxygen Concentration - - Weight 61.4 kg (135 lb 6.4 oz) 08/05/2024 8:43 A M EDT Height 162.6 cm (5' 4 ) 08/05/2024 8:43 AM EDT Body Mass Index 23.24 08/05/2024 8:43 AM EDT documented in this encounter Progress Notes * Vinnie Molina MD - 08/05/2024 8:45 AM EDT Chief Complaint Patient presents with Follow-up Hypertension Pt is confused about what meds she should be on from us and Nephrology (pt see's Nephro on 09-06-24) Subjective Pauline Kay is a 84 y.o. who presents for chronic care and maintenance visit. Patient has hypothyroidism, rheumatoid arthritis, hypertension, stage IV CKD, GERD. She takes medicines as prescribed although there has been confusion about her nifedipine. The medication was prescribed in April but she has never picked up the medication. She continues to have episodes of feeling imbalanced anddizziness. She attributed these to the use of her fluoxetine so she stopped the medication. Symptoms improved transiently. She does not monitor her blood pressure at home. Patient has a kettle coordinator,Dr. Tavarez who she sees next month. She reports a pruritic lower extremity rash which the humidifier maintenance worker believes was related to her kidney disease. She has been using a topical corticosteroid without improvement The following portions of the patient's history were reviewed and updated as appropriate: allergies, current medications, past family history, past medical history, past social history, past surgicalhistory, and problem list. Review of Systems Objective Vital Signs: BP (!) 190/80 Pulse 56 Temp 97.5 ??F (36.4 ??C) Resp 20 Ht 162.6 cm (64 ) Wt 61.4 kg (135lb 6.4 oz) SpO2 97% BMI 23.24 kg/m?? BMI is within normal parameters. No other follow-up for BMI required. Physical Exam Constitutional: Appearance: Normal appearance. HENT: Head: Normocephalic and atraumatic. Right Ear: Tympanic membrane and ear canal normal. Left Ear: Tympanic membrane and ear canal normal. Nose: Nose normal. Mouth/Throat: Mouth: Mucous membranes are moist. Pharynx: Oropharynx is clear. Eyes: Conjunctiva/sclera: Conjunctivae normal. Cardiovascular: Rate and Rhythm: Normal rate and regular rhythm. Heart sounds: Normal heart sounds. No murmur heard. Pulmonary: Effort: Pulmonary effort is normal. No respiratory distress. Breath sounds: Normal breath sounds. Musculoskeletal: Cervical back: Normal range of motion and neck supple. No tenderness. Right lower leg: No edema. Left lower leg: No edema. Lymphadenopathy: Cervical: No cervical adenopathy. Skin: General: Skin is warm and dry. Neurological: Mental Status: She is alert. Psychiatric: Mood and Affect: Mood normal. Result Review Assessment and Plan Diagnoses and all orders for this visit: 1. 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 Primary hypertension - NIFEdipine XL (PROCARDIA XL) 60 MG 24 hr tablet; Take 1 tablet by mouth Daily. Dispense: 90 tablet; Refill: 0 - metoprolol succinate XL (TOPROL-XL) 50 MG 24 hr tablet; Take 1 tablet by mouth 2 (Two) Times a Day. Dispense: 180 tablet; Refill: 1 - lisinopril-hydrochlorothiazide (PRINZIDE,ZESTORETIC) 20-12.5 MG per tablet; Take 1 tablet by mouth Daily. Dispense: 90 tablet; Refill: 1 - Basic Metabolic Panel; Future - TSH; Future - CBC (No Diff); Future 3. Acquired hypothyroidism - TSH; Future 4. Gastroesophageal reflux disease without esophagitis Comments: Stable. Refilled PPI Orders: - pantoprazole (PROTONIX) 40 MG EC tablet; Take 1 tablet by mouth Daily. Dispense: 90 tablet; Refill: 3 5. Rheumatoid arthritis involving multiple sites with positive rheumatoid factor Plan 1. Blood pressure is not controlled. Nifedipine XL 60 mg was sent to the patient's pharmacy. Will continue Zestoretic and metoprolol 2. GERD is stable and controlled. Continue PPI 3. Hypothyroidism is stable and controlled. Continue levothyroxine. Surveillance TSH ordered 4. Long discussion was had with the patient regarding her chronic kidney disease and emphasis was placed on better control of her blood pressure. She will begin home monitoring more frequently. She will follow-up with nephrology as planned next month 5. Regarding her diagnosis of RA it primarily remains asymptomatic and pain is controlled with a single daily dose of hydrocodone Follow Up Return in about 5 months (around 01/05/2025) for Medicare Wellness. Patient was given instructions and counseling regarding her condition or for health maintenance advice. Please see specific information pulled into the AVS if appropriate. documented in this encounter Plan of Treatment Upcoming Encounters Date Type Department Care Team (Late st Contact Info) Description 01/12/2025 10:45 AM EST Office Visit [facility] [address] [place] [address] Vinnie Molina MD [address] [place] [address] documented as of this encounter Visit Diagnoses Diagnosis CKD stage 4 secondary to hypertension- Primary Primary hypertension Unspecified essential hypertension Acquired hypothyroidism Unspecified hypothyroidism Gastroesophageal reflux disease without esophagitis Esophageal reflux Rheumatoid arthritis involving multiple sites with positive rheumatoid factor documented in this encounter Additional Health Concerns Assessment Noted Time PHQ-2 Depression Total Score: 4 08/04/19 24 10:13 AM EDT documented as of this encounter Care Teams Machine Maintenance Servicer Relationship Specialty Start Date End Date Vinnie Molina MD [address] [place] [address] PCP - General Family Medicine 07/08/21 documented as of this encounter
--- OUTSIDE RECORDS SUMMARY | 2024-10-03 12:15 | XMS_ITS | Encounter Summary ---
Author Organization [facility] Address [address] [place] [address] Care Team Providers Care Thin Film Technician Name Role Phone Vinnie Molina MD Primary Care Provider + Reason for Visit * Reason Comments Dizziness Fatigue X 1 week Encounter Details Date Type Department Care Team (Late st Contact Info) Description 10/03/2024 12:15 PM EDT Office Visit [facility] [address] [place] [address] Vinnie Molina MD [address] [place] [address] CKD stage 4 secondary to [...] erythropoietin or iron. She last saw her discount clerk approximately a month ago. She tells me [...] anemia which is being addressed by her discount clerk. We will reassess her symptoms at follow-up [...] Description 01/12/2025 10:45 AM EST Office Visit [facility] [address] [address] [...] documented as of this encounter Care Teams Thin Film Technician Relationship Specialty Start Date End Date Vinnie Molina MD [address] [place] [address] PCP - General Family Medicine 07/08/21 documented as of this encounter
--- OUTSIDE RECORDS SUMMARY | 2024-10-04 11:01 | XMS_ITS | Encounter Summary ---
Author Organization [facility] Address [address] [place] [address] Care Team Providers Care Machine Stoppage Frequency Checker Name Role Phone Vinnie Molina MD Primary Care Provider + Reason for Visit * Reason Comments Med Refill Encounter Details Date Type Department Care Team (Late st Contact Info) Description 09/01/2024 Refill [facility] [address] [facility] [place] [address] Vinnie Molina MD [address] [place] [address] Primary hypertension Social History Tobacco Use Types Packs/Day [...] Description 01/12/2025 10:45 AM EST Office Visit [facility] [address] [place] [address] Vinnie Molina MD 210 [facility] [place] [address] documented as of this encounter Visit Diagnoses Diagnosis Primary hypertension Unspecified essential hypertension documented in this encounter Additional Health Concerns Assessment Noted Time PHQ-2 Depression Total Score: 4 08/04/19 24 10:13 AM EDT documented as of this encounter Care Teams Machine Stoppage Frequency Checker Relationship Specialty Start Date End Date Vinnie Molina MD [address] [place] [address] PCP - General Family Medicine 07/08/21 documented as of this encounter
--- OUTSIDE RECORDS SUMMARY | 2024-10-04 11:01 | XMS_ITS | Clinical Summary ---
Author Organization [facility] Address [address] [place] [address] Care Team Providers Care Bait Tier Name Role Phone Vinnie Molina MD Primary Care Provider + Allergies Active Allergy Reactions Criticality Noted Date Comments Adhesive Tape Rash Low 03/22/2020 Codeine Anxiety Low 03/22/2020 Trazodone Delirium Medium 07/08/2021 Medications aspirin 81 MG EC tablet Take 1 tablet by mouth Daily. Active allopurinol (ZYLOPRIM) 100 MG tabletIndications :Stage 3b chronic kidney disease (CKD) Take 1 tablet by mouth Daily. 90 tablet 025 Active HYDROcodone-aceta minophen (NORCO) 7.5-325 MG per tabletIndications :Rheumatoid arthritis involving multiple sites with positive rheumatoid factor Take 1 tablet by mouth Every 6 (Six) Hours As Needed for Moderate Pain. 120 tablet 025 Active Additional Information Patient not taking.Reported on 10/03/2024 pantoprazole (PROTONIX) 40 MG EC tabletIndications :Gastroesophageal reflux disease without esophagitis Take 1 tablet by mouth Daily. 90 tablet 3 025 Active metoprolol succinate XL (TOPROL-XL) 50 MG 24 hr tabletIndications :Primary hypertension Take 1 tablet by mouth 2 (Two) Times a Day. 180 tablet 1 025 Active NIFEdipine XL (PROCARDIA XL) 60 MG 24 hr tabletIndications :Primary hypertension TAKE 1 TABLET BY MOUTH DAILY 90 tablet 1 025 Active lisinopril-hydroc hlorothiazide (PRINZIDE,ZESTORE TIC) 20-12.5 MG per tabletIndications :Primary hypertension TAKE 1 TABLET BY MOUTH DAILY 90 tablet 1 025 Active levothyroxine (SYNTHROID, LEVOTHROID) 75 MCG tabletIndications :Acquired hypothyroidism TAKE 1 TABLET BY MOUTH DAILY 90 tablet 1 025 Active Dupixent 300 MG/2ML solution auto-injector injection Inject 2 mL under the skin into the appropriate area as directed Every 14 (Fourteen) Days. Active FLUoxetine (PROzac) 10 MG capsuleIndication s:Anxiety Take 1 capsule by mouth Daily. 30 capsule 3 025 Active levothyroxine (SYNTHROID, LEVOTHROID) 75 MCG tabletIndications :Acquired hypothyroidism TAKE 1 TABLET BY MOUTH DAILY 90 tablet 025 2024 Discontinued lisinopril-hydroc hlorothiazide (PRINZIDE,ZESTORE TIC) 20-12.5 MG per tabletIndications :Primary hypertension Take 1 tablet by mouth Daily. 90 tablet 1 025 2024 Discontinued Hospital, Clinic, or Other Facility Administered Medication [...] Encounters Date Type Department Care Team Description 10/03/2024 12:15 PM EDT Office Visit [facility] [address] [facility] [place] [address] Vinnie Molina MD 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); Anemia due to stage 4 chronic kidney disease; Anxiety; Activity intolerance associated with anemia 10/03/2024 Travel 09/30/2024 Refill [facility] [address] [place] [address] Vinnie Molina MD Primary hypertension; Acquired hypothyroidism 09/01/2024 Refill [facility] [address] [place] [address] Vinnie Molina MD Primary hypertension 08/05/2024 8:45 AM EDT Office Visit [facility] [address] [place] [address] Vinnie Molina MD 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); Primary hypertension; Acquired hypothyroidism; Gastroesophageal reflux disease without esophagitis; Rheumatoid arthritis involving multiple sites with positive rheumatoid factor 08/05/2024 Travel 08/04/2024 Refill [facility] [address] [place] [address] Vinnie Molina MD Rheumatoid arthritis involving multiple sites with positive rheumatoid factor from Last 3 Months Immunizations Immunization Administration Dates Next Due Fluad Quad 65+ [...] F) 10/03/2024 11:59 AM EDT Respiratory Rate 20 08/05/2024 8:43 AM EDT Oxygen Saturation 98% 10/03/2024 11:59 AM EDT Inhaled Oxygen Concentration - - Weight 64.6 kg (142 lb 6.4 oz) 10/03/2024 11:59 AM EDT Height 162.6 cm (5' 4 ) 10/03/2024 11:59 AM EDT Body Mass Index 24.44 10/03/2024 11:59 AM EDT Plan of Treatment Upcoming Encounters Date Type Department Care Team (Late st Contact Info) Description 01/12/2025 10:45 AM EST Office Visit [facility] [address] [facility] [place] [place] [address] Vinnie Molina MD [address] [facility] [place] [address] Health Maintenance Due Date Last Done Comments DXA SCAN 1942 ZOSTER VACCINE (1 of 2) 1992 Pneumococcal Vaccine 50+ (2 of 2 - PCV) 12/04/2016 12/05/2015 RSV Vaccine - Adults (1 - 1-dose 75+ series) 2017 TDAP/TD VACCINES (1 - Tdap) 09/27/2021 09/26/2021 ANNUAL WELLNESS VISIT 08/03/2024 08/04/2023 COVID-19 Vaccine ( - season) 2024 12/30/2022, 12/16/2021, 12/06/2020, Additional history exists Postponed from 11/01/2023 (Product Unavailable) INFLUENZA VACCINE 11/30/2024 12/30/2022, , 12/16/2021, Additional history exists Procedures Procedure Name Priority Date/Time Associated Diagnosis Comments SCANNED - LABS 08/29/2024 from Last 3 Months Results * LABS SCANNED (08/29/2024) Vinnie Molina MD LAB BLOOD ORDERABLES Fin al Result from Last 3 Months Insurance MEDICARE A & B Member Subscriber Plan / Payer (Ef fective 2007-Present) Name:Pauline Kay Member ID:[id number] Relation to Subscriber:Self Name:Pauline Kay Subscriber ID:[id number] Payer ID:[id number] Group ID:Not on file Type:Not on file Address: [facility] [id number] [employer] Care Teams Bait Tier Relationship Specialty Start Date End Date Vinnie Molina MD [address] [place] [address] [place] [address] PCP - General Family Medicine 07/08/21
--- OUTSIDE RECORDS SUMMARY | 2024-10-04 11:01 | XMS_ITS | Encounter Summary ---
Author Organization Healthcare Address [address] [place] [address] Care Team Providers Care Manager Intensive Care Name Role Phone Vinnie Molina MD Primary Care Provider [phone] Encounter Details Date Type Department Care Team (Late Contact Info) Description 05/26/2023 Orders Only External Location [address] [place] [address] Provider, External Social History Tobacco Use Types [...] Medical Office Building Surgical Specialties [address] [facility], [address] [place] [address] Nacho Jackson MD [address] [place] [address] [address] documented as of this encounter Procedures Procedure [...] on filedocumented in this encounter Care Teams Manager Intensive Care Relationship Specialty Start Date End Date Vinnie Molina MD [address] [place] [address] PCP - General 07/13/20 documented as of this encounter
--- OUTSIDE RECORDS SUMMARY | 2024-10-04 11:01 | XMS_ITS | Clinical Summary ---
Author Organization [facility] Address [address] [place] [address] Care Team Providers Care Database Security Administrator Name Role Phone Vinnie Molina MD Primary Care Provider [phone] Allergies No known active allergies Medications amLODIPine [...] (one) time each day. Active HYDROcodone-acet aminophen ([place]) 7.5-325 MG tablet Take 1 tablet (7.5 [...] [facility], [address] [place] [address] Nacho Jackson MD [address] [address] Health Maintenance Due Date Last Done Comments [facility]-Bone Density Scan 1942 [facility]-Infant/Child/Adol SDOH Screenings 1942 [facility]- SDOH Screenings 1960 [facility]-Adult SDOH Screenings 1960 [facility]-Zoster Vaccines (1 of 2) 1992 [facility]-Pneumococcal Vaccine: 50+ Years (2 of 2 - PCV) 12/04/2016 12/05/2015 [facility]-RSV Vaccine: 60+ Years or (1 - 1-dose 75+ series) 2017 [facility]-DTaP,Tdap,and Td Vaccines (1 - Tdap) 09/27/2021 09/26/2021 [id number]-66 Vaccine ( - season) 2023 12/30/2022, 12/16/2021, 12/06/2020, Additional history exists [facility]-Medicare Annual Wellness (AWV) 08/03/2024 08/04/2023 [facility]-Influenza Vaccine (#1) 10/31/202412/30, 12/16/2021, 11/28/2019, Additional history exists [facility]-Depression Screening [...] patient's age to complete this topic Insurance [facility] [place] [address] Care Teams Database Security Administrator Relationship Specialty Start Date End Date Vinnie Molina MD [address] [address] PCP - General 07/13/20
--- OUTSIDE RECORDS SUMMARY | 2024-10-04 11:01 | XMS_ITS | Encounter Summary ---
Author Organization Healthcare Address [address] [place] [address] Care Team Providers Care Sightseeing Guide Name Role Phone Vinnie Molina MD Primary Care Provider [phone] Encounter Details Date Type Department Care Team (Late Contact Info) Description 05/26/2023 Orders Only External Location [address] [place] [address] Provider, External Social History Tobacco Use Types [...] Medical Office Building Surgical Specialties [address] [facility], [address] [place] [address] Nacho Jackson MD [address] [address] documented as of this encounter Procedures Procedure [...] on filedocumented in this encounter Care Teams Sightseeing Guide Relationship Specialty Start Date End Date Vinnie Molina MD [address] [place] [address] PCP - General 07/13/20 documented as of this encounter
--- OUTSIDE RECORDS SUMMARY | 2024-10-04 11:01 | XMS_ITS | Encounter Summary ---
Author Organization [facility] Address [address] [place] [id number] Care Team Providers Care Deputy K 9 Name Role Phone Vinnie Molina MD Primary Care Provider + Reason for Visit * Reason Comments Med Refill Encounter Details Date Type Department Care Team (Late Contact Info) Description 09/30/2024 Refill [facility] [address] [facility] [place] [address] Vinnie Molina MD 210 [facility] [place] [address] Primary hypertension; Acquired hypothyroidism Social History Tobacco Use Types [...] Description 01/12/2025 10:45 AM EST Office Visit [facility] MED[facility]INE 210 [facility] [place] [address] Vinnie Molina MD [address] [place] [address] documented as of this encounter Visit Diagnoses Diagnosis Primary hypertension Unspecified essential hypertension Acquired hypothyroidism Unspecified hypothyroidism documented in this encounter Additional Health Concerns Assessment Noted Time PHQ-2 Depression Total Score: 4 08/04/19 24 10:13 AM EDT documented as of this encounter Care Teams Deputy K 9 Relationship Specialty Start Date End Date Vinnie Molina MD [address] [place] [address] PCP - General Family Medicine 07/08/21 documented as of this encounter
--- OUTSIDE RECORDS SUMMARY | 2024-10-04 11:01 | XMS_ITS | Encounter Summary ---
Author Organization [facility] Address [address] [place] [address] Care Team Providers Care Technician Helper Instrument Name Role Phone Vinnie Molina MD Primary Care Provider + Encounter Details Date Type Department Care Team (Latest Contact Info) Description 10/03/2024 Travel Social History Tobacco Use Types Packs/Day [...] 10:45 AM EST Office Visit [facility] 210 [facility] [place] [address] Vinnie Molina MD 210 [facility] [place] [address] documented as of this encounter Visit Diagnoses Not on filedocumented in this encounter Additional Health Concerns Assessment Noted Time PHQ-2 Depression Total Score: 4 08/04/19 10:13 AM EDT documented as of this encounter Care Teams Technician Helper Instrument Relationship Specialty Start Date End Date Vinnie Molina MD [address] [place] [address] PCP - General Family Medicine 07/08/21 documented as of this encounter
--- OUTSIDE RECORDS SUMMARY | 2024-10-04 11:01 | XMS_ITS | Encounter Summary ---
Author Organization Healthcare Address [address] [place] [address] Care Team Providers Care Security Systems Installer Name Role Phone Vinnie Molina MD Primary Care Provider [phone] Encounter Details Date Type Department Care Team (Late Contact Info) Description 05/26/2023 Orders Only External Location [address] [place] [address] Vee Betts, DO [address] [place] [address] Social History Tobacco Use Types [...] Upcoming Encounters Date Type Department Care Team ([facility] Contact Info) Description 02/06/2025 9:20 AM EST Office Visit Medical Office Building Surgical Specialties [address] [facility], [address] [place] [address] Nacho Jackson MD [address] [phone] documented as of this encounter Procedures Procedure [...] on filedocumented in this encounter Care Teams Security Systems Installer Relationship Specialty Start Date End Date Vinnie Molina MD 210 [facility] [address] PCP - General 07/13/20 documented as of this encounter
--- OUTSIDE RECORDS SUMMARY | 2024-10-04 11:01 | XMS_ITS | Encounter Summary ---
Author Organization Healthcare Address [address] [place] [address] Care Team Providers Care Cut Out And Marking Machine Operator Name Role Phone Vinnie Molina MD Primary Care Provider [phone] Encounter Details Date Type Department Care Team ([facility] Contact Info) Description 03/30/2016 Orders Only External Location [address] [place] [address] Provider, External Social History Tobacco Use Types [...] Building Surgical Specialties [address] [facility], [address] [place] [address] Nacho Jackson MD [address] [place] [phone] documented as of this encounter Procedures Procedure [...] on filedocumented in this encounter Care Teams Cut Out And Marking Machine Operator Relationship Specialty Start Date End Date Vinnie Molina MD 210 [place] [address] PCP - General 07/13/20 documented as of this encounter
--- OUTSIDE RECORDS SUMMARY | 2024-10-04 11:01 | XMS_ITS | Encounter Summary ---
Author Organization Healthcare Address [address] [place] [address] Care Team Providers Care Sales Team Leader Name Role Phone Vinnie Molina MD Primary Care Provider [phone] Encounter Details Date Type Department Care Team ([facility] Contact Info) Description 03/30/2016 Orders Only External Location [address] [place] [address] Provider, External Social History Tobacco Use Types [...] Building Surgical Specialties [address] [facility], [address] [place] [address] Nacho Jackson MD [address] [place] [phone] documented as of this encounter Procedures Procedure [...] on filedocumented in this encounter Care Teams Sales Team Leader Relationship Specialty Start Date End Date Vinnie Molina MD 210 [facility] [place] [address] PCP - General 07/13/20 documented as of this encounter
--- OUTSIDE RECORDS SUMMARY | 2024-10-04 11:01 | XMS_ITS | Encounter Summary ---
Author Organization Healthcare Address [address] [place] [address] Care Team Providers Care Green Building Design Specialist Name Role Phone Vinnie Molina MD Primary Care Provider [phone] Encounter Details Date Type Department Care Team (Late Contact Info) Description 10/23/2015 Orders Only External Location [address] [place] [address] Provider, External Social History Tobacco Use Types [...] [address] [facility], [address] [place] [address] Nacho Jackson MD [address] [place] [phone] documented as of this encounter Procedures Procedure [...] on filedocumented in this encounter Care Teams Green Building Design Specialist Relationship Specialty Start Date End Date Vinnie Molina MD 210 [facility] [place] [address] PCP - General 07/13/20 documented as of this encounter
--- OUTSIDE RECORDS SUMMARY | 2024-10-04 11:01 | XMS_ITS | Encounter Summary ---
Author Organization Healthcare Address [address] [place] [address] Care Team Providers Care Chief Engineer Research Name Role Phone Vinnie Molina MD Primary Care Provider [phone] Encounter Details Date Type Department Care Team (Late Contact Info) Description 03/16/2020 Orders Only External Location [address] [place] [address] Provider, External Social History Tobacco Use Types [...] Specialties [address] [facility], [address] [place] [address] Nacho Jackson MD [address] [place] [address] [address] documented as of this encounter Procedures Procedure [...] on filedocumented in this encounter Care Teams Chief Engineer Research Relationship Specialty Start Date End Date Vinnie Molina MD [address] [place] [address] PCP - General 07/13/20 documented as of this encounter
--- OUTSIDE RECORDS SUMMARY | 2024-10-04 11:01 | XMS_ITS | Encounter Summary ---
Author Organization Healthcare Address [address] [place] [address] Care Team Providers Care Aluminum Siding Applicator Name Role Phone Vinnie Molina MD Primary Care Provider [phone] Encounter Details Date Type Department Care Team (Late Contact Info) Description 05/26/2023 Orders Only External Location [address] [place] [address] Provider, External Social History Tobacco Use Types [...] [facility], [address] [place] [address] Nacho Jackson MD [address] [place] [address] [address] documented as of this encounter Procedures Procedure [...] on filedocumented in this encounter Care Teams Aluminum Siding Applicator Relationship Specialty Start Date End Date Vinnie Molina MD [address] [place] [address] PCP - General 07/13/20 documented as of this encounter
--- OUTSIDE RECORDS SUMMARY | 2024-10-04 11:01 | XMS_ITS | Encounter Summary ---
Author Organization Healthcare Address [address] [place] [address] Care Team Providers Care Profile Saw Operator Name Role Phone Vinnie Molina MD Primary Care Provider [phone] Encounter Details Date Type Department Care Team ([facility] Contact Info) Description 03/30/2016 Orders Only External Location [address] [place] [address] Provider, External Social History Tobacco Use Types [...] Surgical Specialties [address] [facility], [address] [place] [address] Nacho Jackson MD [address] [place] [phone] documented as of this encounter Procedures Procedure [...] on filedocumented in this encounter Care Teams Profile Saw Operator Relationship Specialty Start Date End Date Vinnie Molina MD 210 [facility] [place] [address] PCP - General 07/13/20 documented as of this encounter
--- OUTSIDE RECORDS SUMMARY | 2024-10-04 11:01 | XMS_ITS | Clinical Summary ---
Author Organization [employer] ([place], [place], [place], [place]) Address [address] [place] [address] Care Team Providers Care Construction Project Engineer Name Role Phone Unavailable Primary Care [...] Date Norman rded Speak language other than Colombian at home Not on file 03/20/2023 Want [...] 1-dose 75+ series) 2017 COVID-19 VACCINE (5 2023-2 5 season) 2023 12/16/2021, 12/06/2020, 04/26/2020, Additional history exists [place] Risk Screening 03/02/2024 Influenza Vaccine (#1) 2024 , 11/28/2019, 12/23/2018, Additional history exists DTAP/TDAP/TD VACCINES (2 - T d or Tdap) 09/27/2031 09/26/[address] [place] [address] [id number] MEDICARE PART A B
--- OUTSIDE RECORDS SUMMARY | 2024-10-04 11:01 | XMS_ITS | Encounter Summary ---
Author Organization [facility] Address [address] [place] [address] Care Team Providers Care Solar System Installer Name Role Phone Vinnie Molina MD Primary Care Provider + Encounter Details Date Type Department Care Team (Latest Contact Info) Description 08/05/2024 Travel Social History Tobacco Use Types Packs/Day [...] Description 01/12/2025 10:45 AM EST Office Visit [facility] 210 [facility] [place] [address] Vinnie Molina MD 210 [facility] [address] documented as of this encounter Visit Diagnoses Not on filedocumented in this encounter Additional Health Concerns Assessment Noted Time PHQ-2 Depression Total Score: 4 08/04/19 10:13 AM EDT documented as of this encounter Care Teams Solar System Installer Relationship Specialty Start Date End Date Vinnie Molina MD [address] [place] [address] PCP - General Family Medicine 07/08/21 documented as of this encounter
--- OUTSIDE RECORDS SUMMARY | 2024-10-04 11:01 | XMS_ITS | Encounter Summary ---
Author Organization Healthcare Address [address] [place] [address] Care Team Providers Care Domain Architect Name Role Phone Vinnie Molina MD Primary Care Provider [phone] Encounter Details Date Type Department Care Team (Late Contact Info) Description 05/26/2023 Orders Only External Location [address] [place] [address] Vee Betts, DO [address] [place] [address] Social History Tobacco Use Types [...] Upcoming Encounters Date Type Department Care Team ([facility] Contact Info) Description 02/06/2025 9:20 AM EST Office Visit Medical Office Building Surgical Specialties [address] [facility], [address] [place] [address] Nacho Jackson MD [address] [phone] documented as of this encounter Procedures Procedure [...] on filedocumented in this encounter Care Teams Domain Architect Relationship Specialty Start Date End Date Vinnie Molina MD 210 [facility] [place] [address] PCP - General 07/13/20 documented as of this encounter
--- OUTSIDE RECORDS SUMMARY | 2024-10-04 11:01 | XMS_ITS | Encounter Summary ---
Author Organization Healthcare Address [address] [place] [address] Care Team Providers Care Associate Accountant Name Role Phone Vinnie Molina MD Primary Care Provider [phone] Encounter Details Date Type Department Care Team (Late Contact Info) Description 03/27/2020 Orders Only External Location [address] [place] [address] Provider, External Social History Tobacco Use Types [...] Medical Office Building Surgical Specialties [address] [facility], [address] [place] [address] Nacho Jackson MD [address] [place] [address] [address] documented as of this encounter Procedures Procedure [...] on filedocumented in this encounter Care Teams Associate Accountant Relationship Specialty Start Date End Date Vinnie Molina MD [address] [place] [address] PCP - General 07/13/20 documented as of this encounter
--- OUTSIDE RECORDS SUMMARY | 2024-10-04 11:01 | XMS_ITS | Encounter Summary ---
Author Organization Healthcare Address [address] [place] [address] Care Team Providers Care Design Tech Name Role Phone Vinnie Molina MD Primary Care Provider [phone] Encounter Details Date Type Department Care Team ([facility] Contact Info) Description 03/30/2016 Orders Only External Location [address] [place] [address] Provider, External Social History Tobacco Use Types [...] Medical Office Building Surgical Specialties [address] [facility], [address] [place] [address] Nacho Jackson MD [address] [place] [phone] documented as of this encounter Procedures Procedure [...] on filedocumented in this encounter Care Teams Design Tech Relationship Specialty Start Date End Date Vinnie Molina MD 210 [facility] [place] [address] PCP - General 07/13/20 documented as of this encounter
--- OUTSIDE RECORDS SUMMARY | 2024-10-04 11:01 | XMS_ITS | Encounter Summary ---
Author Organization Healthcare Address [address] [place] [address] Care Team Providers Care Skein Drier Name Role Phone Vinnie Molina MD Primary Care Provider [phone] Encounter Details Date Type Department Care Team ([facility] Contact Info) Description 03/30/2016 Orders Only External Location [address] [place] [address] Provider, External Social History Tobacco Use Types [...] Office Building Surgical Specialties [address] [facility], [address] [place] [address] Nacho Jackson MD [address] [place] [phone] documented as of this encounter Procedures Procedure [...] on filedocumented in this encounter Care Teams Skein Drier Relationship Specialty Start Date End Date Vinnie Molina MD 210 [facility] [place] [address] PCP - General 07/13/20 documented as of this encounter
--- OUTSIDE RECORDS SUMMARY | 2024-10-04 11:01 | XMS_ITS | Encounter Summary ---
Author Organization Healthcare Address [address] [place] [address] Care Team Providers Care Conciliator Name Role Phone Vinnie Molina MD Primary Care Provider [phone] Encounter Details Date Type Department Care Team (Late Contact Info) Description 08/13/2023 Orders Only External Location [address] [place] [address] Provider, External Social History Tobacco Use Types [...] Medical Office Building Surgical Specialties [address] [facility], [address] [place] [address] Nacho Jackson MD [address] [place] [address] [address] documented as of this encounter Procedures Procedure [...] on filedocumented in this encounter Care Teams Conciliator Relationship Specialty Start Date End Date Vinnie Molina MD [address] [place] [address] PCP - General 07/13/20 documented as of this encounter
--- OUTSIDE RECORDS SUMMARY | 2024-10-04 11:02 | XMS_ITS | Referral Summary ---
Author Organization [employer] ([place], [place], [place], [place]) Address [address] [place] [address] Care Team Providers Care Plumbing And Heating Mechanic Name Role Phone Unavailable Primary Care Provider [...] Date Norman rded Speak language other than Swedish at home Not on file 03/20/2023 Want [...] Plan of Treatment Not on file [place] [address] [place] [id number] MEDICARE PART A B
[2024-10-04 11:32] LABS: Hematocrit 21.8 % (37.0-47.0)
[2024-10-04 11:44] LABS: Hemoglobin 6.7 g/dL (12.2-16.2)
[2024-10-04 11:58] LABS: Potassium 5.3 mmoL/L (3.5-5.1)
[2024-10-04 12:01] LABS: Creatinine,Serum 2.50 mg/dl (0.52-1.04); Estimated Glomerular Filt Rate 18 ml/min (>60); GFR (African American) 22 ML/MIN (>60); Iron 37 ug/dL (37-170)
[2024-10-04 12:10] VITALS: BP 159/86; PULSE 66; RESP 14; TEMP 36.9; O2SAT 100
[2024-10-04] MEDS: EPOETIN 20,000 UNITS/ML MDV 10000 UNIT SUBCUT (12:10)
[2024-10-04 12:38] LABS: Ferritin 10.0 ng/ml (11.1-264)
[2024-10-04 12:40] VITALS: BP 172/84; PULSE 66; RESP 16; TEMP 36.9; O2SAT 99
[2024-10-04 12:50] LABS: Total Iron Binding Capacity 475 ug/dL (265-497)
== END 2024-10-04 12:40 | disposition home or self-care (01) ==
LOC: INF 10:59
PROVIDERS: PCP Family Medicine; Visit Provider Hospitalist
DX: N18.4 Chronic kidney disease, stage 4 (severe) (principal); D63.1 Anemia in chronic kidney disease; D64.9 Anemia, unspecified
CPT/HCPCS: 36415; 82565; 82728; 83540; 83550; 84132; 85014; 85018; 96372; J0885

== ENCOUNTER 2024-10-18 13:00 | Outpatient (CLI) | payer MEDICARE, SELFPAY ==
--- OUTSIDE RECORDS SUMMARY | 2024-10-03 12:15 | XMS_ITS | Encounter Summary ---
Author Organization [facility] Address [address] [place] [address] Care Team Providers Care Platen Drier Operator Name Role Phone Vinnie Molina MD Primary Care Provider + Reason for Visit * Reason Comments Dizziness Fatigue X 1 week Encounter Details Date Type Department Care Team (Late st Contact Info) Description 10/03/2024 12:15 PM EDT Office Visit [facility] [address] [place] [address] Vinnie Molina MD [address] [place] [address] 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); Anemia due to stage 4 chronic kidney disease; Anxiety; Activity intolerance associated with anemia Social History Tobacco Use Types Packs/Day Years [...] Sign Reading Time Taken Comments Blood Pressure 132/64 10/03/2024 11:59 AM EDT Pulse 71 10/03/2024 11:59 AM EDT Temperature 36.6 C (97.8 F) 10/03/2024 11:59 AM EDT Respiratory Rate - - Oxygen Saturation 98% 10/03/2024 11:59 AM EDT Inhaled Oxygen Concentration - - Weight 64.6 kg (142 lb 6.4 oz) 10/03/2024 11:59 AM EDT Height 162.6 cm (5' 4 ) 10/03/2024 11:59 AM EDT Body Mass Index 24.44 10/03/2024 11:59 AM EDT documented in this encounter Progress Notes * Vinnie Molina MD - 10/03/2024 12:15 PM EDT Chief Complaint Patient presents with Dizziness Fatigue X 1 week Subjective Pauline Kay is a 84 y.o. who presents for complaints of dizziness with position changes and activity intolerance. Patient has stage IV CKD. She tells me she is scheduled for an infusion tomorrow at [facility] and I suspect this may be either erythropoietin or iron. She last saw her wire border assembler approximately a month ago. She tells me she does not recall nor did she understand what she was told about her kidneys as she did not see her usual provider. Patient also reports an increase in anxiety. This is a recurring problem for the patient. She has difficulty staying at home and prefers to be outside of the home or in her garage. She postulate someof this is due to her no longer being present. The following portions of the patient's history were reviewed and updated as appropriate: allergies, current medications, past family history, past medical history, past social history, past surgicalhistory, and problem list. Review of Systems Objective Vital Signs: BP 132/64 Pulse 71 Temp 97.8 ??F (36.6 ??C) Ht 162.6 cm (64 ) Wt 64.6 kg (142 lb 6.4 oz) SpO2 98% BMI 24.44 kg/m?? BMI is within normal parameters. No other follow-up for BMI required. Physical Exam Vitals reviewed. Constitutional: Appearance: Normal appearance. HENT: Head: Normocephalic and atraumatic. Right Ear: Tympanic membrane and ear canal normal. Left Ear: Tympanic membrane and ear canal normal. Nose: Nose normal. Mouth/Throat: Mouth: Mucous membranes are moist. Pharynx: Oropharynx is clear. Eyes: Conjunctiva/sclera: Conjunctivae normal. Cardiovascular: Rate and Rhythm: Normal rate and regular rhythm. Heart sounds: Normal heart sounds. No murmur heard. Comments: Orthostatic blood pressures were obtained and systolics did not drop abnormally upon standing Pulmonary: Effort: Pulmonary effort is normal. No respiratory distress. Breath sounds: Normal breath sounds. Musculoskeletal: Cervical back: Normal range of motion and neck supple. No tenderness. Lymphadenopathy: Cervical: No cervical adenopathy. Skin: General: Skin is warm and dry. Neurological: Mental Status: She is alert. Psychiatric: Mood and Affect: Mood normal. Result Review Assessment and Plan Diagnoses and all orders for this visit: 1. CKD stage 4 secondary to hypertension (Primary) 2. Anemia due to stage 4 chronic kidney disease 3. Anxiety Comments: Chronic condition that is worsening. Restart fluoxetine 10 mg daily Orders: - FLUoxetine (PROzac) 10 MG capsule; Take 1 capsule by mouth Daily. Dispense: 30 capsule; Refill: 3 4. Activity intolerance associated with anemia Plan: In addition to the above I believe the patient's symptoms are related to her anemia which is being addressed by her wire border assembler. We will reassess her symptoms at follow-up in December althoughshgeorgette has follow-up with nephrology again in October Follow Up No follow-ups on file. Patient was given instructions and counseling regarding her condition or for health maintenance advice. Please see specific information pulled into the AVS if appropriate. documented in this encounter Plan of Treatment Upcoming Encounters Date Type Department Care Team (Late st Contact Info) Description 01/12/2025 10:45 AM EST Office Visit [facility] [address] [place] [address] Vinnie Molina MD [address] [place] [address] documented as of this encounter Visit Diagnoses Diagnosis CKD stage 4 secondary to hypertension- Primary Anemia due to stage 4 chronic kidney disease Anxiety Anxiety state, unspecified Activity intolerance associated with anemia documented in this encounter Additional Health Concerns Assessment Noted Time PHQ-2 Depression Total Score: 4 08/04/19 24 10:13 AM EDT documented as of this encounter Care Teams Platen Drier Operator Relationship Specialty Start Date End Date Vinnie Molina MD [address] [place] [address] PCP - General Family Medicine 07/08/21 documented as of this encounter
[2024-10-18 13:03] VITALS: BMI 23.5
--- OUTSIDE RECORDS SUMMARY | 2024-10-18 13:05 | XMS_ITS | Encounter Summary ---
Author Organization Healthcare Address [address] [place] [address] Care Team Providers Care Air And Water Tester Name Role Phone Vinnie Molina MD Primary Care Provider Encounter Details Date Type Department Care Team (Late Contact Info) Description 03/27/2020 Orders Only External Location [address] [place] [address] Provider, External Social History Tobacco Use Types [...] [address] [facility], [address] [place] [address] Nacho Jackson MD [address] [place] [address] [address] documented as of this encounter Procedures Procedure [...] on filedocumented in this encounter Care Teams Air And Water Tester Relationship Specialty Start Date End Date Vinnie Molina MD [address] [place] [address] PCP - General 07/13/20 documented as of this encounter
--- OUTSIDE RECORDS SUMMARY | 2024-10-18 13:05 | XMS_ITS | Encounter Summary ---
Author Organization Healthcare Address [address] [place] [address] Care Team Providers Care Record Label Intern Name Role Phone Vinnie Molina MD Primary Care Provider [phone] Encounter Details Date Type Department Care Team ([facility] Contact Info) Description 03/30/2016 Orders Only External Location [address] [place] [address] Provider, External Social History Tobacco Use Types [...] Surgical Specialties [address] [facility], [address] [place] [address] Nacho Jackson MD [address] [place] [phone] documented as of this encounter Procedures Procedure [...] on filedocumented in this encounter Care Teams Record Label Intern Relationship Specialty Start Date End Date Vinnie Molina MD 210 [facility] [place] [place] [address] PCP - General 07/13/20 documented as of this encounter
--- OUTSIDE RECORDS SUMMARY | 2024-10-18 13:05 | XMS_ITS | Encounter Summary ---
Author Organization Healthcare Address [address] [place] [address] Care Team Providers Care Route Process Administrator Name Role Phone Vinnie Molina MD Primary Care Provider [phone] Encounter Details Date Type Department Care Team ([facility] Contact Info) Description 03/30/2016 Orders Only External Location [address] [place] [address] Provider, External Social History Tobacco Use Types [...] Building Surgical Specialties [address] [facility], [address] [place] [address] Nacho Jackson MD [address] [place] [phone] documented as of this encounter Procedures Procedure [...] on filedocumented in this encounter Care Teams Route Process Administrator Relationship Specialty Start Date End Date Vinnie Molina MD 210 [facility] [place] [address] PCP - General 07/13/20 documented as of this encounter
--- OUTSIDE RECORDS SUMMARY | 2024-10-18 13:05 | XMS_ITS | Encounter Summary ---
Author Organization Healthcare Address [address] [place] [address] Care Team Providers Care Chuck Boner Name Role Phone Vinnie Molina MD Primary Care Provider [phone] Encounter Details Date Type Department Care Team ([facility] Contact Info) Description 03/30/2016 Orders Only External Location [address] [place] [address] Provider, External Social History Tobacco Use Types [...] Building Surgical Specialties [address] [facility], [address] [place] [address] Nacho Jackson MD [address] [place] [phone] documented as of this encounter Procedures Procedure [...] on filedocumented in this encounter Care Teams Chuck Boner Relationship Specialty Start Date End Date Vinnie Molina MD [address] [facility] [place] [address] PCP - General 07/13/20 documented as of this encounter
--- OUTSIDE RECORDS SUMMARY | 2024-10-18 13:05 | XMS_ITS | Encounter Summary ---
Author Organization [facility] Address [address] [place] [id number] Care Team Providers Care Sales Operations Coordinator Name Role Phone Vinnie Molina MD Primary Care Provider + Reason for Visit * Reason Comments Med Refill Encounter Details Date Type Department Care Team (Late Contact Info) Description 09/30/2024 Refill [facility] [address] [facility] [place] [address] Vinnie Molina MD 210 [facility] [place] [address] Primary hypertension; Acquired hypothyroidism Social [...] Description 01/12/2025 10:45 AM EST Office Visit [facility] 210 [facility] [place] [address] Vinnie Molina MD [address] [place] [address] documented as of this encounter Visit Diagnoses Diagnosis Primary hypertension Unspecified essential hypertension Acquired hypothyroidism Unspecified hypothyroidism documented in this encounter Additional Health Concerns Assessment Noted Time PHQ-2 Depression Total Score: 4 08/04/19 24 10:13 AM EDT documented as of this encounter Care Teams Sales Operations Coordinator Relationship Specialty Start Date End Date Vinnie Molina MD [address] [place] [address] PCP - General Family Medicine 07/08/21 documented as of this encounter
--- OUTSIDE RECORDS SUMMARY | 2024-10-18 13:05 | XMS_ITS | Clinical Summary ---
Author Organization [facility] Address [address] [place] [address] Care Team Providers Care Marketing Project Specialist Name Role Phone Vinnie Molina MD Primary Care Provider [phone] Allergies No known active allergies Medications amLODIPine [...] (one) time each day. Active HYDROcodone-acet aminophen (Musella) 7.5-325 MG tablet Take 1 tablet (7.5 [...] E [facility], [address] [place] [address] Nacho Jackson MD [address] [address] Health Maintenance Due Date Last Done Comments [facility]-Bone Density Scan 1942 [facility]-Infant/Child/Adol SDOH Screenings 1942 [facility]- SDOH Screenings 1960 [facility]-Adult SDOH Screenings 1960 [facility]-Zoster Vaccines (1 of 2) 1992 [facility]-Pneumococcal Vaccine: 50+ Years (2 of 2 - PCV) 12/04/2016 12/05/2015 [facility]-RSV Vaccine: 60+ Years or (1 - 1-dose 75+ series) 2017 [facility]-DTaP,Tdap,and Td Vaccines (1 - Tdap) 09/27/2021 09/26/2021 ASK-FANGS-41 Vaccine ( - season) 2023 12/30/2022, 12/16/2021, [...] age to complete this topic Insurance [facility] MEDICARE Care Teams Marketing Project Specialist Relationship Specialty Start Date End Date Vinnie Molina MD [address] [place] [place] [address] PCP - General 07/13/20
--- OUTSIDE RECORDS SUMMARY | 2024-10-18 13:05 | XMS_ITS | Encounter Summary ---
Author Organization Healthcare Address [address] [place] [address] Care Team Providers Care Strip Stamp Straightener Name Role Phone Vinnie Molina MD Primary Care Provider [phone] Encounter Details Date Type Department Care Team (Late Contact Info) Description 05/26/2023 Orders Only External Location [address] [place] [address] Provider, External Social History Tobacco Use Types [...] Office Building Surgical Specialties [address] [facility], [address] [place] [address] Nacho Jackson MD [address] [address] documented as of this encounter Procedures Procedure [...] on filedocumented in this encounter Care Teams Strip Stamp Straightener Relationship Specialty Start Date End Date Vinnie Molina MD [address] [place] [address] PCP - General 07/13/20 documented as of this encounter
--- OUTSIDE RECORDS SUMMARY | 2024-10-18 13:05 | XMS_ITS | Clinical Summary ---
Author Organization [facility] Address [address] [place] [address] Care Team Providers Care Dog Handler Name Role Phone Vinnie Molina MD Primary [...] PM EDT Office Visit 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); Anemia due to stage 4 chronic kidney disease; Anxiety; Activity intolerance associated with anemia 10/03/2024 Travel 09/30/2024 Refill [facility] [address] [place] [address] Vinnie Molina MD Primary hypertension; Acquired hypothyroidism 09/01/2024 Refill [facility] [address] [place] [address] Vinnie Molina MD Primary hypertension 08/05/2024 8:45 AM EDT Office Visit [facility] [address] [place] [address] Vinnie Molina MD 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 [address] [facility] [place] [address] Vinnie Molina MD 210 [place] [address] Health Maintenance Due Date Last [...] Date/Time Associated Diagnosis Comments SCANNED - LABS 10/04/2024 SCANNED - LABS 10/04/2024 SCANNED - LABS 08/29/2024 from Last 3 Months Results * LABS SCANNED (10/04/2024) Only the most recent of3 resultswithin the time period is included. Vinnie Molina MD LAB BLOOD ORDERABLES Fin al Result from Last 3 Months Insurance MEDICARE A & B Member Subscriber Plan / Payer (Ef fective 2007-Present) Name:Pauline Kay Member ID:[id number] Relation to Subscriber:Self Name:DmitriyPoornima isabelara Subscriber ID:[id number] Payer ID:[id number] Group ID:Not on file Type:Not on file Address: [facility] [id number] [employer] Member Subscriber Plan / Payer (Ef fective 2021-Present) Name:Pauline Kay Relation to Subscriber:Self Name:Pauilne Kay Payer ID:[id number] Group ID:Not on file Type:MEDICARE SUPPLEMENT Address: [facility] [address] [place] [id number] Care Teams Dog Handler Relationship Specialty Start Date End Date Vinnie Molina MD [address] [place] [address] [place] [address] PCP - General Family Medicine 07/08/21
--- OUTSIDE RECORDS SUMMARY | 2024-10-18 13:05 | XMS_ITS | Encounter Summary ---
Author Organization Healthcare Address [address] [place] [address] Care Team Providers Care Cold Meat Chef Name Role Phone Vinnie Molina MD Primary Care Provider [phone] Encounter Details Date Type Department Care Team (Late Contact Info) Description 05/26/2023 Orders Only External Location [address] [place] [address] Provider, External Social History Tobacco Use Types [...] E [facility] [place] [facility], [address] [place] [address] Nacho Jackson MD [address] [place] [address] [address] documented as of this encounter Procedures Procedure [...] on filedocumented in this encounter Care Teams Cold Meat Chef Relationship Specialty Start Date End Date Vinnie Molina MD [address] [place] [address] PCP - General 07/13/20 documented as of this encounter
--- OUTSIDE RECORDS SUMMARY | 2024-10-18 13:05 | XMS_ITS | Encounter Summary ---
Author Organization Healthcare Address [address] [place] [address] Care Team Providers Care Australian Rules Footballer Name Role Phone Vinnie oMlina MD Primary Care Provider [phone] Encounter Details Date Type Department Care Team (Late Contact Info) Description 05/26/2023 Orders Only External Location [address] [place] [address] Vee Betts, DO [address] [place] [address] Social History Tobacco Use Types [...] Upcoming Encounters Date Type Department Care Team ([facility] Contact Info) Description 02/06/2025 9:20 AM EST Office Visit Medical Office Building Surgical Specialties [address] [facility] [place] [facility], [address] [place] [address] Nacho Jackson MD [address] [phone] documented as of this encounter Procedures Procedure [...] on filedocumented in this encounter Care Teams Australian Rules Footballer Relationship Specialty Start Date End Date Vinnie Molina MD 210 [facility] [place] [address] PCP - General 07/13/20 documented as of this encounter
--- OUTSIDE RECORDS SUMMARY | 2024-10-18 13:05 | XMS_ITS | Encounter Summary ---
Author Organization Healthcare Address [address] [place] [address] Care Team Providers Care Multi Township Assessor Name Role Phone Vinnie Molina MD Primary Care Provider [phone] Encounter Details Date Type Department Care Team (Late Contact Info) Description 03/16/2020 Orders Only External Location [address] [place] [address] Provider, External Social History Tobacco Use Types [...] E [facility] [place] [facility], [address] [place] [address] Nacho Jackson MD [address] [place] [address] [address] documented as of this encounter Procedures Procedure [...] on filedocumented in this encounter Care Teams Multi Township Assessor Relationship Specialty Start Date End Date Vinnie Molina MD [address] [place] [address] PCP - General 07/13/20 documented as of this encounter
--- OUTSIDE RECORDS SUMMARY | 2024-10-18 13:05 | XMS_ITS | Encounter Summary ---
Author Organization Healthcare Address [address] [place] [address] Care Team Providers Care Information Security Officer Name Role Phone Vinnie Molina MD Primary Care Provider [phone] Encounter Details Date Type Department Care Team (Late Contact Info) Description 10/23/2015 Orders Only External Location [address] [place] [address] Provider, External Social History Tobacco Use Types [...] Building Surgical Specialties [address] [facility], [address] [place] [address] Nacho Jackson MD [address] [place] [phone] documented as of this encounter Procedures Procedure [...] on filedocumented in this encounter Care Teams Information Security Officer Relationship Specialty Start Date End Date Vinnie Molina MD 210 [facility] [place] [address] PCP - General 07/13/20 documented as of this encounter
--- OUTSIDE RECORDS SUMMARY | 2024-10-18 13:05 | XMS_ITS | Encounter Summary ---
Author Organization Healthcare Address [address] [place] [address] Care Team Providers Care Pointing Machine Operator Name Role Phone Vinnie Molina MD Primary Care Provider [phone] Encounter Details Date Type Department Care Team ([facility] Contact Info) Description 03/30/2016 Orders Only External Location [address] [place] [address] Provider, External Social History Tobacco Use Types [...] Office Building Surgical Specialties [address] [facility], [address] [place] [address] Nacho Jackson MD [address] [place] [phone] documented as of this encounter Procedures Procedure [...] on filedocumented in this encounter Care Teams Pointing Machine Operator Relationship Specialty Start Date End Date Vinnie Molina MD 210 [facility] [place] [address] PCP - General 07/13/20 documented as of this encounter
--- OUTSIDE RECORDS SUMMARY | 2024-10-18 13:05 | XMS_ITS | Encounter Summary ---
Author Organization Healthcare Address [address] [place] [address] Care Team Providers Care Airport Refueling Handler Name Role Phone Vinnie Molina MD Primary Care Provider [phone] Encounter Details Date Type Department Care Team (Late Contact Info) Description 08/13/2023 Orders Only External Location [address] [place] [address] Provider, External Social History Tobacco Use Types [...] Building Surgical Specialties [address] [facility], [address] [place] [address] Nacho Jackson MD [address] [place] [address] [address] documented as of this encounter Procedures Procedure [...] on filedocumented in this encounter Care Teams Airport Refueling Handler Relationship Specialty Start Date End Date Vinnie Molina MD [address] [place] [address] PCP - General 07/13/20 documented as of this encounter
--- OUTSIDE RECORDS SUMMARY | 2024-10-18 13:05 | XMS_ITS | Encounter Summary ---
Author Organization Healthcare Address [address] [place] [address] Care Team Providers Care Assistant Project Manager Name Role Phone Vinnie oMlina MD Primary Care Provider [phone] Encounter Details Date Type Department Care Team (Late Contact Info) Description 05/26/2023 Orders Only External Location [address] [place] [address] Provider, External Social History Tobacco Use Types [...] Medical Office Building Surgical Specialties [address] [facility], [address] [place] [address] Nacho Jackson MD [address] [place] [address] [address] documented as of this encounter Procedures Procedure [...] on filedocumented in this encounter Care Teams Assistant Project Manager Relationship Specialty Start Date End Date Vinnie Molina MD [address] [place] [address] PCP - General 07/13/20 documented as of this encounter
--- OUTSIDE RECORDS SUMMARY | 2024-10-18 13:05 | XMS_ITS | Clinical Summary ---
Author Organization [employer] ([place], [place], [place], [place]) Address [address] [place] [address] Care Team Providers Care Insurance Solicitor Name Role Phone Unavailable Primary Care Provider [...] Date Norman rded Speak language other than Luxembour[place] at home Not on file 03/20/2023 Want [...] T d or Tdap) 09/27/2031 09/26/[address] [place] [id number] MEDICARE PART A B
--- OUTSIDE RECORDS SUMMARY | 2024-10-18 13:05 | XMS_ITS | Encounter Summary ---
Author Organization [facility] Address [address] [place] [address] Care Team Providers Care Mold Maintenance Technician Name Role Phone Vinnie Molina MD Primary Care Provider + Reason for Visit * Reason Comments Med Refill Encounter Details Date Type Department Care Team (Late st Contact Info) Description 09/01/2024 Refill [facility] 210 [facility] [place] [address] Vinnie Molina MD [address] [place] [address] Primary hypertension Social History Tobacco [...] Description 01/12/2025 10:45 AM EST Office Visit [facility] [address] [place] [address] Vinnie Molina MD 210 [facility] [place] [address] documented as of this encounter Visit Diagnoses Diagnosis Primary hypertension Unspecified essential hypertension documented in this encounter Additional Health Concerns Assessment Noted Time PHQ-2 Depression Total Score: 4 08/04/19 24 10:13 AM EDT documented as of this encounter Care Teams Mold Maintenance Technician Relationship Specialty Start Date End Date Vinnie Molina MD [address] [place] [address] PCP - General Family Medicine 07/08/21 documented as of this encounter
--- OUTSIDE RECORDS SUMMARY | 2024-10-18 13:05 | XMS_ITS | Encounter Summary ---
Author Organization Healthcare Address [address] [place] [address] Care Team Providers Care Metal Reed Tuner Name Role Phone Vinnie Molina MD Primary Care Provider [phone] Encounter Details Date Type Department Care Team ([facility] Contact Info) Description 03/30/2016 Orders Only External Location [address] [place] [address] Provider, External Social History Tobacco Use Types [...] Office Building Surgical Specialties [address] [facility], [address] [place] [address] Nacho Jackson MD [address] [place] [phone] documented as of this encounter Procedures Procedure [...] on filedocumented in this encounter Care Teams Metal Reed Tuner Relationship Specialty Start Date End Date Vinnie Molina MD [address] [facility] [place] [address] PCP - General 07/13/20 documented as of this encounter
--- OUTSIDE RECORDS SUMMARY | 2024-10-18 13:05 | XMS_ITS | Referral Summary ---
Author Organization [employer] ([place], [place] Address [address] [place] [address] Care Team Providers Care Supervisor Tank Cleaning Name Role Phone Unavailable Primary Care Provider [...] Date Norman rded Speak language other than Turk[place] at home Not on file 03/20/2023 Want [...] Plan of Treatment Not on file [place] [phone] MEDICARE PART A B
--- OUTSIDE RECORDS SUMMARY | 2024-10-18 13:05 | XMS_ITS | Encounter Summary ---
Author Organization [facility] Address [address] [place] [address] Care Team Providers Care Residential Monitor Name Role Phone Vinnie Molina MD Primary [...] Description 01/12/2025 10:45 AM EST Office Visit [facility] 210 [facility] [place] [address] Vinnie Molina MD [address] [facility] [address] documented as of this encounter Visit Diagnoses Not on filedocumented in this encounter Additional Health Concerns Assessment Noted Time PHQ-2 Depression Total Score: 4 08/04/19 10:13 AM EDT documented as of this encounter Care Teams Residential Monitor Relationship Specialty Start Date End Date Vinnie Molina MD [address] [place] [address] PCP - General Family Medicine 07/08/21 documented as of this encounter
--- OUTSIDE RECORDS SUMMARY | 2024-10-18 13:05 | XMS_ITS | Encounter Summary ---
Author Organization Healthcare Address [address] [place] [address] Care Team Providers Care Strategic Advisor Name Role Phone Vinnie Molina MD Primary Care Provider [phone] Encounter Details Date Type Department Care Team (Late Contact Info) Description 05/26/2023 Orders Only External Location [address] [place] [address] Vee Betts, DO [address] [place] [address] Social History Tobacco Use Types [...] Upcoming Encounters Date Type Department Care Team ([facility] Contact Info) Description 02/06/2025 9:20 AM EST Office Visit Medical Office Building Surgical Specialties 125 [address] [facility], [address] [place] [address] Nacho Jackson MD [address] [phone] documented as of this encounter Procedures Procedure [...] on filedocumented in this encounter Care Teams Strategic Advisor Relationship Specialty Start Date End Date Vinnie Molina MD 210 [facility] [place] [address] PCP - General 07/13/20 documented as of this encounter
[2024-10-18 13:26] LABS: Hematocrit 23.7 % (37.0-47.0); Hemoglobin 7.2 g/dL (12.2-16.2)
[2024-10-18 13:38] LABS: Creatinine Clearance Estimated 18 mL/min (50-200); Creatinine,Serum 2.40 mg/dl (0.52-1.04); Estimated Glomerular Filt Rate 19 ml/min (>60); GFR (African American) 23 ML/MIN (>60); Potassium 5.6 mmoL/L (3.5-5.1)
[2024-10-18 13:49] VITALS: BP 131/52; PULSE 60; RESP 16; TEMP 36.3; O2SAT 100
[2024-10-18] MEDS: EPOETIN 20,000 UNITS/ML MDV 10000 UNIT SUBCUT (13:49)
== END 2024-10-18 14:00 | disposition home or self-care (01) ==
LOC: INF 13:01
PROVIDERS: PCP Family Medicine; Visit Provider Hospitalist
DX: N18.4 Chronic kidney disease, stage 4 (severe) (principal); D63.1 Anemia in chronic kidney disease; D64.9 Anemia, unspecified
CPT/HCPCS: 36415; 82565; 84132; 85014; 85018; 96372; J0885

== ENCOUNTER 2024-11-01 12:57 | Outpatient (CLI) | payer MEDICARE, SELFPAY ==
--- OUTSIDE RECORDS SUMMARY | 2024-10-03 12:15 | XMS_ITS | Encounter Summary ---
Author Organization [facility] Address [address] [place] [address] Care Team Providers Care Seater Grinder Name Role Phone Vinnie Molina MD Primary Care Provider + Reason for Visit * Reason Comments Dizziness Fatigue X 1 week Encounter Details Date Type Department Care Team (Late st Contact Info) Description 10/03/2024 12:15 PM EDT Office Visit [facility] [address] [place] [address] Vinnie Molina MD [address] [place] [address] CKD stage 4 secondary to [...] is scheduled for an infusion tomorrow at [facility] and I suspect this may be either erythropoietin or iron. She last saw her associate financial planner approximately a month ago. She tells me [...] anemia which is being addressed by her associate financial planner. We will reassess her symptoms at follow-up [...] Description 01/12/2025 10:45 AM EST Office Visit [facility] [address] [phone] Vinnie [...] documented as of this encounter Care Teams Seater Grinder Relationship Specialty Start Date End Date Vinnie Molina MD [address] [place] [address] PCP - General Family Medicine 07/08/21 documented as of this encounter
--- OUTSIDE RECORDS SUMMARY | 2024-11-01 12:59 | XMS_ITS | Encounter Summary ---
Author Organization Healthcare Address [address] [place] [address] Care Team Providers Care Senior Quantity Surveyor Name Role Phone Vinnie Molina MD Primary Care Provider [phone] Encounter Details Date Type Department Care Team ([facility] Contact Info) Description 05/26/2023 Orders Only External Location [address] [place] [address] Vee Betts, DO [address] [place] [address] Social History Tobacco Use Types [...] Upcoming Encounters Date Type Department Care Team ([facility] Contact Info) Description 02/06/2025 9:20 AM EST Office Visit Medical Office Building Surgical Specialties [address] [facility], [address] [place] [address] Nacho Jackson MD [address] [phone] documented as of this encounter Procedures Procedure [...] filedocumented in this encounter Care Teams Senior Quantity Surveyor Relationship Specialty Start Date End Date Vinnie Molina MD 210 [facility] [place] [address] PCP - General 07/13/20 documented as of this encounter
--- OUTSIDE RECORDS SUMMARY | 2024-11-01 12:59 | XMS_ITS | Encounter Summary ---
Author Organization Healthcare Address [address] [place] [address] Care Team Providers Care Bottom Sprayer Name Role Phone Vinnie Molina MD Primary Care Provider [phone] Encounter Details Date Type Department Care Team (Late Contact Info) Description 05/26/2023 Orders Only External Location [address] [place] [address] Provider, External Social History Tobacco Use Types [...] Medical Office Building Surgical Specialties [address] [facility], [address] [place] [address] Nacho Jackson MD [address] [place] [address] [address] documented as of this encounter Procedures Procedure [...] on filedocumented in this encounter Care Teams Bottom Sprayer Relationship Specialty Start Date End Date Vinnie Molina MD [address] [place] [address] PCP - General 07/13/20 documented as of this encounter
--- OUTSIDE RECORDS SUMMARY | 2024-11-01 12:59 | XMS_ITS | Encounter Summary ---
Author Organization Healthcare Address [address] [place] [address] Care Team Providers Care Produce Field Merchandiser Name Role Phone Vinnie Molina MD Primary Care Provider [phone] Encounter Details Date Type Department Care Team (Late Contact Info) Description 08/13/2023 Orders Only External Location [address] [place] [address] Provider, External Social History Tobacco Use Types [...] Medical Office Building Surgical Specialties [address] [facility], [address] [place] [address] Nacho Jackson MD [address] [place] [address] [address] documented as of this encounter Procedures Procedure [...] on filedocumented in this encounter Care Teams Produce Field Merchandiser Relationship Specialty Start Date End Date Vinnie Molina MD [address] [place] [address] PCP - General 07/13/20 documented as of this encounter
--- OUTSIDE RECORDS SUMMARY | 2024-11-01 13:00 | XMS_ITS | Encounter Summary ---
Author Organization Healthcare Address [address] [place] [address] Care Team Providers Care Plate Mill Hand Name Role Phone Vinnie Molina MD Primary Care Provider [phone] Encounter Details Date Type Department Care Team ([facility] Contact Info) Description 03/30/2016 Orders Only External Location [address] [place] [address] Provider, External Social History Tobacco Use Types [...] [facility], [address] [place] [address] Nacho Jackson MD [address] [place] [phone] documented as of this encounter Procedures Procedure [...] on filedocumented in this encounter Care Teams Plate Mill Hand Relationship Specialty Start Date End Date Vinnie Molina MD 210 [facility] [place] [address] PCP - General 07/13/20 documented as of this encounter
--- OUTSIDE RECORDS SUMMARY | 2024-11-01 13:00 | XMS_ITS | Encounter Summary ---
Author Organization [facility] Address [address] [place] [address] Care Team Providers Care Sales Planning Analyst Name Role Phone Vinnie Molina MD [...] EST Office Visit [facility] 210 [facility] [place] [address] Vinnie Molina MD 210 [facility] [place] [address] documented as of this encounter Visit Diagnoses Not on filedocumented in this encounter Additional Health Concerns Assessment Noted Time PHQ-2 Depression Total Score: 4 08/04/19 10:13 AM EDT documented as of this encounter Care Teams Sales Planning Analyst Relationship Specialty Start Date End Date Vinnie Molina MD [address] [place] [address] PCP - General Family Medicine 07/08/21 documented as of this encounter
--- OUTSIDE RECORDS SUMMARY | 2024-11-01 13:00 | XMS_ITS | Encounter Summary ---
Author Organization Healthcare Address [address] [place] [address] Care Team Providers Care Human Factors Engineer Name Role Phone Vinnie Molina MD Primary Care Provider [phone] Encounter Details Date Type Department Care Team ([facility] Contact Info) Description 03/30/2016 Orders Only External Location [address] [place] [address] Provider, External Social History Tobacco Use Types [...] [facility], [address] [place] [address] Nacho Jackson MD [address] [place] [phone] documented as of this encounter Procedures Procedure [...] on filedocumented in this encounter Care Teams Human Factors Engineer Relationship Specialty Start Date End Date Vinnie Molina MD [address] [facility] [place] [place] [address] PCP - General 07/13/20 documented as of this encounter
--- OUTSIDE RECORDS SUMMARY | 2024-11-01 13:00 | XMS_ITS | Encounter Summary ---
Author Organization Healthcare Address [address] [place] [address] Care Team Providers Care Online Project Manager Name Role Phone Vinnie Molina MD Primary Care Provider [phone] Encounter Details Date Type Department Care Team (Late Contact Info) Description 03/16/2020 Orders Only External Location [address] [place] [address] Provider, External Social History Tobacco Use Types [...] Medical Office Building Surgical Specialties [address] [facility], [address] [place] [address] Nahco Jackson MD [address] [place] [address] [address] documented as of this encounter Procedures Procedure [...] on filedocumented in this encounter Care Teams Online Project Manager Relationship Specialty Start Date End Date Vinnie Molina MD [address] [place] [address] PCP - General 07/13/20 documented as of this encounter
--- OUTSIDE RECORDS SUMMARY | 2024-11-01 13:00 | XMS_ITS | Encounter Summary ---
Author Organization Healthcare Address [address] [place] [address] Care Team Providers Care Advertising Sales Associate Name Role Phone Vinnie Molina MD Primary Care Provider [phone] Encounter Details Date Type Department Care Team (Late Contact Info) Description 05/26/2023 Orders Only External Location [address] [place] [address] Provider, External Social History Tobacco Use Types [...] [facility], [address] [place] [address] Nacho Jackson MD [address] [place] [address] [address] documented as of this encounter Procedures Procedure [...] on filedocumented in this encounter Care Teams Advertising Sales Associate Relationship Specialty Start Date End Date Vinnie Molina MD [address] [place] [address] PCP - General 07/13/20 documented as of this encounter
--- OUTSIDE RECORDS SUMMARY | 2024-11-01 13:00 | XMS_ITS | Clinical Summary ---
Author Organization [facility] Address [address] [place] [address] Care Team Providers Care Clinical Quality Analyst Name Role Phone Vinnie Molina MD Primary Care Provider [phone] Allergies No known active allergies Medications amLODIPine [...] (one) time each day. Active HYDROcodone-acet aminophen ([place]) 7.5-325 MG tablet Take 1 tablet (7.5 [...] Office Building Surgical Specialties [address] [facility], [address] [place] [address] Nacho Jackson MD [address] [address] Health Maintenance Due Date Last Done Comments [facility]-Bone Density Scan 1942 [facility]-/Child/Adol SDOH Screenings 1942 [facility]- SDOH Screenings 1960 [facility]-Adult SDOH Screenings 1960 [facility]-Zoster Vaccines (1 of 2) 1992 [facility]-Pneumococcal Vaccine: 50+ Years (2 of 2 - PCV) 12/04/2016 12/05/2015 [facility]-RSV Vaccine: 60+ Years or (1 - 1-dose 75+ series) 2017 [facility]-DTaP,Tdap,and Td Vaccines (1 - Tdap) 09/27/2021 09/26/2021 [id number] Vaccine ( - season) 2023 12/30/2022, 12/16/2021, [...] patient's age to complete this topic Insurance [facility] [place] [address] Care Teams Clinical Quality Analyst Relationship Specialty Start Date End Date Vinnie Molina MD [address] [address] PCP - General 07/13/20
--- OUTSIDE RECORDS SUMMARY | 2024-11-01 13:00 | XMS_ITS | Encounter Summary ---
Author Organization Healthcare Address [address] [place] [address] Care Team Providers Care Collar Turner Name Role Phone Vinnie Molina MD Primary Care Provider [phone] Encounter Details Date Type Department Care Team ([facility] Contact Info) Description 03/30/2016 Orders Only External Location [address] [place] [address] Provider, External Social History Tobacco Use Types [...] E [facility], [address] [place] [address] Nacho Jackson MD [address] [place] [phone] documented as of this encounter Procedures Procedure [...] on filedocumented in this encounter Care Teams Collar Turner Relationship Specialty Start Date End Date Vinnie Molina MD [address] [facility] [place] [address] PCP - General 07/13/20 documented as of this encounter
--- OUTSIDE RECORDS SUMMARY | 2024-11-01 13:00 | XMS_ITS | Encounter Summary ---
Author Organization Healthcare Address [address] [place] [address] Care Team Providers Care Bean Weigher Name Role Phone Vinnie Molina MD Primary Care Provider [phone] Encounter Details Date Type Department Care Team (Late Contact Info) Description 05/26/2023 Orders Only External Location [address] [place] [address] Provider, External Social History Tobacco Use Types [...] [address] [facility], [address] [place] [address] Nacho Jackson MD [address] [place] [address] [address] documented as of this encounter Procedures Procedure [...] on filedocumented in this encounter Care Teams Bean Weigher Relationship Specialty Start Date End Date Vinnie Molina MD [address] [place] [address] PCP - General 07/13/20 documented as of this encounter
--- OUTSIDE RECORDS SUMMARY | 2024-11-01 13:00 | XMS_ITS | Encounter Summary ---
Author Organization Healthcare Address [address] [place] [address] Care Team Providers Care Assembler Tester Name Role Phone Vinnie Molina MD Primary Care Provider [phone] Encounter Details Date Type Department Care Team ([facility] Contact Info) Description 05/26/2023 Orders Only External Location [address] [place] [address] Vee Betts, DO [address] [place] [address] Social History Tobacco Use Types [...] Care Team ([facility] Contact Info) Description 02/06/2025 9:20 AM EST Office Visit Medical Office Building Surgical Specialties [address] [facility], [address] [place] [address] Nacho Jackson MD [address] [phone] documented as of this encounter Procedures Procedure [...] on filedocumented in this encounter Care Teams Assembler Tester Relationship Specialty Start Date End Date Vinnie Molina MD [address] [facility] [place] [address] PCP - General 07/13/20 documented as of this encounter
--- OUTSIDE RECORDS SUMMARY | 2024-11-01 13:00 | XMS_ITS | Encounter Summary ---
Author Organization Healthcare Address [address] [place] [address] Care Team Providers Care Armature Winder Repairer Name Role Phone Vinnie Molina MD Primary Care Provider [phone] Encounter Details Date Type Department Care Team (Late Contact Info) Description 03/27/2020 Orders Only External Location [address] [place] [address] Provider, External Social History Tobacco Use Types [...] [facility], [address] [place] [address] Nacho Jackson MD [address] [place] [address] [address] documented as of this encounter Procedures Procedure Name Priority Date/Time Associated Diagnosis Comments CT OUTSIDE IMAGES 03/27/2020 2:51 PM EST documented in this encounter Results * CT OUTSIDE IMAGES (03/27/2020 2:51 PM EST) Anatomical Region Laterality Modality Computed Tomogra phy 03/27/2020 2:51 PM EST External Provider IMG CT PROCEDURES Final Result documented in this encounter Visit Diagnoses Not on filedocumented in this encounter Care Teams Armature Winder Repairer Relationship Specialty Start Date End Date Vinnie Molina MD [address] [place] [address] PCP - General 07/13/20 documented as of this encounter
--- OUTSIDE RECORDS SUMMARY | 2024-11-01 13:00 | XMS_ITS | Encounter Summary ---
Author Organization [facility] Address [address] [place] [id number] Care Team Providers Care Drilling Rig Operator Name Role Phone Vinnie Molina MD Primary Care Provider + Reason for Visit * Reason Comments Med Refill Encounter Details Date Type Department Care Team (Late Contact Info) Description 09/30/[address] [facility] [address] [facility] [place] [address] Vinnie Molina MD 210 [facility] [place] [address] Primary hypertension; Acquired hypothyroidism Social [...] Description 01/12/2025 10:45 AM EST [address] [facility] 210 [facility] [address] Vinnie Molina MD [address] [place] [address] documented as of this encounter Visit Diagnoses Diagnosis Primary hypertension Unspecified essential hypertension Acquired hypothyroidism Unspecified hypothyroidism documented in this encounter Additional Health Concerns Assessment Noted Time PHQ-2 Depression Total Score: 4 08/04/19 24 10:13 AM EDT documented as of this encounter Care Teams Drilling Rig Operator Relationship Specialty Start Date End Date Vinnie Molina MD [address] [place] [address] PCP - General Family Medicine 07/08/21 documented as of this encounter
--- OUTSIDE RECORDS SUMMARY | 2024-11-01 13:00 | XMS_ITS | Referral Summary ---
Author Organization [employer] ([place], [place], [place], [place]) Address [address] [place] [address] Care Team Providers Care Web Analyst Name Role Phone Unavailable Primary Care Provider [...] Date Norman rded Speak language other than Slovenian at home Not on file 03/20/2023 Want [...] Plan of Treatment Not on [place] [address] [place] [id number] MEDICARE PART A B
--- OUTSIDE RECORDS SUMMARY | 2024-11-01 13:00 | XMS_ITS | Clinical Summary ---
Author Organization [facility] Address [address] [place] [address] Care Team Providers Care High Speed Warper Tender Name Role Phone Vinnie Molina MD Primary Care Provider + Allergies Active Allergy Reactions Criticality Noted Date Comments Adhesive Tape Rash Low 03/22/2020 Codeine Anxiety Low 03/22/2020 Trazodone Delirium Medium 07/08/2021 Medications aspirin 81 MG EC tablet Take 1 tablet by mouth Daily. Active allopurinol (ZYLOPRIM) 100 MG tabletIndications: Stage 3b chronic kidney disease (CKD) Take 1 tablet by mouth Daily. 90 tablet 03/24/19 25 Active HYDROcodone-acetam inophen (NORCO) 7.5-325 MG per tabletIndications: Rheumatoid arthritis involving multiple sites with positive rheumatoid factor Take 1 tablet by mouth Every 6 (Six) Hours As Needed for Moderate Pain. 120 tablet 08/05/19 25 Active Additional Information Patient not taking.Reported on 10/03/2024 pantoprazole (PROTONIX) 40 MG EC tabletIndications: Gastroesophageal reflux disease without esophagitis Take 1 tablet by mouth Daily. 90 tablet 3 08/06/19 25 Active metoprolol succinate XL (TOPROL-XL) 50 MG 24 hr tabletIndications: Primary hypertension Take 1 tablet by mouth 2 (Two) Times a Day. 180 tablet 1 08/06/19 25 Active NIFEdipine XL (PROCARDIA XL) 60 MG 24 hr tabletIndications: Primary hypertension TAKE 1 TABLET BY MOUTH DAILY 90 tablet 1 09/02/19 25 Active lisinopril-hydroch lorothiazide (PRINZIDE,ZESTORET IC) 20-12.5 MG per tabletIndications: Primary hypertension TAKE 1 TABLET BY MOUTH DAILY 90 tablet 1 10/01/19 25 Active levothyroxine (SYNTHROID, LEVOTHROID) 75 MCG tabletIndications: Acquired hypothyroidism TAKE 1 TABLET BY MOUTH DAILY 90 tablet 1 10/01/19 25 Active Dupixent 300 MG/2ML solution auto-injector injection Inject 2 mL under the skin into the appropriate area as directed Every 14 (Fourteen) Days. 09/16/19 25 Active FLUoxetine (PROzac) 10 MG capsuleIndications :Anxiety Take 1 capsule by mouth Daily. 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); Anemia due to stage 4 chronic kidney disease; Anxiety; Activity intolerance associated with anemia 10/03/2024 Travel 09/30/2024 Refill [facility] [address] [address] Vinnie Molina MD Primary hypertension; Acquired hypothyroidism 09/01/2024 Refill [facility] [address] [place] [place], [place] [address] Vinnie Molina MD Primary hypertension 08/05/2024 8:45 AM EDT Office Visit [facility] [address] [place] [place], [place] [address] Vinnie Molina MD 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); Primary hypertension; Acquired hypothyroidism; Gastroesophageal reflux disease without esophagitis; Rheumatoid arthritis involving multiple sites with positive rheumatoid factor 08/05/2024 Travel 08/04/2024 Refill [facility] [address] [place] [address] Vinnie Molina MD Rheumatoid arthritis involving multiple [...] Description 01/12/2025 10:45 AM EST Office Visit [facility] 210 [place] [address] Vinnie Molina MD [address] [place] [address] Health Maintenance Due Date Last Done Comments DXA SCAN 1942 ZOSTER VACCINE (1 of 2) 1992 Pneumococcal Vaccine 50+ (2 of 2 - PCV) 12/04/2016 12/05/2015 RSV Vaccine - Adults (1 - 1- dose 75+ series) 2017 TDAP/TD VACCINES (1 - Tdap) 09/27/2021 09/26/2021 COVID-19 Vaccine (6 - 2023-2 5 season) 2023 12/30/2022, 12/16/2021, 12/06/2020, Additional history exists ANNUAL WELLNESS VISIT 08/03/2024 08/04/2023 INFLUENZA VACCINE 11/30/2024 12/30/2022, , 12/16/2021, Additional history exists Procedures Procedure Name Priority Date/Time Associated Diagnosis Comments SCANNED - LABS 10/18/2024 SCANNED - LABS 10/04/2024 SCANNED - LABS 10/04/2024 SCANNED - LABS 08/29/2024 from Last 3 Months Results * LABS SCANNED (10/18/2024) Only the most recent of4 resultswithin the time period is included. us Vinnie Molina MD LAB BLOOD ORDERABLES Fin al Result from Last 3 Months Insurance MEDICARE A & B Member Subscriber Plan / Payer ( fective 2007-Present) Name:Pauline Kay Member ID:[id number] Relation to Subscriber:Self Name:Pauline Kay Subscriber ID:[id number] Payer ID:[id number] Group ID:Not on file Type:Not on file Address: [id number] [employer] Care Teams High Speed Warper Tender Relationship Specialty Start Date End Date Vinnie Molina MD [address] [place] [address] PCP - General Family Medicine 07/08/21
--- OUTSIDE RECORDS SUMMARY | 2024-11-01 13:00 | XMS_ITS | Encounter Summary ---
Author Organization Healthcare Address [address] [place] [address] Care Team Providers Care Book Jacket Cover Machine Operator Name Role Phone Vinnie Molina MD Primary Care Provider [phone] Encounter Details Date Type Department Care Team ([facility] Contact Info) Description 03/30/2016 Orders Only External Location [address] [place] [address] Provider, External Social History Tobacco Use Types [...] Medical Office Building Surgical Specialties [address] [facility], [address] [place] [address] Nacho Jackson MD [address] [place] [phone] documented as of this encounter Procedures Procedure [...] on filedocumented in this encounter Care Teams Book Jacket Cover Machine Operator Relationship Specialty Start Date End Date Vinnie Molina MD 210 [facility] [place] [address] PCP - General 07/13/20 documented as of this encounter
--- OUTSIDE RECORDS SUMMARY | 2024-11-01 13:00 | XMS_ITS | Encounter Summary ---
Author Organization Healthcare Address [address] [place] [address] Care Team Providers Care Mother Repairer Name Role Phone Vinnie Molina MD Primary Care Provider [phone] Encounter Details Date Type Department Care Team (Late Contact Info) Description 10/23/2015 Orders Only External Location [address] [place] [address] Provider, External Social History Tobacco Use Types [...] Office Building Surgical Specialties [address] [facility], [address] [place] [address] Nacho Jackson MD [address] [place] [phone] documented as of this encounter Procedures Procedure [...] on filedocumented in this encounter Care Teams Mother Repairer Relationship Specialty Start Date End Date Vinnie Molina MD 210 [facility] [place] [address] PCP - General 07/13/20 documented as of this encounter
--- OUTSIDE RECORDS SUMMARY | 2024-11-01 13:00 | XMS_ITS | Encounter Summary ---
Author Organization Healthcare Address [address] [place] [address] Care Team Providers Care Substance Addiction Coordinator Name Role Phone Vinnie Molina MD Primary Care Provider [phone] Encounter Details Date Type Department Care Team ([facility] Contact Info) Description 03/30/2016 Orders Only External Location [address] [place] [address] Provider, External Social History Tobacco Use Types [...] Building Surgical Specialties [address] [facility], [address] [place] [address] Nacho Jackson MD [address] [place] [phone] documented as of this encounter Procedures Procedure [...] on filedocumented in this encounter Care Teams Substance Addiction Coordinator Relationship Specialty Start Date End Date Vinnie Molina MD 210 [facility] [place] [address] PCP - General 07/13/20 documented as of this encounter
--- OUTSIDE RECORDS SUMMARY | 2024-11-01 13:00 | XMS_ITS | Clinical Summary ---
Author Organization [employer] ([place], [place], [place], [place]) Address [address] [place] [address] Care Team Providers Care Electrical Tests Supervisor Name Role Phone Unavailable Primary Care Provider [...] Date Norman rded Speak language other than Northern Irish at home Not on file 03/20/2023 Want [...] T d or Tdap) 09/27/2031 09/26/[address] [place] [place] [phone] MEDICARE PART A B
--- NOTE | 2024-11-01 13:02 | PC.NURSE ---
Pt presents for labs and procrit inj. Venipuncture performed using butterfly access needle x 1 stick to pt's lt ac per Savannah Brunner RN. Specimens sent to lab for analysis. Will monitor results to determine if procrit is needed.
[2024-11-01 13:10] LABS: Hematocrit 21.6 % (37.0-47.0)
[2024-11-01 13:11] LABS: Hemoglobin 6.6 g/dL (12.2-16.2)
[2024-11-01 13:20] LABS: Potassium 5.2 mmoL/L (3.5-5.1)
[2024-11-01 13:23] LABS: Creatinine,Serum 2.10 mg/dl (0.52-1.04); Estimated Glomerular Filt Rate 23 ml/min (>60); GFR (African American) 27 ML/MIN (>60); Iron 31 ug/dL (37-170)
[2024-11-01] MEDS: EPOETIN 20,000 UNITS/ML MDV 10000 UNIT SUBCUT (13:29)
[2024-11-01 13:33] LABS: Total Iron Binding Capacity 447 ug/dL (265-497)
[2024-11-01 13:40] VITALS: BP 128/67; PULSE 66; RESP 18; O2SAT 97
[2024-11-01 13:58] LABS: Ferritin 8.66 ng/ml (11.1-264)
== END 2024-11-01 13:45 | disposition home or self-care (01) ==
LOC: INF 12:58
PROVIDERS: PCP Family Medicine; Visit Provider Hospitalist
DX: N18.4 Chronic kidney disease, stage 4 (severe) (principal); D63.1 Anemia in chronic kidney disease
CPT/HCPCS: 36415; 82565; 82728; 83540; 83550; 84132; 85014; 85018; 86850; 96372; J0885

== ENCOUNTER 2024-11-02 09:02 | Outpatient (CLI) | payer MEDICARE, SELFPAY ==
--- OUTSIDE RECORDS SUMMARY | 2024-10-03 12:15 | XMS_ITS | Encounter Summary ---
Author Organization [facility] Address [address] [place] [address] Care Team Providers Care School Bus Driver Name Role Phone Vinnie Molina MD Primary Care Provider + Reason for Visit * Reason Comments Dizziness Fatigue X 1 week Encounter Details Date Type Department Care Team (Late st Contact Info) Description 10/03/2024 12:15 PM EDT Office Visit [facility] [address] [place] [address] Vinnie Molina MD [address] [place] [address] CKD stage 4 secondary to [...] is scheduled for an infusion tomorrow at [facility] and I suspect this may be either erythropoietin or iron. She last saw her cattle feeder approximately a month ago. She tells me [...] anemia which is being addressed by her cattle feeder. We will reassess her symptoms at follow-up [...] Description 01/12/2025 10:45 AM EST Office Visit [facility] [address] [place] [address] Vinnie [...] documented as of this encounter Care Teams School Bus Driver Relationship Specialty Start Date End Date Vinnie Molina MD [address] [place] [address] PCP - General Family Medicine 07/08/21 documented as of this encounter
[2024-11-02] VITALS (10 sets, daily range): BP systolic 127–137; BP diastolic 53–62; PULSE 53–59; RESP 18–19; TEMP 36.4–36.7; O2SAT 97–100
[2024-11-02] MEDS: 0.9 % SODIUM CHLORIDE 250 ML 25 ML IV (09:20)
--- OUTSIDE RECORDS SUMMARY | 2024-11-02 09:23 | XMS_ITS | Encounter Summary ---
Author Organization Healthcare Address [address] [place] [address] Care Team Providers Care Shrub Grower Name Role Phone Vinnie Molina MD Primary Care Provider [phone] Encounter Details Date Type Department Care Team ([facility] Contact Info) Description 03/30/2016 Orders Only External Location [address] [place] [address] Provider, External Social History Tobacco Use Types [...] Medical Office Building Surgical Specialties [address] [facility], [address] [place] [address] Nacho Jackson MD [address] [place] [phone] documented as of this encounter Procedures Procedure [...] on filedocumented in this encounter Care Teams Shrub Grower Relationship Specialty Start Date End Date Vinnie Molina MD 210 [facility] [place] [address] PCP - General 07/13/20 documented as of this encounter
--- OUTSIDE RECORDS SUMMARY | 2024-11-02 09:23 | XMS_ITS | Encounter Summary ---
Author Organization Healthcare Address [address] [place] [address] Care Team Providers Care Oil Pipe Inspector Name Role Phone Vinnie Molina MD Primary Care Provider [phone] Encounter Details Date Type Department Care Team ([facility] Contact Info) Description 03/30/2016 Orders Only External Location [address] [place] [address] Provider, External Social History Tobacco Use Types [...] E [facility], [address] [place] [address] Nacho Jackson MD [address] [place] [phone] documented as of this encounter Procedures Procedure [...] on filedocumented in this encounter Care Teams Oil Pipe Inspector Relationship Specialty Start Date End Date Vinnie Molina MD 210 [facility] [place] [address] PCP - General 07/13/20 documented as of this encounter
--- OUTSIDE RECORDS SUMMARY | 2024-11-02 09:23 | XMS_ITS | Encounter Summary ---
Author Organization Healthcare Address [address] [place] [address] Care Team Providers Care Turntable Engineer Name Role Phone Vinnie Molina MD Primary Care Provider [phone] Encounter Details Date Type Department Care Team (Late Contact Info) Description 05/26/2023 Orders Only External Location [address] [place] [address] Provider, External Social History Tobacco Use Types [...] Building Surgical Specialties [address] [facility], [address] [place] [address] Nacho Jackson MD [address] [address] documented as of this encounter Procedures Procedure [...] on filedocumented in this encounter Care Teams Turntable Engineer Relationship Specialty Start Date End Date Vinnie Molina MD [address] [place] [address] PCP - General 07/13/20 documented as of this encounter
--- OUTSIDE RECORDS SUMMARY | 2024-11-02 09:23 | XMS_ITS | Encounter Summary ---
Author Organization Healthcare Address [address] [place] [address] Care Team Providers Care Weeder Name Role Phone Vinnie Molina MD Primary Care Provider [phone] Encounter Details Date Type Department Care Team ([facility] Contact Info) Description 03/30/2016 Orders Only External Location [address] [place] [address] Provider, External Social History Tobacco Use Types [...] Office Building Surgical Specialties [address] [facility], [address] [place] [address] Nacho Jackson MD [address] [place] [phone] documented as of this encounter Procedures Procedure [...] on filedocumented in this encounter Care Teams Weeder Relationship Specialty Start Date End Date Vinnie Molina MD [address] [facility] [place] [place] [address] PCP - General 07/13/20 documented as of this encounter
--- OUTSIDE RECORDS SUMMARY | 2024-11-02 09:23 | XMS_ITS | Clinical Summary ---
Author Organization [employer] ([place], [place], [place], [place]) Address [address] [place] [address] Care Team Providers Care Concrete Block Maker Name Role Phone Unavailable Primary Care Provider [...] Date Norman rded Speak language other than Uruguayan at home Not on file 03/20/2023 Want [...] T d or Tdap) 09/27/2031 09/26/[address] [place] [phone] MEDICARE PART A B
--- OUTSIDE RECORDS SUMMARY | 2024-11-02 09:23 | XMS_ITS | Encounter Summary ---
Author Organization [facility] Address [address] [place] [id number] Care Team Providers Care Net Software Engineer Name Role Phone Vinnie Molina MD Primary Care Provider + Reason for Visit * Reason Comments Med Refill Encounter Details Date Type Department Care Team (Late Contact Info) Description 09/30/2024 Refill [facility] [address] [facility] [place] [address] Vinnie Molina MD 210 [facility] [place] [address] Primary hypertension; Acquired hypothyroidism Social [...] Description 01/12/2025 10:45 AM EST Office Visit [facility] [address] [facility] [place] [address] Vinnie Molina MD [address] [place] [address] documented as of this encounter Visit Diagnoses Diagnosis Primary hypertension Unspecified essential hypertension Acquired hypothyroidism Unspecified hypothyroidism documented in this encounter Additional Health Concerns Assessment Noted Time PHQ-2 Depression Total Score: 4 08/04/19 24 10:13 AM EDT documented as of this encounter Care Teams Net Software Engineer Relationship Specialty Start Date End Date Vinnie Molina MD [address] [place] [address] PCP - General Family Medicine 07/08/21 documented as of this encounter
--- OUTSIDE RECORDS SUMMARY | 2024-11-02 09:23 | XMS_ITS | Clinical Summary ---
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 [address] Vinnie Molina MD Primary hypertension 08/05/2024 8:45 AM EDT Office Visit [facility] [address] 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 [address] Health Maintenance Due Date Last Done [...] Payer ( fective 2007-Present) Name:Pauline Kay Member ID:[id number] Relation to Subscriber:Self Name:Pauline Kay Subscriber ID:[id number] Payer ID:[id number] Group ID:Not on file Type:Not on file Address: [id number] [employer] Care Teams Breast Trimmer Relationship Specialty Start Date End Date Vinnie Molina MD [address] [place] [address] PCP - General Family Medicine 07/08/21
--- OUTSIDE RECORDS SUMMARY | 2024-11-02 09:23 | XMS_ITS | Encounter Summary ---
Author Organization Healthcare Address [address] [place] [address] Care Team Providers Care House Fellow Name Role Phone Vinnie Molina MD Primary Care Provider [phone] Encounter Details Date Type Department Care Team (Late Contact Info) Description 05/26/2023 Orders Only External Location [address] [place] [address] Provider, External Social History Tobacco Use Types [...] [address] [facility], [address] [place] [address] Nacho Jackson MD [address] [place] [address] [address] documented as of this encounter Procedures Procedure [...] on filedocumented in this encounter Care Teams House Fellow Relationship Specialty Start Date End Date Vinnie Molina MD [address] [place] [address] PCP - General 07/13/20 documented as of this encounter
--- OUTSIDE RECORDS SUMMARY | 2024-11-02 09:23 | XMS_ITS | Encounter Summary ---
Author Organization Healthcare Address [address] [place] [address] Care Team Providers Care Darkroom Technician Name Role Phone Vinnie Molina MD Primary Care Provider [phone] Encounter Details Date Type Department Care Team ([facility] Contact Info) Description 03/30/2016 Orders Only External Location [address] [place] [address] Provider, External Social History Tobacco Use Types [...] Medical Office Building Surgical Specialties [address] [facility], [address] [place] [address] Nacho Jackson MD [address] [place] [phone] documented as of this encounter Procedures Procedure [...] on filedocumented in this encounter Care Teams Darkroom Technician Relationship Specialty Start Date End Date Vinnie Molina MD [address] [facility] [place] [address] PCP - General 07/13/20 documented as of this encounter
--- OUTSIDE RECORDS SUMMARY | 2024-11-02 09:23 | XMS_ITS | Encounter Summary ---
Author Organization Healthcare Address [address] [place] [address] Care Team Providers Care Maintenance Mechanic Elevators Name Role Phone Vinnie Molina MD Primary Care Provider [phone] Encounter Details Date Type Department Care Team (Late Contact Info) Description 05/26/2023 Orders Only External Location [address] [place] [address] Provider, External Social History Tobacco Use Types [...] [facility], [address] [place] [address] Nacho Jackson MD [address] [address] documented as of this encounter Procedures Procedure [...] on filedocumented in this encounter Care Teams Maintenance Mechanic Elevators Relationship Specialty Start Date End Date Vinnie Molina MD [address] [place] [address] PCP - General 07/13/20 documented as of this encounter
--- OUTSIDE RECORDS SUMMARY | 2024-11-02 09:23 | XMS_ITS | Referral Summary ---
Author Organization [facility] ([place], [place], [place], [place]) Address [address] [place] [address] Care Team Providers Care Director Day Care Center Name Role Phone Unavailable Primary Care Provider [...] on file 03/20 Educational Attainment Answer Date Nomran rded Speak language other than Tong[place] at home Not on file 03/20/2023 Want [...] Plan of Treatment Not on file Insurance [place] [id number] MEDICARE PART A B
--- OUTSIDE RECORDS SUMMARY | 2024-11-02 09:23 | XMS_ITS | Encounter Summary ---
Author Organization [facility] Address [address] [place] [address] Care Team Providers Care Bowling Alley Refinisher Name Role Phone Vinnie Molina MD Primary [...] Description 01/12/2025 10:45 AM EST Office Visit [facility] [address] [place] [address] Vinnie Molina MD [address] [facility] [place] [address] documented as of this encounter Visit Diagnoses Not on filedocumented in this encounter Additional Health Concerns Assessment Noted Time PHQ-2 Depression Total Score: 4 08/04/19 10:13 AM EDT documented as of this encounter Care Teams Bowling Alley Refinisher Relationship Specialty Start Date End Date Vinnie Molina MD [address] [place] [address] PCP - General Family Medicine 07/08/21 documented as of this encounter
--- OUTSIDE RECORDS SUMMARY | 2024-11-02 09:23 | XMS_ITS | Clinical Summary ---
Author Organization [facility] Address [address] [place] [address] Care Team Providers Care Land Degradation Analyst Name Role Phone Vinnie Molina MD Primary Care Provider [phone] Allergies No known active allergies Medications amLODIPine [...] (one) time each day. Active HYDROcodone-acet aminophen ([place]) 7.5-325 MG tablet Take 1 tablet (7.5 [...] Surgical Specialties [address] [facility], [address] [place] [address] Nacho Jackson MD [address] [address] Health Maintenance Due Date Last Done Comments [facility]-Bone Density Scan 1942 [facility]-/Child/Adol SDOH Screenings 1942 [facility]- SDOH Screenings 1960 [facility]-Adult SDOH Screenings 1960 [facility]-Zoster Vaccines (1 of 2) 1992 [facility]-Pneumococcal Vaccine: 50+ Years (2 of 2 - PCV) 12/04/2016 12/05/2015 [facility]-RSV Vaccine: 60+ Years or (1 - 1-dose 75+ series) 2017 [facility]-DTaP,Tdap,and Td Vaccines (1 - Tdap) 09/27/2021 09/26/2021 TAS-[id number]-48 Vaccine ( - season) 2023 12/30/2022, 12/16/2021, [...] patient's age to complete this topic Insurance [facility] [phone] Care Teams Land Degradation Analyst Relationship Specialty Start Date End Date Vinnie Molina MD [address] [address] PCP - General 07/13/20
--- OUTSIDE RECORDS SUMMARY | 2024-11-02 09:23 | XMS_ITS | Encounter Summary ---
Author Organization [facility] Address [address] [place] [address] Care Team Providers Care Unit Reactor Operator Name Role Phone Vinnie Molina MD Primary Care Provider [phone] Encounter Details Date Type Department Care Team (Late Contact Info) Description 03/16/2020 Orders Only External Location [address] [place] [address] Provider, External Social History Tobacco Use Types [...] Medical Office Building Surgical Specialties [address] [facility], [address] [place] [address] Nacho Jackson MD [address] [place] [address] [address] documented as of this encounter Procedures Procedure [...] on filedocumented in this encounter Care Teams Unit Reactor Operator Relationship Specialty Start Date End Date Vinnie Mloina MD [address] [place] [address] PCP - General 07/13/20 documented as of this encounter
--- OUTSIDE RECORDS SUMMARY | 2024-11-02 09:23 | XMS_ITS | Encounter Summary ---
Author Organization Healthcare Address [address] [place] [address] Care Team Providers Care Commissioning Specialist Name Role Phone Vinnie Molina MD Primary Care Provider Encounter Details Date Type Department Care Team (Late Contact Info) Description 03/27/2020 Orders Only External Location [address] [place] [address] Provider, External Social History Tobacco Use Types [...] Medical Office Building Surgical Specialties [address] [facility], [address] [place] [address] Nacho Jackson MD [address] [place] [address] [address] documented as of this encounter Procedures Procedure [...] on filedocumented in this encounter Care Teams Commissioning Specialist Relationship Specialty Start Date End Date Vinnie Molina MD [address] [place] [address] PCP - General 07/13/20 documented as of this encounter
--- OUTSIDE RECORDS SUMMARY | 2024-11-02 09:23 | XMS_ITS | Encounter Summary ---
Author Organization Healthcare Address [address] [place] [address] Care Team Providers Care Inspector Fabric Name Role Phone Vinnie Molina MD Primary Care Provider [phone] Encounter Details Date Type Department Care Team (Late Contact Info) Description 05/26/2023 Orders Only External Location [address] [place] [address] Vee Betts, DO [address] [place] [address] Social History Tobacco Use Types [...] Upcoming Encounters Date Type Department Care Team ([facility] Contact Info) Description 02/06/2025 9:20 AM EST Office Visit Medical Office Building Surgical Specialties [address] [facility], [address] [place] [address] Nacho Jackson MD [address] [phone] documented as of this encounter Procedures Procedure [...] on filedocumented in this encounter Care Teams Inspector Fabric Relationship Specialty Start Date End Date Vinnie Molina MD [address] [facility] [place] [address] PCP - General 07/13/20 documented as of this encounter
--- OUTSIDE RECORDS SUMMARY | 2024-11-02 09:23 | XMS_ITS | Encounter Summary ---
Author Organization Healthcare Address [address] [place] [address] Care Team Providers Care Roguer Name Role Phone Vinnie Molina MD Primary Care Provider Encounter Details Date Type Department Care Team (Late Contact Info) Description 05/26/2023 Orders Only External Location [address] [place] [address] Vee Betts, DO [address] [place] [address] Social History Tobacco Use Types [...] Upcoming Encounters Date Type Department Care Team ([facility] Contact Info) Description 02/06/2025 9:20 AM EST Office Visit Medical Office Building Surgical Specialties [address] [facility], [address] [place] [address] Nacho Jackson MD [address] [phone] documented as of this encounter Procedures Procedure [...] on filedocumented in this encounter Care Teams Roguer Relationship Specialty Start Date End Date Vinnie Molina MD [address] [facility] [place] [address] PCP - General 07/13/20 documented as of this encounter
--- OUTSIDE RECORDS SUMMARY | 2024-11-02 09:23 | XMS_ITS | Encounter Summary ---
Author Organization Healthcare Address [address] [place] [address] Care Team Providers Care Ventilating Engineer Name Role Phone Vinnie Molina MD Primary Care Provider [phone] Encounter Details Date Type Department Care Team ([facility] Contact Info) Description 03/30/2016 Orders Only External Location [address] [place] [address] Provider, External Social History Tobacco Use Types [...] [facility], [address] [place] [address] Nacho Jackson MD [address] [place] [phone] documented as of this encounter Procedures Procedure [...] on filedocumented in this encounter Care Teams Ventilating Engineer Relationship Specialty Start Date End Date Vinnie Molina MD [address] [facility] [place] [address] PCP - General 07/13/20 documented as of this encounter
--- OUTSIDE RECORDS SUMMARY | 2024-11-02 09:23 | XMS_ITS | Encounter Summary ---
Author Organization Healthcare Address [address] [place] [address] Care Team Providers Care Associate Designer Name Role Phone Vinnie Molina MD Primary Care Provider [phone] Encounter Details Date Type Department Care Team (Late Contact Info) Description 08/13/2023 Orders Only External Location [address] [place] [address] Provider, External Social History Tobacco Use Types [...] Medical Office Building Surgical Specialties [address] [facility], [address] [place] [address] Nacho Jackson MD [address] [place] [address] [address] documented as of this encounter Procedures Procedure [...] filedocumented in this encounter Care Teams Associate Designer Relationship Specialty Start Date End Date Vinnie Molina MD [address] [place] [address] PCP - General 07/13/20 documented as of this encounter
--- OUTSIDE RECORDS SUMMARY | 2024-11-02 09:23 | XMS_ITS | Encounter Summary ---
Author Organization Healthcare Address [address] [place] [address] Care Team Providers Care Printing Machinist Name Role Phone Vinnie Molina MD Primary Care Provider [phone] Encounter Details Date Type Department Care Team (Late Contact Info) Description 10/23/2015 Orders Only External Location [address] [place] [address] Provider, External Social History Tobacco Use Types [...] Building Surgical Specialties [address] [facility], [address] [place] [address] Nacho Jackson MD [address] [place] [phone] documented as of this encounter Procedures Procedure [...] on filedocumented in this encounter Care Teams Printing Machinist Relationship Specialty Start Date End Date Vinnie Molina MD [address] [facility] [place] [address] PCP - General 07/13/20 documented as of this encounter
== END 2024-11-02 23:59 | disposition home or self-care (01) ==
LOC: INF 09:03
PROVIDERS: PCP Family Medicine; Visit Provider Internal Medicine Nephrology
DX: N18.4 Chronic kidney disease, stage 4 (severe) (principal); D63.1 Anemia in chronic kidney disease
CPT/HCPCS: 36430; J7050; P9016

== ENCOUNTER 2024-11-15 12:59 | Outpatient (CLI) | payer MEDICARE, SELFPAY ==
--- OUTSIDE RECORDS SUMMARY | 2024-10-03 12:15 | XMS_ITS | Encounter Summary ---
Author Organization [facility] Address [address] [place] [address] Care Team Providers Care Automotive Project Engineer Name Role Phone Vinnie Molina MD Primary Care Provider + Reason for Visit * Reason Comments Dizziness Fatigue X 1 week Encounter Details Date Type Department Care Team (Late st Contact Info) Description 10/03/2024 12:15 PM EDT Office Visit [facility] [address] [place] [address] Vinnie Molina MD [address] [place] [address] CKD stage 4 secondary to [...] is scheduled for an infusion tomorrow at [facility] and I suspect this may be either erythropoietin or iron. She last saw her ends down checker approximately a month ago. She tells me [...] anemia which is being addressed by her ends down checker. We will reassess her symptoms at follow-up [...] Description 01/12/2025 10:45 AM EST Office Visit [facility] [address] [place] [address] Vinnie [...] documented as of this encounter Care Teams Automotive Project Engineer Relationship Specialty Start Date End Date Vinnie Molina MD [address] [place] [address] PCP - General Family Medicine 07/08/21 documented as of this encounter
--- OUTSIDE RECORDS SUMMARY | 2024-11-15 13:05 | XMS_ITS | Encounter Summary ---
Author Organization Healthcare Address [address] [place] [address] Care Team Providers Care Pawn Shop Keeper Name Role Phone Vinnie Molina MD Primary Care Provider [phone] Encounter Details Date Type Department Care Team ([facility] Contact Info) Description 05/26/2023 Orders Only External Location [address] [place] [address] Vee Betts, DO [address] [place] [address] Social History Tobacco Use Types [...] Upcoming Encounters Date Type Department Care Team ([facility] Contact Info) Description 02/06/2025 9:20 AM EST Office Visit Medical Office Building Surgical Specialties [address] [facility], [address] [place] [address] Nacho Jackson MD [address] [phone] documented as of this encounter Procedures Procedure [...] on filedocumented in this encounter Care Teams Pawn Shop Keeper Relationship Specialty Start Date End Date Vinnie Molina MD [address] [facility] [place] [address] PCP - General 07/13/20 documented as of this encounter
--- OUTSIDE RECORDS SUMMARY | 2024-11-15 13:05 | XMS_ITS | Encounter Summary ---
Author Organization Healthcare Address [address] [place] [address] Care Team Providers Care Accounts Manager Name Role Phone Vinnie Molina MD Primary Care Provider [phone] Encounter Details Date Type Department Care Team (Late Contact Info) Description 05/26/2023 Orders Only External Location [address] [place] [address] Provider, External Social History Tobacco Use Types [...] Office Building Surgical Specialties [address] [facility], [address] [place] [address] Nacho Jackson MD [address] [place] [address] [address] documented as of this encounter Procedures Procedure [...] on filedocumented in this encounter Care Teams Accounts Manager Relationship Specialty Start Date End Date Vinnie Molina MD [address] [place] [address] PCP - General 07/13/20 documented as of this encounter
--- OUTSIDE RECORDS SUMMARY | 2024-11-15 13:05 | XMS_ITS | Encounter Summary ---
Author Organization Healthcare Address [address] [place] [address] Care Team Providers Care Wood Floor Layer Name Role Phone Vinnie Molina MD Primary Care Provider [phone] Encounter Details Date Type Department Care Team ([facility] Contact Info) Description 03/30/2016 Orders Only External Location [address] [place] [address] Provider, External Social History Tobacco Use Types [...] Building Surgical Specialties [address] [facility], [address] [place] [address] Nacho Jackson MD [address] [place] [phone] documented as of this encounter Procedures Procedure [...] on filedocumented in this encounter Care Teams Wood Floor Layer Relationship Specialty Start Date End Date Vinnie Molina MD [address] [facility] [place] [address] PCP - General 07/13/20 documented as of this encounter
--- OUTSIDE RECORDS SUMMARY | 2024-11-15 13:05 | XMS_ITS | Encounter Summary ---
Author Organization Healthcare Address [address] [place] [address] Care Team Providers Care Handle Bar Assembler Name Role Phone Vinnie Molina MD Primary Care Provider [phone] Encounter Details Date Type Department Care Team (Late Contact Info) Description 05/26/2023 Orders Only External Location [address] [place] [address] Provider, External Social History Tobacco Use Types [...] [facility], [address] [place] [address] Nacho Jackson MD [address] [place] [address] [address] documented as of this encounter Procedures Procedure [...] on filedocumented in this encounter Care Teams Handle Bar Assembler Relationship Specialty Start Date End Date Vinnie Molina MD [address] [place] [address] PCP - General 07/13/20 documented as of this encounter
--- OUTSIDE RECORDS SUMMARY | 2024-11-15 13:05 | XMS_ITS | Encounter Summary ---
Author Organization Healthcare Address [address] [place] [address] Care Team Providers Care Pastry Mixer Name Role Phone Vinnei Molina MD Primary Care Provider [phone] Encounter Details Date Type Department Care Team ([facility] Contact Info) Description 03/30/2016 Orders Only External Location [address] [place] [address] Provider, External Social History Tobacco Use Types [...] Office Building Surgical Specialties [address] [facility], [address] [place] [address] Nacho Jackson MD [address] [place] [phone] documented as of this encounter Procedures Procedure [...] on filedocumented in this encounter Care Teams Pastry Mixer Relationship Specialty Start Date End Date Vinnie Molina MD [address] [facility] [place] [address] PCP - General 07/13/20 documented as of this encounter
--- OUTSIDE RECORDS SUMMARY | 2024-11-15 13:05 | XMS_ITS | Encounter Summary ---
Author Organization Healthcare Address [address] [place] [address] Care Team Providers Care High School Guidance Counselor Name Role Phone Vinnie Molina MD Primary Care Provider [phone] Encounter Details Date Type Department Care Team (Late Contact Info) Description 08/13/2023 Orders Only External Location [address] [place] [address] Provider, External Social History Tobacco Use Types [...] [facility], [address] [place] [address] Nacho Jackson MD [address] [place] [address] [address] documented as of this encounter Procedures Procedure [...] on filedocumented in this encounter Care Teams High School Guidance Counselor Relationship Specialty Start Date End Date Vinnie Molina MD [address] [place] [address] PCP - General 07/13/20 documented as of this encounter
--- OUTSIDE RECORDS SUMMARY | 2024-11-15 13:06 | XMS_ITS | Encounter Summary ---
Author Organization Healthcare Address [address] [place] [address] Care Team Providers Care Assistant Sales Manager Name Role Phone Vinnie Molina MD Primary Care Provider [phone] Encounter Details Date Type Department Care Team ([facility] Contact Info) Description 03/30/2016 Orders Only External Location [address] [place] [address] Provider, External Social History Tobacco Use Types [...] Specialties [address] [facility], [address] [place] [address] Nacho Jackson MD [address] [place] [phone] documented as of this encounter Procedures Procedure [...] filedocumented in this encounter Care Teams Assistant Sales Manager Relationship Specialty Start Date End Date Vinnie Molina MD [address] [facility] [place] [address] PCP - General 07/13/20 documented as of this encounter
--- OUTSIDE RECORDS SUMMARY | 2024-11-15 13:06 | XMS_ITS | Encounter Summary ---
Author Organization [facility] Address [address] [place] [address] Care Team Providers Care Wiring Inspector Name Role Phone Vinnie Molina MD Primary Care Provider + Reason for Visit * Reason Onset Date Comments Med Refill 11/03/2024 BILLING QUESTION 11/03/2024 Encounter Details Date Type Department Care Team (Late st Contact Info) Description 11/03/2024 Refill [facility] [address] [place] [address] Vinnie Molina MD [address] [place] [address] Rheumatoid arthritis involving multiple sites [...] encounter Miscellaneous Notes * Telephone Encounter - Janeth Cortes RegSched Rep - 11/03/2024 9:20 AM EDT PT HAD BEEN TRANSFERRED TO THE OFFICE TO DISCUSS THE BALANCE THAT IS OWED ON HER ACCOUNT. SHE HAS REQUESTED A BILL BE SENT TO HER. SHE WAS ALSO ADVISED THAT SHE COULD CALL THE BILLING NUMBER ON HER STATEMENT IF SHE HAS FURTHER QUESTIONS. * Telephone Encounter - Maryana Drake RegSched Rep - 11/03/2024 9:09 AM EDT Caller: Pauline Kay Relationship: Self Best call back number: [phone] Requested Prescriptions: Requested Prescriptions Pending Prescriptions Disp Refills HYDROcodone-acetaminophen (NORCO) 7.5-325 MG per tablet 120 tablet 0 Sig: Take 1 tablet by mouth Every 6 (Six) Hours As Needed for Moderate Pain. Pharmacy where request should be sent: [id number] - [place], [place] - [address] AT [address] - [phone] [facility] [phone] Last office visit with prescribing clinician: 10/03/2024 Last telemedicine visit with prescribing clinician: Visit date not found Next office visit with prescribing clinician: 01/12/2025 Additional details provided by patient: PATIENT HAS 2 DAYS LEFT. Does the patient have less than a 3 day supply: [x] Yes [] No Would you like a call back once the refill request has been completed: [] Yes [x] No If the office needs to give you a call back, can they leave a voicemail: [] Yes [] No German Gimenez 11/03/24 09:10 EDT documented in this encounter Plan of Treatment Upcoming Encounters Date Type Department Care Team (Late st Contact Info) Description 01/12/2025 10:45 AM EST Office Visit [facility] [address] [phone] Vinnie Molina MD [address] [place] [place] [address] documented as of this encounter Visit Diagnoses Diagnosis Rheumatoid arthritis involving multiple sites with positive rheumatoid factor documented in this encounter Additional Health Concerns Assessment Noted Time PHQ-2 Depression Total Score: 4 08/04/19 24 10:13 AM EDT documented as of this encounter Care Teams Wiring Inspector Relationship Specialty Start Date End Date Vinnie Molina MD [address] [place] [address] PCP - General Family Medicine 07/08/21 documented as of this encounter
--- OUTSIDE RECORDS SUMMARY | 2024-11-15 13:06 | XMS_ITS | Encounter Summary ---
Author Organization Healthcare Address [address] [place] [address] Care Team Providers Care Call Center Manager Name Role Phone Vinnie Molina MD Primary Care Provider [phone] Encounter Details Date Type Department Care Team ([facility] Contact Info) Description 03/30/2016 Orders Only External Location [address] [place] [address] Provider, External Social History Tobacco Use Types [...] [facility], [address] [place] [address] Nacho Jackson MD [address] [place] [phone] documented as of this encounter Procedures Procedure [...] on filedocumented in this encounter Care Teams Call Center Manager Relationship Specialty Start Date End Date Vinnie Molina MD [address] [facility] [place] [address] PCP - General 07/13/20 documented as of this encounter
--- OUTSIDE RECORDS SUMMARY | 2024-11-15 13:06 | XMS_ITS | Encounter Summary ---
Author Organization Healthcare Address [address] [place] [address] Care Team Providers Care Supervisor Keymodule Assembly Name Role Phone Vinnie Molina MD Primary Care Provider [phone] Encounter Details Date Type Department Care Team ([facility] Contact Info) Description 05/26/2023 Orders Only External Location [address] [place] [address] Vee Betts, DO [address] [place] [address] Social History Tobacco Use Types [...] Upcoming Encounters Date Type Department Care Team ([facility] Contact Info) Description 02/06/2025 9:20 AM EST Office Visit Medical Office Building Surgical Specialties [address] [facility], [address] [place] [address] Nacho Jackson MD [address] [phone] documented as of this encounter Procedures Procedure [...] filedocumented in this encounter Care Teams Supervisor Keymodule Assembly Relationship Specialty Start Date End Date Vinnie Molina MD [address] [facility] [place] [address] PCP - General 07/13/20 documented as of this encounter
--- OUTSIDE RECORDS SUMMARY | 2024-11-15 13:06 | XMS_ITS | Clinical Summary ---
Author Organization [facility] Address [address] [place] [address] Care Team Providers Care Solicitor Patent Name Role Phone Vinnie Molina MD Primary Care Provider [phone] Allergies No known active allergies Medications amLODIPine [...] (one) time each day. Active HYDROcodone-acet aminophen (Pioneer) 7.5-325 MG tablet Take 1 tablet (7.5 [...] Building Surgical Specialties [address] [facility], [address] [place] [address] Nacho Jackson MD [address] [address] Health Maintenance Due Date Last Done Comments [facility]-Bone Density Scan 1942 [facility]-/Child/Adol SDOH Screenings 1942 [facility]- SDOH Screenings 1960 [facility]-Adult SDOH Screenings 1960 [facility]-Zoster Vaccines (1 of 2) 1992 [facility]-Pneumococcal Vaccine: 50+ Years (2 of 2 - PCV) 12/04/2016 12/05/2015 [facility]-RSV Vaccine: 60+ Years or (1 - 1-dose 75+ series) 2017 [facility]-DTaP,Tdap,and Td Vaccines (1 - Tdap) 09/27/2021 09/26/2021 [facility]-Medicare Annual Wellness (AWV) 08/03/2024 08/04/2023 [id number] Vaccine (6 - 2025-26 season) 2024 12/30/2022, 12/16/2021, 12/06/2020, Additional history exists [facility]-Influenza Vaccine (#1) 10/31/202412/30, 12/16/2021, 11/28/2019, Additional [...] patient's age to complete this topic Insurance [facility] [place] [address] Care Teams Solicitor Patent Relationship Specialty Start Date End Date Vinnie Molina MD [address] [place] [address] PCP - General 07/13/20
--- OUTSIDE RECORDS SUMMARY | 2024-11-15 13:06 | XMS_ITS | Encounter Summary ---
Author Organization Healthcare Address [address] [place] [address] Care Team Providers Care Facing Grinder Name Role Phone Vinnie Molina MD Primary Care Provider [phone] Encounter Details Date Type Department Care Team (Late Contact Info) Description 03/27/2020 Orders Only External Location [address] [place] [address] Provider, External Social History Tobacco Use Types [...] [address] [facility], [address] [place] [address] Nacho Jackson MD [address] [place] [address] [address] documented as of this encounter Procedures Procedure [...] on filedocumented in this encounter Care Teams Facing Grinder Relationship Specialty Start Date End Date Vinnie Molina MD [address] [place] [address] PCP - General 07/13/20 documented as of this encounter
--- OUTSIDE RECORDS SUMMARY | 2024-11-15 13:06 | XMS_ITS | Encounter Summary ---
Author Organization Healthcare Address [address] [place] [address] Care Team Providers Care Embossing Machine Operator Name Role Phone Vinnie Molina MD Primary Care Provider [phone] Encounter Details Date Type Department Care Team ([facility] Contact Info) Description 03/30/2016 Orders Only External Location [address] [place] [address] Provider, External Social History Tobacco Use Types [...] Office Building Surgical Specialties [address] [facility], [address] [place] [address] Nacho Jackson MD [address] [place] [phone] documented as of this encounter Procedures Procedure [...] on filedocumented in this encounter Care Teams Embossing Machine Operator Relationship Specialty Start Date End Date Vinnie Molina MD 210 [facility] [place] [address] PCP - General 07/13/20 documented as of this encounter
--- OUTSIDE RECORDS SUMMARY | 2024-11-15 13:06 | XMS_ITS | Encounter Summary ---
Author Organization [facility] Address [address] [place] [id number] Care Team Providers Care Scouring Machine Tender Name Role Phone Vinnie Molina MD Primary Care Provider + Reason for Visit * Reason Comments Med Refill Encounter Details Date Type Department Care Team (Late Contact Info) Description 09/30/2024 Refill [facility] MEDICINE [address] [facility] [place] [address] Vinnie Molina MD 210 [facility] [place] [address] Primary hypertension; Acquired hypothyroidism Social [...] EST Office Visit [facility] MED[facility]INE [address] [facility] [place] [address] Vinnie Molina MD [address] [place] [address] documented as of this encounter Visit Diagnoses Diagnosis Primary hypertension Unspecified essential hypertension Acquired hypothyroidism Unspecified hypothyroidism documented in this encounter Additional Health Concerns Assessment Noted Time PHQ-2 Depression Total Score: 4 08/04/19 24 10:13 AM EDT documented as of this encounter Care Teams Scouring Machine Tender Relationship Specialty Start Date End Date Vinnie Molina MD [address] [place] [address] PCP - General Family Medicine 07/08/21 documented as of this encounter
--- OUTSIDE RECORDS SUMMARY | 2024-11-15 13:06 | XMS_ITS | Encounter Summary ---
Author Organization [facility] Address [address] [place] [address] Care Team Providers Care Teletype Mechanic Name Role Phone Vinnie Molina MD [...] Description 01/12/2025 10:45 AM EST Office Visit [facility] [address] [facility] [address] Vinnie Molina MD 210 [facility] [place] [address] documented as of this encounter Visit Diagnoses Not on filedocumented in this encounter Additional Health Concerns Assessment Noted Time PHQ-2 Depression Total Score: 4 08/04/19 10:13 AM EDT documented as of this encounter Care Teams Teletype Mechanic Relationship Specialty Start Date End Date Vinnie Molina MD [address] [place] [address] PCP - General Family Medicine 07/08/21 documented as of this encounter
--- OUTSIDE RECORDS SUMMARY | 2024-11-15 13:06 | XMS_ITS | Clinical Summary ---
Author Organization [facility] Address [address] [place] [address] Care Team Providers Care Diabetes Clinical Manager Name Role Phone Vinnie Molina MD [...] mouth Daily. 90 tablet 03/24/19 25 Active pantoprazole (PROTONIX) 40 MG EC tabletIndications: Gastroesophageal [...] Daily. 30 capsule 3 10/04/19 25 Active HYDROcodone-acetam inophen (NORCO) 7.5-325 MG per tabletIndications: Rheumatoid arthritis involving multiple sites with positive rheumatoid factor Take 1 tablet by mouth Every 6 (Six) Hours As Needed for Moderate Pain. 120 tablet 11/04/19 25 Active HYDROcodone-acetam inophen (NORCO) 7.5-325 MG per tabletIndications: Rheumatoid arthritis involving multiple sites with positive rheumatoid factor Take 1 tablet by mouth Every 6 (Six) Hours As Needed for Moderate Pain. 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); Anemia due to stage 4 chronic kidney disease; Anxiety; Activity intolerance associated with anemia 10/03/2024 Travel 09/30/2024 Refill [facility] MED[facility] [address] [place], [place] [address] Vinnie Molina MD Primary hypertension; Acquired hypothyroidism 09/01/2024 Refill [facility] MED[facility] [address] [place], [place] [address] Vinnie Molina MD Primary hypertension from Last 3 Months Immunizations Immunization Administration [...] Description 01/12/2025 10:45 AM EST Office Visit [facility] [address] [place] [address] Vinnie Molina MD [address] [place] [address] Health Maintenance Due Date Last Done Comments DXA SCAN 1942 ZOSTER VACCINE (1 of 2) 1992 Pneumococcal Vaccine 50+ (2 of 2 - PCV) 12/04/2016 12/05/2015 RSV Vaccine - Adults (1 - 1- dose 75+ series) 2017 TDAP/TD VACCINES (1 - Tdap) 09/27/2021 09/26/2021 ANNUAL WELLNESS VISIT 08/03/2024 08/04/2023 COVID-19 Vaccine (6 - 2024-2 6 season) 2024 12/30/2022, 12/16/2021, 12/06/2020, Additional history exists INFLUENZA VACCINE 11/30/2024 12/30/2022, , 12/16/2021, Additional history exists Procedures Procedure Name Priority Date/Time Associated Diagnosis Comments SCANNED - LABS 11/02/2024 SCANNED - LABS 11/02/2024 SCANNED - LABS 11/01/2024 SCANNED - LABS 11/01/2024 SCANNED - LABS 11/01/2024 SCANNED - LABS 10/18/2024 SCANNED - LABS 10/04/2024 SCANNED - LABS 10/04/2024 SCANNED - LABS 08/29/2024 from Last 3 Months Results * LABS SCANNED (11/02/2024) Only the most recent of9 resultswithin the time period is included. us Vinnie Molina MD LAB BLOOD ORDERABLES Fin al Result from Last 3 Months Insurance MEDICARE A & B IRA [facility] OPTIONS Care Teams Diabetes Clinical Manager Relationship Specialty Start Date End Date Vinnie Molina MD [facility] [place] [address] PCP - General Family Medicine 07/08/21
--- OUTSIDE RECORDS SUMMARY | 2024-11-15 13:06 | XMS_ITS | Encounter Summary ---
Author Organization Healthcare Address [address] [place] [address] Care Team Providers Care Breading Machine Tender Name Role Phone Vinnie Molina MD Primary Care Provider [phone] Encounter Details Date Type Department Care Team ([facility] Contact Info) Description 10/23/2015 Orders Only External Location [address] [place] [address] Provider, External Social History Tobacco Use Types [...] [address] [facility], [address] [place] [address] Nacho Jackson MD [address] [place] [phone] documented as of this encounter Procedures Procedure [...] on filedocumented in this encounter Care Teams Breading Machine Tender Relationship Specialty Start Date End Date Vinnie Molina MD 210 [facility] [place] [address] PCP - General 07/13/20 documented as of this encounter
--- OUTSIDE RECORDS SUMMARY | 2024-11-15 13:06 | XMS_ITS | Encounter Summary ---
Author Organization Healthcare Address [address] [place] [address] Care Team Providers Care Recruiting Intern Name Role Phone Vinnie Molina MD Primary Care Provider [phone] Encounter Details Date Type Department Care Team (Late Contact Info) Description 03/16/2020 Orders Only External Location [address] [place] [address] Provider, External Social History Tobacco Use Types [...] [facility], [address] [place] [address] Nacho Jackson MD [address] [place] [address] [address] documented as of this encounter Procedures Procedure [...] on filedocumented in this encounter Care Teams Recruiting Intern Relationship Specialty Start Date End Date Vinnie Molina MD [address] [place] [address] PCP - General 07/13/20 documented as of this encounter
--- OUTSIDE RECORDS SUMMARY | 2024-11-15 13:06 | XMS_ITS | Encounter Summary ---
Author Organization Healthcare Address [address] [place] [address] Care Team Providers Care Thread Reeler Name Role Phone Vinnie Molina MD Primary Care Provider [phone] Encounter Details Date Type Department Care Team (Late Contact Info) Description 05/26/2023 Orders Only External Location [address] [place] [address] Provider, External Social History Tobacco Use Types [...] Building Surgical Specialties [address] [facility], [address] [place] [address] Nacho Jackson MD [address] [place] [address] [phone] documented as of this encounter Procedures Procedure [...] on filedocumented in this encounter Care Teams Thread Reeler Relationship Specialty Start Date End Date Vinnie Molina MD [address] [place] [address] PCP - General 07/13/20 documented as of this encounter
[2024-11-15 13:17] LABS: Hematocrit 28.2 % (37.0-47.0); Hemoglobin 8.7 g/dL (12.2-16.2)
[2024-11-15 13:35] LABS: Creatinine,Serum 2.20 mg/dl (0.52-1.04); Estimated Glomerular Filt Rate 21 ml/min (>60); GFR (African American) 26 ML/MIN (>60); Potassium 5.3 mmoL/L (3.5-5.1)
[2024-11-15 13:45] VITALS: BP 147/63; PULSE 60; RESP 14; TEMP 36.4; O2SAT 97
[2024-11-15] MEDS: EPOETIN 20,000 UNITS/ML MDV 10000 UNIT SUBCUT (13:45)
[2024-11-15 14:00] VITALS: BP 139/69; PULSE 67; RESP 14; TEMP 36.4; O2SAT 97
== END 2024-11-15 14:00 | disposition home or self-care (01) ==
LOC: INF 13:01
PROVIDERS: PCP Family Medicine; Visit Provider Hospitalist
DX: N18.4 Chronic kidney disease, stage 4 (severe) (principal); D63.1 Anemia in chronic kidney disease; D64.9 Anemia, unspecified
CPT/HCPCS: 82565; 84132; 85014; 85018; 96372; J0885

== ENCOUNTER 2024-11-29 12:56 | Outpatient (CLI) | payer MEDICARE, SELFPAY ==
--- OUTSIDE RECORDS SUMMARY | 2024-10-03 12:15 | XMS_ITS | Encounter Summary ---
Author Organization [facility] Address [address] [place] [address] Care Team Providers Care Enrollment Management Director Name Role Phone Vinnie Molina MD Primary Care Provider + Reason for Visit * Reason Comments Dizziness Fatigue X 1 week Encounter Details Date Type Department Care Team (Late st Contact Info) Description 10/03/2024 12:15 PM EDT Office Visit [facility] [address] [place] [address] Vinnie Molina MD [address] [place] [address] CKD stage 4 secondary to [...] is scheduled for an infusion tomorrow at [facility] and I suspect this may be either erythropoietin or iron. She last saw her can labeler approximately a month ago. She tells me [...] anemia which is being addressed by her can labeler. We will reassess her symptoms at follow-up [...] Description 01/12/2025 10:45 AM EST Office Visit [facility] [address] [address] Vinnie [...] documented as of this encounter Care Teams Enrollment Management Director Relationship Specialty Start Date End Date Vinnie Molina MD [address] [place] [address] PCP - General Family Medicine 07/08/21 documented as of this encounter
--- OUTSIDE RECORDS SUMMARY | 2024-11-29 13:02 | XMS_ITS | Encounter Summary ---
Author Organization Healthcare Address [address] [place] [address] Care Team Providers Care Telegraph Repeater Technician Name Role Phone Vinnie Molina MD Primary Care Provider [phone] Encounter Details Date Type Department Care Team (Late Contact Info) Description 05/26/2023 Orders Only External Location [address] [place] [address] Provider, External Social History Tobacco Use Types [...] [facility], [address] [place] [address] Nacho Jackson MD [address] [place] [address] [address] documented as of this encounter Procedures Procedure [...] on filedocumented in this encounter Care Teams Telegraph Repeater Technician Relationship Specialty Start Date End Date Vinnie Molina MD [address] [place] [address] PCP - General 07/13/20 documented as of this encounter
--- OUTSIDE RECORDS SUMMARY | 2024-11-29 13:02 | XMS_ITS | Encounter Summary ---
Author Organization Healthcare Address [address] [place] [address] Care Team Providers Care Health And Safety Manager Name Role Phone Vinnie Molina MD Primary Care Provider [phone] Encounter Details Date Type Department Care Team ([facility] Contact Info) Description 03/30/2016 Orders Only External Location [address] [place] [address] Provider, External Social History Tobacco Use Types [...] [address] [facility], [address] [place] [address] Nacho Jackson MD [address] [place] [phone] documented as of this encounter Procedures Procedure [...] on filedocumented in this encounter Care Teams Health And Safety Manager Relationship Specialty Start Date End Date Vinnie Molina MD 210 [facility] [address] PCP - General 07/13/20 documented as of this encounter
--- OUTSIDE RECORDS SUMMARY | 2024-11-29 13:02 | XMS_ITS | Encounter Summary ---
Author Organization Healthcare Address [address] [place] [address] Care Team Providers Care Legal Referee Name Role Phone Vinnie Molina MD Primary Care Provider [phone] Encounter Details Date Type Department Care Team ([facility] Contact Info) Description 03/30/2016 Orders Only External Location [address] [place] [address] Provider, External Social History Tobacco Use Types [...] [facility], [address] [place] [address] Nacho Jackson MD [address] [place] [phone] documented as of this encounter Procedures Procedure [...] on filedocumented in this encounter Care Teams Legal Referee Relationship Specialty Start Date End Date Vinnie Molina MD 210 [facility] [place] [place] [address] PCP - General 07/13/20 documented as of this encounter
--- OUTSIDE RECORDS SUMMARY | 2024-11-29 13:02 | XMS_ITS | Encounter Summary ---
Author Organization Healthcare Address [address] [place] [address] Care Team Providers Care Panel Cutter Name Role Phone Vinnie Molina MD Primary Care Provider [phone] Encounter Details Date Type Department Care Team ([facility] Contact Info) Description 03/30/2016 Orders Only External Location [address] [place] [address] Provider, External Social History Tobacco Use Types [...] Medical Office Building Surgical Specialties [address] [facility], [address] [place] [address] Nacho Jackson MD [address] [place] [phone] documented as of this encounter Procedures Procedure [...] on filedocumented in this encounter Care Teams Panel Cutter Relationship Specialty Start Date End Date Vinnie Molina MD [address] [facility] [address] PCP - General 07/13/20 documented as of this encounter
--- OUTSIDE RECORDS SUMMARY | 2024-11-29 13:02 | XMS_ITS | Encounter Summary ---
Author Organization Healthcare Address [address] [place] [address] Care Team Providers Care Marine Cargo Specialist Name Role Phone Vinnie Molina MD Primary Care Provider [phone] Encounter Details Date Type Department Care Team (Late Contact Info) Description 05/26/2023 Orders Only External Location [address] [place] [address] Provider, External Social History Tobacco Use Types [...] Surgical Specialties [address] [facility], [address] [place] [address] Nacho Jackson MD [address] [place] [address] [phone] documented as of this encounter Procedures Procedure [...] on filedocumented in this encounter Care Teams Marine Cargo Specialist Relationship Specialty Start Date End Date Vinnie Molina MD [address] [address] PCP - General 07/13/20 documented as of this encounter
--- OUTSIDE RECORDS SUMMARY | 2024-11-29 13:02 | XMS_ITS | Encounter Summary ---
Author Organization [facility] Address [address] [place] [address] Care Team Providers Care Product Development Consultant Name Role Phone Vinnie Molina MD Primary Care Provider + Reason for Visit * Reason Onset Date Comments Med Refill 11/03/2024 BILLING QUESTION 11/03/2024 Encounter Details Date Type Department Care Team (Late st Contact Info) Description 11/03/2024 Refill [facility] [address] [place] [address] Vinnie Molina MD 210 [place] [address] Rheumatoid arthritis involving multiple sites [...] Kay Relationship: Self Best call back number: [phone] Requested Prescriptions: Requested Prescriptions Pending Prescriptions Disp Refills HYDROcodone-acetaminophen (NORCO) 7.5-325 MG per tablet 120 tablet 0 Sig: Take 1 tablet by mouth Every 6 (Six) Hours As Needed for Moderate Pain. Pharmacy where request should be sent: [id number] - [place], [place] - [address] AT [address] - [phone] [facility] [phone] Last office visit with prescribing clinician: 10/03/2024 [...] 01/12/2025 10:45 AM EST Office Visit [facility] [address] [phone] Vinnie Molina MD [address] [place] [place] [address] documented as of this encounter Visit Diagnoses Diagnosis Rheumatoid arthritis involving multiple sites with positive rheumatoid factor documented in this encounter Additional Health Concerns Assessment Noted Time PHQ-2 Depression Total Score: 4 08/04/19 24 10:13 AM EDT documented as of this encounter Care Teams Product Development Consultant Relationship Specialty Start Date End Date Vinnie Molina MD [address] [place] [address] PCP - General Family Medicine 07/08/21 documented as of this encounter
--- OUTSIDE RECORDS SUMMARY | 2024-11-29 13:02 | XMS_ITS | Encounter Summary ---
Author Organization Healthcare Address [address] [place] [address] Care Team Providers Care Director Case Management Name Role Phone Vinnie Molina MD Primary Care Provider [phone] Encounter Details Date Type Department Care Team ([facility] Contact Info) Description 05/26/2023 Orders Only External Location [address] [place] [address] Vee Betts, DO [address] [place] [address] Social History Tobacco Use Types [...] Upcoming Encounters Date Type Department Care Team ([facility] Contact Info) Description 02/06/2025 9:20 AM EST Office Visit Medical Office Building Surgical Specialties [address] [facility], [address] [place] [address] Nacho Jackson MD [address] [phone] documented as of this encounter Procedures Procedure [...] on filedocumented in this encounter Care Teams Director Case Management Relationship Specialty Start Date End Date Vinnie Molina MD [address] [facility] [place] [address] PCP - General 07/13/20 documented as of this encounter
--- OUTSIDE RECORDS SUMMARY | 2024-11-29 13:02 | XMS_ITS | Encounter Summary ---
Author Organization Healthcare Address [address] [place] [address] Care Team Providers Care Critical Care Nurse Practitioner Name Role Phone Vinnie Molina MD Primary Care Provider [phone] Encounter Details Date Type Department Care Team ([facility] Contact Info) Description 03/30/2016 Orders Only External Location [address] [place] [address] Provider, External Social History Tobacco Use Types [...] E [facility], [address] [place] [address] Nacho Jackson MD [address] [place] [phone] documented as of this encounter Procedures Procedure [...] on filedocumented in this encounter Care Teams Critical Care Nurse Practitioner Relationship Specialty Start Date End Date Vinnie Molina MD [address] [facility] [place] [address] PCP - General 07/13/20 documented as of this encounter
--- OUTSIDE RECORDS SUMMARY | 2024-11-29 13:02 | XMS_ITS | Encounter Summary ---
Author Organization Healthcare Address [address] [place] [address] Care Team Providers Care Creative Director Name Role Phone Vinnie Molina MD Primary Care Provider [phone] Encounter Details Date Type Department Care Team (Late Contact Info) Description 05/26/2023 Orders Only External Location [address] [place] [address] Provider, External Social History Tobacco Use Types [...] Building Surgical Specialties [address] [facility], [address] [place] [address] Nacho Jackson MD [address] [place] [address] [place] [address] [address] documented as of this encounter Procedures Procedure [...] on filedocumented in this encounter Care Teams Creative Director Relationship Specialty Start Date End Date Vinnie Molina MD [address] [place] [address] PCP - General 07/13/20 documented as of this encounter
--- OUTSIDE RECORDS SUMMARY | 2024-11-29 13:02 | XMS_ITS | Encounter Summary ---
Author Organization Healthcare Address [address] [place] [address] Care Team Providers Care Fruit Washer Name Role Phone Vinnie Molina MD Primary Care Provider [phone] Encounter Details Date Type Department Care Team (Late Contact Info) Description 03/27/2020 Orders Only External Location [address] [place] [address] Provider, External Social History Tobacco Use Types [...] [facility], [address] [place] [phone] Nacho Jackson MD [address] [address] documented as of this encounter Procedures Procedure [...] on filedocumented in this encounter Care Teams Fruit Washer Relationship Specialty Start Date End Date Vinnie Molina MD [address] [place] [address] PCP - General 07/13/20 documented as of this encounter
--- OUTSIDE RECORDS SUMMARY | 2024-11-29 13:02 | XMS_ITS | Encounter Summary ---
Author Organization Healthcare Address [address] [place] [address] Care Team Providers Care Automatic Paint Sprayer Operator Name Role Phone Vinnie Molina MD Primary Care Provider [phone] Encounter Details Date Type Department Care Team ([facility] Contact Info) Description 05/26/2023 Orders Only External Location [address] [place] [address] Vee Betts, DO [address] [place] [address] Social History Tobacco Use Types [...] Upcoming Encounters Date Type Department Care Team ([facility] Contact Info) Description 02/06/2025 9:20 AM EST Office Visit Medical Office Building Surgical Specialties [address] [facility], [address] [place] [address] Nacho Jackson MD [address] [phone] documented as of this encounter Procedures Procedure [...] on filedocumented in this encounter Care Teams Automatic Paint Sprayer Operator Relationship Specialty Start Date End Date Vinnie Molina MD 210 [facility] [place] [address] PCP - General 07/13/20 documented as of this encounter
--- OUTSIDE RECORDS SUMMARY | 2024-11-29 13:02 | XMS_ITS | Encounter Summary ---
Author Organization [facility] Address [address] [place] [address] Care Team Providers Care Slotter Operator Name Role Phone Vinnie Molina MD [...] Description 01/12/2025 10:45 AM EST Office Visit [facility] 210 [facility] [place] [address] Vinnie Molina MD 210 [facility] [place] [address] documented as of this encounter Visit Diagnoses Not on filedocumented in this encounter Additional Health Concerns Assessment Noted Time PHQ-2 Depression Total Score: 4 08/04/19 10:13 AM EDT documented as of this encounter Care Teams Slotter Operator Relationship Specialty Start Date End Date Vinnie Molina MD [address] [place] [address] PCP - General Family Medicine 07/08/21 documented as of this encounter
--- OUTSIDE RECORDS SUMMARY | 2024-11-29 13:02 | XMS_ITS | Encounter Summary ---
Author Organization Healthcare Address [address] [place] [address] Care Team Providers Care Field Producer Name Role Phone Vinnie Molina MD Primary Care Provider [phone] Encounter Details Date Type Department Care Team (Late Contact Info) Description 08/13/2023 Orders Only External Location [address] [place] [address] Provider, External Social History Tobacco Use Types [...] E [facility], [address] [place] [address] Nacho Jackson MD [address] [place] [address] [address] documented as of this encounter Procedures Procedure [...] on filedocumented in this encounter Care Teams Field Producer Relationship Specialty Start Date End Date Vinnie Molina MD [address] [place] [address] PCP - General 07/13/20 documented as of this encounter
--- OUTSIDE RECORDS SUMMARY | 2024-11-29 13:02 | XMS_ITS | Encounter Summary ---
Author Organization Healthcare Address [address] [place] [address] Care Team Providers Care Wildlife Veterinarian Name Role Phone Vinnie Molina MD Primary Care Provider Encounter Details Date Type Department Care Team (Late Contact Info) Description 03/16/2020 Orders Only External Location [address] [place] [address] Provider, External Social History Tobacco Use Types [...] Building Surgical Specialties [address] [facility], [address] [place] [address] Nacho Jackson MD [address] [phone] documented as of this encounter Procedures Procedure [...] on filedocumented in this encounter Care Teams Wildlife Veterinarian Relationship Specialty Start Date End Date Vinnie Molina MD [address] [place] [address] PCP - General 07/13/20 documented as of this encounter
--- OUTSIDE RECORDS SUMMARY | 2024-11-29 13:03 | XMS_ITS | Encounter Summary ---
Author Organization Healthcare Address [address] [place] [address] Care Team Providers Care Supervisory Civil Engineer Name Role Phone Vinnie Molina MD Primary Care Provider [phone] Encounter Details Date Type Department Care Team ([facility] Contact Info) Description 03/30/2016 Orders Only External Location [address] [place] [address] Provider, External Social History Tobacco Use Types [...] Office Building Surgical Specialties [address] [facility], [address] [place] [address] Nacho Jackson MD [address] [place] [phone] documented as of this encounter Procedures Procedure [...] on filedocumented in this encounter Care Teams Supervisory Civil Engineer Relationship Specialty Start Date End Date Vinnie Molina MD 210 [facility] [place] [address] PCP - General 07/13/20 documented as of this encounter
--- OUTSIDE RECORDS SUMMARY | 2024-11-29 13:03 | XMS_ITS | Clinical Summary ---
Author Organization [facility] Address [address] [place] [address] Care Team Providers Care Incendiary Powder Mixer Name Role Phone Vinnie Molina MD Primary Care Provider [phone] Allergies No known active allergies Medications amLODIPine [...] (one) time each day. Active HYDROcodone-acet aminophen ([place]) 7.5-325 MG tablet Take 1 tablet (7.5 [...] Active Problems Problem Noted Date Diagnosed Date History of total knee arthroplasty 02/11/2024 Osteoarthritis of left knee 02/11/2024 CKD stage 4 secondary to hypertension [...] Chronic kidney disease, stage III (moderate) 01/2013 Resolved Problems Problem Noted Date Diagnosed Date Resolved Date Bronchitis 02/11/2024 11/20/2024 Rash 02/11/2024 11/20/2024 Sinusitis 02/11/2024 11/20/2024 Urinary tract infection 02/11/202411/01 Immunizations Immunization Administration Dates Next Due Influenza [...] E [facility], [address] [place] [address] Nacho Jackson MD [address] [place] [phone] Health Maintenance Due Date Last Done Comments [...] 09/26/2021 [facility]-Medicare Annual Wellness (AWV) 08/03/2024 08/04/2023 [id number] Vaccine ( season) 2024 12/30/2022, 12/16/2021, 12/06/2020, Additional history [...] patient's age to complete this topic Insurance [facility] [place] [address] Care Teams Incendiary Powder Mixer Relationship Specialty Start Date End Date Vinnie Molina MD [address] [place] [address] PCP - General 07/13/20
--- OUTSIDE RECORDS SUMMARY | 2024-11-29 13:03 | XMS_ITS | Clinical Summary ---
Author Organization [facility] Address [address] [place] [address] Care Team Providers Care Oracle Hrms Consultant Name Role Phone Vinnie Molina MD [...] Pain. 120 tablet 08/05/19 25 025 Discontin [facility], Clinic, or Other Facility Administered Medication Ordered [...] Type Department Care Team Description 11/03/2024 Refill [facility] [address] [place] [address] Vinnie Molina MD Rheumatoid arthritis involving multiple sites with positive rheumatoid factor 10/03/2024 12:15 PM EDT Office Visit [facility] [address] [place], [place] [address] Vinnie Molina MD 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); Anemia due to stage 4 chronic kidney disease; Anxiety; Activity intolerance associated with anemia 10/03/2024 Travel 09/30/2024 Refill [facility] MEDICINE [address] [place], [place] [address] Vinnie Molina MD Primary hypertension; Acquired hypothyroidism 09/01/2024 Refill [facility] MEDICINE [address] [place], [place] [address] Vinnie Molina MD Primary hypertension from Last [...] 10:45 AM EST Office Visit [facility] [address] [place] [address] Vinnie Molina MD [address] [place] [address] Health Maintenance Due Date Last Done Comments DXA SCAN 1942 ZOSTER VACCINE (1 of 2) 1992 Pneumococcal Vaccine 50+ (2 of 2 - PCV) 12/04/2016 12/05/2015 RSV Vaccine - Adults (1 - 1- dose 75+ series) 2017 TDAP/TD VACCINES (1 - Tdap) 09/27/2021 09/26/2021 ANNUAL WELLNESS VISIT 08/03/2024 08/04/2023 INFLUENZA VACCINE 09/30/2024 12/30/2022, , 12/16/2021, Additional history exists COVID-19 Vaccine (6 - 2024-2 6 season) 2024 12/30/2022, 12/16/2021, 12/06/2020, Additional history exists Procedures Procedure Name Priority Date/Time Associated Diagnosis Comments SCANNED - LABS 11/15/2024 SCANNED - LABS 11/02/2024 SCANNED - LABS 11/02/2024 SCANNED - LABS 11/01/2024 SCANNED - LABS 11/01/2024 SCANNED - LABS 11/01/2024 SCANNED - LABS 10/18/2024 SCANNED - LABS 10/04/2024 SCANNED - LABS 10/04/2024 SCANNED - LABS 08/29/2024 from Last 3 Months Results * LABS SCANNED (11/15/2024) Only the most recent of10 resultswithin the time period is included. Vinnie Molina MD LAB BLOOD ORDERABLES Fin al Result from Last 3 Months Insurance MEDICARE A & B [facility] OPTIONS Care Teams Oracle Hrms Consultant Relationship Specialty Start Date End Date Vinnie Molina MD [address] [place] [address] PCP - General Family Medicine 07/08/21
--- OUTSIDE RECORDS SUMMARY | 2024-11-29 13:03 | XMS_ITS | Encounter Summary ---
Author Organization Healthcare Address [address] [place] [address] Care Team Providers Care Cost Estimating Clerk Name Role Phone Vinnie Molina MD Primary Care Provider [phone] Encounter Details Date Type Department Care Team (Late Contact Info) Description 10/23/2015 Orders Only External Location [address] [place] [address] Provider, External Social History Tobacco Use Types [...] Building Surgical Specialties [address] [facility], [address] [place] [address] Nacho Jackson MD [address] [place] [phone] documented as of this encounter Procedures Procedure [...] on filedocumented in this encounter Care Teams Cost Estimating Clerk Relationship Specialty Start Date End Date Vinnie Molina MD [address] [facility] [place] [address] PCP - General 07/13/20 documented as of this encounter
--- OUTSIDE RECORDS SUMMARY | 2024-11-29 13:03 | XMS_ITS | Encounter Summary ---
Author Organization [facility] Address [address] [place] [id number] Care Team Providers Care Enrollment Specialist Name Role Phone Vinnie Molina MD Primary Care Provider + Reason for Visit * Reason Comments Med Refill Encounter Details Date Type Department Care Team (Late Contact Info) Description 09/30/[address] [facility] MEDICINE [address] [facility] [place] [address] Vinnie Molina MD 210 [facility] [place] [address] Primary hypertension; Acquired hypothyroidism Social [...] 10:45 AM EST Office Visit [facility] MED[facility]INE 210 [facility] [place] [address] Vinnie Molina MD [address] [place] [address] documented as of this encounter Visit Diagnoses Diagnosis Primary hypertension Unspecified essential hypertension Acquired hypothyroidism Unspecified hypothyroidism documented in this encounter Additional Health Concerns Assessment Noted Time PHQ-2 Depression Total Score: 4 08/04/19 24 10:13 AM EDT documented as of this encounter Care Teams Enrollment Specialist Relationship Specialty Start Date End Date Vinnie Molina MD [address] [place] [address] PCP - General Family Medicine 07/08/21 documented as of this encounter
[2024-11-29 13:14] LABS: Hematocrit 28.3 % (37.0-47.0); Hemoglobin 8.8 g/dL (12.2-16.2)
[2024-11-29 13:21] LABS: Creatinine,Serum 2.20 mg/dl (0.52-1.04); Estimated Glomerular Filt Rate 21 ml/min (>60); GFR (African American) 26 ML/MIN (>60); Potassium 5.7 mmoL/L (3.5-5.1)
[2024-11-29 13:36] VITALS: BP 137/56; PULSE 63; RESP 16; TEMP 36.6; O2SAT 98
[2024-11-29] MEDS: EPOETIN 20,000 UNITS/ML MDV 10000 UNIT SUBCUT (13:36)
[2024-11-29 13:48] LABS: Iron 51 ug/dL (37-170)
[2024-11-29 13:57] LABS: Total Iron Binding Capacity 437 ug/dL (265-497)
[2024-11-29 14:11] LABS: Ferritin 10.6 ng/ml (11.1-264)
== END 2024-11-29 23:59 | disposition home or self-care (01) ==
LOC: INF 12:58
PROVIDERS: PCP Nurse Practitioner Family; Visit Provider Hospitalist
DX: N18.4 Chronic kidney disease, stage 4 (severe) (principal); D63.1 Anemia in chronic kidney disease
CPT/HCPCS: 36415; 82565; 82728; 83540; 83550; 84132; 85014; 85018; 96372; J0885

== ENCOUNTER 2024-12-05 10:44 | Outpatient (CLI) | payer MEDICARE, SELFPAY ==
--- OUTSIDE RECORDS SUMMARY | 2024-12-05 10:48 | XMS_ITS | Encounter Summary ---
Author Organization Healthcare Address [address] [place] [address] Care Team Providers Care Powder Coater Name Role Phone Vinnie Molina MD Primary Care Provider [phone] Encounter Details Date Type Department Care Team ([facility] Contact Info) Description 03/30/2016 Orders Only External Location [address] [place] [address] Provider, External Social History Tobacco Use Types [...] Medical Office Building Surgical Specialties [address] [facility], [address] [place] [address] Nacho Jackson MD [address] [place] [phone] documented as of this encounter Procedures Procedure [...] on filedocumented in this encounter Care Teams Powder Coater Relationship Specialty Start Date End Date Vinnie Molina MD 210 [facility] [place] [address] PCP - General 07/13/20 documented as of this encounter
--- OUTSIDE RECORDS SUMMARY | 2024-12-05 10:48 | XMS_ITS | Encounter Summary ---
Author Organization Healthcare Address [address] [place] [address] Care Team Providers Care Hat Former Name Role Phone Vinnie Molina MD Primary Care Provider [phone] Encounter Details Date Type Department Care Team ([facility] Contact Info) Description 03/30/2016 Orders Only External Location [address] [place] [address] Provider, External Social History Tobacco Use Types [...] Medical Office Building Surgical Specialties [address] [facility], [address] [place] [address] Nacho Jackson MD [address] [place] [phone] documented as of this encounter Procedures Procedure [...] on filedocumented in this encounter Care Teams Hat Former Relationship Specialty Start Date End Date Vinnie Molina MD 210 [facility] [place] [address] PCP - General 07/13/20 documented as of this encounter
--- OUTSIDE RECORDS SUMMARY | 2024-12-05 10:48 | XMS_ITS | Clinical Summary ---
Author Organization [facility] Address [address] [place] [address] Care Team Providers Care Diesel Tractor Engine Mechanic Name Role Phone Vinnie Molina MD [...] Moderate Pain. 120 tablet 11/04/19 25 Active Hospital, Clinic, or Other Facility [...] Type Department Care Team Description 11/03/2024 Refill [facility] MEDICINE [address] [place] [address] Vinnie Molina MD Rheumatoid arthritis involving multiple sites with positive rheumatoid factor 10/03/2024 12:15 PM EDT Office Visit [facility] FAMILY MEDICINE [address] [place] [address] Vinnie Molina MD 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); Anemia due to stage 4 chronic kidney disease; Anxiety; Activity intolerance associated with anemia 10/03/2024 Travel 09/30/2024 Refill [facility] FAM[facility] MEDICINE [address] [place] [address] Vinnie Molina MD Primary hypertension; Acquired hypothyroidism from Last 3 Months Immunizations Immunization Administration [...] [facility] [address] [place] [address] Vinnie Molina MD [address] [place] [address] Health Maintenance Due Date Last Done [...] - LABS 10/04/2024 SCANNED - LABS 10/04/2024 from Last 3 Months Results * LABS SCANNED (11/15/2024) Only the most recent of9 resultswithin the time period is included. us Vinnie Molina MD LAB BLOOD ORDERABLES Fin al Result from Last 3 Months Insurance MEDICARE A & B [facility] [employer] C[employer] OPTIONS Care Teams Diesel Tractor Engine Mechanic Relationship Specialty Start Date End Date Vinnie Molina MD 210 [facility] [place] [address] PCP - General Family Medicine 07/08/21
--- OUTSIDE RECORDS SUMMARY | 2024-12-05 10:48 | XMS_ITS | Clinical Summary ---
Author Organization [facility] [employer] ([place], [place], [place], [place]) Address [address] [place] [address] Care Team Providers Care Capture Manager Name Role Phone Unavailable Primary Care Provider [...] Date Norman rded Speak language other than Gibraltarian at home Not on file 03/20/2023 Want [...] 1-dose 75+ series) 2017 Falls Risk Screening 03/02/2024 COVID-19 VACCINE (5 2024-2 6 season) 2024 12/16/2021, 12/06/2020, 04/26/2020, Additional history exists Influenza Vaccine (#1) 2024 , 11/28/2019, 12/23/2018, Additional history exists DTAP/TDAP/TD VACCINES (2 - T d or Tdap) 09/27/2031 09/26/[address] [place] [address] [place] [id number] MEDICARE PART A B
--- OUTSIDE RECORDS SUMMARY | 2024-12-05 10:48 | XMS_ITS | Encounter Summary ---
Author Organization Healthcare Address [address] [place] [address] Care Team Providers Care Investigator Vice Name Role Phone Vinnie Molina MD Primary Care Provider [phone] Encounter Details Date Type Department Care Team (Late Contact Info) Description 05/26/2023 Orders Only External Location [address] [place] [address] Vee Betts, DO [address] [place] [address] Social History Tobacco Use Types [...] Upcoming Encounters Date Type Department Care Team ([facility] Contact Info) Description 02/06/2025 9:20 AM EST Office Visit Medical Office Building Surgical Specialties [address] [facility], [address] [place] [address] Nacho Jackson MD [address] [phone] documented as of this encounter Procedures Procedure [...] on filedocumented in this encounter Care Teams Investigator Vice Relationship Specialty Start Date End Date Vinnie Molina MD 210 [facility] [place] [address] PCP - General 07/13/20 documented as of this encounter
--- OUTSIDE RECORDS SUMMARY | 2024-12-05 10:48 | XMS_ITS | Encounter Summary ---
Author Organization Healthcare Address [address] [place] [address] Care Team Providers Care Biochemistry Professor Name Role Phone Vinnie Molina MD Primary Care Provider [phone] Encounter Details Date Type Department Care Team ([facility] Contact Info) Description 03/30/2016 Orders Only External Location [address] [place] [address] Provider, External Social History Tobacco Use Types [...] Office Building Surgical Specialties [address] [facility], [address] [place] [address] Nacho Jackson MD [address] [place] [phone] documented as of this encounter Procedures Procedure [...] on filedocumented in this encounter Care Teams Biochemistry Professor Relationship Specialty Start Date End Date Vinnie Molina MD 210 [facility] [place] [address] PCP - General 07/13/20 documented as of this encounter
--- OUTSIDE RECORDS SUMMARY | 2024-12-05 10:48 | XMS_ITS | Encounter Summary ---
Author Organization Healthcare Address [address] [place] [address] Care Team Providers Care Disk Grinder Name Role Phone Vinnie Molina MD Primary Care Provider [phone] Encounter Details Date Type Department Care Team (Late Contact Info) Description 05/26/2023 Orders Only External Location [address] [place] [address] Vee Betts, DO [address] [place] [address] Social History Tobacco Use Types [...] Upcoming Encounters Date Type Department Care Team ([facility] Contact Info) Description 02/06/2025 9:20 AM EST Office Visit Medical Office Building Surgical Specialties [address] [facility], [address] [place] [address] Nacho Jackson MD [address] [phone] documented as of this encounter Procedures Procedure [...] on filedocumented in this encounter Care Teams Disk Grinder Relationship Specialty Start Date End Date Vinnie Molina MD 210 [facility] [place] [address] PCP - General 07/13/20 documented as of this encounter
--- OUTSIDE RECORDS SUMMARY | 2024-12-05 10:48 | XMS_ITS | Encounter Summary ---
Author Organization Healthcare Address [address] [place] [address] Care Team Providers Care Strategy Associate Name Role Phone Vinnie Molina MD Primary Care Provider [phone] Encounter Details Date Type Department Care Team (Late Contact Info) Description 05/26/2023 Orders Only External Location [address] [place] [address] Provider, External Social History Tobacco Use Types [...] Office Building Surgical Specialties [address] [facility], [address] [place] [address] Nacho Jackson MD [address] [phone] documented as of this encounter Procedures Procedure [...] on filedocumented in this encounter Care Teams Strategy Associate Relationship Specialty Start Date End Date Vinnie Molina MD [address] [place] [address] PCP - General 07/13/20 documented as of this encounter
--- OUTSIDE RECORDS SUMMARY | 2024-12-05 10:48 | XMS_ITS | Encounter Summary ---
Author Organization Healthcare Address [address] [place] [address] Care Team Providers Care Retail Department Manager Name Role Phone Vinnie Molina MD Primary Care Provider [phone] Encounter Details Date Type Department Care Team ([facility] Contact Info) Description 03/30/2016 Orders Only External Location [address] [place] [address] Provider, External Social History Tobacco Use Types [...] Medical Office Building Surgical Specialties [address] [facility], [address] [place] [address] Nacho Jackson MD [address] [place] [phone] documented as of this encounter Procedures Procedure [...] on filedocumented in this encounter Care Teams Retail Department Manager Relationship Specialty Start Date End Date Vinnie Molina MD [address] [facility] [place] [address] PCP - General 07/13/20 documented as of this encounter
--- OUTSIDE RECORDS SUMMARY | 2024-12-05 10:48 | XMS_ITS | Encounter Summary ---
Author Organization Healthcare Address [address] [place] [address] Care Team Providers Care Social Services Specialist Name Role Phone Vinnie Molina MD Primary Care Provider [phone] Encounter Details Date Type Department Care Team (Late Contact Info) Description 03/16/2020 Orders Only External Location [address] [place] [address] Provider, External Social History Tobacco Use Types [...] [facility], [address] [place] [address] Nacho Jackson MD [address] [phone] documented as of this encounter Procedures Procedure [...] on filedocumented in this encounter Care Teams Social Services Specialist Relationship Specialty Start Date End Date Vinnie Molina MD [address] [place] [address] PCP - General 07/13/20 documented as of this encounter
--- OUTSIDE RECORDS SUMMARY | 2024-12-05 10:48 | XMS_ITS | Encounter Summary ---
Author Organization Healthcare Address [address] [place] [address] Care Team Providers Care Drug Clerk Name Role Phone Vinnie Molina MD Primary Care Provider [phone] Encounter Details Date Type Department Care Team (Late Contact Info) Description 05/26/2023 Orders Only External Location [address] [place] [address] Provider, External Social History Tobacco Use Types [...] [facility], [address] [place] [address] Nacho Jackson MD [address] [phone] documented as of this encounter Procedures Procedure [...] on filedocumented in this encounter Care Teams Drug Clerk Relationship Specialty Start Date End Date Vinnie Molina MD [address] [place] [address] PCP - General 07/13/20 documented as of this encounter
--- OUTSIDE RECORDS SUMMARY | 2024-12-05 10:48 | XMS_ITS | Encounter Summary ---
Author Organization Healthcare Address [address] [place] [address] Care Team Providers Care Enterprise Resource Analyst Name Role Phone Vinnie Molina MD Primary Care Provider [phone] Encounter Details Date Type Department Care Team (Late Contact Info) Description 05/26/2023 Orders Only External Location [address] [place] [address] Provider, External Social History Tobacco Use Types [...] [address] [facility], [address] [place] [address] Nacho Jackson MD [address] [address] documented as of this encounter Procedures Procedure [...] on filedocumented in this encounter Care Teams Enterprise Resource Analyst Relationship Specialty Start Date End Date Vinnie Molina MD [address] [place] [address] PCP - General 07/13/20 documented as of this encounter
--- OUTSIDE RECORDS SUMMARY | 2024-12-05 10:48 | XMS_ITS | Encounter Summary ---
Author Organization Healthcare Address [address] [place] [address] Care Team Providers Care Retail Loan Officer Name Role Phone Vinnie Molina MD Primary Care Provider [phone] Encounter Details Date Type Department Care Team (Late Contact Info) Description 08/13/2023 Orders Only External Location [address] [place] [address] Provider, External Social History Tobacco Use Types [...] Building Surgical Specialties [address] [facility], [address] [place] [address] Nacho Jackson MD [address] [address] documented as of this encounter Procedures Procedure [...] filedocumented in this encounter Care Teams Retail Loan Officer Relationship Specialty Start Date End Date Vinnie Molina MD [address] [place] [address] PCP - General 07/13/20 documented as of this encounter
--- OUTSIDE RECORDS SUMMARY | 2024-12-05 10:48 | XMS_ITS | Encounter Summary ---
Author Organization [facility] Address [address] [place] [address] Care Team Providers Care Disability Insurance Claim Examiner Name Role Phone Vinnie Molina MD Primary Care Provider + Reason for Visit * Reason Onset Date Comments Med Refill 11/03/2024 BILLING QUESTION 11/03/2024 Encounter Details Date Type Department Care Team (Late st Contact Info) Description 11/03/[address] [facility] [address] [place] [address] Vinnie Molina MD [address] [place] [address] Rheumatoid arthritis involving multiple sites [...] Kay Relationship: Self Best call back number: [phone] Requested Prescriptions: Requested Prescriptions Pending Prescriptions Disp Refills HYDROcodone-acetaminophen (NORCO) 7.5-325 MG per tablet 120 tablet 0 Sig: Take 1 tablet by mouth Every 6 (Six) Hours As Needed for Moderate Pain. Pharmacy where request should be sent: [id number] - [place], [place] - [address] - [phone] [facility] [phone] Last office visit with prescribing clinician: 10/03/2024 [...] [facility] [address] [phone] Vinnie Molina MD [address] [address] documented as of this encounter Visit Diagnoses Diagnosis Rheumatoid arthritis involving multiple sites with positive rheumatoid factor documented in this encounter Additional Health Concerns Assessment Noted Time PHQ-2 Depression Total Score: 4 08/04/19 24 10:13 AM EDT documented as of this encounter Care Teams Disability Insurance Claim Examiner Relationship Specialty Start Date End Date Vinnie Molina MD [address] [place] [address] PCP - General Family Medicine 07/08/21 documented as of this encounter
--- OUTSIDE RECORDS SUMMARY | 2024-12-05 10:48 | XMS_ITS | Encounter Summary ---
Author Organization Healthcare Address [address] [place] [address] Care Team Providers Care Director Of Hotel Operations Name Role Phone Vinnie Molina MD Primary Care Provider [phone] Encounter Details Date Type Department Care Team (Late Contact Info) Description 10/23/2015 Orders Only External Location [address] [place] [address] Provider, External Social History Tobacco Use Types [...] E [facility], [address] [place] [address] Nacho Jackson MD [address] [place] [phone] documented as of this encounter Procedures Procedure [...] filedocumented in this encounter Care Teams Director Of Hotel Operations Relationship Specialty Start Date End Date Vinnie Molina MD [address] [facility] [place] [address] PCP - General 07/13/20 documented as of this encounter
--- OUTSIDE RECORDS SUMMARY | 2024-12-05 10:48 | XMS_ITS | Encounter Summary ---
Author Organization Healthcare Address [address] [place] [address] Care Team Providers Care Control Clerk Auditing Name Role Phone Vinnie Molina MD Primary Care Provider [phone] Encounter Details Date Type Department Care Team ([facility] Contact Info) Description 03/30/2016 Orders Only External Location [address] [place] [address] Provider, External Social History Tobacco Use Types [...] [facility], [address] [place] [address] Nacho Jackson MD [address] [place] [phone] documented as of this encounter Procedures Procedure [...] on filedocumented in this encounter Care Teams Control Clerk Auditing Relationship Specialty Start Date End Date Vinnie Molina MD [address] [facility] [place] [address] PCP - General 07/13/20 documented as of this encounter
--- OUTSIDE RECORDS SUMMARY | 2024-12-05 10:48 | XMS_ITS | Encounter Summary ---
Author Organization Healthcare Address [address] [place] [address] Care Team Providers Care Assemblies And Installations Inspector Name Role Phone Vinnie Molina MD Primary Care Provider [phone] Encounter Details Date Type Department Care Team (Late Contact Info) Description 03/27/2020 Orders Only External Location [address] [place] [address] Provider, External Social History Tobacco Use Types [...] Surgical Specialties [address] [facility], [address] [place] [address] Nacho Jackson MD [address] [place] [phone] documented as of this encounter Procedures Procedure [...] on filedocumented in this encounter Care Teams Assemblies And Installations Inspector Relationship Specialty Start Date End Date Vinnie Molina MD [address] [place] [address] PCP - General 07/13/20 documented as of this encounter
--- OUTSIDE RECORDS SUMMARY | 2024-12-05 10:49 | XMS_ITS | Referral Summary ---
Author Organization [employer] ([place], [place], [place], [place]) Address [address] [place] [address] Care Team Providers Care Mathematics Technician Name Role Phone Unavailable Primary Care Provider [...] Date Norman rded Speak language other than Chilean at home Not on file 03/20/2023 Want [...] Plan of Treatment Not on file [place] [address] [place] [id number] MEDICARE PART A B
--- OUTSIDE RECORDS SUMMARY | 2024-12-05 10:49 | XMS_ITS | Clinical Summary ---
Author Organization [facility] Address [address] [place] [address] Care Team Providers Care Creative Writing Professor Name Role Phone Vinnie Molina MD Primary Care Provider [phone] Allergies No known active allergies Medications amLODIPine [...] (one) time each day. Active HYDROcodone-acet aminophen ([place]) 7.5-325 MG tablet Take 1 tablet (7.5 [...] Medical Office Building Surgical Specialties [address] [facility], [address] [place] [address] Nacho Jackson MD [address] [place] [phone] Health Maintenance Due Date Last Done Comments [...] 09/26/2021 [facility]are Annual Wellness (AWV) 08/03/2024 08/04/2023 [id number] Vaccine ( season) 2024 12/30/2022, 12/16/2021, 12/06/2020, [...] patient's age to complete this topic Insurance [facility] [place] [phone] Care Teams Creative Writing Professor Relationship Specialty Start Date End Date Vinnie Molina MD [address] [place] [address] PCP - General 07/13/20
[2024-12-05 11:16] LABS: Hematocrit 28.9 % (37.0-47.0); Hemoglobin 8.9 g/dL (12.2-16.2); Immature Granulocytes % 0.3 %; Mean Corpuscular HGB Conc 30.8 g/dL (31.8-35.4); Mean Corpuscular Hemoglobin 25.6 pg (27.0-31.2); Mean Corpuscular Volume 83.0 fl (81-99); Nucleated Red Blood Cells % 0 %; Platelet Count 258 K/mm3 (142-424); Red Blood Count 3.48 M/mm3 (4.20-5.40); Red Cell Distribution Width-SD 52.6 fL; White Blood Count 7.4 K/mm3 (4.8-10.8)
[2024-12-05 11:48] LABS: Albumin Level 4.1 g/dl (3.5-5.0); Anion Gap 15.4 mEq/L (5-15); Blood Urea Nitrogen 33 mg/dl (7-17); Calcium 8.9 mg/dl (8.4-10.2); Carbon Dioxide 20 mmol/L (22.0-30.0); Chloride 108 mmol/L (98-107); Creatinine,Serum 2.10 mg/dl (0.52-1.04); Estimated Glomerular Filt Rate 23 ml/min (>60); GFR (African American) 27 ML/MIN (>60); Glucose 107 mg/dl (74-100); Phosphorous 4.7 mg/dl (2.5-4.5); Potassium 5.4 mmoL/L (3.5-5.1); Sodium 138 mmol/L (136-145)
== END 2024-12-05 23:59 | disposition home or self-care (01) ==
LOC: LAB 10:46
PROVIDERS: PCP Family Medicine
DX: N18.4 Chronic kidney disease, stage 4 (severe) (principal); D63.8 Anemia in other chronic diseases classified elsewhere; E55.9 Vitamin D deficiency, unspecified; R80.9 Proteinuria, unspecified
CPT/HCPCS: 36415; 80069; 82570; 83970; 84156; 85025

== ENCOUNTER 2024-12-15 13:46 | Outpatient (CLI) | payer MEDICARE, SELFPAY ==
[2024-12-15 13:48] VITALS: BMI 23.5
--- OUTSIDE RECORDS SUMMARY | 2024-12-15 13:55 | XMS_ITS | Encounter Summary ---
Author Organization Healthcare Address [address] [place] [address] Care Team Providers Care Radiation Therapy Technician Name Role Phone Vinnie Molina MD Primary Care Provider [phone] Encounter Details Date Type Department Care Team ([facility] Contact Info) Description 05/26/2023 Orders Only External Location [address] [place] [address] Vee Betts, DO [address] [place] [address] Social History Tobacco Use Types [...] Care Team ([facility] Contact Info) Description 02/06/2025 9:20 AM EST Office Visit Medical Office Building Surgical Specialties [address] [facility], [address] [place] [address] Nacho Jackson MD [address] [phone] documented as of this encounter Procedures Procedure [...] on filedocumented in this encounter Care Teams Radiation Therapy Technician Relationship Specialty Start Date End Date Vinnie Molina MD [address] [facility] [place] [address] PCP - General 07/13/20 documented as of this encounter
--- OUTSIDE RECORDS SUMMARY | 2024-12-15 13:55 | XMS_ITS | Encounter Summary ---
Author Organization Healthcare Address [address] [place] [address] Care Team Providers Care Manager Client Service Name Role Phone Vinnie Molina MD Primary Care Provider [phone] Encounter Details Date Type Department Care Team (Late Contact Info) Description 10/23/2015 Orders Only External Location [address] [place] [address] Provider, External Social History Tobacco Use Types [...] E [facility], [address] [place] [address] Nacho Jackson MD [address] [place] [phone] documented as of this encounter Procedures Procedure [...] filedocumented in this encounter Care Teams Manager Client Service Relationship Specialty Start Date End Date Vinnie Molina MD [address] [facility] [place] [address] PCP - General 07/13/20 documented as of this encounter
--- OUTSIDE RECORDS SUMMARY | 2024-12-15 13:55 | XMS_ITS | Encounter Summary ---
Author Organization Healthcare Address [address] [place] [address] Care Team Providers Care Hoop Flaring Machine Operator Name Role Phone Vinnie Molina MD Primary Care Provider [phone] Encounter Details Date Type Department Care Team ([facility] Contact Info) Description 03/30/2016 Orders Only External Location [address] [place] [address] Provider, External Social History Tobacco Use Types [...] E [facility], [address] [place] [address] Nacho Jackson MD [address] [place] [phone] documented as of this encounter Procedures Procedure [...] on filedocumented in this encounter Care Teams Hoop Flaring Machine Operator Relationship Specialty Start Date End Date Vinnie Molina MD [address] [facility] [place] [address] PCP - General 07/13/20 documented as of this encounter
--- OUTSIDE RECORDS SUMMARY | 2024-12-15 13:55 | XMS_ITS | Encounter Summary ---
Author Organization Healthcare Address [address] [place] [address] Care Team Providers Care Loss Prevention And Safety Manager Name Role Phone Vinnie Molina MD Primary Care Provider [phone] Encounter Details Date Type Department Care Team ([facility] Contact Info) Description 03/30/2016 Orders Only External Location [address] [place] [address] Provider, External Social History Tobacco Use Types [...] [facility], [address] [place] [address] Nacho Jackson MD [address] [place] [phone] documented as of this encounter Procedures Procedure [...] on filedocumented in this encounter Care Teams Loss Prevention And Safety Manager Relationship Specialty Start Date End Date Vinnie Molina MD [address] [facility] [place] [address] PCP - General 07/13/20 documented as of this encounter
--- OUTSIDE RECORDS SUMMARY | 2024-12-15 13:55 | XMS_ITS | Clinical Summary ---
Author Organization [facility] Address [address] [place] [address] Care Team Providers Care Emergency Room Physician Assistant Name Role Phone Vinnie Molina MD Primary Care Provider + Allergies Active Allergy Reactions Criticality Noted Date Comments Adhesive Tape Rash Low 03/22/2020 Codeine Anxiety Low 03/22/2020 Trazodone Delirium Medium 07/08/2021 Medications aspirin 81 MG EC tablet Take 1 tablet by mouth Daily. Active pantoprazole (PROTONIX) 40 MG EC tabletIndications :Gastroesophageal [...] area as directed Every 14 (Fourteen) Days. 025 Active FLUoxetine (PROzac) 10 MG capsuleIndication s:Anxiety Take 1 capsule by mouth Daily. 30 capsule 3 025 Active HYDROcodone-aceta minophen (NORCO) 7.5-325 MG per tabletIndications :Rheumatoid arthritis involving multiple sites with positive rheumatoid factor Take 1 tablet by mouth Every 6 (Six) Hours As Needed for Moderate Pain. 120 tablet 025 Active allopurinol (ZYLOPRIM) 100 MG tabletIndications :Stage 3b chronic kidney disease (CKD) TAKE 1 TABLET BY MOUTH DAILY 90 tablet 025 Active allopurinol (ZYLOPRIM) 100 MG tabletIndications :Stage 3b chronic kidney disease (CKD) Take 1 tablet by mouth Daily. 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); Anemia due to stage 4 chronic kidney disease; Anxiety; Activity intolerance associated with anemia 10/03/2024 Travel 09/30/2024 Refill [facility] [address] [phone] Vinnie Molina MD Primary hypertension; Acquired hypothyroidism [...] Description 01/12/2025 10:45 AM EST Office Visit [facility] [address] [place] [address] Vinnie Molina MD [address] [place] [address] Health Maintenance Due Date Last Done [...] Subscriber Plan / Payer (Ef fective 2007-Present) Name:Pualine Kay Member ID:[id number] Relation to Subscriber:Self Name:Pauline Kay Subscriber ID:[id number] Payer ID:[id number] Group ID:Not on file Type:Not on file Address: [address] [employer] Care Teams Emergency Room Physician Assistant Relationship Specialty Start Date End Date Vinnie Molina MD [facility] [address] [address] PCP - General Family Medicine 07/08/21
--- OUTSIDE RECORDS SUMMARY | 2024-12-15 13:55 | XMS_ITS | Referral Summary ---
Author Organization [employer] ([place], [place], [place], [place]) Address [address] [place] [address] Care Team Providers Care Caustics Loader Name Role Phone Unavailable Primary Care Provider [...] Date Norman rded Speak language other than Bangladeshi at home Not on file 03/20/2023 Want [...] Plan of Treatment Not on [place] [address] [place] [id number] MEDICARE PART A B
--- OUTSIDE RECORDS SUMMARY | 2024-12-15 13:55 | XMS_ITS | Encounter Summary ---
Author Organization Healthcare Address [address] [place] [address] Care Team Providers Care Family Medicine Physician Assistant Name Role Phone Vinnie Molina MD Primary Care Provider [phone] Encounter Details Date Type Department Care Team ([facility] Contact Info) Description 03/30/2016 Orders Only External Location [address] [place] [address] Provider, External Social History Tobacco Use Types [...] Medical Office Building Surgical Specialties [address] [facility], [address] [place] [address] Nacho Jackson MD [address] [place] [phone] documented as of this encounter Procedures Procedure [...] on filedocumented in this encounter Care Teams Family Medicine Physician Assistant Relationship Specialty Start Date End Date Vinnie Molina MD 210 [facility] [place] [place] [address] PCP - General 07/13/20 documented as of this encounter
--- OUTSIDE RECORDS SUMMARY | 2024-12-15 13:55 | XMS_ITS | Encounter Summary ---
Author Organization Healthcare Address [address] [place] [address] Care Team Providers Care Operational Intelligence Officer Name Role Phone Vinnie Molina MD Primary Care Provider [phone] Encounter Details Date Type Department Care Team ([facility] Contact Info) Description 03/30/2016 Orders Only External Location [address] [place] [address] Provider, External Social History Tobacco Use Types [...] Medical Branch [facility], [address] [place] [address] Nacho Jackson MD [address] [place] [phone] documented as of this encounter Procedures Procedure [...] on filedocumented in this encounter Care Teams Operational Intelligence Officer Relationship Specialty Start Date End Date Vinnie Molina MD 210 [facility] [place] [address] PCP - General 07/13/20 documented as of this encounter
--- OUTSIDE RECORDS SUMMARY | 2024-12-15 13:55 | XMS_ITS | Encounter Summary ---
Author Organization [facility] Address [address] [place] [address] Care Team Providers Care Juice Tester Name Role Phone Vinnie Molina MD Primary Care Provider + Reason for Visit * Reason Onset Date Comments Med Refill 11/03/2024 BILLING QUESTION 11/03/2024 Encounter Details Date Type Department Care Team (Late st Contact Info) Description 11/03/2024 Refill [facility] [address] [place] [address] Vinnie Molina MD 210 [place] [address] Rheumatoid arthritis involving multiple sites [...] Kay Relationship: Self Best call back number: [phone] Requested Prescriptions: Requested Prescriptions Pending Prescriptions Disp Refills HYDROcodone-acetaminophen (NORCO) 7.5-325 MG per tablet 120 tablet 0 Sig: Take 1 tablet by mouth Every 6 (Six) Hours As Needed for Moderate Pain. Pharmacy where request should be sent: [id number] - [place], [place] - [address] - [phone] [facility] [phone] Last office visit with prescribing clinician: 10/03/2024 [...] Description 01/12/2025 10:45 AM EST Office Visit [facility] [address] [phone] Vinnie Molina MD [address] [address] documented as of this encounter Visit Diagnoses Diagnosis Rheumatoid arthritis involving multiple sites with positive rheumatoid factor documented in this encounter Additional Health Concerns Assessment Noted Time PHQ-2 Depression Total Score: 4 08/04/19 24 10:13 AM EDT documented as of this encounter Care Teams Juice Tester Relationship Specialty Start Date End Date Vinnie Molina MD [address] [place] [address] PCP - General Family Medicine 07/08/21 documented as of this encounter
--- OUTSIDE RECORDS SUMMARY | 2024-12-15 13:55 | XMS_ITS | Encounter Summary ---
Author Organization Healthcare Address [address] [place] [address] Care Team Providers Care Rod Puller And Coiler Name Role Phone Vinnie Molina MD Primary Care Provider [phone] Encounter Details Date Type Department Care Team ([facility] Contact Info) Description 05/26/2023 Orders Only External Location [address] [place] [address] Vee Betts, DO [address] [place] [address] Social History Tobacco Use Types [...] Upcoming Encounters Date Type Department Care Team ([facility] Contact Info) Description 02/06/2025 9:20 AM EST Office Visit Medical Office Building Surgical Specialties [address] [facility], [address] [place] [address] Nacho Jackson MD [address] [phone] documented as of this encounter Procedures Procedure [...] on filedocumented in this encounter Care Teams Rod Puller And Coiler Relationship Specialty Start Date End Date Vinnie Molina MD [address] [facility] [place] [place] [address] PCP - General 07/13/20 documented as of this encounter
--- OUTSIDE RECORDS SUMMARY | 2024-12-15 13:55 | XMS_ITS | Encounter Summary ---
[facility] Organization [facility] Address [address] [place] [id number] Care Team Providers Care Building Mover Name Role Phone Vinnie Molina MD Primary Care Provider + Reason for Visit * Reason Comments Med Refill Encounter Details Date Type Department Care Team (Late Contact Info) Description 12/09/2024 Refill [facility] 210 [facility] [place] [address] Vinnie Molina MD 210 [facility] [place] [address] Stage 3b chronic kidney disease (CKD) Social History Tobacco Use Types Packs/Day Years [...] Department Care Team (Late Contact Info) Description 01/12/2025 10:45 AM EST Office Visit [facility] 210 [facility] [place] [address] Vinnie Molina MD [address] [place] [address] documented as of this encounter Visit Diagnoses Diagnosis Stage 3b chronic kidney disease (CKD) documented in this encounter Additional Health Concerns Assessment Noted Time PHQ-2 Depression Total Score: 4 08/04/19 24 10:13 AM EDT documented as of this encounter Care Teams Building Mover Relationship Specialty Start Date End Date Vinnie Molina MD [address] [place] [address] PCP - General Family Medicine 07/08/21 documented as of this encounter
--- OUTSIDE RECORDS SUMMARY | 2024-12-15 13:55 | XMS_ITS | Encounter Summary ---
Author Organization Healthcare Address [address] [place] [address] Care Team Providers Care Medicare Insurance Specialist Name Role Phone Vinnie Molina MD Primary Care Provider [phone] Encounter Details Date Type Department Care Team (Late Contact Info) Description 03/27/2020 Orders Only External Location [address] [place] [address] Provider, External Social History Tobacco Use Types [...] Specialties [address] [facility], [address] [place] [address] Nacho Jackson MD [address] [place] [address] [address] documented as of this encounter Procedures Procedure [...] on filedocumented in this encounter Care Teams Medicare Insurance Specialist Relationship Specialty Start Date End Date Vinnie Molina MD [address] [place] [address] PCP - General 07/13/20 documented as of this encounter
--- OUTSIDE RECORDS SUMMARY | 2024-12-15 13:55 | XMS_ITS | Encounter Summary ---
Author Organization Healthcare Address [address] [place] [address] Care Team Providers Care Hand Spinner Name Role Phone Vinnie Molina MD Primary Care Provider [phone] Encounter Details Date Type Department Care Team (Late Contact Info) Description 08/13/2023 Orders Only External Location [address] [place] [address] Provider, External Social History Tobacco Use Types [...] Office Building Surgical Specialties [address] [facility], [address] [place] [address] Nacho Jackson MD [address] [place] [address] [address] documented as of this encounter Procedures Procedure [...] on filedocumented in this encounter Care Teams Hand Spinner Relationship Specialty Start Date End Date Vinnie Molina MD [address] [place] [address] PCP - General 07/13/20 documented as of this encounter
--- OUTSIDE RECORDS SUMMARY | 2024-12-15 13:55 | XMS_ITS | Clinical Summary ---
Author Organization [employer] ([place], [place], [place], [place]) Address [address] [place] [address] Care Team Providers Care Plug Shaper Hand Name Role Phone Unavailable Primary Care Provider [...] Date Norman rded Speak language other than Nauruan at home Not on file 03/20/2023 Want [...] T d or Tdap) 09/27/2031 09/26/[address] [place] [address] [phone] MEDICARE PART A B
--- OUTSIDE RECORDS SUMMARY | 2024-12-15 13:55 | XMS_ITS | Clinical Summary ---
Author Organization [facility] Address [address] [place] [address] Care Team Providers Care Supervisor Mechanic Boilermaking Name Role Phone Vinnie Molina MD Primary Care Provider [phone] Allergies No known active allergies Medications amLODIPine [...] (one) time each day. Active HYDROcodone-acet aminophen (Fosters) 7.5-325 MG tablet Take 1 tablet (7.5 [...] Specialties [address] [facility], [address] [place] [address] Nacho Jackson MD [address] [place] [phone] Health Maintenance Due Date Last Done Comments [...] 09/26/2021 [facility] Annual Wellness (AWV) 08/03/2024 08/04/2023 [id number] Vaccine ( season) 2024 12/30/2022, 12/16/2021, 12/06/2020, [...] patient's age to complete this topic Insurance [facility] MEDICARE Care Teams Supervisor Mechanic Boilermaking Relationship Specialty Start Date End Date Vinnie Molina MD [address] [place] [address] PCP - General 07/13/20
--- OUTSIDE RECORDS SUMMARY | 2024-12-15 13:55 | XMS_ITS | Encounter Summary ---
Author Organization Healthcare Address [address] [place] [address] Care Team Providers Care Framing Mechanic Name Role Phone Vinnie Molina MD Primary Care Provider [phone] Encounter Details Date Type Department Care Team (Late Contact Info) Description 03/16/2020 Orders Only External Location [address] [place] [address] Provider, External Social History Tobacco Use Types [...] Office Building Surgical Specialties [address] [facility], [address] [place] [address] Nacho Jackson MD [address] [place] [address] [address] documented as of this encounter Procedures Procedure [...] on filedocumented in this encounter Care Teams Framing Mechanic Relationship Specialty Start Date End Date Vinnie Molina MD [address] [place] [address] PCP - General 07/13/20 documented as of this encounter
--- OUTSIDE RECORDS SUMMARY | 2024-12-15 13:55 | XMS_ITS | Encounter Summary ---
Author Organization Healthcare Address [address] [place] [address] Care Team Providers Care Internal Control Manager Name Role Phone Vinnie Molina MD Primary Care Provider [phone] Encounter Details Date Type Department Care Team (Late Contact Info) Description 05/26/2023 Orders Only External Location [address] [place] [address] Provider, External Social History Tobacco Use Types [...] [address] [facility], [address] [place] [address] Nacho Jackson MD [address] [place] [address] [address] documented as of this encounter Procedures Procedure [...] on filedocumented in this encounter Care Teams Internal Control Manager Relationship Specialty Start Date End Date Vinnie Molina MD [address] [place] [address] PCP - General 07/13/20 documented as of this encounter
--- OUTSIDE RECORDS SUMMARY | 2024-12-15 13:55 | XMS_ITS | Encounter Summary ---
Author Organization Healthcare Address [address] [place] [address] Care Team Providers Care Railroad Dining Car Stewardess Name Role Phone Vinnie Molina MD Primary Care Provider [phone] Encounter Details Date Type Department Care Team (Late Contact Info) Description 05/26/2023 Orders Only External Location [address] [place] [address] Provider, External Social History Tobacco Use Types [...] [facility], [address] [place] [address] Nacho Jackson MD [address] [place] [address] [address] documented as of this encounter Procedures Procedure [...] on filedocumented in this encounter Care Teams Railroad Dining Car Stewardess Relationship Specialty Start Date End Date Vinnie Molina MD [address] [place] [address] PCP - General 07/13/20 documented as of this encounter
--- OUTSIDE RECORDS SUMMARY | 2024-12-15 13:55 | XMS_ITS | Encounter Summary ---
Author Organization Healthcare Address [address] [place] [address] Care Team Providers Care Shopper Insights Manager Name Role Phone Vinnie Molina MD Primary Care Provider [phone] Encounter Details Date Type Department Care Team ([facility] Contact Info) Description 03/30/2016 Orders Only External Location [address] [place] [address] Provider, External Social History Tobacco Use Types [...] Medical Office Building Surgical Specialties [address] [facility], [address] [place] [address] Nacho Jackson MD [address] [place] [phone] documented as of this encounter Procedures Procedure [...] on filedocumented in this encounter Care Teams Shopper Insights Manager Relationship Specialty Start Date End Date Vinnie Molina MD 210 [facility] [place] [address] PCP - General 07/13/20 documented as of this encounter
--- OUTSIDE RECORDS SUMMARY | 2024-12-15 13:55 | XMS_ITS | Encounter Summary ---
Author Organization Healthcare Address [address] [place] [address] Care Team Providers Care Match Marker Name Role Phone Vinnie Molina MD Primary Care Provider [phone] Encounter Details Date Type Department Care Team (Late Contact Info) Description 05/26/2023 Orders Only External Location [address] [place] [address] Provider, External Social History Tobacco Use Types [...] Medical Office Building Surgical Specialties [address] [facility], [address] [place] [address] Nacho Jackson MD [address] [place] [address] [address] documented as of this encounter Procedures Procedure [...] on filedocumented in this encounter Care Teams Match Marker Relationship Specialty Start Date End Date Vinnie Molina MD [address] [place] [address] PCP - General 07/13/20 documented as of this encounter
[2024-12-15 14:15] LABS: Creatinine Clearance Estimated 19 mL/min (50-200); Creatinine,Serum 2.20 mg/dl (0.52-1.04); Estimated Glomerular Filt Rate 21 ml/min (>60); GFR (African American) 26 ML/MIN (>60)
[2024-12-15 14:17] LABS: Hematocrit 26.2 % (37.0-47.0); Hemoglobin 8.2 g/dL (12.2-16.2)
[2024-12-15 14:25] LABS: Potassium 6.2 mmoL/L (3.5-5.1)
[2024-12-15 14:33] VITALS: BP 132/62; PULSE 73; RESP 18; TEMP 36.6; O2SAT 100
[2024-12-15] MEDS: EPOETIN 20,000 UNITS/ML MDV 10000 UNIT SUBCUT (14:33)
== END 2024-12-15 23:59 | disposition home or self-care (01) ==
LOC: INF 13:47
PROVIDERS: PCP Family Medicine; Visit Provider Hospitalist
DX: N18.4 Chronic kidney disease, stage 4 (severe) (principal); D63.1 Anemia in chronic kidney disease; D64.9 Anemia, unspecified
CPT/HCPCS: 36415; 82565; 84132; 85014; 85018; 96372; J0885

== ENCOUNTER 2024-12-27 12:57 | Outpatient (CLI) | payer MEDICARE, SELFPAY ==
[2024-12-27 13:00] VITALS: BMI 23.5
[2024-12-27 13:16] LABS: Hematocrit 27.3 % (37.0-47.0); Hemoglobin 8.3 g/dL (12.2-16.2)
--- NOTE | 2024-12-27 13:16 | PC.NURSE ---
Venipuncture performed to pt's lt ac x 1 stick using a butterfly access needle and blood drawn for labs as ordered per md. Blood drawn and needle withdrawn. Site secured with 2x2 gauze and coban. Will await results of labs to determine if procrit inj is needed.
[2024-12-27 13:24] LABS: Potassium 4.8 mmoL/L (3.5-5.1)
--- OUTSIDE RECORDS SUMMARY | 2024-12-27 13:26 | XMS_ITS | Encounter Summary ---
Author Organization Healthcare Address [address] [place] [address] Care Team Providers Care Readiness Paraprofessional Name Role Phone Vinnie Molina MD Primary Care Provider [phone] Encounter Details Date Type Department Care Team (Late Contact Info) Description 05/26/2023 Orders Only External Location [address] [place] [address] Provider, External Social History Tobacco Use Types [...] Surgical Specialties [address] [facility], [address] [place] [address] Nacho Jackson MD [address] [place] [address] [address] documented as of this encounter Procedures Procedure [...] on filedocumented in this encounter Care Teams Readiness Paraprofessional Relationship Specialty Start Date End Date Vinnie Molina MD [address] [place] [address] PCP - General 07/13/20 documented as of this encounter
--- OUTSIDE RECORDS SUMMARY | 2024-12-27 13:26 | XMS_ITS | Encounter Summary ---
Author Organization Healthcare Address [address] [place] [address] Care Team Providers Care Emergency Management System Director Name Role Phone Vinnie Molina MD Primary Care Provider [phone] Encounter Details Date Type Department Care Team ([facility] Contact Info) Description 05/26/2023 Orders Only External Location [address] [place] [address] Vee Betts, DO [address] [place] [address] Social History Tobacco Use Types [...] Upcoming Encounters Date Type Department Care Team ([facility] Contact Info) Description 02/06/2025 9:20 AM EST Office Visit Medical Office Building Surgical Specialties [address] [facility], [address] [place] [address] Nacho Jackson MD [address] [phone] documented as of this encounter Procedures Procedure [...] on filedocumented in this encounter Care Teams Emergency Management System Director Relationship Specialty Start Date End Date Vinnie Molina MD 210 [facility] [place] [address] PCP - General 07/13/20 documented as of this encounter
--- OUTSIDE RECORDS SUMMARY | 2024-12-27 13:26 | XMS_ITS | Encounter Summary ---
Author Organization Healthcare Address [address] [place] [address] Care Team Providers Care Trim Technician Name Role Phone Vinnie Molina MD Primary Care Provider [phone] Encounter Details Date Type Department Care Team (Late Contact Info) Description 08/13/2023 Orders Only External Location [address] [place] [address] Provider, External Social History Tobacco Use Types [...] [facility], [address] [place] [address] Nacho Jackson MD [address] [place] [address] [address] documented as of this encounter Procedures Procedure [...] on filedocumented in this encounter Care Teams Trim Technician Relationship Specialty Start Date End Date Vinnie Molina MD [address] [place] [address] PCP - General 07/13/20 documented as of this encounter
[2024-12-27 13:27] LABS: Creatinine Clearance Estimated 19 mL/min (50-200); Creatinine,Serum 2.20 mg/dl (0.52-1.04); Estimated Glomerular Filt Rate 21 ml/min (>60); GFR (African American) 26 ML/MIN (>60); Iron 58 ug/dL (37-170)
--- OUTSIDE RECORDS SUMMARY | 2024-12-27 13:27 | XMS_ITS | Encounter Summary ---
Author Organization Healthcare Address [address] [place] [address] Care Team Providers Care Hot Patcher Name Role Phone Vinnie Molina MD Primary Care Provider Encounter Details Date Type Department Care Team ([facility] Contact Info) Description 03/30/2016 Orders Only External Location [address] [place] [address] Provider, External Social History Tobacco Use Types [...] E [facility], [address] [place] [address] Nacho Jackson MD [address] [place] [phone] documented as of this encounter Procedures Procedure [...] on filedocumented in this encounter Care Teams Hot Patcher Relationship Specialty Start Date End Date Vinnie Molina MD 210 [facility] [place] [address] PCP - General 07/13/20 documented as of this encounter
--- OUTSIDE RECORDS SUMMARY | 2024-12-27 13:27 | XMS_ITS | Encounter Summary ---
Author Organization Healthcare Address [address] [place] [address] Care Team Providers Care Jewelry Bench Molder Name Role Phone Vinnie Molina MD Primary Care Provider [phone] Encounter Details Date Type Department Care Team ([facility] Contact Info) Description 05/26/2023 Orders Only External Location [address] [place] [address] Vee Betts, DO [address] [place] [address] Social History Tobacco Use Types [...] Upcoming Encounters Date Type Department Care Team ([facility] Contact Info) Description 02/06/2025 9:20 AM EST Office Visit Medical Office Building Surgical Specialties [address] [facility], [address] [place] [address] Nacho Jackson MD [address] [phone] documented as of this encounter Procedures Procedure [...] on filedocumented in this encounter Care Teams Jewelry Bench Molder Relationship Specialty Start Date End Date Vinnie Molina MD 210 [facility] [place] [address] PCP - General 07/13/20 documented as of this encounter
--- OUTSIDE RECORDS SUMMARY | 2024-12-27 13:27 | XMS_ITS | Encounter Summary ---
Author Organization Healthcare Address [address] [place] [address] Care Team Providers Care Animal Nurse Name Role Phone Vinnie Molina MD Primary Care Provider [phone] Encounter Details Date Type Department Care Team (Late Contact Info) Description 03/16/2020 Orders Only External Location [address] [place] [address] Provider, External Social History Tobacco Use Types [...] Medical Office Building Surgical Specialties [address] [facility], [address] [place] [address] Nacho Jackson MD [address] [place] [address] [address] documented as of this encounter Procedures Procedure [...] on filedocumented in this encounter Care Teams Animal Nurse Relationship Specialty Start Date End Date Vinnie Molina MD [address] [place] [address] PCP - General 07/13/20 documented as of this encounter
--- OUTSIDE RECORDS SUMMARY | 2024-12-27 13:27 | XMS_ITS | Clinical Summary ---
Author Organization [employer] [place] Address [address] [place] [address] Care Team Providers Care Insulation Cupola Operator Name Role Phone Unavailable Primary Care Provider [...] Date Norman rded Speak language other than Finnish at home Not on file 03/20/2023 Want [...] T d or Tdap) 09/27/2031 09/26/[address] [place] [phone] MEDICARE PART A B
--- OUTSIDE RECORDS SUMMARY | 2024-12-27 13:27 | XMS_ITS | Encounter Summary ---
Author Organization [facility] Address [address] [place] [address] Care Team Providers Care Mapping Pilot Name Role Phone Vinnie Molina MD Primary Care Provider + Reason for Visit * Reason Onset Date Comments Med Refill 11/03/2024 BILLING QUESTION 11/03/2024 Encounter Details Date Type Department Care Team (Late st Contact Info) Description 11/03/2024 Refill [facility] [address] [place] [address] Vinnie Molina MD 210 [place] [address] Rheumatoid arthritis involving multiple sites [...] Kay Relationship: Self Best call back number: [phone] Requested Prescriptions: Requested Prescriptions Pending Prescriptions Disp Refills HYDROcodone-acetaminophen (NORCO) 7.5-325 MG per tablet 120 tablet 0 Sig: Take 1 tablet by mouth Every 6 (Six) Hours As Needed for Moderate Pain. 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
--- OUTSIDE RECORDS SUMMARY | 2024-12-27 13:27 | XMS_ITS | Encounter Summary ---
Author Organization Healthcare Address [address] [place] [address] Care Team Providers Care Assistant In Nursing Name Role Phone Vinnie Molina MD Primary Care Provider [phone] Encounter Details Date Type Department Care Team ([facility] Contact Info) Description 03/30/2016 Orders Only External Location [address] [place] [address] Provider, External Social History Tobacco Use Types [...] E [facility], [address] [place] [address] Nacho Jackson MD [address] [place] [phone] documented as of this encounter Procedures Procedure [...] filedocumented in this encounter Care Teams Assistant In Nursing Relationship Specialty Start Date End Date Vinnie Molina MD 210 [facility] [place] [address] PCP - General 07/13/20 documented as of this encounter
--- OUTSIDE RECORDS SUMMARY | 2024-12-27 13:27 | XMS_ITS | Encounter Summary ---
Author Organization Healthcare Address [address] [place] [address] Care Team Providers Care Electrical Wiring Lineman Name Role Phone Vinnie Molina MD Primary Care Provider [phone] Encounter Details Date Type Department Care Team ([facility] Contact Info) Description 03/30/2016 Orders Only External Location [address] [place] [address] Provider, External Social History Tobacco Use Types [...] Office Building Surgical Specialties [address] [facility], [address] [place] [address] Nacho Jackson MD [address] [place] [phone] documented as of this encounter Procedures Procedure [...] on filedocumented in this encounter Care Teams Electrical Wiring Lineman Relationship Specialty Start Date End Date Vinnie Molina MD 210 [facility] [place] [address] PCP - General 07/13/20 documented as of this encounter
--- OUTSIDE RECORDS SUMMARY | 2024-12-27 13:27 | XMS_ITS | Encounter Summary ---
Author Organization Healthcare Address [address] [place] [address] Care Team Providers Care Fiscal Analyst Name Role Phone Vinnie Molina MD Primary Care Provider [phone] Encounter Details Date Type Department Care Team (Late Contact Info) Description 03/27/2020 Orders Only External Location [address] [place] [address] Provider, External Social History Tobacco Use Types [...] [facility], [address] [place] [address] Nacho Jackson MD [address] [place] [address] [address] documented as of this encounter Procedures Procedure [...] on filedocumented in this encounter Care Teams Fiscal Analyst Relationship Specialty Start Date End Date Vinnie Molina MD [address] [place] [address] PCP - General 07/13/20 documented as of this encounter
--- OUTSIDE RECORDS SUMMARY | 2024-12-27 13:27 | XMS_ITS | Encounter Summary ---
Author Organization Healthcare Address [address] [place] [address] Care Team Providers Care Natural Gas Shothole Driller Name Role Phone Vinnie Molina MD Primary Care Provider [phone] Encounter Details Date Type Department Care Team (Late Contact Info) Description 05/26/2023 Orders Only External Location [address] [place] [address] Provider, External Social History Tobacco Use Types [...] Medical Office Building Surgical Specialties [address] [facility], [address] [place] [address] Nacho Jackson MD [address] [place] [address] [address] documented as of this encounter Procedures Procedure [...] on filedocumented in this encounter Care Teams Natural Gas Shothole Driller Relationship Specialty Start Date End Date Vinnie Molina MD [address] [place] [address] PCP - General 07/13/20 documented as of this encounter
--- OUTSIDE RECORDS SUMMARY | 2024-12-27 13:27 | XMS_ITS | Encounter Summary ---
Author Organization Healthcare Address [address] [place] [address] Care Team Providers Care Rn Visiting Name Role Phone Vinnie Molina MD Primary Care Provider [phone] Encounter Details Date Type Department Care Team (Late Contact Info) Description 10/23/2015 Orders Only External Location [address] [place] [address] Provider, External Social History Tobacco Use Types [...] E [facility], [address] [place] [address] Nacho Jackson MD [address] [place] [phone] documented as of this encounter Procedures Procedure [...] filedocumented in this encounter Care Teams Rn Visiting Relationship Specialty Start Date End Date Vinnie Molina MD 210 [facility] [place] [address] PCP - General 07/13/20 documented as of this encounter
--- OUTSIDE RECORDS SUMMARY | 2024-12-27 13:27 | XMS_ITS | Encounter Summary ---
Author Organization Healthcare Address [address] [place] [address] Care Team Providers Care Transfusion Nurse Name Role Phone Vinnie Molina MD Primary Care Provider [phone] Encounter Details Date Type Department Care Team (Late Contact Info) Description 05/26/2023 Orders Only External Location [address] [place] [address] Provider, External Social History Tobacco Use Types [...] Office Building Surgical Specialties [address] [facility], [address] [place] [address] Nacho Jackson MD [address] [phone] documented as of this encounter Procedures Procedure [...] on filedocumented in this encounter Care Teams Transfusion Nurse Relationship Specialty Start Date End Date Vinnie Molina MD [address] [place] [address] PCP - General 07/13/20 documented as of this encounter
--- OUTSIDE RECORDS SUMMARY | 2024-12-27 13:27 | XMS_ITS | Encounter Summary ---
Author Organization Healthcare Address [address] [place] [address] Care Team Providers Care Helpdesk Technician Name Role Phone Vinnie Molina MD Primary Care Provider [phone] Encounter Details Date Type Department Care Team ([facility] Contact Info) Description 03/30/2016 Orders Only External Location [address] [place] [address] Provider, External Social History Tobacco Use Types [...] Medical Office Building Surgical Specialties [address] [facility], [address] [place] [address] Nacho Jackson MD [address] [place] [phone] documented as of this encounter Procedures Procedure [...] on filedocumented in this encounter Care Teams Helpdesk Technician Relationship Specialty Start Date End Date Vinnie Molina MD 210 [facility] [place] [address] PCP - General 07/13/20 documented as of this encounter
--- OUTSIDE RECORDS SUMMARY | 2024-12-27 13:27 | XMS_ITS | Encounter Summary ---
Author Organization Healthcare Address [address] [place] [address] Care Team Providers Care Trolley Collector Name Role Phone Vinnie Molina MD Primary Care Provider [phone] Encounter Details Date Type Department Care Team ([facility] Contact Info) Description 03/30/2016 Orders Only External Location [address] [place] [address] Provider, External Social History Tobacco Use Types [...] Medical Office Building Surgical Specialties [address] [facility], [address] [place] [address] Nacho Jackson MD [address] [place] [phone] documented as of this encounter Procedures Procedure [...] on filedocumented in this encounter Care Teams Trolley Collector Relationship Specialty Start Date End Date Vinnie Molina MD [address] [facility] [address] PCP - General 07/13/20 documented as of this encounter
--- OUTSIDE RECORDS SUMMARY | 2024-12-27 13:27 | XMS_ITS | Clinical Summary ---
Author Organization [facility] Address [address] [place] [address] Care Team Providers Care Skirt Panel Assembler Name Role Phone Vinnie Molina MD [...] Type Department Care Team Description 12/09/2024 Refill [facility] [address] [address] Vinnie Molina MD Stage 3b chronic kidney disease (CKD) 11/03/2024 Refill [facility] [address] [address] Vinnie Molina MD Rheumatoid arthritis involving multiple sites with positive rheumatoid factor 10/03/2024 12:15 PM EDT Office Visit [facility] MED[facility] [address] [address] Vinnie Molina MD 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); Anemia due to stage 4 chronic kidney disease; Anxiety; Activity intolerance associated with anemia 10/03/2024 Travel 09/30/2024 Refill [facility] [address] [phone] Vinnie Molina MD Primary hypertension; Acquired hypothyroidism [...] [facility] [address] [place] [address] Vinnie Molina MD [address] [place] [address] Health Maintenance Due Date Last Done [...] Date/Time Associated Diagnosis Comments SCANNED - LABS 12/15/2024 SCANNED - LABS 11/15/2024 SCANNED - LABS 11/02/2024 SCANNED - LABS 11/02/2024 SCANNED - LABS 11/01/2024 SCANNED - LABS 11/01/2024 SCANNED - LABS 11/01/2024 SCANNED - LABS 10/18/2024 SCANNED - LABS 10/04/2024 SCANNED - LABS 10/04/2024 from Last 3 Months Results * LABS SCANNED (12/15/2024) Only the most recent of10 resultswithin the time period is included. us Vinnie Molina MD LAB BLOOD ORDERABLES Fin al Result from Last 3 Months Insurance MEDICARE A & B Member Subscriber Plan / Payer (Ef fective 2007-Present) Name:Pauline Kay Member ID:[id number] Relation to Subscriber:Self Name:Pauline Kay Subscriber ID:[id number] Payer ID:[id number] Group ID:Not on file Type:Not on file Address: [id number] [employer] Care Teams Skirt Panel Assembler Relationship Specialty Start Date End Date Vinnie Molina MD [facility] [address] [address] PCP - General Family Medicine 07/08/21
--- OUTSIDE RECORDS SUMMARY | 2024-12-27 13:28 | XMS_ITS | Referral Summary ---
Author Organization [employer] [place], [place] Address [address] [place] [address] Care Team Providers Care Technology Director Name Role Phone Unavailable Primary Care [...] Date Norman rded Speak language other than Portuguese at home Not on file 03/20/2023 Want [...] Plan of Treatment Not on file [place] [address] [phone] MEDICARE PART A B
--- OUTSIDE RECORDS SUMMARY | 2024-12-27 13:28 | XMS_ITS | Encounter Summary ---
Author Organization [facility] Address [address] [place] [id number] Care Team Providers Care Uke Operator Name Role Phone Vinnie Molina MD Primary Care Provider + Reason for Visit * Reason Comments Med Refill Encounter Details Date Type Department Care Team (Late Contact Info) Description 12/09/2024 Refill [facility] 210 [facility] [place] [address] Vinnie Molina MD 210 [facility] [place] [address] Stage 3b chronic kidney disease [...] Office Visit [facility] MED[facility]INE 210 [facility] [place] [address] Vinnie Molina MD [address] [place] [address] documented as of this encounter Visit Diagnoses Diagnosis Stage 3b chronic kidney disease (CKD) documented in this encounter Additional Health Concerns Assessment Noted Time PHQ-2 Depression Total Score: 4 08/04/19 24 10:13 AM EDT documented as of this encounter Care Teams Uke Operator Relationship Specialty Start Date End Date Vinnie Molina MD [address] [place] [address] PCP - General Family Medicine 07/08/21 documented as of this encounter
--- OUTSIDE RECORDS SUMMARY | 2024-12-27 13:28 | XMS_ITS | Clinical Summary ---
Author Organization [facility] Address [address] [place] [address] Care Team Providers Care It Infrastructure Engineer Name Role Phone Vinnie Molina MD Primary Care Provider [phone] Allergies No known active allergies Medications amLODIPine [...] (one) time each day. Active HYDROcodone-acet aminophen ([place]) 7.5-325 MG tablet Take 1 tablet (7.5 [...] [facility], [address] [place] [address] Nacho Jackson MD [address] [place] [phone] Health Maintenance Due Date Last Done Comments [...] 09/26/2021 UKY-Medicare Annual Wellness (AWV) 08/03/2024 08/04/2023 [id number] Vaccine ( season) 2024 12/30/2022, 12/16/2021, 12/06/2020, [...] patient's age to complete this topic Insurance [facility] MEDICARE Care Teams It Infrastructure Engineer Relationship Specialty Start Date End Date Vinnie Molina MD [address] [place] [address] PCP - General 07/13/20
[2024-12-27 13:36] LABS: Total Iron Binding Capacity 401 ug/dL (265-497)
[2024-12-27] MEDS: EPOETIN 20,000 UNITS/ML MDV 10000 UNIT SUBCUT (13:38)
[2024-12-27 14:05] LABS: Ferritin 12.3 ng/ml (11.1-264)
== END 2024-12-27 23:59 | disposition home or self-care (01) ==
LOC: INF 12:59
PROVIDERS: PCP Family Medicine; Visit Provider Hospitalist
DX: N18.4 Chronic kidney disease, stage 4 (severe) (principal); D63.1 Anemia in chronic kidney disease
CPT/HCPCS: 36415; 82565; 82728; 83540; 83550; 84132; 85014; 85018; 96372; J0885

== ENCOUNTER 2024-12-30 10:48 | Outpatient (CLI) | payer MEDICARE, SELFPAY ==
--- OUTSIDE RECORDS SUMMARY | 2024-12-30 10:54 | XMS_ITS | Encounter Summary ---
[facility] Address [address] [place] [phone] Care Team Providers Care Flat Knitter Helper Name Role Phone Vinnie Molina MD Primary Care Provider + Reason for Visit * Reason Comments Med Refill Encounter Details Date Type Department Care Team (Late Contact Info) Description 12/09/2024 Refill [facility] MED[facility] 210 [facility] [place] [address] Vinnie Molina MD 210 [facility] [place] [address] Stage 3b chronic kidney disease [...] EST Office Visit [facility] 210 [facility] [place] [address] Vinnie Molina MD [address] [place] [address] documented as of this encounter Visit Diagnoses Diagnosis Stage 3b chronic kidney disease (CKD) documented in this encounter Additional Health Concerns Assessment Noted Time PHQ-2 Depression Total Score: 4 08/04/19 24 10:13 AM EDT documented as of this encounter Care Teams Flat Knitter Helper Relationship Specialty Start Date End Date Vinnie Molina MD [address] [place] [address] PCP - General Family Medicine 07/08/21 documented as of this encounter
--- OUTSIDE RECORDS SUMMARY | 2024-12-30 10:54 | XMS_ITS | Encounter Summary ---
Author Organization Healthcare Address [address] [place] [address] Care Team Providers Care Tractor Distributor Name Role Phone Vinnie Molina MD Primary Care Provider [phone] Encounter Details Date Type Department Care Team ([facility] Contact Info) Description 03/30/2016 Orders Only External Location [address] [place] [address] Provider, External Social History Tobacco Use Types [...] [address] [facility], [address] [place] [address] Nacho Jackson MD [address] [place] [phone] documented as of this encounter Procedures Procedure [...] on filedocumented in this encounter Care Teams Tractor Distributor Relationship Specialty Start Date End Date Vinnie Molina MD 210 [facility] [place] [address] PCP - General 07/13/20 documented as of this encounter
--- OUTSIDE RECORDS SUMMARY | 2024-12-30 10:54 | XMS_ITS | Clinical Summary ---
Author Organization [employer] ([place], [place], [place], [place]) Address [address] [place] [address] Care Team Providers Care Silvering Department Supervisor Name Role Phone Unavailable Primary Care [...] Date Norman rded Speak language other than Nigerian at home Not on file 03/20/2023 Want [...] T d or Tdap) 09/27/2031 09/26/[address] [place] [phone] MEDICARE PART A B
--- OUTSIDE RECORDS SUMMARY | 2024-12-30 10:54 | XMS_ITS | Encounter Summary ---
Author Organization Healthcare Address [address] [place] [address] Care Team Providers Care Metallurgical Engineer Name Role Phone Vinnie Mloina MD Primary Care Provider [phone] Encounter Details Date Type Department Care Team (Late Contact Info) Description 10/23/2015 Orders Only External Location [address] [place] [address] Provider, External Social History Tobacco Use Types [...] Medical Office Building Surgical Specialties [address] [facility], [address] [place] [address] Nacho Jackson MD [address] [place] [phone] documented as of this encounter Procedures Procedure [...] on filedocumented in this encounter Care Teams Metallurgical Engineer Relationship Specialty Start Date End Date Vinnie Molina MD 210 [facility] [place] [address] PCP - General 07/13/20 documented as of this encounter
--- OUTSIDE RECORDS SUMMARY | 2024-12-30 10:54 | XMS_ITS | Encounter Summary ---
Author Organization Healthcare Address [address] [place] [address] Care Team Providers Care Rolled Materials Worker Name Role Phone Vinnie Molina MD Primary Care Provider [phone] Encounter Details Date Type Department Care Team (Late Contact Info) Description 05/26/2023 Orders Only External Location [address] [place] [address] Provider, External Social History Tobacco Use Types [...] E [facility], [address] [place] [address] Nacho Jackson MD [address] [address] documented as of this encounter Procedures Procedure [...] on filedocumented in this encounter Care Teams Rolled Materials Worker Relationship Specialty Start Date End Date Vinnie Molina MD [address] [address] PCP - General 07/13/20 documented as of this encounter
--- OUTSIDE RECORDS SUMMARY | 2024-12-30 10:54 | XMS_ITS | Clinical Summary ---
Author Organization [facility] Address [address] [place] [address] Care Team Providers Care Electrical Prospecting Engineer Name Role Phone Vinnie Molina MD Primary Care Provider [phone] Allergies No known active allergies Medications amLODIPine [...] (one) time each day. Active HYDROcodone-acet aminophen ([place]) 7.5-325 MG tablet Take 1 tablet (7.5 [...] Office Building Surgical Specialties [address] [facility], [address] [place] [address] Nacho Jackson MD [address] [place] [phone] Health Maintenance Due Date Last Done Comments [...] 09/26/2021 UKY-Medicare Annual Wellness (AWV) 08/03/2024 08/04/2023 [id number] Vaccine ( season) 2024 12/30/2022, 12/16/2021, 12/06/2020, [...] patient's age to complete this topic Insurance [employer] MEDICARE Care Teams Electrical Prospecting Engineer Relationship Specialty Start Date End Date Vinnie Molina MD [address] [place] [address] PCP - General 07/13/20
--- OUTSIDE RECORDS SUMMARY | 2024-12-30 10:54 | XMS_ITS | Encounter Summary ---
Author Organization [facility] Address [address] [place] [address] Care Team Providers Care Landscape Technician Name Role Phone Vinnie Molina MD Primary Care Provider + Reason for Visit * Reason Onset Date Comments Med Refill 11/03/2024 BILLING QUESTION 11/03/2024 Encounter Details Date Type Department Care Team (Late st Contact Info) Description 11/03/2024 Refill [facility] [address] [place] [address] Vinnie Molina MD 210 [place] [address] Rheumatoid arthritis involving multiple sites [...] Kay Relationship: Self Best call back number: [phone] Requested Prescriptions: Requested Prescriptions Pending Prescriptions Disp Refills HYDROcodone-acetaminophen ([place]) 7.5-325 MG per tablet 120 tablet 0 Sig: Take 1 tablet by mouth Every 6 (Six) Hours As Needed for Moderate Pain. 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
--- OUTSIDE RECORDS SUMMARY | 2024-12-30 10:54 | XMS_ITS | Encounter Summary ---
Author Organization Healthcare Address [address] [place] [address] Care Team Providers Care Shuttler Car Name Role Phone Vinnie Molina MD Primary Care Provider [phone] Encounter Details Date Type Department Care Team (Late Contact Info) Description 03/27/2020 Orders Only External Location [address] [place] [address] Provider, External Social History Tobacco Use Types [...] Medical Office Building Surgical Specialties [address] [facility], [address] [place] [address] Nacho Jackson MD [address] [address] documented as of this encounter Procedures Procedure [...] on filedocumented in this encounter Care Teams Shuttler Car Relationship Specialty Start Date End Date Vinnie Molina MD [address] [place] [address] PCP - General 07/13/20 documented as of this encounter
--- OUTSIDE RECORDS SUMMARY | 2024-12-30 10:54 | XMS_ITS | Encounter Summary ---
Author Organization Healthcare Address [address] [place] [address] Care Team Providers Care Development Technical Lead Name Role Phone Vinnie Molina MD Primary Care Provider [phone] Encounter Details Date Type Department Care Team (Late Contact Info) Description 05/26/2023 Orders Only External Location [address] [place] [address] Provider, External Social History Tobacco Use Types [...] Medical Office Building Surgical Specialties [address] [facility], [address] [place] [address] Nacho Jackson MD [address] [place] [address] [address] documented as of this encounter Procedures Procedure [...] on filedocumented in this encounter Care Teams Development Technical Lead Relationship Specialty Start Date End Date Vinnie Molina MD [address] [place] [address] PCP - General 07/13/20 documented as of this encounter
--- OUTSIDE RECORDS SUMMARY | 2024-12-30 10:54 | XMS_ITS | Clinical Summary ---
Author Organization [facility] Address [address] [place] [address] Care Team Providers Care Asset Specialist Name Role Phone Vinnie Molina MD [...] Type Department Care Team Description 12/09/2024 Refill [facility] [address] [address] Vinnie Molina MD Stage 3b chronic kidney disease (CKD) 11/03/2024 Refill [facility] [address] [address] Vinnie Molina MD Rheumatoid arthritis involving multiple sites with positive rheumatoid factor 10/03/2024 12:15 PM EDT Office Visit [facility] MED[facility] [address] [address] Vinnie Molina MD 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); Anemia due to stage 4 chronic kidney disease; Anxiety; Activity intolerance associated with anemia 10/03/2024 Travel 09/30/2024 Refill [facility] [address] [phone] Vinnie Molina MD Primary hypertension; Acquired hypothyroidism [...] Description 01/12/2025 10:45 AM EST Office Visit [facility] [address] [place] [address] Vinnie Molina MD [address] [place] [address] Health Maintenance Due Date Last Done [...] Date/Time Associated Diagnosis Comments SCANNED - LABS 12/27/2024 SCANNED - LABS 12/27/2024 SCANNED - LABS 12/15/2024 SCANNED - LABS 11/15/2024 SCANNED - LABS 11/02/2024 SCANNED - LABS 11/02/2024 SCANNED - LABS 11/01/2024 SCANNED - LABS 11/01/2024 SCANNED - LABS 11/01/2024 SCANNED - LABS 10/18/2024 SCANNED - LABS 10/04/2024 SCANNED - LABS 10/04/2024 from Last 3 Months Results * LABS SCANNED (12/27/2024) Only the most recent of12 resultswithin the time period is included. Vinnie Molina MD LAB BLOOD ORDERABLES Fin al Result from Last 3 Months Insurance MEDICARE A & B [facility] [employer] Care Teams Asset Specialist Relationship Specialty Start Date End Date Vinnie Molina MD [address] [place] [address] PCP - General Family Medicine 07/08/21
--- OUTSIDE RECORDS SUMMARY | 2024-12-30 10:54 | XMS_ITS | Encounter Summary ---
Author Organization Healthcare Address [address] [place] [address] Care Team Providers Care Internet Marketing Strategist Name Role Phone Vinnie Molina MD Primary Care Provider [phone] Encounter Details Date Type Department Care Team ([facility] Contact Info) Description 03/30/2016 Orders Only External Location [address] [place] [address] Provider, External Social History Tobacco Use Types [...] Building Surgical Specialties [address] [facility], [address] [place] [address] Nacho Jackson MD [address] [place] [phone] documented as of this encounter Procedures Procedure [...] on filedocumented in this encounter Care Teams Internet Marketing Strategist Relationship Specialty Start Date End Date Vinnie Molina MD [address] [facility] [place] [address] PCP - General 07/13/20 documented as of this encounter
--- OUTSIDE RECORDS SUMMARY | 2024-12-30 10:54 | XMS_ITS | Encounter Summary ---
Author Organization Healthcare Address [address] [place] [address] Care Team Providers Care Cloth Laminating Supervisor Name Role Phone Vinnie Molina MD Primary Care Provider [phone] Encounter Details Date Type Department Care Team ([facility] Contact Info) Description 05/26/2023 Orders Only External Location [address] [place] [address] Vee Betts, DO [address] [place] [address] Social History Tobacco Use Types [...] Upcoming Encounters Date Type Department Care Team ([facility] Contact Info) Description 02/06/2025 9:20 AM EST Office Visit Medical Office Building Surgical Specialties [address] [facility], [address] [place] [address] Nacho Jackson MD [address] [phone] documented as of this encounter Procedures Procedure [...] on filedocumented in this encounter Care Teams Cloth Laminating Supervisor Relationship Specialty Start Date End Date Vinnie Molina MD [address] [facility] [place] [address] PCP - General 07/13/20 documented as of this encounter
--- OUTSIDE RECORDS SUMMARY | 2024-12-30 10:54 | XMS_ITS | Encounter Summary ---
Author Organization Healthcare Address [address] [place] [address] Care Team Providers Care Boulevard Glassware Replacer Name Role Phone Vinnie Molina MD Primary Care Provider [phone] Encounter Details Date Type Department Care Team (Late Contact Info) Description 03/16/2020 Orders Only External Location [address] [place] [address] Provider, External Social History Tobacco Use Types [...] [address] [facility], [address] [place] [address] Nacho Jackson MD [address] [address] documented as of this encounter Procedures Procedure [...] on filedocumented in this encounter Care Teams Boulevard Glassware Replacer Relationship Specialty Start Date End Date Vinnie Molina MD [address] [place] [address] PCP - General 07/13/20 documented as of this encounter
--- OUTSIDE RECORDS SUMMARY | 2024-12-30 10:54 | XMS_ITS | Encounter Summary ---
Author Organization Healthcare Address [address] [place] [address] Care Team Providers Care Web Weaver Name Role Phone Vinnie Molina MD Primary Care Provider [phone] Encounter Details Date Type Department Care Team ([facility] Contact Info) Description 03/30/2016 Orders Only External Location [address] [place] [address] Provider, External Social History Tobacco Use Types [...] Office Building Surgical Specialties [address] [facility], [address] [place] [address] Nacho Jackson MD [address] [place] [phone] documented as of this encounter Procedures Procedure [...] on filedocumented in this encounter Care Teams Web Weaver Relationship Specialty Start Date End Date Vinnie Molina MD 210 [facility] [place] [address] PCP - General 07/13/20 documented as of this encounter
--- OUTSIDE RECORDS SUMMARY | 2024-12-30 10:54 | XMS_ITS | Referral Summary ---
Author Organization [employer] ([place], [place], [place], [place] Address [address] [place] [address] Care Team Providers Care Roll Tester Name Role Phone Unavailable Primary Care [...] Date Norman rded Speak language other than Gambian at home Not on file 03/20/2023 Want [...] Plan of Treatment Not on file [place] [address] [place] [id number] MEDICARE PART A B
--- OUTSIDE RECORDS SUMMARY | 2024-12-30 10:54 | XMS_ITS | Encounter Summary ---
Author Organization Healthcare Address [address] [place] [address] Care Team Providers Care Aegis Operations Specialist Name Role Phone Vinnie Molina MD Primary Care Provider [phone] Encounter Details Date Type Department Care Team ([facility] Contact Info) Description 03/30/2016 Orders Only External Location [address] [place] [address] Provider, External Social History Tobacco Use Types [...] [facility], [address] [place] [address] Nacho Jackson MD [address] [place] [phone] documented as of this encounter Procedures Procedure [...] on filedocumented in this encounter Care Teams Aegis Operations Specialist Relationship Specialty Start Date End Date Vinnie Molina MD [address] [facility] [place] [address] PCP - General 07/13/20 documented as of this encounter
--- OUTSIDE RECORDS SUMMARY | 2024-12-30 10:54 | XMS_ITS | Encounter Summary ---
Author Organization Healthcare Address [address] [place] [address] Care Team Providers Care Bulk Pigment Reducer Name Role Phone Vinnie Molina MD Primary Care Provider [phone] Encounter Details Date Type Department Care Team (Late Contact Info) Description 05/26/2023 Orders Only External Location [address] [place] [address] Provider, External Social History Tobacco Use Types [...] Medical Office Building Surgical Specialties [address] [facility], [address] [place] [address] Nacho Jackson MD [address] [place] [address] [address] documented as of this encounter Procedures Procedure [...] on filedocumented in this encounter Care Teams Bulk Pigment Reducer Relationship Specialty Start Date End Date Vinnie Molina MD [address] [place] [address] PCP - General 07/13/20 documented as of this encounter
--- OUTSIDE RECORDS SUMMARY | 2024-12-30 10:54 | XMS_ITS | Encounter Summary ---
Author Organization Healthcare Address [address] [place] [address] Care Team Providers Care Diet Aide Name Role Phone Vinnie Molina MD Primary Care Provider [phone] Encounter Details Date Type Department Care Team ([facility] Contact Info) Description 05/26/2023 Orders Only External Location [address] [place] [address] Vee Betts, DO [address] [place] [address] Social History Tobacco Use Types [...] Upcoming Encounters Date Type Department Care Team ([facility] Contact Info) Description 02/06/2025 9:20 AM EST Office Visit Medical Office Building Surgical Specialties [address] [facility], [address] [place] [address] Nacho Jackson MD [address] [phone] documented as of this encounter Procedures Procedure [...] on filedocumented in this encounter Care Teams Diet Aide Relationship Specialty Start Date End Date Vinnie Molina MD 210 [facility] [place] [address] PCP - General 07/13/20 documented as of this encounter
--- OUTSIDE RECORDS SUMMARY | 2024-12-30 10:54 | XMS_ITS | Encounter Summary ---
Author Organization Healthcare Address [address] [place] [address] Care Team Providers Care Artillery Specialist Name Role Phone Vinnie Molina MD Primary Care Provider [phone] Encounter Details Date Type Department Care Team (Late Contact Info) Description 08/13/2023 Orders Only External Location [address] [place] [address] Provider, External Social History Tobacco Use Types [...] Medical Office Building Surgical Specialties [address] [facility], [address] [place] [address] Nacho Jackson MD [address] [place] [address] [address] documented as of this encounter Procedures Procedure [...] on filedocumented in this encounter Care Teams Artillery Specialist Relationship Specialty Start Date End Date Vinnie Molina MD [address] [place] [address] PCP - General 07/13/20 documented as of this encounter
--- OUTSIDE RECORDS SUMMARY | 2024-12-30 10:54 | XMS_ITS | Encounter Summary ---
Author Organization Healthcare Address [address] [place] [address] Care Team Providers Care Grey Inspector Name Role Phone Vinnie Molina MD Primary Care Provider [phone] Encounter Details Date Type Department Care Team ([facility] Contact Info) Description 03/30/2016 Orders Only External Location [address] [place] [address] Provider, External Social History Tobacco Use Types [...] Office Building Surgical Specialties [address] [facility], [address] [place] [address] Nacho Jackson MD [address] [place] [phone] documented as of this encounter Procedures Procedure [...] on filedocumented in this encounter Care Teams Grey Inspector Relationship Specialty Start Date End Date Vinnie Molina MD 210 [facility] [place] [address] PCP - General 07/13/20 documented as of this encounter
[2024-12-30 11:06] VITALS: BP 115/54; PULSE 67; RESP 18; TEMP 36.5; O2SAT 98
[2024-12-30] MEDS: ferumoxytoL 510 MG in 0.9 % SODIUM CHLORIDE 50 ML 268 MG IV (11:06)
[2024-12-30] MEDS: SODIUM CHLORIDE 0.9% 10ML FLUSH SYRINGE 10 ML IV (11:12)
[2024-12-30 11:50] VITALS: BP 142/69; PULSE 67; RESP 18; O2SAT 98
== END 2024-12-30 23:59 | disposition home or self-care (01) ==
LOC: INF 10:50
PROVIDERS: PCP Family Medicine; Visit Provider Internal Medicine Nephrology
DX: D50.9 Iron deficiency anemia, unspecified (principal); N18.4 Chronic kidney disease, stage 4 (severe)
CPT/HCPCS: 96365; Q0138

== ENCOUNTER 2025-01-02 10:55 | Outpatient (CLI) | payer MEDICARE, SELFPAY ==
--- OUTSIDE RECORDS SUMMARY | 2025-01-02 11:03 | XMS_ITS | Encounter Summary ---
Author Organization Healthcare Address [address] [place] [address] Care Team Providers Care Temporary Administrative Assistant Name Role Phone Vinnie Molina MD Primary Care Provider [phone] Encounter Details Date Type Department Care Team (Late Contact Info) Description 05/26/2023 Orders Only External Location [address] [place] [address] Provider, External Social History Tobacco Use Types [...] [facility], [address] [place] [address] Nacho Jackson MD [address] [place] [address] [address] documented as of this encounter Procedures Procedure [...] on filedocumented in this encounter Care Teams Temporary Administrative Assistant Relationship Specialty Start Date End Date Vinnie Molina MD [address] [place] [address] PCP - General 07/13/20 documented as of this encounter
--- OUTSIDE RECORDS SUMMARY | 2025-01-02 11:03 | XMS_ITS | Encounter Summary ---
Author Organization Healthcare Address [address] [place] [address] Care Team Providers Care Slitting Machine Operator Helper Name Role Phone Vinnie Molina MD Primary Care Provider [phone] Encounter Details Date Type Department Care Team (Late Contact Info) Description 05/26/2023 Orders Only External Location [address] [place] [address] Vee Betts, DO [address] [place] [address] Social History Tobacco Use Types [...] Encounters Date Type Department Care Team ([facility] Contact Info) Description 02/06/2025 9:20 AM EST Office Visit Medical Office Building Surgical Specialties [address] [facility], [address] [place] [address] Nacho Jackson MD [address] [phone] documented as of this encounter Procedures Procedure [...] on filedocumented in this encounter Care Teams Slitting Machine Operator Helper Relationship Specialty Start Date End Date Vinnie Molina MD 210 [facility] [place] [address] PCP - General 07/13/20 documented as of this encounter
--- OUTSIDE RECORDS SUMMARY | 2025-01-02 11:03 | XMS_ITS | Encounter Summary ---
Author Organization Healthcare Address [address] [place] [address] Care Team Providers Care C Winforms Developer Name Role Phone Vinnie Molina MD Primary Care Provider [phone] Encounter Details Date Type Department Care Team (Late Contact Info) Description 05/26/2023 Orders Only External Location [address] [place] [address] Provider, External Social History Tobacco Use Types [...] Medical Office Building Surgical Specialties [address] [facility], [address] [place] [address] Nacho Jackson MD [address] [place] [address] [address] documented as of this encounter Procedures Procedure [...] on filedocumented in this encounter Care Teams C Winforms Developer Relationship Specialty Start Date End Date Vinnie Molina MD [address] [place] [address] PCP - General 07/13/20 documented as of this encounter
--- OUTSIDE RECORDS SUMMARY | 2025-01-02 11:03 | XMS_ITS | Encounter Summary ---
Author Organization Healthcare Address [address] [place] [address] Care Team Providers Care Supervisor Sign Shop Name Role Phone Vninie Molina MD Primary Care Provider [phone] Encounter Details Date Type Department Care Team (Late Contact Info) Description 08/13/2023 Orders Only External Location [address] [place] [address] Provider, External Social History Tobacco Use Types [...] [facility], [address] [place] [address] Nacho Jackson MD [address] [place] [address] [address] documented as of this encounter Procedures Procedure [...] filedocumented in this encounter Care Teams Supervisor Sign Shop Relationship Specialty Start Date End Date Vinnie Molina MD [address] [place] [address] PCP - General 07/13/20 documented as of this encounter
--- OUTSIDE RECORDS SUMMARY | 2025-01-02 11:03 | XMS_ITS | Encounter Summary ---
Author Organization Healthcare Address [address] [place] [address] Care Team Providers Care Table Filler Name Role Phone Vinnie Molina MD Primary Care Provider [phone] Encounter Details Date Type Department Care Team ([facility] Contact Info) Description 03/30/2016 Orders Only External Location [address] [place] [address] Provider, External Social History Tobacco Use Types [...] Building Surgical Specialties [address] [facility], [address] [place] [address] Nacho Jackson MD [address] [place] [phone] documented as of this encounter Procedures Procedure [...] on filedocumented in this encounter Care Teams Table Filler Relationship Specialty Start Date End Date Vinnie Molina MD [address] [facility] [place] [address] PCP - General 07/13/20 documented as of this encounter
--- OUTSIDE RECORDS SUMMARY | 2025-01-02 11:03 | XMS_ITS | Encounter Summary ---
Author Organization Healthcare Address [address] [place] [address] Care Team Providers Care Cytotechnologist/Histotechnologist Name Role Phone Vinnie Molina MD Primary Care Provider [phone] Encounter Details Date Type Department Care Team (Late Contact Info) Description 10/23/2015 Orders Only External Location [address] [place] [address] Provider, External Social History Tobacco Use Types [...] [address] [facility], [address] [place] [address] Nacho Jackson MD [address] [place] [phone] documented as of this encounter Procedures Procedure [...] on filedocumented in this encounter Care Teams Cytotechnologist/Histotechnologist Relationship Specialty Start Date End Date Vinnie Molina MD [address] [facility] [place] [address] PCP - General 07/13/20 documented as of this encounter
--- OUTSIDE RECORDS SUMMARY | 2025-01-02 11:03 | XMS_ITS | Encounter Summary ---
Author Organization Healthcare Address [address] [place] [address] Care Team Providers Care Pre School Manager Name Role Phone Vinnie Molina MD Primary Care Provider [phone] Encounter Details Date Type Department Care Team (Late Contact Info) Description 03/16/2020 Orders Only External Location [address] [place] [address] Provider, External Social History Tobacco Use Types [...] [address] [facility], [address] [place] [address] Nacho Jackson MD [address] [place] [address] [address] documented as of this encounter Procedures Procedure [...] on filedocumented in this encounter Care Teams Pre School Manager Relationship Specialty Start Date End Date Vinnie Molina MD [address] [place] [address] PCP - General 07/13/20 documented as of this encounter
--- OUTSIDE RECORDS SUMMARY | 2025-01-02 11:03 | XMS_ITS | Encounter Summary ---
Author Organization Healthcare Address [address] [place] [address] Care Team Providers Care Travel Ticketing Reviewer Name Role Phone Vinnie Molina MD Primary Care Provider [phone] Encounter Details Date Type Department Care Team ([facility] Contact Info) Description 03/30/2016 Orders Only External Location [address] [place] [address] Provider, External Social History Tobacco Use Types [...] Medical Office Building Surgical Specialties [address] [facility], [address] [place] [address] Nacho Jackson MD [address] [place] [phone] documented as of this encounter Procedures Procedure [...] on filedocumented in this encounter Care Teams Travel Ticketing Reviewer Relationship Specialty Start Date End Date Vinnie Molina MD [address] [facility] [place] [address] PCP - General 07/13/20 documented as of this encounter
--- OUTSIDE RECORDS SUMMARY | 2025-01-02 11:03 | XMS_ITS | Encounter Summary ---
Author Organization Healthcare Address [address] [place] [address] Care Team Providers Care Fitter Tacker Name Role Phone Vinnie Molina MD Primary Care Provider [phone] Encounter Details Date Type Department Care Team ([facility] Contact Info) Description 03/30/2016 Orders Only External Location [address] [place] [address] Provider, External Social History Tobacco Use Types [...] [facility], [address] [place] [address] Nacho Jackson MD [address] [place] [phone] documented as of this encounter Procedures Procedure [...] on filedocumented in this encounter Care Teams Fitter Tacker Relationship Specialty Start Date End Date Vinnie Molina MD 210 [facility] [place] [address] PCP - General 07/13/20 documented as of this encounter
--- OUTSIDE RECORDS SUMMARY | 2025-01-02 11:03 | XMS_ITS | Encounter Summary ---
Author Organization Healthcare Address [address] [place] [address] Care Team Providers Care Web Producer Name Role Phone Vinnie Molina MD Primary Care Provider [phone] Encounter Details Date Type Department Care Team (Late Contact Info) Description 05/26/2023 Orders Only External Location [address] [place] [address] Provider, External Social History Tobacco Use Types [...] Medical Office Building Surgical Specialties [address] [facility], [address] [place] [address] Nacho Jackson MD [address] [place] [address] [address] documented as of this encounter Procedures Procedure [...] filedocumented in this encounter Care Teams Web Producer Relationship Specialty Start Date End Date Vinnie Molina MD [address] [place] [address] PCP - General 07/13/20 documented as of this encounter
--- OUTSIDE RECORDS SUMMARY | 2025-01-02 11:03 | XMS_ITS | Encounter Summary ---
Author Organization Healthcare Address [address] [place] [address] Care Team Providers Care Curbing Stonecutter Name Role Phone Vinnie Molina MD Primary Care Provider Encounter Details Date Type Department Care Team (Late Contact Info) Description 05/26/2023 Orders Only External Location [address] [place] [address] Vee Betts, DO [address] [place] [address] Social History Tobacco Use Types [...] Care Team ([facility] Contact Info) Description 02/06/2025 9:20 AM EST Office Visit Medical Office Building Surgical Specialties [address] [facility], [address] [place] [address] Nacho Jackson MD [address] [phone] documented as of this encounter Procedures Procedure [...] on filedocumented in this encounter Care Teams Curbing Stonecutter Relationship Specialty Start Date End Date Vinnie Molina MD 210 [facility] [place] [address] PCP - General 07/13/20 documented as of this encounter
--- OUTSIDE RECORDS SUMMARY | 2025-01-02 11:03 | XMS_ITS | Encounter Summary ---
Author Organization Healthcare Address [address] [place] [address] Care Team Providers Care Metal Window Frame Maker Name Role Phone Vinnie Molina MD Primary Care Provider [phone] Encounter Details Date Type Department Care Team (Late Contact Info) Description 03/27/2020 Orders Only External Location [address] [place] [address] Provider, External Social History Tobacco Use Types [...] [facility], [address] [place] [address] Nacho Jackson MD [address] [place] [address] [phone] documented as of this encounter Procedures Procedure [...] filedocumented in this encounter Care Teams Metal Window Frame Maker Relationship Specialty Start Date End Date Vinnie Molina MD [address] [place] [address] PCP - General 07/13/20 documented as of this encounter
--- OUTSIDE RECORDS SUMMARY | 2025-01-02 11:03 | XMS_ITS | Encounter Summary ---
Author Organization Healthcare Address [address] [place] [address] Care Team Providers Care Legal Arbitrator Name Role Phone Vinnie Molina MD Primary Care Provider Encounter Details Date Type Department Care Team ([facility] Contact Info) Description 03/30/2016 Orders Only External Location [address] [place] [address] Provider, External Social History Tobacco Use Types [...] [facility], [address] [place] [address] Nacho Jackson MD [address] [place] [phone] documented as of this encounter Procedures Procedure [...] filedocumented in this encounter Care Teams Legal Arbitrator Relationship Specialty Start Date End Date Vinnie Molina MD 210 [facility] [place] [address] PCP - General 07/13/20 documented as of this encounter
--- OUTSIDE RECORDS SUMMARY | 2025-01-02 11:03 | XMS_ITS | Encounter Summary ---
Author Organization Healthcare Address [address] [place] [address] Care Team Providers Care Hammer Mill Operator Name Role Phone Vinnie Molina MD Primary Care Provider [phone] Encounter Details Date Type Department Care Team ([facility] Contact Info) Description 03/30/2016 Orders Only External Location [address] [place] [address] Provider, External Social History Tobacco Use Types [...] Medical Office Building Surgical Specialties [address] [facility], [address] [place] [address] Nacho Jackson MD [address] [place] [phone] documented as of this encounter Procedures Procedure [...] on filedocumented in this encounter Care Teams Hammer Mill Operator Relationship Specialty Start Date End Date Vinnie Molina MD [address] [facility] [place] [address] PCP - General 07/13/20 documented as of this encounter
--- OUTSIDE RECORDS SUMMARY | 2025-01-02 11:03 | XMS_ITS | Encounter Summary ---
Author Organization [facility] Address [address] [place] [address] Care Team Providers Care Rn Medication Name Role Phone Vinnie Molina MD Primary Care Provider + Reason for Visit * Reason Onset Date Comments Med Refill 11/03/2024 BILLING QUESTION 11/03/2024 Encounter Details Date Type Department Care Team (Late st Contact Info) Description 11/03/2024 Refill [facility] [address] [place] [address] Vinnie Molina MD 210 [place] [address] Rheumatoid arthritis involving multiple sites [...] Kay Relationship: Self Best call back number: [phone] Requested Prescriptions: Requested Prescriptions Pending Prescriptions Disp Refills HYDROcodone-acetaminophen (NORCO) 7.5-325 MG per tablet 120 tablet 0 Sig: Take 1 tablet by mouth Every 6 (Six) Hours As Needed for Moderate Pain. Pharmacy where request should be sent: [id number] - [place], [place] - [address] - [phone] [facility] [phone] Last office visit with prescribing clinician: 10/03/2024 [...] [facility] [address] [phone] Vinnie Molina MD [address] [place] [address] documented as of this encounter Visit Diagnoses Diagnosis Rheumatoid arthritis involving multiple sites with positive rheumatoid factor documented in this encounter Additional Health Concerns Assessment Noted Time PHQ-2 Depression Total Score: 4 08/04/19 24 10:13 AM EDT documented as of this encounter Care Teams Rn Medication Relationship Specialty Start Date End Date Vinnie Molina MD [address] [place] [address] PCP - General Family Medicine 07/08/21 documented as of this encounter
--- OUTSIDE RECORDS SUMMARY | 2025-01-02 11:04 | XMS_ITS | Clinical Summary ---
Author Organization [facility] Address [address] [place] [address] Care Team Providers Care Lithopone Mill Worker Name Role Phone Vinnie Molina MD [...] Type Department Care Team Description 12/09/[address] [facility] [address] [address] Vinnie Molina MD Stage 3b chronic kidney disease (CKD) 11/03/[address] [facility] [address] [address] Vinnie Molina MD Rheumatoid arthritis involving multiple sites with positive rheumatoid factor 10/03/2024 12:15 PM EDT Office Visit 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 [address] [place], [place] [address] Vinnie Molina MD [address], [place] [address] Health Maintenance Due Date Last Done [...] Payer (Ef fective 2007-Present) Name:Pauline Kay Member ID:[id number] Relation to Subscriber:Self Name:Pauline Kay Subscriber ID:[id number] Payer ID:[id number] Group ID:Not on file Type:Not on file Address: [id number] [employer] Care Teams Lithopone Mill Worker Relationship Specialty Start Date End Date Vinnie Molina MD [address] [place] [address] [address] [place] [address] PCP - General Family Medicine 07/08/21
--- OUTSIDE RECORDS SUMMARY | 2025-01-02 11:04 | XMS_ITS | Clinical Summary ---
Author Organization [employer] ([place], [place], [place], [place], [place]) Address [address] [place] [address] Care Team Providers Care Vice Admiral Name Role Phone Unavailable Primary Care Provider [...] Date Norman rded Speak language other than Bulgarian at home Not on file 03/20/2023 Want [...]
--- OUTSIDE RECORDS SUMMARY | 2025-01-02 11:04 | XMS_ITS | Encounter Summary ---
[facility] Address [address] [place] [id number] Care Team Providers Care Heat Treat Worker Name Role Phone Vinnie Molina MD Primary Care Provider + Reason for Visit * Reason Comments Med Refill Encounter Details Date Type Department Care Team (Late Contact Info) Description 12/09/2024 Refill [facility] MEDICINE 210 [facility] [place] [address] Vinnie Molina MD 210 [facility] [place] [address] Stage 3b chronic kidney disease [...] Visit [facility] MEDICINE 210 [facility] [place] [address] Vinnie Molina MD [address] [place] [address] documented as of this encounter Visit Diagnoses Diagnosis Stage 3b chronic kidney disease (CKD) documented in this encounter Additional Health Concerns Assessment Noted Time PHQ-2 Depression Total Score: 4 08/04/19 24 10:13 AM EDT documented as of this encounter Care Teams Heat Treat Worker Relationship Specialty Start Date End Date Vinnie Molina MD [address] [place] [address] PCP - General Family Medicine 07/08/21 documented as of this encounter
--- OUTSIDE RECORDS SUMMARY | 2025-01-02 11:04 | XMS_ITS | Referral Summary ---
Author Organization [employer] ([place], [place], [place], [place], [place]) Address [address] [place] [address] Care Team Providers Care District Sales Coordinator Name Role Phone Unavailable Primary Care Provider [...] Date Norman rded Speak language other than Haitian at home Not on file 03/20/2023 Want [...] Plan of Treatment Not on file [place] [id number] MEDICARE PART A B
--- OUTSIDE RECORDS SUMMARY | 2025-01-02 11:04 | XMS_ITS | Clinical Summary ---
Author Organization [facility] Address [address] [place] [address] Care Team Providers Care Barrel Coater Name Role Phone Vinnie Molina MD Primary Care Provider [phone] Allergies No known active allergies Medications amLODIPine [...] (one) time each day. Active HYDROcodone-acet aminophen (Arcata) 7.5-325 MG tablet Take 1 tablet (7.5 [...] [facility], [address] [place] [address] Nacho Jackson MD [address] [place] [phone] Health Maintenance Due Date Last Done Comments [...] 09/26/2021 UKY-Medicare Annual Wellness (AWV) 08/03/2024 08/04/2023 [id number] Vaccine ( season) 2024 12/30/2022, 12/16/2021, 12/06/2020, [...] patient's age to complete this topic Insurance [facility] MEDICARE Care Teams Barrel Coater Relationship Specialty Start Date End Date Vinnie Molina MD [address] [place] [address] PCP - General 07/13/20
[2025-01-02] MEDS: SODIUM CHLORIDE 0.9% 10ML FLUSH SYRINGE 10 ML IV (11:18)
[2025-01-02 11:19] VITALS: BP 130/60; PULSE 56; RESP 16; TEMP 36.6; O2SAT 98
[2025-01-02] MEDS: ferumoxytoL 510 MG in 0.9 % SODIUM CHLORIDE 50 ML 268 MG IV (11:19)
[2025-01-02 11:40] VITALS: BP 139/69; PULSE 54; RESP 16; O2SAT 98
== END 2025-01-02 23:59 | disposition home or self-care (01) ==
LOC: INF 10:56
PROVIDERS: PCP Family Medicine; Visit Provider Internal Medicine Nephrology
DX: N18.4 Chronic kidney disease, stage 4 (severe) (principal); D50.9 Iron deficiency anemia, unspecified
CPT/HCPCS: 96374; Q0138

== ENCOUNTER 2025-01-10 12:52 | Outpatient (CLI) | payer MEDICARE, SELFPAY ==
[2025-01-10 13:24] VITALS: BMI 23.5
--- OUTSIDE RECORDS SUMMARY | 2025-01-10 13:29 | XMS_ITS | Encounter Summary ---
Author Organization Healthcare Address [address] [place] [address] Care Team Providers Care Infectious Diseases Physician Name Role Phone Vinnie Molina MD Primary Care Provider [phone] Encounter Details Date Type Department Care Team (Late Contact Info) Description 05/26/2023 Orders Only External Location [address] [place] [address] Vee Betts, DO [address] [place] [address] Social History Tobacco Use Types [...] Upcoming Encounters Date Type Department Care Team ([facility] Contact Info) Description 02/06/2025 9:20 AM EST Office Visit Medical Office Building Surgical Specialties [address] [facility], [address] [place] [address] Nacho Jacksno MD [address] [phone] documented as of this encounter Procedures Procedure [...] on filedocumented in this encounter Care Teams Infectious Diseases Physician Relationship Specialty Start Date End Date Vinnie Molina MD 210 [facility] [place] [address] PCP - General 07/13/20 documented as of this encounter
--- OUTSIDE RECORDS SUMMARY | 2025-01-10 13:29 | XMS_ITS | Encounter Summary ---
Author Organization Healthcare Address [address] [place] [address] Care Team Providers Care Radiologist Chief Of Breast Imaging Name Role Phone Vinnie Molina MD Primary Care Provider [phone] Encounter Details Date Type Department Care Team (Late Contact Info) Description 05/26/2023 Orders Only External Location [address] [place] [address] Provider, External Social History Tobacco Use Types [...] [address] [facility], [address] [place] [address] Nacho Jackson MD [address] [place] [address] [address] documented as of this encounter Procedures Procedure [...] on filedocumented in this encounter Care Teams Radiologist Chief Of Breast Imaging Relationship Specialty Start Date End Date Vinnie Molina MD [address] [place] [address] PCP - General 07/13/20 documented as of this encounter
--- OUTSIDE RECORDS SUMMARY | 2025-01-10 13:29 | XMS_ITS | Encounter Summary ---
Author Organization Healthcare Address [address] [place] [address] Care Team Providers Care Paper Rewinder Operator Name Role Phone Vinnie Molina MD Primary Care Provider Encounter Details Date Type Department Care Team (Late Contact Info) Description 05/26/2023 Orders Only External Location [address] [place] [address] Provider, External Social History Tobacco Use Types [...] Surgical Specialties [address] [facility], [address] [place] [address] Nacho Jackson MD [address] [place] [address] [phone] documented as of this encounter Procedures Procedure [...] on filedocumented in this encounter Care Teams Paper Rewinder Operator Relationship Specialty Start Date End Date Vinnie Molina MD [address] [place] [address] PCP - General 07/13/20 documented as of this encounter
--- OUTSIDE RECORDS SUMMARY | 2025-01-10 13:29 | XMS_ITS | Encounter Summary ---
Author Organization Healthcare Address [address] [place] [address] Care Team Providers Care Chocolate Coater Name Role Phone Vinnie Molina MD Primary Care Provider Encounter Details Date Type Department Care Team (Late Contact Info) Description 05/26/2023 Orders Only External Location [address] [place] [address] Vee Betts, DO [address] [place] [address] Social History Tobacco Use Types [...] Upcoming Encounters Date Type Department Care Team ([facility] Contact Info) Description 02/06/2025 9:20 AM EST Office Visit Medical Office Building Surgical Specialties [address] [facility], [address] [place] [address] Nacho Jackson MD [address] [phone] documented as of this encounter Procedures Procedure [...] on filedocumented in this encounter Care Teams Chocolate Coater Relationship Specialty Start Date End Date Vinnie Molina MD [address] [facility] [place] [address] PCP - General 07/13/20 documented as of this encounter
--- OUTSIDE RECORDS SUMMARY | 2025-01-10 13:29 | XMS_ITS | Encounter Summary ---
Author Organization Healthcare Address [address] [place] [address] Care Team Providers Care Cfd Engineer Name Role Phone Vinnie Molina MD Primary Care Provider [phone] Encounter Details Date Type Department Care Team (Late Contact Info) Description 05/26/2023 Orders Only External Location [address] [place] [address] Provider, External Social History Tobacco Use Types [...] Medical Office Building Surgical Specialties [address] [facility], [address] [place] [address] Nacho Jackson MD [address] [place] [address] [address] documented as of this encounter Procedures Procedure [...] on filedocumented in this encounter Care Teams Cfd Engineer Relationship Specialty Start Date End Date Vinnie Molina MD [address] [place] [address] PCP - General 07/13/20 documented as of this encounter
--- OUTSIDE RECORDS SUMMARY | 2025-01-10 13:29 | XMS_ITS | Encounter Summary ---
Author Organization Healthcare Address [address] [place] [address] Care Team Providers Care Senior Quantity Surveyor Name Role Phone Vinnie Molina MD Primary Care Provider [phone] Encounter Details Date Type Department Care Team ([facility] Contact Info) Description 03/30/2016 Orders Only External Location [address] [place] [address] Provider, External Social History Tobacco Use Types [...] Medical Office Building Surgical Specialties [address] [facility], [address] [place] [address] Nacho Jackson MD [address] [place] [phone] documented as of this encounter Procedures Procedure [...] Molina MD 210 [facility] [place] [address] PCP - General 07/13/20 documented as of this encounter
--- OUTSIDE RECORDS SUMMARY | 2025-01-10 13:29 | XMS_ITS | Encounter Summary ---
Author Organization Healthcare Address [address] [place] [address] Care Team Providers Care Electrical Designer Name Role Phone Vinnie Molina MD Primary Care Provider [phone] Encounter Details Date Type Department Care Team (Late Contact Info) Description 08/13/2023 Orders Only External Location [address] [place] [address] Provider, External Social History Tobacco Use Types [...] Office Building Surgical Specialties [address] [facility], [address] [place] [address] Nacho Jackson MD [address] [place] [address] [phone] documented as of this encounter Procedures Procedure [...] filedocumented in this encounter Care Teams Electrical Designer Relationship Specialty Start Date End Date Vinnie Molina MD [address] [place] [address] PCP - General 07/13/20 documented as of this encounter
--- OUTSIDE RECORDS SUMMARY | 2025-01-10 13:29 | XMS_ITS | Encounter Summary ---
Author Organization Healthcare Address [address] [place] [address] Care Team Providers Care Captain Fishing Vessel Name Role Phone Vinnie Molina MD Primary Care Provider [phone] Encounter Details Date Type Department Care Team ([facility] Contact Info) Description 03/30/2016 Orders Only External Location [address] [place] [address] Provider, External Social History Tobacco Use Types [...] [address] [facility], [address] [place] [address] Nacho Jackson MD [address] [place] [phone] documented as of this encounter Procedures Procedure [...] on filedocumented in this encounter Care Teams Captain Fishing Vessel Relationship Specialty Start Date End Date Vinnie Molina MD 210 [facility] [place] [address] PCP - General 07/13/20 documented as of this encounter
--- OUTSIDE RECORDS SUMMARY | 2025-01-10 13:29 | XMS_ITS | Encounter Summary ---
Author Organization Healthcare Address [address] [place] [address] Care Team Providers Care Sand Technician Name Role Phone Vinnie Molina MD Primary Care Provider [phone] Encounter Details Date Type Department Care Team ([facility] Contact Info) Description 03/30/2016 Orders Only External Location [address] [place] [address] Provider, External Social History Tobacco Use Types [...] [facility], [address] [place] [address] Nacho Jackson MD [address] [place] [phone] documented as of this encounter Procedures Procedure [...] on filedocumented in this encounter Care Teams Sand Technician Relationship Specialty Start Date End Date Vinnie Molina MD 210 [facility] [place] [address] PCP - General 07/13/20 documented as of this encounter
--- OUTSIDE RECORDS SUMMARY | 2025-01-10 13:29 | XMS_ITS | Encounter Summary ---
Author Organization Healthcare Address [address] [place] [address] Care Team Providers Care Police Academy Instructor Name Role Phone Vinnie Molina MD Primary Care Provider [phone] Encounter Details Date Type Department Care Team (Late Contact Info) Description 03/16/2020 Orders Only External Location [address] [place] [address] Provider, External Social History Tobacco Use Types [...] [facility], [address] [place] [address] Nacho Jackson MD [address] [place] [address] [phone] documented as of this encounter Procedures Procedure [...] on filedocumented in this encounter Care Teams Police Academy Instructor Relationship Specialty Start Date End Date Vinnie Molina MD [address] [place] [address] PCP - General 07/13/20 documented as of this encounter
--- OUTSIDE RECORDS SUMMARY | 2025-01-10 13:30 | XMS_ITS | Encounter Summary ---
Author Organization Healthcare Address [address] [place] [address] Care Team Providers Care Manager Transit Name Role Phone Vinnie Molina MD Primary Care Provider [phone] Encounter Details Date Type Department Care Team (Late Contact Info) Description 10/23/2015 Orders Only External Location [address] [place] [address] Provider, External Social History Tobacco Use Types [...] [address] [facility], [address] [place] [address] Nacho Jackson MD [address] [place] [phone] documented as of this encounter Procedures Procedure [...] filedocumented in this encounter Care Teams Manager Transit Relationship Specialty Start Date End Date Vinnie Molina MD 210 [facility] [place] [address] PCP - General 07/13/20 documented as of this encounter
--- OUTSIDE RECORDS SUMMARY | 2025-01-10 13:30 | XMS_ITS | Clinical Summary ---
Author Organization [employer] ([place], [place], [place], [place], [place]) Address [address] [place] [address] Care Team Providers Care Pipeline Welder Name Role Phone Unavailable Primary Care Provider [...] Date Norman rded Speak language other than Latvian at home Not on file 03/20/2023 Want [...]
--- OUTSIDE RECORDS SUMMARY | 2025-01-10 13:30 | XMS_ITS | Clinical Summary ---
Author Organization [facility] Address [address] [place] [address] Care Team Providers Care Fringe Weaver Name Role Phone Vinnie Molina MD Primary Care Provider [phone] Allergies No known active allergies Medications amLODIPine [...] (one) time each day. Active HYDROcodone-acet aminophen (Spring) 7.5-325 MG tablet Take 1 tablet (7.5 [...] Medical Office Building Surgical Specialties [address] [facility], [address] [place] [address] Nacho Jackson MD [address] [place] [phone] Health Maintenance Due Date Last Done Comments [...] 09/26/2021 UKY-Medicare Annual Wellness (AWV) 08/03/2024 08/04/2023 [id number] Vaccine ( season) 2024 12/30/2022, 12/16/2021, 12/06/2020, [...] patient's age to complete this topic Insurance [facility] MEDICARE Care Teams Fringe Weaver Relationship Specialty Start Date End Date Vinnie Molina MD [address] [place] [address] PCP - General 07/13/20
--- OUTSIDE RECORDS SUMMARY | 2025-01-10 13:30 | XMS_ITS | Encounter Summary ---
Author Organization Healthcare Address [address] [place] [address] Care Team Providers Care Save All Operator Name Role Phone Vinnie Molina MD Primary Care Provider [phone] Encounter Details Date Type Department Care Team ([facility] Contact Info) Description 03/30/2016 Orders Only External Location [address] [place] [address] Provider, External Social History Tobacco Use Types [...] E [facility], [address] [place] [address] Nacho Jackson MD [address] [place] [phone] documented as of this encounter Procedures Procedure [...] on filedocumented in this encounter Care Teams Save All Operator Relationship Specialty Start Date End Date Vinnie Molina MD 210 [facility] [place] [address] PCP - General 07/13/20 documented as of this encounter
--- OUTSIDE RECORDS SUMMARY | 2025-01-10 13:30 | XMS_ITS | Encounter Summary ---
Author Organization Healthcare Address [address] [place] [address] Care Team Providers Care Material Stockkeeper Yard Name Role Phone Vinnie Molina MD Primary Care Provider [phone] Encounter Details Date Type Department Care Team (Late Contact Info) Description 03/27/2020 Orders Only External Location [address] [place] [address] Provider, External Social History Tobacco Use Types [...] E [facility], [address] [place] [address] Nacho Jackson MD [address] [place] [address] [phone] documented as of this encounter Procedures Procedure [...] on filedocumented in this encounter Care Teams Material Stockkeeper Yard Relationship Specialty Start Date End Date Vinnie Molina MD [address] [place] [address] PCP - General 07/13/20 documented as of this encounter
--- OUTSIDE RECORDS SUMMARY | 2025-01-10 13:30 | XMS_ITS | Clinical Summary ---
Author Organization [facility] Address [address] [place] [address] Care Team Providers Care Solid Waste Management Engineer Name Role Phone Vinnie Molina MD Primary Care Provider + Allergies Active Allergy Reactions Criticality Noted Date Comments Adhesive Tape Rash Low 03/22/2020 Codeine Anxiety Low 03/22/2020 Trazodone Delirium Medium 07/08/2021 Medications aspirin 81 MG EC tablet Take 1 tablet by mouth Daily. Active pantoprazole (PROTONIX) 40 MG EC tabletIndications: [...] Moderate Pain. 120 tablet 11/04/19 25 Active allopurinol (ZYLOPRIM) 100 MG tabletIndications: Stage 3b chronic kidney disease (CKD) TAKE 1 TABLET BY MOUTH DAILY 90 tablet 12/10/19 25 Active Hospital, Clinic, or Other Facility [...] Type Department Care Team Description 12/09/2024 Refill [facility] [address] [address] Vinnie Molina MD Stage 3b chronic kidney disease (CKD) 11/03/2024 Refill [facility] [address] [address] Vinnie Molina MD Rheumatoid arthritis involving multiple [...] AM EST Office Visit [facility] [address] [address] Vinnie Molina MD [address] [place] [address] Health Maintenance Due Date Last Done [...] - LABS 11/01/2024 SCANNED - LABS 10/18/2024 from Last 3 Months Results * LABS SCANNED (12/27/2024) Only the most recent of10 resultswithin the time period is included. Vinnie Molina MD LAB BLOOD ORDERABLES Fin al Result from Last 3 Months Insurance MEDICARE A & B Member Subscriber Plan / Payer (Ef fective 2007-Present) Name:Pauline Kay Member ID:[id number] Relation to Subscriber:Self Name:Pauline Kay Subscriber ID:[id number] Payer ID:[id number] Group ID:Not on file Type:Not on file Address: [address] [employer] Care Teams Solid Waste Management Engineer Relationship Specialty Start Date End Date Vinnie Molina MD [address] [place] [address] PCP - General Family Medicine 07/08/21
--- OUTSIDE RECORDS SUMMARY | 2025-01-10 13:30 | XMS_ITS | Encounter Summary ---
[facility] Address [address] [place] [phone] Care Team Providers Care Dialysis Tech Name Role Phone Vinnie Molina MD Primary Care Provider + Reason for Visit * Reason Comments Med Refill Encounter Details Date Type Department Care Team (Late Contact Info) Description 12/09/2024 Refill [facility] MEDICINE 210 [facility] [place] [address] Vinnie Molina MD 210 [facility] [place] [address] Stage 3b chronic kidney disease [...] Description 01/12/2025 10:45 AM EST Office Visit [facility] MEDICINE [address] [facility] [place] [address] Vinnie Molina MD [address] [place] [address] documented as of this encounter Visit Diagnoses Diagnosis Stage 3b chronic kidney disease (CKD) documented in this encounter Additional Health Concerns Assessment Noted Time PHQ-2 Depression Total Score: 4 08/04/19 24 10:13 AM EDT documented as of this encounter Care Teams Dialysis Tech Relationship Specialty Start Date End Date Vinnie Molina MD [address] [place] [address] PCP - General Family Medicine 07/08/21 documented as of this encounter
--- OUTSIDE RECORDS SUMMARY | 2025-01-10 13:30 | XMS_ITS | Encounter Summary ---
Author Organization Healthcare Address [address] [place] [address] Care Team Providers Care Oracle Database Manager Name Role Phone Vinnie Molina MD Primary Care Provider [phone] Encounter Details Date Type Department Care Team ([facility] Contact Info) Description 03/30/2016 Orders Only External Location [address] [place] [address] Provider, External Social History Tobacco Use Types [...] Building Surgical Specialties [address] [facility], [address] [place] [address] Nacho Jackson MD [address] [place] [phone] documented as of this encounter Procedures Procedure [...] on filedocumented in this encounter Care Teams Oracle Database Manager Relationship Specialty Start Date End Date Vinnie Molina MD [address] [facility] [place] [address] PCP - General 07/13/20 documented as of this encounter
--- OUTSIDE RECORDS SUMMARY | 2025-01-10 13:30 | XMS_ITS | Referral Summary ---
Author Organization [employer] ([place], [place], [place], [place], [place]) Address [address] [place] [address] Care Team Providers Care Nurses Director Name Role Phone Unavailable Primary Care [...] Date Norman rded Speak language other than Maldivian at home Not on file 03/20/2023 Want [...] Plan of Treatment Not on file [place] [address] [phone] MEDICARE PART A B
[2025-01-10 13:42] LABS: Hematocrit 29.9 % (37.0-47.0); Hemoglobin 9.2 g/dL (12.2-16.2)
[2025-01-10 13:45] LABS: Creatinine Clearance Estimated 18 mL/min (50-200); Creatinine,Serum 2.40 mg/dl (0.52-1.04); Estimated Glomerular Filt Rate 19 ml/min (>60); GFR (African American) 23 ML/MIN (>60); Potassium 5.1 mmoL/L (3.5-5.1)
[2025-01-10 13:58] VITALS: BP 121/58; PULSE 80; RESP 18; TEMP 36.6; O2SAT 99
[2025-01-10] MEDS: EPOETIN 20,000 UNITS/ML MDV 10000 UNIT SUBCUT (13:58)
[2025-01-10 14:10] VITALS: BP 118/73; PULSE 59; RESP 18; O2SAT 98
== END 2025-01-10 23:59 | disposition home or self-care (01) ==
LOC: INF 13:23
PROVIDERS: PCP Family Medicine; Visit Provider Hospitalist
DX: N18.4 Chronic kidney disease, stage 4 (severe) (principal); D63.1 Anemia in chronic kidney disease
CPT/HCPCS: 36415; 82565; 84132; 85014; 85018; 96372; J0885

== ENCOUNTER 2025-01-24 13:05 | Outpatient (CLI) | payer MEDICARE, SELFPAY ==
[2025-01-24 13:07] VITALS: BMI 23.5
--- NOTE | 2025-01-24 13:28 | PC.NURSE ---
1310-Pt presents for labs and procrit inj. Venipuncture performed using a butterfly access needle x 1 stick to pt's lt ac-blood drawn for labs. Needle withdrawn and site secured with 2x2 gauze and coban. Will await the results of labs to determine if Procrit is needed.
[2025-01-24 13:30] LABS: Potassium 4.7 mmoL/L (3.5-5.1)
[2025-01-24 13:33] LABS: Creatinine Clearance Estimated 18 mL/min (50-200); Creatinine,Serum 2.40 mg/dl (0.52-1.04); Estimated Glomerular Filt Rate 19 ml/min (>60); GFR (African American) 23 ML/MIN (>60); Iron 152 ug/dL (37-170)
[2025-01-24 13:42] LABS: Total Iron Binding Capacity 275 ug/dL (265-497)
[2025-01-24 13:50] LABS: Hematocrit 32.8 % (37.0-47.0); Hemoglobin 10.3 g/dL (12.2-16.2)
[2025-01-24 14:04] VITALS: BP 119/75; PULSE 76; RESP 20; TEMP 36.6; O2SAT 99
[2025-01-24] MEDS: EPOETIN 20,000 UNITS/ML MDV 10000 UNIT SUBCUT (14:04)
[2025-01-24 14:10] LABS: Ferritin 275 ng/ml (11.1-264)
== END 2025-01-24 23:59 | disposition home or self-care (01) ==
LOC: INF 13:06
PROVIDERS: PCP Family Medicine; Visit Provider Hospitalist
DX: N18.4 Chronic kidney disease, stage 4 (severe) (principal)
CPT/HCPCS: 36415; 82565; 82728; 83540; 83550; 84132; 85014; 85018; 96372; J0885

== ENCOUNTER 2025-02-07 12:55 | Outpatient (CLI) | payer MEDICARE, SELFPAY ==
[2025-02-07 13:01] VITALS: BMI 23.5
--- NOTE | 2025-02-07 13:21 | PC.NURSE ---
1308-Pt presents for labs and procrit inj. Venipuncture performed using butterfly access needle x 1 to pt's lt ac x 1 stick-blood drawn for labs. Needle withdrawn and site secured with 2x2 gauze and coban.
[2025-02-07 13:23] LABS: Hematocrit 40.0 % (37.0-47.0); Hemoglobin 12.4 g/dL (12.2-16.2)
[2025-02-07 13:26] LABS: Creatinine Clearance Estimated 20 mL/min (50-200); Creatinine,Serum 2.10 mg/dl (0.52-1.04); Estimated Glomerular Filt Rate 23 ml/min (>60); GFR (African American) 27 ML/MIN (>60); Potassium 5.5 mmoL/L (3.5-5.1)
== END 2025-02-07 23:59 | disposition home or self-care (01) ==
LOC: INF 12:56
PROVIDERS: PCP Family Medicine; Visit Provider Hospitalist
DX: N18.4 Chronic kidney disease, stage 4 (severe) (principal); D63.1 Anemia in chronic kidney disease
CPT/HCPCS: 36415; 82565; 84132; 85014; 85018